=== PATIENT | male | born 1965 | race Caucasian/White ===

== ENCOUNTER 2017-12-20 06:47 | Emergency (ER) | payer MEDICAID, SELFPAY ==
[2017-12-20 06:51] VITALS: BP 126/86; PULSE 118; RESP 23; TEMP 36.7; O2SAT 97; BMI 57.1
[2017-12-20 07:13] LABS: Bacteria 0 SEEN /hpf (None Seen); Mucous, Urine 0 SEEN /hpf (<or=2+); Red Blood Cells-Urine 0 SEEN /hpf (0-5)
[2017-12-20 07:14] LABS: Color, Urine Yellow (Yellow); Glucose, Dipstick 1000 mg/dl (Normal); Ketone-Dipstick Negative (Negative); Leukocyte Esterase-Dipstick 500 /ul (Negative); Nitrite-Dipstick Negative (Negative); Occult Blood-Urine 50 /ul (Negative); Protein-Dipstick 15 mg/dl (Negative); Specific Gravity, Urine 1.015 (1.002-1.030); Urine Bilirubin Dipstick Negative (Negative); Urine Clarity Clear (Clear); Urine Urobilinogen Normal (Normal)
--- NOTE | 2017-12-20 07:18 | ED.VISSUMM ---
- ER Visit Summary Date of Service: 12/20/17 Chief Complaint: Burning with urination and inability to retract foreskin History of Present Illness: The patient is a 52 M for medical problems who presents with urologic symptoms of burning and redness of the foreskin. He states he is unable to retract his foreskin. He states he has had problems for 2 months. He informed his PCP and he claims that she thought this was funny. He denies any fever, chills night sweats. He does not check his blood sugars. He denies history of sexually transmitted disease. He states he has not been sexually active for some time. He denies any GI symptoms. After initial H&P he states he is having trouble breathing and would like an aerosol treatment. Please read written note for complete detail Physical Examination: It is morbidly obese with a BMI of 57. Vital signs are remarkable for a heart rate of 118 the rest rate of 23. Head is atraumatic normocephalic. Pupils are equal round reactive. Extraocular muscles are intact. TMs are pearly white with landmarks noted. Nares patent with no drainage. Posterior pharynx without erythema or exudate. Uvula is midline. There is no dysphonia or dysphasia. Trachea is midline. There is no stridor with auscultation of the neck. Heart is regular without murmur, gallop or rub. Lungs revealed diminished breath sounds which may be secondary to body habitus. There was no wheezing with expiration. Abdomen is soft prominent. exam reveals a phimosis with ulcerative lesions noted and erythema irritation and skin breakdown. Testes are descended bilaterally. There is no testicular out of the penis tenderness. There is no inguinal mass. Unable to retract the foreskin and unable to see the urethra or any part of the glans penis. Lower extremity exam is remarkable for venous stasis dermatitis. Patient is depressed and embarrassed regarding his presentation. Test Results: CBC is normal. BMP is remarkable for glucose of 443 with a normal CO2 and anion gap. UA reveals pyuria without bacteria. There is also evidence of proteinuria and hematuria most likely secondary to his diabetes/renal disease. Emergency Department Course and Treatment: UA was ordered per protocol by nursing staff. Because he does not check his blood sugars a BMP was obtained as well as a CBC. Culture for herpes simplex was obtained and he was treated with acyclovir. Dr. Mario Nolan was notified of patient. He states he would see patient and either do a dilation or slit so that he is able to retract his foreskin. Treatment Plan: Bacitracin ointment to foreskin, acyclovir and cephalexin. Disposition: To be discharged home after blood sugars reassessed. Impression: 1. Hyperglycemia in type II diabetic 2. Phimosis 3. Balanitis 4. Morbid obesity 5. Painful ulcerative lesions for skin question etiology This note was generated with [employer] dictation software. It may contain incorrect words, spelling, and punctuation that were not noted in review of the chart prior to signing ED Disposition - Plan for ED Patient: Disposition: Home or Assisted Living Chief Complaint: Complaint Instructions: ED Phimosis, ED Balanitis, ED Hyperglycemia Diabetic Prescriptions: Acyclovir 800 mg PO 5X/DAY #35 tab Cephalexin [Keflex] 500 mg PO BID #14 cap Referrals: Anthony Marks DO [STAFF PHYSICIAN] - 1-2 Weeks Gerson Heaton MD [STAFF PHYSICIAN] - 1 Week Additional Instructions: Applied bacitracin ointment 3 times a day to your foreskin. Call Dr. Mario Solis's office on Friday to be seen in the week to schedule surgery You were referred to Dr. Anthony Marks to follow-up with for your diabetes and other medical problems Your prescriptions were electronically transmitted to [facility] pharmacy; the pharmacy you designated as your pharmacy of choice
[2017-12-20 07:20] LABS: Squamous Epithelial Cells - UA 0-5 SEEN /hpf (0-5); White Blood Cells 50-100 SEEN /hpf (0-5)
[2017-12-20] MEDS: Ipratropium/Albuterol Sulfate 3 ML AMPUL.NEB INHALATION (07:26)
[2017-12-20] MEDS: Albuterol 2.5 MG/3 ML VIAL.NEB. INHALATION (07:26)
[2017-12-20 07:27] VITALS: PULSE 111; RESP 18
[2017-12-20 07:29] LABS: Absolute Lymphocyte Count 1.37 X10^3/ul (0.83-4.51); Absolute Neutrophil Count 3.1 X10^3/uL (2.0-7.7); Basophil# 0.01 X10^3/uL; Basophil% 0.2 % (0-1); Eosinophil# 0.08 X10^3/uL; Eosinophils% 1.4 % (0-5); Hematocrit 46.7 % (40-54); Hemoglobin 15.6 g/dl (13.0-16.5); Lymphocyte # 1.37 X10^3/ul (4.0); Lymphocyte % 24.8 % (19-41); Mean Corp Hgb Conc 33.4 g/gl (32-36); Mean Corpuscular Hgb 29.9 pg (27.0-32.0); Mean Corpuscular Volume 89.6 fL (80-94); Mean Platelet Vol. 11.2 fl (6.2-12.0); Monocyte# 0.98 X10^3/uL; Monocyte% 17.8 % (0-10); Neutrophil # 3.06 X10^3/uL (2.7-7.7); Neutrophil % 55.4 % (47-70); Platelet Count 174 K/mm3 (150-450); RBC Distribution Width CV 13.7 % (11.6-14.6); RBC Distribution Width SD 45.3 fl (35.1-43.9); Red Blood Count 5.21 M/mm3 (4.6-6.2); White Blood Count 5.5 K/mm3 (4.4-11.0)
[2017-12-20 07:30] LABS: POSITIVE COUNT NO; POSITIVE DIFFERENTIAL NO; POSITIVE MORPHOLOGY NO
[2017-12-20 07:40] LABS: Anion Gap 7 (5-15); BUN 12 mg/dL (7-18); BUN/Creat Ratio 14.7 RATIO (10-20); Calcium,Total 8.6 mg/dL (8.5-10.1); Chloride 99 mmol/L (98-107); Creatinine, Serum 0.82 mg/dL (0.70-1.30); EST Glomerular Filtration Rate 106 mL/min (>60); Est Glom Filt Rate - Afr Amer 128 mL/min (>60); Estimated Creatinine Clearance 111.28 ml/min; Glucose 443 mg/dL (74-106); Potassium 4.4 mmol/L (3.5-5.1); Sodium Level 136 mmol/L (136-145)
--- NOTE | 2017-12-20 07:42 | PCM.CONS.U ---
Problem List (1) Phimosis Status: Acute Reason for Consult Date of Consultation: 12/20/17 Reason for Consultation: phimosis History of Present Illness: The patient is a 52 year old male with phimosis, has sever burning with urination but is able to void. cant retract foreskin for the last 6 months. no fever or chills, he is a diabetic, obese male. Past Medical History Past Medical History (Chronic Problems): Chronic Problems Morbid obesity with BMI of 60.0-69.9, adult (Chronic) Morbid obesity due to excess calories (Chronic) Tobacco use (Chronic) Depression (Chronic) GERD (gastroesophageal reflux disease) (Chronic) HTN (hypertension) (Chronic) Diabetes mellitus, type II (Chronic) Allergies hydrocodone bitartrate [From Antoine] Allergy (Mild, Verified 12/20/17 06:55) Hives acetaminophen [From Antoine] Allergy (Verified 12/20/17 06:55) Hives ibuprofen Allergy (Verified 12/20/17 06:55) Swelling vancomycin Allergy (Verified 12/20/17 06:55) Itching metformin Adverse Reaction (Verified 12/20/17 06:55) Upset Stomach Home Medications: Ambulatory Orders Medication Instructions Recorded Bupropion HCl [Bupropion HCl Sr] 100 mg PO BID 04/14/17 Cholecalciferol (Vitamin D3) 50,000 unit PO FR 04/14/17 [Vitamin D3] Fluticasone/Vilanterol [Breo 1 puff IH DAILY 04/14/17 Ellipta 200-25 Mcg INH] Lisinopril [Zestril] 20 mg PO DAILY 04/14/17 Omeprazole [Prilosec] 20 mg PO DAILY 04/14/17 Fluconazole 150 mg PO DAILY 07/20/17 Liraglutide [Victoza] 0.6 - 1.2 mg IN DAILY 07/20/17 Albuterol Aerosols [Ventolin 2.5 mg INHALATION 4X/DAY #1 07/22/17 Aerosols] Cephalexin [Keflex] 500 mg PO TID #24 capsule 07/22/17 Glimepiride [Amaryl] 8 mg PO DAILY #60 tablet 07/22/17 Oxycodone [Oxyir] 5 mg PO Q4H PRN PRN #20 tablet 07/22/17 Surgical History: noncontributory, - - Foot surgery. Psychiatric History: Depression Smoking Status: Current every day smoker - *Family History Maternal History Items: No pertinent history Paternal History Items: No pertinent history Review of Systems Constitutional: Denies: Chills, Fever HEENT: Denies: Head Aches, Sinus Congestion, Sinus Drainage Cardiovascular: Denies: Chest Pain, Palpitations Respiratory: Denies: Cough, Shortness of breath at rest, Sputum production Gastrointestinal: Denies: Abdominal Pain, Nausea, Vomiting Genitourinary: Reports: Dysuria, Frequency Musculoskeletal: Denies: Joint Pain, Joint Tenderness Skin: Denies: Rash, Wounds Neurological: Denies: Numbness, Tingling, Focal weakness Psychiatric: Denies: Anxiety, Depression, Homicidal Ideations, Suicidal Ideations Hematologic/ Lymphatic: Denies: Easy Bruising, Easy Bleeding Physical Exam - Physical Exam Vital Signs Temp 98.1 F 12/20/17 06:51 Pulse 111 H 12/20/17 07:27 Resp 18 12/20/17 07:27 BP 126/86 H 12/20/17 06:51 Pulse Ox 97 12/20/17 06:51 Intake & Output 12/18/17 12/19/17 12/20/17 23:59 23:59 23:59 Weight: 180.6 kg General: Alert, Oriented x3 Neck: Supple Lungs: Normal air movement Abdomen: Obese Rectal: Exam deferred Testicle: Right Normal, Left Normal Scrotum: No lesions, No warts Penis: Phimosis, Discharge, - - has balanitis inflammation and phimosis of foreskin Neurological: Cranial nerves II-XII grossly intact Psych/Mental Status: Normal Affect Laboratory Tests Past 24 Hrs 12/20/17 12/20/17 12/20/17 07:00 07:17 07:17 WBC 5.5 RBC 5.21 Hgb 15.6 Hct 46.7 MCV 89.6 MCH 29.9 MCHC 33.4 RDW 13.7 RDW Differential 45.3 H Plt Count 174 MPV 11.2 Immature Gran % (Auto) 0.400 Neut % (Auto) 55.4 Lymph % (Auto) 24.8 [place] % (Auto) 17.8 H Eos % (Auto) 1.4 Baso % (Auto) 0.2 Absolute Neuts (auto) 3.1 Absolute Lymphs (auto) 1.37 Total Counted Not Reportable Sodium 136 Potassium 4.4 Chloride 99 Carbon Dioxide 30.0 Anion Gap 7 BUN 12 Creatinine 0.82 Estim Creat Clear Calc 111.28 Est GFR (MDRD) Af Amer 128 Est GFR (MDRD) Non-Af 106 BUN/Creatinine Ratio 14.7 Glucose 443 H Calcium 8.6 Urine Color Yellow Urine Clarity Clear Urine pH 6.0 Ur Specific [place] 1.015 Urine Protein 15 H Urine Glucose (UA) 1000 H Urine Ketones Negative Urine Occult Blood 50 H Urine Nitrite Negative Urine Bilirubin Negative Urine Urobilinogen Normal Ur Leukocyte Esterase 500 H Urine RBC 0 SEEN Urine WBC 50-100 SEEN Ur Squamous Epith Cells 0-5 SEEN Urine Bacteria 0 SEEN Urine Mucus 0 SEEN Assessment/Plan Active and Suspected Problems Phimosis (Acute) 52 yo male with phimosis, obesitiy, diabetic with balanitis possible HSV of foreskin, home with acyclovir, topical bacitracin, OTZ Azo may help. Keflex. Can follow up for a circumcision at a later date.
[2017-12-20] MEDS: Acyclovir 800 MG Tablet PO (07:43)
[2017-12-20] MEDS: Ondansetron 4 MG/2 ML Vial IV (07:43)
[2017-12-20] MEDS: Cephalexin 500 MG Capsule PO (07:52)
--- NOTE | 2017-12-20 09:00 | ED.VISSUMM ---
- ER Visit Summary Date of Service: 12/20/17 Chief Complaint: [] History of Present Illness: The patient is a 52 M [] Physical Examination: [] Test Results: [] Emergency Department Course and Treatment: [] Treatment Plan: [] Disposition: [] Impression: [] This note was generated with [employer] dictation software. It may contain incorrect words, spelling, and punctuation that were not noted in review of the chart prior to signing ED Disposition - Plan for ED Patient: Disposition: Home or Assisted Living Chief Complaint: Complaint Instructions: ED Balanitis, ED Hyperglycemia Diabetic, ED Phimosis Prescriptions: TraMADol [Ultram] 50 mg PO Q4H PRN PRN #10 tablet PRN Reason: Pain Acyclovir 800 mg PO 5X/DAY #35 tab Cephalexin [Keflex] 500 mg PO BID #14 cap Referrals: Gerson Heaton MD [STAFF PHYSICIAN] - 1 Week Anthony Marks DO [STAFF PHYSICIAN] - 1-2 Weeks Additional Instructions: Applied bacitracin ointment 3 times a day to your foreskin. Call Dr. Mario Solis's office on Friday to be seen in the week to schedule surgery You were referred to Dr. Anthony Marks to follow-up with for your diabetes and other medical problems Your prescriptions were electronically transmitted to [facility] pharmacy; the pharmacy you designated as your pharmacy of choice
[2017-12-20 09:01] VITALS: BP 129/87; PULSE 91; RESP 20; O2SAT 98
--- NOTE | 2017-12-20 09:01 | ED.RN ---
THIS NURSE REVIEWED D/C INSTRUCTIONS WITH PT. PT VERBALIZED UNDERSTANDING OF INSTRUCTIONS. IV D/C. IV CATHETER INTACT. PT TOLERATED WELL. PT DENIES FURTHER NEEDS OR QUESTIONS AT THIS TIME. PT SITTING IN ROOM WAITING FOR RIDE
--- NOTE | 2017-12-20 09:05 | ED.DCSUM_ITS ---
- ER Visit Summary Date of Service: 12/20/17 Chief Complaint: [] History of Present Illness: The patient is a 52 M [] Physical Examination: [] Test Results: [] Emergency Department Course and Treatment: [] Treatment Plan: [] Disposition: [] Impression: [] This note was generated with [employer] dictation software. It may contain incorrect words, spelling, and punctuation that were not noted in review of the chart prior to signing ED Disposition - Plan for ED Patient: Disposition: Home or Assisted Living Chief Complaint: Complaint Instructions: ED Balanitis, ED Hyperglycemia Diabetic, ED Phimosis Prescriptions: TraMADol [Ultram] 50 mg PO Q4H PRN PRN #10 tablet PRN Reason: Pain Acyclovir 800 mg PO 5X/DAY #35 tab Cephalexin [Keflex] 500 mg PO BID #14 cap Referrals: Gerson Heaton MD [STAFF PHYSICIAN] - 1 Week Anthony Marks DO [STAFF PHYSICIAN] - 1-2 Weeks Additional Instructions: Applied bacitracin ointment 3 times a day to your foreskin. Call Dr. Mario Solis's office on Friday to be seen in the week to schedule surgery You were referred to Dr. Anthony Marks to follow-up with for your diabetes and other medical problems Your prescriptions were electronically transmitted to [facility] pharmacy; the pharmacy you designated as your pharmacy of choice
== END 2017-12-20 09:08 | disposition home or self-care (01) ==
PROVIDERS: Emergency Provider Emergency Medicine; Family Provider Student in an Organized Health Care Education/Training Program; PCP Student in an Organized Health Care Education/Training Program
DX: N47.1 Phimosis (principal); N48.1 Balanitis; A60.01 Herpesviral infection of penis; L98.491 Non-pressure chronic ulcer of skin of other sites limited to breakdown of skin; E66.01 Morbid (severe) obesity due to excess calories; E11.65 Type 2 diabetes mellitus with hyperglycemia; J44.9 Chronic obstructive pulmonary disease, unspecified; F32.9 Major depressive disorder, single episode, unspecified; K21.9 Gastro-esophageal reflux disease without esophagitis; I10 Essential (primary) hypertension; F17.200 Nicotine dependence, unspecified, uncomplicated; Z68.43 Body mass index [BMI] 50.0-59.9, adult; Z79.51 Long term (current) use of inhaled steroids; Z79.891 Long term (current) use of opiate analgesic; Z79.899 Other long term (current) drug therapy
CPT/HCPCS: 80048; 81001; 85025; 87255; 94640; 96374; 96375; 99284; A4216; J2405

== ENCOUNTER 2018-01-01 18:41 | Emergency (ER) | payer MEDICAID, SELFPAY ==
[2018-01-01 18:41] VITALS: BP 167/76; PULSE 102; RESP 20; TEMP 36.6; O2SAT 94; BMI 56.2
--- NOTE | 2018-01-01 19:35 | ED.DCSUM_ITS ---
- ER Visit Summary Date of Service: 01/01/18 Chief Complaint: Back pain History of Present Illness: The patient is a 52 M who presents with back pain. He has a history of chronic back pain. He states that he does not want to beat around the leggett and he does not want to bullshit us. He states that the only thing that works when his pain is the severe is a shot and he just wants to get a shot go home. It is that his pain is exactly the same in character and location to his prior pain but has been more severe over the past 3 days and particularly today. He states he does not know if his legs are weak or if it is just because of pain. He does complain of pain radiating into the legs and into the testicles which he states he has always had before as well. He complains of lower abdominal pain but states that this was because of the trauma and is also chronic and unchanged. He denies any fevers nausea or vomiting. Denies any chest pain or shortness of breath. Physical Examination: Heart rate 102 pressure 167/76 respiratory rate 20 pulse ox 94% on room air Moist mucous membranes Neck supple Heart regular rhythm tachycardia Lungs are clear Abdomen soft nontender Brisk capillary refill Sensation intact light touch Normal strength of the lower extremities with 5 out of 5 dorsiflexion, plantarflexion, extensor hallucis longus, knee flexion, knee extension Bilateral lumbar paraspinal tenderness Morbidly obese Test Results: Not indicated Emergency Department Course and Treatment: Presents with acute on chronic back pain. He is adamant that this is exactly the same in terms of type of pain and location as well as characteristics. He states that he just wants a shot. Patient given intramuscular morphine. Advised to follow-up with his primary care physician. He was instructed on specific signs and symptoms to monitor for and conditions under which to return to the emergency department. Treatment Plan: [] Disposition: Discharge Impression: Acute on chronic lower back pain This note was generated with [employer] dictation software. It may contain incorrect words, spelling, and punctuation that were not noted in review of the chart prior to signing ED Disposition - Plan for ED Patient: Chief Complaint: Back Referrals: Sukhjinder Reynolds DO [Primary Care Provider] -
--- NOTE | 2018-01-01 19:35 | ED.DEP ---
ED Disposition - Plan for ED Patient: Chief Complaint: Back Instructions: ED Sciatica Referrals: Sukhjinder Reynolds DO [Primary Care Provider] -
[2018-01-01] MEDS: Ondansetron ODT 4 MG Tablet PO (19:44)
[2018-01-01 20:10] VITALS: BP 148/111; PULSE 91; RESP 18; O2SAT 95
== END 2018-01-01 20:13 | disposition home or self-care (01) ==
LOC: ED 19:36
PROVIDERS: Emergency Provider Emergency Medicine; Family Provider Student in an Organized Health Care Education/Training Program; PCP Student in an Organized Health Care Education/Training Program
DX: M54.5 Low back pain (principal); G89.29 Other chronic pain; E66.9 Obesity, unspecified; K21.9 Gastro-esophageal reflux disease without esophagitis; E11.9 Type 2 diabetes mellitus without complications; I10 Essential (primary) hypertension; Z72.0 Tobacco use; Z79.84 Long term (current) use of oral hypoglycemic drugs; Z79.51 Long term (current) use of inhaled steroids; Z79.899 Other long term (current) drug therapy
CPT/HCPCS: 96372; 99283

== ENCOUNTER → 2018-01-21 11:37 | Outpatient (CLI) | payer MEDICAID, SELFPAY ==
--- NOTE | 2018-01-21 11:39 | RAD_ITS ---
STUDY: X-RAY - LUMBAR SPINE REASON FOR EXAM: Male, 52 years old. Chronic back pain TECHNIQUE: 2 view(s) of the lumbar spine were obtained. COMPARISON: None FINDINGS: There is normal alignment and curvature of the lumbosacral spine with narrowing of the L4-5 disc space. There is a spur from the anterior superior corner of L4. No fracture. RAD/Lumbar Spine 2 or 3 Views IMPRESSION: Disc disease at L4-5 The anterior superior corner of L4. No fracture Electronically Signed: Jefe Paz, at 5:28 EDT Tel , Service support ,
== END ==
PROVIDERS: Family Provider Student in an Organized Health Care Education/Training Program; PCP Student in an Organized Health Care Education/Training Program; Visit Provider Anesthesiology Pain Medicine
DX: M54.5 Low back pain (principal)
CPT/HCPCS: 72100

== ENCOUNTER → 2018-03-16 15:41 | Outpatient (CLI) | payer MEDICAID, SELFPAY ==
--- NOTE | 2018-03-16 15:46 | MRI_ITS ---
STUDY: MRI LUMBAR SPINE WITHOUT CONTRAST REASON FOR EXAM: Male, 52 years old. Back pain with bilateral leg pain. TECHNIQUE: Standardized fat and water weighted pulse sequences were obtained in the sagittal and axial planes. COMPARISON: None FINDINGS: T12-L1: Normal endplates. Normal disc height, hydration and morphology. Normal bilateral facet joints. Normal central canal and bilateral lateral recesses. Normal bilateral intervertebral neural foramina. Normal lumbar lordosis. There is no substantial scoliosis. Normal conus medullaris that terminates at the L1-2: Normal endplates. Normal disc height, hydration and morphology. Normal bilateral facet joints. Normal central canal and bilateral lateral recesses. Normal bilateral intervertebral neural foramina. L2-3: Mild disc desiccation with no significant spinal canal narrowing or foraminal narrowing. L3-4: Mild decreased disc space and disc desiccation with minimal circumferential disc bulge with no significant spinal canal narrowing or foraminal narrowing. L4-5: Decreased disc space and broad-based disc protrusion with compounding mild facet arthropathy resulting in moderate to severe lateral recess narrowing and moderate bilateral foraminal narrowing. There is moderate spinal canal narrowing and crowding of the cauda equina at this level. L5-S1: Normal endplates. Normal disc height, hydration and morphology. Normal bilateral facet joints. Normal central canal and bilateral lateral recesses. Normal bilateral intervertebral neural foramina. Normal visualized sacral ala. Normal visualized paraspinous soft tissue structures. MRI/Spine Lumbar (Routine) IMPRESSION: 1. Predominant degenerative disc changes and broad-based disc protrusion at L4/5 resulting in moderate spinal canal narrowing, moderate to severe lateral recess narrowing and a moderate bilateral foraminal narrowing, clinically correlate for exiting L4 and descending L5 nerve root radiculopathy. Electronically Signed: John Paul Wynn DO at 22:15 EDT , Service support ,
== END ==
PROVIDERS: Family Provider Student in an Organized Health Care Education/Training Program; PCP Internal Medicine; Visit Provider Anesthesiology Pain Medicine
DX: M54.9 Dorsalgia, unspecified (principal); M79.606 Pain in leg, unspecified
CPT/HCPCS: 72148

== ENCOUNTER → 2018-05-08 09:58 | Outpatient (CLI) | payer MEDICAID, SELFPAY ==
--- NOTE | 2018-05-08 10:00 | NM_ITS ---
CLINICAL: 52-year-old male with reported history of abdominal pain and bloating. SEMI-SOLID PHASE 99m Tc SULFUR COLLOID GASTRIC EMPTYING STUDY COMPARISON: None available FINDINGS: The patient was administered 1.1 mCi of 99m Tc sulfur colloid mixed with oatmeal and consumed per os. Image acquisitions in the anterior-posterior projections for a total of 60 minutes. There is prompt visualization of the stomach. There is no gastroesophageal reflux identified. First order kinetics are defined throughout the duration of the acquisitions. The T1/2 linear fit was calculated to be 94.62 minutes, (Normal: 12-56 minutes). NM/Gastric Emptying Study IMPRESSION: 1. ABNORMAL 99m Tc sulfur colloid semi-solid phase (oatmeal) gastric emptying imaging examination. A. There is delayed semi-solid phase gastric emptying compared to normal controls. (Palmira et al, J Nucl Med Tech 38: 186, 2010). Electronically Signed: Enrique Jamison DO at 8:03 EDT Tel , Service support ,
== END ==
PROVIDERS: Family Provider Student in an Organized Health Care Education/Training Program; PCP Student in an Organized Health Care Education/Training Program; Visit Provider Internal Medicine
DX: E11.9 Type 2 diabetes mellitus without complications (principal)
CPT/HCPCS: 78264; A9541

== ENCOUNTER → 2018-05-26 12:45 | Outpatient (CLI) | payer MEDICAID, SELFPAY ==
[2018-05-26 13:25] LABS: Absolute Lymphocyte Count 2.72 X10^3/ul (0.83-4.51); Absolute Neutrophil Count 3.5 X10^3/uL (2.0-7.7); Basophil# 0.03 X10^3/uL; Basophil% 0.4 % (0-1); Eosinophil# 0.08 X10^3/uL; Eosinophils% 1.1 % (0-5); Hematocrit 50.2 % (40-54); Hemoglobin 17.2 g/dl (13.0-16.5); Lymphocyte # 2.72 X10^3/ul (4.0); Lymphocyte % 37.5 % (19-41); Mean Corp Hgb Conc 34.3 g/gl (32-36); Mean Corpuscular Hgb 29.9 pg (27.0-32.0); Mean Corpuscular Volume 87.2 fL (80-94); Mean Platelet Vol. 11.8 fl (6.2-12.0); Monocyte# 0.92 X10^3/uL; Monocyte% 12.7 % (0-10); Neutrophil # 3.48 X10^3/uL (2.7-7.7); Neutrophil % 47.9 % (47-70); POSITIVE COUNT NO; POSITIVE DIFFERENTIAL NO; POSITIVE MORPHOLOGY NO; Platelet Count 217 K/mm3 (150-450); RBC Distribution Width CV 13.6 % (11.6-14.6); RBC Distribution Width SD 43.3 fl (35.1-43.9); Red Blood Count 5.76 M/mm3 (4.6-6.2); White Blood Count 7.3 K/mm3 (4.4-11.0)
[2018-05-26 13:47] LABS: Hemoglobin A1c 10.6 % (4.2-6.3)
[2018-05-26 13:48] LABS: Microalbumin,Random Urine 21.4 mg/L (NO RANGE EST.); Microalbumin:Creatinine Ratio 14.5 mg/g CRE (<30 mg/g CRE)
[2018-05-26 14:32] LABS: ALB/GLOB Ratio 0.9 RATIO (0.9-2.4); AST(SGOT) 23 U/L (15-37); Alanine Aminotransfer ALT/SGPT 52 U/L (16-61); Albumin, Serum 3.6 g/dL (3.2-5.0); Alkaline Phosphatase 180 U/L (45-117); Anion Gap 7 (5-15); BUN 13 mg/dL (7-18); BUN/Creat Ratio 16.6 RATIO (10-20); Calcium,Total 8.3 mg/dL (8.5-10.1); Chloride 99 mmol/L (98-107); Cholesterol 173 mg/dL (200); Creatinine, Serum 0.78 mg/dL (0.70-1.30); EST Glomerular Filtration Rate 111 mL/min (>60); Est Glom Filt Rate - Afr Amer 135 mL/min (>60); Glucose 262 mg/dL (74-106); High Density Lipoprotein 38 mg/dL; Potassium 4.1 mmol/L (3.5-5.1); Protein, Total 7.6 g/dL (6.4-8.2); Sodium Level 135 mmol/L (136-145); Triglycerides 139 mg/dL; Very Low Density Lipoprotein 28 mg/dL (5-40)
== END ==
PROVIDERS: Family Provider Internal Medicine; PCP Internal Medicine; Visit Provider Internal Medicine
DX: E11.9 Type 2 diabetes mellitus without complications (principal); I10 Essential (primary) hypertension; J44.9 Chronic obstructive pulmonary disease, unspecified; J45.909 Unspecified asthma, uncomplicated
CPT/HCPCS: 36415; 80053; 80061; 82043; 82570; 83036; 85025

== ENCOUNTER 2018-06-05 13:30 | Outpatient (RCR) | payer MEDICAID, SELFPAY ==
--- NOTE | 2018-02-09 19:14 | HP.PTEVAL ---
Patient's Visit Information PAIGE DHALIWAL is a 52 year old M referred to Physical Therapy by Sarika MENDENHALL with a diagnosis of BACK AND LEG PAIN. Date of Evaluation: 02/09/18 Physical Therapist: Titi Thorpe, PT, - Visit Plan Frequency: 2x /Week Duration: 4 Weeks Plan: Aquatic PT for lumbar ROM ,strengthening,DLS ,postural ex's,flexablity,conditioning - Subjective Subjective: This 52 y/o male presents to physical therapy with back pain and leg pain for many years. Patient had injury 2010 at work steel fell on patient caused multiple medical problems. Patient had prior PT from injury Rehab. Also had prior PT. Symptoms located L-S region. to buttuck -hams bilateral. Symptoms decribed as ache stabbing pain. Symptoms worse lifting ,walking,standing 5min,sitting,ifting,bending. Symptoms better with heat. Bowel/bladder -.Pain affects sleeping. Sneezing/coughing can increase symptoms. Pain affects quality of life ADL'S, and function. VOCATION: disablity. SOCAIL: lives with mother - Pain Bilateral Back Pain Intensity (Out of 10): 4 Pain Intensity Range: 10 Bilateral Lower Extremity Pain Intensity (Out of 10): 4 Pain Intensity Range: 10 Comment: buttucks-hams - Objective POSTURE: mild foward posture,hips /knees flexed. GAIT: mild foward posture slow cadnece antalgic gait. NEURO:denies parathesia/tingling,redflexes L3-4,L5-S1,L4 -L5 1/3. SYMMTRIES: align. PALAPTION: tender throughout paraspinals. MMT: quads/hams/hip flexion 4-/5,ankle 4/5. LUMBAR ROM: flexion mod loss,extension severe loss,side glides mod loss. FLEXABLITY: hams mod tight. TA ACT POOR - Special Tests L/S Slump test left side: Negative L/S Slump test right side: Negative L/S Left Straight Leg Raise: Negative L/S Right Straight Leg Raise: Negative Lumbar Standing: Flexion - Mechanical Response: No effect Lumbar Standing: Flexion - Symptoms During Testing: Increases Lumbar Standing: Flexion - Symptoms After Testing: Worse Lumbar Standing: Extension - Mechanical Response: No effect Lumbar Standing: Extension - Symptoms During Testing: Increases Lumbar Standing: Extension - Symptoms After Testing: Worse Lumbar Standing: Right Side Glides - Mechanical Response: No effect Lumbar Standing: Right Side [place] - Symptoms During Testing: Increases Lumbar Standing: Right Side [place] - Symptoms After Testing: Worse Lumbar Standing: Left Side [place] - Mechanical Response: No effect Lumbar Standing: Left Side [place] - Symptoms During Testing: Increases Lumbar Standing: Left Side [place] - Symptoms After Testing: Worse - Goals Goal 1:: Patient to be Independant with Aquatic PT Goal Time Frame: 4-6 Weeks Goal 2:: Patient to be Independant with managing back pain with improve posture 80 % of the time. Goal Time Frame: 4-6 Weeks Goal 3:: Patient to decrease lumbar and leg pain by 50% or greater to improve function with walking and standing Goal Time Frame: 4-6 Weeks Goal 4:: Patient to improve lumbar ROM for function of recovery Goal Time Frame: 4-6 Weeks Goal 5:: Patient be able to perform ADL'S and housework tasks with min limiations with walking and standing Goal Time Frame: 4-6 Weeks - Rehabilitation Potential Physical Therapy Diagnosis: This patient has multiple comormidities along with lumbar pain with radicular symptoms in legs with poor ROM ,pain ,decrease strength impairs function with ADL'S -standing walking Rehabilitation Potential: Fair - Anticipated Interventions Patient/Client Instruction: Educate patient on: Condition, Plan of Care For the Purpose of:: To decrease pain, To increase ROM, To improve muscle performance and motor function, To increase tolerance to activity/condition/position, To improve ability of physical actions for home/community/work/leisure, To improve health of tissue, To decrease soft tissue restriction, To increase flexibility/ROM, To improve ability to perform tasks related to life management Therapeutic Exercise to Include: Strength training, Postural training, Flexibilty training, In an aquatic setting, Dynamic Lumbar Stabilization For the Purpose of:: To decrease pain, To increase ROM, To improve muscle performance and motor function, To improve ability to perform ADL's, To increase tolerance to activity/condition/position, To improve performance and independence with ADL's, To improve ability of physical actions for home/community/work/leisure, To improve health of tissue, To decrease soft tissue restriction, To increase flexibility/ROM, To reduce risk of recurrence, To improve ability to perform tasks related to life management Thank you for the opportunity to evaluate your patient. For Medicare and Medicare HMO plans, please review the plan of care and approve it. It will need to be FAXED BACK to us at [phone] for Medicare purposes. Please let me know if there are questions or concerns regarding this plan of care. Physician Signature: Date:
--- NOTE | 2018-07-23 12:36 | HP.PTDCNRP_ITS ---
HP - Discharge Summary (1) - Patient Information PAIGE DHALIWAL was seen in my office for initial evaluation on 02/09/18. The following Plan of Care was established for this patient: Initial Frequency: 2x /Week Initial Duration: 4 Weeks - Anticipated Interventions Patient/Client Instruction: Educate patient on: Condition, Plan of Care For the Purpose of:: To decrease pain, To increase ROM, To improve muscle performance and motor function, To increase tolerance to activity/condition/ position, To improve ability of physical actions for home/community/work/leisure , To improve health of tissue, To decrease soft tissue restriction, To increase flexibility/ROM, To improve ability to perform tasks related to life management Therapeutic Exercise to Include: Strength training, Postural training, Flexibilty training, In an aquatic setting, Dynamic Lumbar Stabilization For the Purpose of:: To decrease pain, To increase ROM, To improve muscle performance and motor function, To improve ability to perform ADL's, To increase tolerance to activity/condition/position, To improve performance and independence with ADL's, To improve ability of physical actions for home/ community/work/leisure, To improve health of tissue, To decrease soft tissue restriction, To increase flexibility/ROM, To reduce risk of recurrence, To improve ability to perform tasks related to life management This patient was last seen in our office 06/05/18. Pertinent comments regarding their Physical therapy will appear below: This patient seen for Aquatic PT for back and leg pain focusing on DLS,POSTURE, FLEABLITY,STRENGTHENING. Thus patient is d/c. At this point I will be discontinuing this patient from physical therapy. I would be happy to see this patient again in the future if found appropriate by the physician. Thank you! Titi Thorpe, PT,
== END 2018-06-05 19:00 | disposition home or self-care (01) ==
LOC: PT 13:30
PROVIDERS: Family Provider Student in an Organized Health Care Education/Training Program; PCP Student in an Organized Health Care Education/Training Program; Visit Provider Anesthesiology Pain Medicine
DX: M54.9 Dorsalgia, unspecified (principal); M79.606 Pain in leg, unspecified
CPT/HCPCS: 97110; 97113; 97162; 97530

== ENCOUNTER → 2018-07-22 08:41 | Outpatient (CLI) | payer MEDICAID, SELFPAY ==
[2018-07-22 08:50] VITALS: PULSE 101; PULSE 102; PULSE 106; PULSE 84; PULSE 96; PULSE 98; PULSE 99; O2SAT 93; O2SAT 94; O2SAT 95; O2SAT 96
--- NOTE | 2018-07-22 13:00 | PCM.PSN.6M ---
PSN 6 Minute Walk Test - 6 Minute Walk Test 6 Minute Walk Test: 6 Minute Walk Test PSN:6-Minute Walk Test Start: 07/22/18 10:12 Freq: Status: Active Protocol: [id number] Document 07/22/18 08:50 [facility] (Rec: 07/22/18 10:16 [facility] [id number]) 6 Minute Walk Test Date Performed 07/22/18 Time Performed 08:50 Height 5 ft 10 in Weight: 371 lb Weight in Pounds [address]: Kem Hartman Assistive device used: None Pre-test Oxygen Delivery Method Room Air Pulse Ox (%) 95 Pulse Rate (60-100 beats/min) 102 H Dyspnea Rodriguez Scale (0-10) 0 Exertion Rdoriguez Scale (6-20) 6 1st minute Oxygen Delivery Method Room Air Pulse Ox (%) 93 Pulse Rate (60-100 beats/min) 98 Number of Rests Taken 0 2nd minute Oxygen Delivery Method Room Air Pulse Ox (%) 94 Pulse Rate (60-100 beats/min) 101 H Number of Rests Taken 0 3rd minute Oxygen Delivery Method Room Air Pulse Ox (%) 93 Pulse Rate (60-100 beats/min) 84 Number of Rests Taken 0 4th minute Oxygen Delivery Method Room Air Pulse Ox (%) 95 Pulse Rate (60-100 beats/min) 99 Number of Rests Taken 0 5th minute Oxygen Delivery Method Room Air Pulse Ox (%) 93 Pulse Rate (60-100 beats/min) 96 Number of Rests Taken 0 6th minute Oxygen Delivery Method Room Air Pulse Ox (%) 96 Pulse Rate (60-100 beats/min) 106 H Number of Rests Taken 0 Post-test Oxygen Delivery Method Room Air Pulse Ox (%) 94 Pulse Rate (60-100 beats/min) 99 Dyspnea Rodriguez Scale (0-10) 3 Exertion Rodriguez Scale (6-20) 12 Number of Rests Taken 0 Full Laps Walked 12 Partial Lap, Number of Tiles Walked 18 Total Distance Walked (ft) 726 - Interpretation Interpretation: The patient ambulated 726 feet over the course of 6 minutes beginning on room air without assistive devices or breaks. Pretesting oxygen saturation was noted to be 95% on room air. With ambulation, the ming oxygen saturation was 93%. Although there was evidence of impaired walk distance, there was no significant exertional oxygen desaturation. - Recommendations Recommendations: There is no indication for the use of supplemental oxygen at this time.
== END ==
PROVIDERS: Family Provider Internal Medicine; PCP Internal Medicine; Visit Provider Internal Medicine Critical Care Medicine
DX: J44.9 Chronic obstructive pulmonary disease, unspecified (principal)
CPT/HCPCS: 94618

== ENCOUNTER 2018-07-23 12:52 | Day surgery (SDC) | payer MEDICAID, SELFPAY ==
[2018-07-23 13:21] VITALS: BP 150/80; PULSE 91; RESP 16; TEMP 36.3; O2SAT 94; BMI 53.0
--- NOTE | 2018-07-23 14:00 | RAD_ITS ---
STUDY: X-RAY - LUMBAR SPINE REASON FOR EXAM: Male, 52 years old. L4-L5 epidural block. TECHNIQUE: Single coned-down view(s) of the lumbar spine was obtained. COMPARISON: None FINDINGS: Intraoperative fluoroscopic services provided for epidural block. The image is nondiagnostic. RAD/Spine 1 View Any Level IMPRESSION: Intraoperative fluoroscopic services provided for L4-L5 epidural block. The image is nondiagnostic. Electronically Signed: Cornell Baker MD at 8:29 EDT Tel [phone], Service support ,
[2018-07-23] MEDS: Triamcinolone Acetonide 40 MG/ML Vial (14:24)
[2018-07-23 14:38] VITALS: BP 143/100; BP 150/80; PULSE 97; RESP 16; TEMP 36.8; O2SAT 96
[2018-07-23 14:43] VITALS: BP 150/80; BP 151/96; PULSE 91; RESP 16; O2SAT 96
[2018-07-23 14:48] VITALS: BP 135/84; BP 150/80; PULSE 100; RESP 16; O2SAT 97
[2018-07-23 14:53] VITALS: BP 150/80; BP 152/87; PULSE 89; RESP 16; TEMP 36.4; O2SAT 95
[2018-07-23 15:04] VITALS: BP 150/80
[2018-07-24 07:45] LABS: Bedside Glucose 268 mg/dL (70-110)
== END 2018-07-23 15:12 | disposition home or self-care (01) ==
LOC: SDC 12:53 → AC 12:54
PROVIDERS: Family Provider Internal Medicine; PCP Internal Medicine; Visit Provider Anesthesiology Pain Medicine
PROC: 3E0S3BZ Introduction of Anesthetic Agent into Epidural Space, Percutaneous Approach (ICD-10-PCS; CPT 62322; principal; 2018-07-23 13:55)
DX: M51.17 Intervertebral disc disorders with radiculopathy, lumbosacral region (principal); E11.9 Type 2 diabetes mellitus without complications; I10 Essential (primary) hypertension; E66.01 Morbid (severe) obesity due to excess calories; K21.9 Gastro-esophageal reflux disease without esophagitis; E78.00 Pure hypercholesterolemia, unspecified; F32.9 Major depressive disorder, single episode, unspecified; F17.200 Nicotine dependence, unspecified, uncomplicated; G47.30 Sleep apnea, unspecified; J45.909 Unspecified asthma, uncomplicated; J44.9 Chronic obstructive pulmonary disease, unspecified; Z99.81 Dependence on supplemental oxygen; Z68.43 Body mass index [BMI] 50.0-59.9, adult; Z79.84 Long term (current) use of oral hypoglycemic drugs; Z79.51 Long term (current) use of inhaled steroids; Z79.899 Other long term (current) drug therapy
CPT/HCPCS: 01992; 62323; 64520; 64483; 72020; 82962; J7120

== ENCOUNTER → 2018-08-04 13:14 | Outpatient (CLI) | payer MEDICAID, SELFPAY ==
[2018-08-04 13:54] LABS: Hemoglobin A1c 10.9 % (4.2-6.3)
[2018-08-04 13:58] LABS: Microalbumin:Creatinine Ratio 13.7 mg/g CRE (<30 mg/g CRE)
[2018-08-04 14:07] LABS: Anion Gap 5 (5-15); BUN 17 mg/dL (7-18); BUN/Creat Ratio 22.1 RATIO (10-20); Calcium,Total 8.7 mg/dL (8.5-10.1); Chloride 100 mmol/L (98-107); Creatinine, Serum 0.77 mg/dL (0.70-1.30); EST Glomerular Filtration Rate 114 mL/min (>60); Est Glom Filt Rate - Afr Amer 137 mL/min (>60); Glucose 263 mg/dL (74-106); Potassium 4.4 mmol/L (3.5-5.1); Sodium Level 136 mmol/L (136-145)
== END ==
PROVIDERS: Family Provider Internal Medicine; PCP Internal Medicine; Referring Provider Internal Medicine; Visit Provider Internal Medicine
DX: E11.9 Type 2 diabetes mellitus without complications (principal); E55.9 Vitamin D deficiency, unspecified
CPT/HCPCS: 36415; 80048; 82043; 82306; 82570; 83036

== ENCOUNTER → 2018-08-17 06:43 | Outpatient (CLI) | payer MEDICAID, SELFPAY ==
--- NOTE | 2018-08-17 13:32 | PFT ---
INTRODUCTION: The patient is a 52-year-old male that presents for pulmonary function testing secondary to a diagnosis of COPD. Respiratory therapy reports good patient effort. Bronchodilators were used during testing. INTERPRETATION: Forced expiration spirometry demonstrates the presence of a very severe large airways obstructive ventilatory defect. There was a significant response to aerosolized bronchodilators. Spirograms are of good quality and do not plateau indicating slow emptying of the lungs. Body plethysmography was performed and reveals a decreased TLC to 5.2 L, 76% of predicted, indicative of a mild restrictive ventilatory impairment. RV is increased to 130% of predicted, indicative of underlying air trapping. Diffusing capacity by single breath CO is mildly reduced at 69% of predicted. IMPRESSION: These pulmonary function studies demonstrate the presence of a partially reversible very severe mixed ventilatory defect with associated air trapping and mild reduction in diffusing capacity.
== END ==
PROVIDERS: Family Provider Internal Medicine; PCP Internal Medicine; Visit Provider Internal Medicine Critical Care Medicine
DX: J44.9 Chronic obstructive pulmonary disease, unspecified (principal)
CPT/HCPCS: 94060; 94726; 94729

== ENCOUNTER 2018-09-25 01:32 | Emergency (ER) | payer MEDICAID, SELFPAY ==
[2018-09-25 01:33] VITALS: PULSE 113; RESP 20; TEMP 37.2; O2SAT 98; BMI 52.8
--- NOTE | 2018-09-25 01:47 | ED.DCSUM_ITS ---
- ER Visit Summary Date of Service: 09/25/18 Chief Complaint: Bleeding from umbilicus History of Present Illness: The patient is a 52 M who noticed bleeding from his umbilicus yesterday morning. The bleeding subsided he wants to make sure everything is okay. He has no abdominal pain nausea vomiting or diarrhea. Physical Examination: Otherwise unremarkable exam, morbidly obese male with a BMI of 52, there is a small umbilical hernia there is desquamation of the skin which is already starting to granulate with pink granulation tissue. No signs of infection. Abdomen is soft and nontender other than the area around his umbilical hernia. Emergency Department Course and Treatment: Patient appears well, there is no signs and infection, he is also on Bactrim for an ear infection from his ear nose and throat doctor, the bleeding has subsided, I do not see any signs of active bleeding. He was reassured. He will be discharged in stable condition Discharge stable condition Impression: Umbilical bleeding This note was generated with medidametric[employer] dictation software. It may contain incorrect words, spelling, and punctuation that were not noted in review of the chart prior to signing ED Disposition - Plan for ED Patient: Disposition: Home or Assisted Living Chief Complaint: Wound Instructions: Wound Care Referrals: Arlene Salas MD [Primary Care Provider] - 3-5 Days
[2018-09-25 01:57] VITALS: RESP 18
== END 2018-09-25 01:59 | disposition home or self-care (01) ==
LOC: ED 01:54
PROVIDERS: Emergency Provider Emergency Medicine; Family Provider Internal Medicine; PCP Internal Medicine
DX: R58 Hemorrhage, not elsewhere classified (principal); E66.01 Morbid (severe) obesity due to excess calories; Z68.43 Body mass index [BMI] 50.0-59.9, adult; Z72.0 Tobacco use
CPT/HCPCS: 99282

== ENCOUNTER 2018-10-09 00:31 | Emergency (ER) | payer MEDICAID, SELFPAY ==
[2018-10-09 00:32] VITALS: BP 177/108; PULSE 101; RESP 18; TEMP 36.5; O2SAT 97; BMI 52.0
--- NOTE | 2018-10-09 00:48 | RAD_ITS ---
HISTORY: HEARD A POP IN RT SHOULDER. C/O RT SHOULDER PAIN WITH LIMITED ROM COMPARISON: None FINDINGS: XR Shoulder 4 views No fracture, dislocation, or bony abnormality. The glenohumeral relationship appears normal. The right AC joint is preserved. No soft tissue calcifications. RAD/Shoulder min 2 Views IMPRESSION: Negative for fracture or acute osseous abnormality. at 0120 Reported and signed by: Bernardo Neves MD Electronically Signed: Bernardo Neves, at 1:18 EST Tel , Service support ,
--- NOTE | 2018-10-09 01:35 | ED.DCSUM_ITS ---
- ER Visit Summary Date of Service: 10/09/18 Chief Complaint: Right shoulder pain History of Present Illness: The patient is a 52 M who presents with right shoulder pain. It began about 2 days ago. He has been doing some remodeling. He states that a mattress was pushed against his shoulder he began to have some pain. Last night he was moving a piece of plywood board and felt a pop and has had increased pain since that time. No paresthesias weakness loss of function. No other injuries. He states that he always has chest pain or shortness of breath but that this is not new or different than normal. Physical Examination: Afebrile blood pressure 177/108 heart rate 101 No distress Heart regular rate and rhythm Lungs clear Patient has painful passive range of motion of the right shoulder no deformity normal sensation to light touch brisk capillary refill active full range of motion of the elbow and wrist without pain Test Results: Right shoulder x-ray is negative no fracture Emergency Department Course and Treatment: Patient advised on supportive care. He states that he cannot tolerate anti-inflammatories due to an adverse effect of scrotal edema. He was given tramadol. He was given a prescription for short course of the same. He was advised to follow-up with his primary care physician. He was advised of possible need for further outpatient workup should symptoms continue. Treatment Plan: [] Disposition: Discharge Impression: Acute right shoulder sprain This note was generated with [employer] dictation software. It may contain incorrect words, spelling, and punctuation that were not noted in review of the chart prior to signing ED Disposition - Plan for ED Patient: Chief Complaint: Upper Extremity Injury Referrals: Arlene Salas MD [Primary Care Provider] -
--- NOTE | 2018-10-09 01:35 | ED.DEP ---
ED Disposition - Plan for ED Patient: Chief Complaint: Upper Extremity Injury Instructions: ED Sprain Shoulder Prescriptions: traMADol [Ultram] 50 mg PO Q6H PRN 3 Days #12 tab PRN Reason: Pain Referrals: Arlene Salas MD [Primary Care Provider] -
[2018-10-09] MEDS: traMADol 50 MG Tablet PO (01:46)
[2018-10-09 01:47] VITALS: RESP 18
--- OUTSIDE RECORDS SUMMARY | 2018-12-04 00:25 | XMS RPT_ITS ---
:1965 Author Organization OHIP Support Name Relationship Address Phone D Unavailable Unavailable Unavailable SINNETT, MICHAEL Unavailable [id number] [place] [address] D Unavailable Unavailable Unavailable SINNETT, MICHAEL Unavailable [address] [place] [address] D Unavailable Unavailable Unavailable SINNETT, MICHAEL Unavailable [address] [place] [address] D Unavailable Unavailable Unavailable SINNETT, MICHAEL Unavailable [address] [place] [address] D Unavailable Unavailable Unavailable SINNETT, MICHAEL Unavailable [address] [place] [address] D Unavailable Unavailable Unavailable SINNETT, MICHAEL Unavailable [address] [place] [address] D Unavailable Unavailable Unavailable SINNETT, MICHAEL Unavailable [address] [place] [address] D Unavailable Unavailable Unavailable SINNETT, MICHAEL Unavailable [address] [place] [address] D Unavailable Unavailable Unavailable SINNETT, MICHAEL Unavailable [address] [place] [address] D Unavailable Unavailable Unavailable SINNETT, MICHAEL Unavailable [address] [place] [address] D Unavailable Unavailable Unavailable SINNETT, MICHAEL Unavailable [address] [place] [address] D Unavailable Unavailable Unavailable SINNETT, MICHAEL Unavailable [address] [place] [address] D Unavailable Unavailable Unavailable SINNETT, MICHAEL Unavailable [address] [place] [address] D Unavailable Unavailable Unavailable SINNETT, MICHAEL Unavailable [address] [place] [address] D Unavailable Unavailable Unavailable SINNETT, MICHAEL Unavailable [address] [place] [address] D Unavailable Unavailable Unavailable SINNETT, MICHAEL Unavailable [address] [place] [address] D Unavailable Unavailable Unavailable SINNETT, MICHAEL Unavailable [address] [place] [address] D Unavailable Unavailable Unavailable SINNETT, MICHAEL Unavailable [address] [place] [address] D Unavailable Unavailable Unavailable SINNETT, MICHAEL Unavailable [address] [place] [address] D Unavailable Unavailable Unavailable SINNETT, MICHAEL Unavailable [address] [place] [address] D Unavailable Unavailable Unavailable SINNETT, MICHAEL Unavailable [address] [place] [address] D Unavailable Unavailable Unavailable SINNETT, MICHAEL Unavailable [address] [place] [address] D Unavailable Unavailable Unavailable SINNETT, MICHAEL Unavailable [address] [place] [address] D Unavailable Unavailable Unavailable SINNETT, MICHAEL Unavailable [address] [place] [address] D Unavailable Unavailable Unavailable SINNETT, MICHAEL Unavailable [address] [place] [address] D Unavailable Unavailable Unavailable SINNETT, MICHAEL Unavailable [address] [place] [address] D Unavailable Unavailable Unavailable SINNETT, MICHAEL Unavailable [address] [place] [address] D Unavailable Unavailable Unavailable SINNETT, MICHAEL Unavailable [address] [place] [address] D Unavailable Unavailable Unavailable MICHAEL GOOD Unavailable [address] [place] [address] Care Team Providers Name Role Phone DENISE VOGT Tobi (STACK YIELD ENGINEER) Attending Unavailable LOVE, SUKHJINDER L Referring Unavailable PODLOGARDAXA ([facility]) Attending Unavailable LOVE, SUKHJINDER L Attending Unavailable PODLOGAR, DAXA ([facility]) Referring Unavailable LOVE, SUKHJINDER L Attending Unavailable LOVE, SUKHJINDER L Referring Unavailable Love, Sukhjinder Primary Care Unavailable Davis, Marcos Attending Unavailable Davis, Marcos Referring Unavailable Gerson Heaton Unavailable Olve, Sukhjinder Primary Care Unavailable Tomas Fernández Attending Unavailable Basali, Ayman Attending Unavailable Love, Sukhjinder Primary Care Unavailable Basali Ayman Attending Unavailable Basali, Ayman Referring Unavailable Love, Sukhjinder Primary Care Unavailable Basali Ayman Attending Unavailable Basali, Ayman Referring Unavailable Love, Sukhjinder Primary Care Unavailable Anthony Davis ELECTRONIC FIELD SERVICE ENGINEER-C Attending Unavailable Oleghe, Efewongbe Referring Unavailable Love, Sukhjinder Primary Care Unavailable Oleghe, Efewongbe Attending Unavailable Oleghe, Efewongbe Referring Unavailable Love, Sukhjinder Primary Care Unavailable Oleghe, Efewongbe Attending Unavailable Oleghe, Efewongbe Referring Unavailable Love, Sukhjinder Primary Care Unavailable Oleghe, Efewongbe Attending Unavailable Oleghe, Efewongbe Referring Unavailable Oleghe, Efewongbe Primary Care Unavailable Oleghe, Efewongbe Attending Unavailable Love, Sukhjinder Referring Unavailable Oleghe, Efewongbe Primary Care Unavailable Zay Damian Attending Unavailable Oleghe, Efewongbe Referring Unavailable Pat Bain Attending Unavailable Kem Hartman Attending Unavailable Oleghe, Efewongbe Referring Unavailable Love, Sukhjinder Primary Care Unavailable Oleghe, Efewongbe Attending Unavailable Oleghe, Efewongbe Referring Unavailable Love, Sukhjinder Primary Care Unavailable Basali, Ayman Attending Unavailable Basali, Ayman Referring Unavailable Oleghe, Efewongbe Primary Care Unavailable Kem Hartman Attending Unavailable Kem Hartman Referring Unavailable Oleghe, Efewongbe Primary Care Unavailable Kem Hartman Attending Unavailable Kem Hartman Referring Unavailable Oleghe, Efewongbe Primary Care Unavailable Oleghe, Efewongbe Attending Unavailable Oleghe, Efewongbe Referring Unavailable Oleghe, Efewongbe Primary Care Unavailable Anthony Davis ELECTRONIC FIELD SERVICE ENGINEER-C Attending Unavailable Oleghe, Efewongbe Referring Unavailable Polo Mitchell D.O. Attending Unavailable Kem Hartman Referring Unavailable Polo Mitchell D.O. Attending Unavailable Kem Hartman Referring Unavailable Oleghe, Efewongbe Attending Unavailable Oleghe, Efewongbe Referring Unavailable Polo Mitchell D.O. Attending Unavailable Kem Hartman Referring Unavailable Pat Bain Attending Unavailable Pat Bain Attending Unavailable Oleghe, Efewongbe Attending Unavailable Oleghe, Efewongbe Referring Unavailable Oleghe, Efewongbe Primary Care Unavailable Roc Carlos Attending Unavailable Oleghe, Efewongbe Primary Care Unavailable Tomas Fernández Attending Unavailable Pat Bain Attending Unavailable PROBLEMS PROBLEMS DATE TYPE CONDITION / CODE ATTENDING STATUS SOURCE 09/01/2018 Unknown J44.9 - Chronic Polo Mitchell, Active [place] obstructive pulmonary D.O. Community disease, unspecified Hospital / J44.9(ICD-10) Repository 08/04/2018 Unknown E11.9 - Type 2 Oleghe, Active [place] diabetes mellitus [facility] without complications Hospital / E11.9(ICD-10) Repository 07/23/2018 Unknown M54.9 - Dorsalgia, Basali, Ayman Active [place] unspecified / Community M54.9(ICD-10) Hospital Repository 05/28/2018 Unknown E66.2 - Morbid Oleghe, Active [place] (severe) obesity with [facility] hypoventilation / Repository E66.2(ICD-10) 05/28/2018 Unknown G47.30 - Sleep apnea, Oleghe, Active [place] unspecified / [facility] G47.30(ICD-10) Hospital Repository 05/28/2018 Unknown R10.9 - Unspecified Oleghe, Active [place] abdominal pain / [facility] R10.9(ICD-10) Hospital Repository 05/28/2018 Unknown F32.9 - Major Oleghe, Active [place] depressive disorder, [facility] single episode, Hospital unspecified / Repository F32.9(ICD-10) 04/28/2018 Unknown I10 - Essential Oleghe, Active [place] (primary) [facility] hypertension / Hospital I10(ICD-10) Repository 04/28/2018 Unknown J45.909 - Unspecified Oleghe, Active [place] asthma, uncomplicated [facility] / J45.909(ICD-10) Hospital Repository 11/13/2017 Active Unknown / CORNIELLO, Active Her UNK(Unknown) DENISE Tobi ([facility]) [facility] [place] Repository PROCEDURES PROCEDURES No Procedure Records FoundRESULTS RESULTS DISCHARGE INSTRUCTION Observed: 10/09/2018 Status: F Source: [place] 1:36 [facility] REPOSITORY [facility] Medical Records Department [address] [place] [address] Discharge Instruction 10/09/185 MR#: [id number] Acct: [id number] Name: DWIGHT DUNLAP Rep #: [id number] : 1965 52 From: Tomas Fernández MD PCP: Arlene Salas MD Status: REG ER ED Disposition - Plan for ED Patient: Chief Complaint: Upper Extremity Injury Instructions: ED Sprain Shoulder Prescriptions: traMADol [Ultram] 50 mg PO Q6H PRN 3 Days #12 tab PRN Reason: Pain Referrals: Arlene Salas MD [Primary Care Provider] - What to do if you have Problems For any increased pain, shortness of breath, bleeding, nausea or vomiting, chest pain, or any unexpected problems, contact your Primary Care Provider. Call [facility] ([phone]) or report to the closest Emergency Room. Call 911 if necessary. 10/09/18 0136 <Electronically signed by Tomas Fernández MD> Date Tomas Fernández MD Cosigner Signature (If Indicated): Date CC: Arlene Salas MD EMERGENCY DEPARTMENT Observed: 10/09/2018 Status: F Source: [place] SUMMARY 1:35 AM [facility] REPOSITORY [facility] Medical Records Department [address] [place] [address] Emergency Department Summary 10/09/18 0133 MR#: [id number] Acct: [id number] Name: DWIGHT DUNLAP Rep #: [id number] : 1965 52 From: Tomas Fernández MD PCP: Arlene Salas MD Status: REG ER - ER Visit Summary Date of Service: 10/09/18 Chief Complaint: Right shoulder pain History of Present Illness: The patient is a 52 M who presents with right shoulder pain. It began about 2 days ago. He has been doing some remodeling. He states that a mattress was pushed against his shoulder he began to have some pain. Last night he was moving a piece of plywood board and felt a pop and has had increased pain since that time. No paresthesias weakness loss of function. No other injuries. He states that he always has chest pain or shortness of breath but that this is not new or different than normal. Physical Examination: Afebrile blood pressure 177/108 heart rate 101 No distress Heart regular rate and rhythm Lungs clear Patient has painful passive range of motion of the right shoulder no deformity normal sensation to light touch brisk capillary refill active full range of motion of the elbow and wrist without pain Test Results: Right shoulder x-ray is negative no fracture Emergency Department Course and Treatment: Patient advised on supportive care. He states that he cannot tolerate anti-inflammatories due to an adverse effect of scrotal edema. He was given tramadol. He was given a prescription for short course of the same. He was advised to follow-up with his primary care physician. He was advised of possible need for further outpatient workup should symptoms continue. Treatment Plan: [] Disposition: Discharge Impression: Acute right shoulder sprain This note was generated with SelStor dictation software. It may contain incorrect words, spelling, and punctuation that were not noted in review of the chart prior to signing ED Disposition - Plan for ED Patient: Chief Complaint: Upper Extremity Injury Referrals: Arlene Salas MD [Primary Care Provider] - What to do if you have Problems For any increased pain, shortness of breath, bleeding, nausea or vomiting, chest pain, or any unexpected problems, contact your Primary Care Provider. Call [facility] ([phone]) or report to the closest Emergency Room. Call 911 if necessary. 10/09/18 0135 <Electronically signed by Tomas Fernández MD> Date Tomas Fernández MD Cosigner Signature (If Indicated): Date CC: Arlene Salas MD SHOULDER MIN 2 VIEWS Observed: 10/09/2018 Status: F Source: [place] 12:49 AM [facility] REPOSITORY [facility] Imaging Services [address] [place] [id number] Shoulder min 2 Views MR#: [id number] Acct: [id number] Name: DWIGHT DUNLAP Rep #: [id number] : 1965 M 52 From: Bernardo Neves MD PCP: Arlene Salas MD Status: REG ER Study: Shoulder min 2 Views Date of Exam: 10/09/18 Exam# [id number] Ordering Dr: Tomas Fernández MD HISTORY: HEARD A POP IN RT SHOULDER. C/O RT SHOULDER PAIN WITH LIMITED ROM COMPARISON: None FINDINGS: XR Shoulder 4 views No fracture, dislocation, or bony abnormality. The glenohumeral relationship appears normal. The right AC joint is preserved. No soft tissue calcifications. RAD/Shoulder min 2 Views IMPRESSION: Negative for fracture or acute osseous abnormality. at 0120 Reported and signed by: Bernardo Neves MD Electronically Signed: Bernardo Neves, at 1:18 EST Tel , Service support , CC: Arlene Salas MD; Tomas Fernández MD Product Demonstrator: Signed EMERGENCY DEPARTMENT Observed: 09/25/2018 Status: F Source: [place] SUMMARY 1:47 AM [facility] REPOSITORY [facility] Medical Records Department [address] [place] [address] Emergency Department Summary 09/25/18 0144 MR#: [id number] Acct: [id number] Name: DWIGHT DUNLAP Rep #: [id number] : 1965 52 From: Roc Carlos MD PCP: Arlene Salas MD Status: PRE ER - ER Visit Summary Date of Service: 09/25/18 Chief Complaint: Bleeding from umbilicus History of Present Illness: The patient is a 52 M who noticed bleeding from his umbilicus yesterday morning. The bleeding subsided he wants to make sure everything is okay. He has no abdominal pain nausea vomiting or diarrhea. Physical Examination: Otherwise unremarkable exam, morbidly obese male with a BMI of 52, there is a small umbilical hernia there is desquamation of the skin which is already starting to granulate with pink granulation tissue. No signs of infection. Abdomen is soft and nontender other than the area around his umbilical hernia. Emergency Department Course and Treatment: Patient appears well, there is no signs and infection, he is also on Bactrim for an ear infection from his ear nose and throat doctor, the bleeding has subsided, I do not see any signs of active bleeding. He was reassured. He will be discharged in stable condition Discharge stable condition Impression: Umbilical bleeding This note was generated with SelStor dictation software. It may contain incorrect words, spelling, and punctuation that were not noted in review of the chart prior to signing ED Disposition - Plan for ED Patient: Disposition: Home or Assisted Living Chief Complaint: Wound Instructions: Wound Care Referrals: Arlene Salas MD [Primary Care Provider] - 3-5 Days What to do if you have Problems For any increased pain, shortness of breath, bleeding, nausea or vomiting, chest pain, or any unexpected problems, contact your Primary Care Provider. Call [facility] ([phone]) or report to the closest Emergency Room. Call 911 if necessary. 09/25/18 0147 <Electronically signed by Roc Carlos MD> Date Roc Carlos MD Cosigner Signature (If Indicated): Date CC: Arlene Salas MD PROGRESS Observed: 08/24/2018 Status: COMPLETED Source: [place] 3:12 PM [facility] REPOSITORY HNO ID: [id number] Author: Flavia Padgett Cma Service: (none) Author Type: (none) Type: Progress Notes Filed: 08/24/2018 3:12 PM Note Text: Done. PROGRESS Observed: 08/24/2018 Status: COMPLETED Source: [place] 2:02 PM [facility] REPOSITORY HNO ID: [id number] Author: Sukhjinder Love Service: (none) Author Type: Physician Type: Progress Notes Filed: 08/24/2018 3:12 PM Note Text: Okay to remove me as PCP Sukhjinder Love, PROGRESS Observed: 08/24/2018 Status: COMPLETED Source: [place] 10:26 AM [facility] REPOSITORY HNO ID: [id number] Author: Flavia Padgett Cma Service: (none) Author Type: (none) Type: Progress Notes Filed: 08/24/2018 3:12 PM Note Text: I called Manoj and asked if he was willing to schedule a follow up appointment with PCP w/labs prior. He declined an appointment. I asked if he was still seeing Dr. Love and he states i'm seeing someone else right now for a couple of things, just for a second opinion. Unsure if he's going to keep Dr. Love as PCP or see whomever he's going to for the time being. Please advise if you want me to remove PCP for now. Thanks! PROGRESS Observed: 08/19/2018 Status: COMPLETED Source: [place] 11:56 AM [facility] REPOSITORY HNO ID: [id number] Author: Flavia Padgett Cma Service: (none) Author Type: (none) Type: Progress Notes Filed: 08/24/2018 3:12 PM Note Text: Left detailed message for patient to return call #[phone] INTERNAL MEDICINE Observed: 08/18/2018 Status: F Source: [place] OFFICE VISIT 2:30 PM [facility] REPOSITORY [facility] [address] [place] [address] OFFICE VISIT Date of Service: 08/17/18 MR#: [id number] Acct: [id number] Name: DWIGHT DUNLAP Rep #: [id number] : 1965 Provider: Arlene Salas MD Age/Sex: 52/M Location: [facility] Status: Signed Intake Vital Signs08/17/18 Height 5 ft 9 in Intake Visit Reasons: PT R/S FROM 08/11/18 Chief Complaint: 1 month follow-up Allergies hydrocodone bitartrate [From [facility]] Allergy (Mild, Verified 07/21/18 10:12) Hives ibuprofen Allergy (Verified 07/21/18 10:12) Swelling vancomycin Allergy (Verified 07/21/18 10:12) Itching metformin Adverse Reaction (Verified 07/21/18 10:12) Upset Stomach Medications Liraglutide [Victoza] 1.2 mg SQ DAILY 07/20/17 [History Confirmed 07/21/18] Albuterol Aerosols [Ventolin Aerosols] 2.5 mg INHALATION 4X/DAY #1 07/22/17 [Rx Confirmed 07/21/18] albuterol sulfate HFA 90 mcg/actuation aerosol inhaler 2 puff INHALATION Q4H PRN 03/17/18 [History Confirmed 07/21/18] atorvastatin 20 mg tablet 20 mg PO QDAY #90 tab 05/28/18 [Rx Confirmed 07/21/18] duloxetine 30 mg capsule,delayed release 30 mg PO BID #180 cap 07/03/18 [Rx Confirmed 07/21/18] Albuterol Inhaler [Ventolin Hfa (SP)] 1 - 2 puff INHALATION Q4H PRN PRN 07/21/18 [History Confirmed 07/21/18] Bupropion HCl [Wellbutrin Xl] 150 mg PO BID 07/21/18 [History Confirmed 07/21/18] Glimepiride [Amaryl] 4 mg PO DAILY 07/21/18 [History Confirmed 07/21/18] Lisinopril [Prinivil] 10 mg PO BID 07/21/18 [History Confirmed 07/21/18] Mometasone/Formoterol [Dulera 100 Mcg/5 Mcg Inhaler] 2 puff INHALATION BID PRN 07/21/18 [History Confirmed 07/21/18] Omeprazole [Prilosec] 20 mg PO DAILY 07/21/18 [History Confirmed 07/21/18] nebulizer accessories kit See Dose Instructions .ROUTE .MEDSUPPLY #1 ea 07/22/18 [Rx] canagliflozin 100 mg tablet 100 mg PO QAM #30 tab 07/24/18 [Rx] disability placard #1 [id number] 08/14/18 [Rx] amlodipine 5 mg tablet 5 mg PO DAILY #30 tab 08/17/18 [Rx Confirmed 08/17/18] cholecalciferol (vitamin D3) 50,000 unit capsule 50,000 unit PO QWEEK #20 cap 08/17/18 [Rx Confirmed 08/17/18] [facility] Medical History Abdominal pain (Chronic) Asthma (Chronic) COPD (chronic obstructive pulmonary disease) (Chronic) Arthritis (Chronic) Chronic back pain (Chronic) Phimosis (Acute) Peritonsillar abscess (Acute) Morbid obesity with BMI of 60.0-69.9, adult (Chronic) Morbid obesity due to excess calories (Chronic) Tobacco use (Chronic) Depression (Chronic) GERD (gastroesophageal reflux disease) (Chronic) HTN (hypertension) (Chronic) Obesity hypoventilation syndrome (Chronic) Cellulitis (Acute) Diabetes mellitus, type II (Chronic) Hypertension (Chronic) Surgical History Status post right foot surgery (Resolved) Family History Grandmother Diabetes Hypertension Aunt Diabetes Uncle Diabetes Cancer lung Grandfather Myocardial infarction Hypertension Social History Smoking Status: Current every day smoker second hand exposure: Yes alcohol intake: never substance use type: marijuana caffeine: No what type of physical activity do you participate in: other details: PT frequency: 1-2 times per week HPI HPI Chief Complaint: 1 month follow-up Details: DWIGHT DUNLAP, is a 52yo M who presents to the office today for follow-up of his chronic medical conditions. He was started on Cymbalta about a month ago due to severe depression. He has done well on Cymbalta. He was also referred to therapy however he is yet to start this. He denies any concerns at this time. He is making plans to move out of his current living situation. Blood pressure and sugars still not well controlled. A1c has remained around 10 blood pressure during this visit is 149/89 mmHg. He reports compliance with his medications. ROS Const Constitutional: No weight change, body ache, chills, fatigue, sleep problems, fever(s), change in appetite, snoring, weakness, frequent falls, headache(s) or excessive sweating Eyes Eyes: No change in vision, eye pain, light sensitivity or blurry vision ENT ENT: No headache(s), abnormal hearing, ear pain, tinnitus, nasal congestion, sore throat or neck pain Resp Respiratory: No snoring, cough, shortness of breath or wheezing Cardio Cardiology: No excessive sweating, chest pain at rest, chest pain with exertion, shortness of breath, dyspnea on exertion, palpitations, orthopnea or lightheadedness Gastro GI: No abdominal pain, change in bowel habits, constipation, diarrhea, vomiting, nausea/dyspepsia or cramping Genitourinary Male: No painful urination, urinary incontinence, urinary frequency, urinary urgency, blood in urine, testicle pain or other Musc Musculoskeletal: No neck pain, abnormal walking, joint pain, back pain, limited range of motion, numbness, tingling or muscle weakness Skin Skin: No redness, dry skin, itching, lesions, wounds or rash Neuro Neurology: No weakness, frequent falls, headache(s), abnormal hearing, abnormal walking, numbness, tingling, abnormal speech, dizziness or memory loss Psych Psychiatric: No change in appetite, No memory loss, No anxiety, No depression, No Thoughts of harming yourself/Others Endo Endocrine: No fatigue, excessive sweating, cold intolerance, increased thirst/drinking, heat intolerance, flushing or increased hunger Aller/Imm Allergy/Immunologic: No wheezing, itchy eyes, hives or seasonal allergy symptoms Hay/Lymp Hematologic/Lymphatic: No easy bleeding, easy bruising or enlarged lymph nodes Exam Const General: cooperative Nutritional Appearance: obese Orientation: alert, awake, oriented x3 HENMT Head: atraumatic, normocephalic Ears: hearing grossly normal bilaterally Resp Auscultation: Bilateral: Diminished Lung Sounds, Expiratory Wheezes Cardio Rate: regular rate Rhythm: regular rhythm Heart Sounds: S1 normal, S2 normal GI Inspection: obesity Palpation: no hepatosplenomegaly Musc Musculoskeletal: No muscle weakness Neuro General: alert, awake, oriented x3, moves all extremities, CN's II-XI intact bilaterally Extrem General: pedal edema Psych Appearance: grossly normal Mood: congruent mood Affect: normal affect Assessment AND Plan 1. Depression, unspecified depression type F32.9 Plan Severe depression. Currently on Cymbalta. He is yet to follow-up with the counseling center. He was encouraged to. Continue current medication. 2. Diabetes mellitus, type II E11.9 Plan Currently not using his insulin. Recently started on canagliflozin due to still poorly controlled blood sugars. Advised to come in with his blood sugar log at his next visit. Continue current medications. Advised to follow-up with podiatry. Scheduled to follow-up with ophthalmology in March. 3. Essential hypertension I10 Plan Still not optimally controlled. We will add amlodipine 5 mg daily. Continue lisinopril. Lifestyle/dietary modifications also recommended. 4. Vitamin D deficiency E55.9 Plan Persisting. Cholecalciferol 50,000 units weekly. Continue other dietary modifications. This note was generated with SelStor dictation software. It may contain incorrect words, spelling, and punctuation that were not noted in checking the note before signing. Plan Detail Other Medications New: Coding Level of Care Code Off vis,est,level 3 Diagnoses Depression, unspecified depression type F32.9 Depression Type: unspecified Diabetes mellitus, type II E11.9 Diabetes mellitus complication status: with unspecified complications Essential hypertension I10 Hypertension type: essential hypertension Vitamin D deficiency E55.9 08/18/18 1430 <Electronically signed by Arlene Salas MD> Date Arlene Villatoroigncatracho Signature: Date (if applicable) CC: PULMONARY FUNCTION Observed: 08/17/2018 Status: F Source: GUS TEST 1:36 PM [facility] REPOSITORY [facility] Pulmonary Services/Neurology [address] [place] [address] MR#: [id number] Acct: [id number] Name: DWIGHT DUNLAP Rep #: [id number] : 1965 52 From: Polo Mitchell DO Referring Dr: Kem Hartman MD Status: REG CLI Ordering Dr: Date: Location: [facility] Sex: M C INTRODUCTION: The patient is a 52-year-old male that presents for pulmonary function testing secondary to a diagnosis of COPD. Respiratory therapy reports good patient effort. Bronchodilators were used during testing. INTERPRETATION: Forced expiration spirometry demonstrates the presence of a very severe large airways obstructive ventilatory defect. There was a significant response to aerosolized bronchodilators. Spirograms are of good quality and do not plateau indicating slow emptying of the lungs. Body plethysmography was performed and reveals a decreased TLC to 5.2 L, 76% of predicted, indicative of a mild restrictive ventilatory impairment. RV is increased to 130% of predicted, indicative of underlying air trapping. Diffusing capacity by single breath CO is mildly reduced at 69% of predicted. IMPRESSION: These pulmonary function studies demonstrate the presence of a partially reversible very severe mixed ventilatory defect with associated air trapping and mild reduction in diffusing capacity. 08/17/186 <Electronically signed by Polo Mitchell DO> Date Polo Mitchell DO CC: Kem Hartman MD; Arlene Salas MD Date Dictated: 08/17/181331 Date Transcribed: 08/17/181331 Product Demonstrator: ARCENIO Signed PROGRESS Observed: 08/14/2018 Status: COMPLETED Source: BEL[place] 2:42 PM [facility] REPOSIT[facility] HNO ID: [id number] Author: Flavia Padgett [employer] Sales Consultant Service: (none) Author Type: (none) Type: Progress Notes Filed: 08/24/2018 3:12 PM Note Text: Left detailed message for patient to return call #[phone] PROGRESS Observed: 08/14/2018 Status: COMPLETED Source: [place] 2:37 PM [facility] [place] REPOSITORY HNO ID: [id number] Author: Flavia Padgett [employer] Sales Consultant Service: (none) Author Type: (none) Type: Progress Notes Filed: 08/24/2018 3:12 PM Note Text: PHMA TEAMLET DOCUMENTATION Provider Action/FYI: PSR Action/FYI: R/s appointment with labs prior Discuss HM Teamlet has identified patient by name and date of . Team: Dr. Rodolfo Alejandro ? Last Office Visit:Visit date not found ? Next Office Visit: Visit date not found ? Last BP/Labs: Blood Pressure: Last 3 Encounter BP Readings: Date: BP: 04/15/2018 124/80 01/07/2018 156/94 12/24/2017 130/80 Lipids: Cholesterol, Total (mg/dL) Date Value 01/16/2017 198 03/21/2016 178 HDL Cholesterol (mg/dL) Date Value 01/16/2017 46 03/21/2016 53 LDL Cholesterol (mg/dL) Date Value 01/16/2017 133 03/21/2016 108 Triglyceride (mg/dL) Date Value 01/16/2017 97 03/21/2016 84 HGB A1C: Lab Results Component Value Date HBA1C 12.5 12/24/2017 HBA1C 10.4 01/16/2017 HBA1C 7.0 03/21/2016 HBA1C 8.3 09/29/2015 TSH: TSH (uU/mL) Date Value 01/16/2017 2.160 04/05/2015 1.010 ) Care Gap: DM COPD Plan: ? Confirm PCP / Status - active ? Type of appointment needed: Follow-up Dm with labs prior next available with Provider pcp or ELECTRONIC FIELD SERVICE ENGINEER ? Consultation Appointments: n/a Labs, HM and Immunization: Health Maintenance Due: ONE PNEUMOVAX PRIOR TO AGE 65 due on 1983 BP CONTROLLED (<130/80) due on 1985 URINE ALBUMIN:CREATININE RATIO due on 03/21/2017 - ordered COLORECTAL CANCER SCREENING,SEE MODIFIER due on 2017 LDL CHOLESTEROL due on 01/16/2018 - ordered HBA1C due on 03/23/2018 - ordered INFLUENZA(1) due on 07/11/2018 Flavia Padgett [facility] CNPTOUTREACH Observed: 08/14/2018 Status: COMPLETED Source: [place] 12:00 AM [facility] REPOSITORY Patient Outreach (INTMWS) MANOJ DUNLAP ([id number]) 1965 M Date Time Provider Department 08/14/18 FLAVIA PADGETT ([facility]) INTMWS During your visit today, we recorded the following information about you: Flavia Padgett Cma 08/24/2018 3:12 PM Signed PHMA TEAMLET DOCUMENTATION Provider Action/FYI: PSR Action/FYI: R/s appointment with labs prior Discuss HM Teamlet has identified patient by name and date of . Team: Dr. Rodolfo Alejandro ? Last Office Visit:Visit date not found ? Next Office Visit: Visit date not found ? Last BP/Labs: Blood Pressure: Last 3 Encounter BP Readings: Date: BP: 04/15/2018 124/80 01/07/2018 156/94 12/24/2017 130/80 Lipids: Cholesterol, Total (mg/dL) Date Value 01/16/2017 198 03/21/2016 178 HDL Cholesterol (mg/dL) Date Value 01/16/2017 46 03/21/2016 53 LDL Cholesterol (mg/dL) Date Value 01/16/2017 133 03/21/2016 108 Triglyceride (mg/dL) Date Value 01/16/2017 97 03/21/2016 84 HGB A1C: Lab Results Component Value Date HBA1C 12.5 12/24/2017 HBA1C 10.4 01/16/2017 HBA1C 7.0 03/21/2016 HBA1C 8.3 09/29/2015 TSH: TSH (uU/mL) Date Value 01/16/2017 2.160 04/05/2015 1.010 ) Care Gap: DM COPD Plan: ? Confirm PCP / Status - active ? Type of appointment needed: Follow-up Dm with labs prior next available with Provider pcp or ELECTRONIC FIELD SERVICE ENGINEER ? Consultation Appointments: n/a Labs, HM and Immunization: Health Maintenance Due: ONE PNEUMOVAX PRIOR TO AGE 67 due on 1983 BP CONTROLLED (<130/80) due on 1985 URINE ALBUMIN:CREATININE RATIO due on 03/21/2017 - ordered COLORECTAL CANCER SCREENING,SEE MODIFIER due on 2017 LDL CHOLESTEROL due on 01/16/2018 - ordered HBA1C due on 03/23/2018 - ordered INFLUENZA(1) due on 07/11/2018 Flavia Padgett [facility] Flavia [facility] 08/24/2018 3:12 PM Signed Left detailed message for patient to return call #[phone] Flavia Padgett [facility] 08/24/2018 3:12 PM Signed Left detailed message for patient to return call #[phone] Flavia Padgett [facility] 08/24/2018 3:12 PM Signed I called Manoj and asked if he was willing to schedule a follow up appointment with PCP w/labs prior. He declined an appointment. I asked if he was still seeing Dr. Love and he states i'm seeing someone else right now for a couple of things, just for a second opinion. Unsure if he's going to keep Dr. Love as PCP or see whomever he's going to for the time being. Please advise if you want me to remove PCP for now. Thanks! Sukhjinder Love DO 08/24/2018 3:12 PM Signed Okay to remove me as PCP Sukhjinder Love DO Flavia Padgett [facility] 08/24/2018 3:12 PM Signed Done. Allergies As of Date: 08/14/2018 Noted Allergy Reaction GABAPENTIN 09/22/2015 14 - Other: See Comments Comments: Not effective for neuropathy symptoms IBUPROFEN 04/27/2015 7 - Swelling METFORMIN 09/04/2015 8 - GI Upset Comments: GI upset from Metformin ER Date Reviewed: 04/15/2018 Reviewed by: Deya Gonzáles LPN - Fully Assessed Reason for Visit: PHMA/Care Gap Outreach [[id number]] Prescriptions as of 08/14/2018 Sig: UNIFINE PENTIPS 31 GAUGE X 1/* One needle per dose; one per * BUPROPION HCL SR 150 MG TABLE* Take 1 tablet by mouth twice * NICOTINE (POLACRILEX) 4 MG GUM Take 1 Each by mouth every 2 * ALBUTEROL SULFATE 2.5 MG/3 ML* use 1 ampule via nebulizer ev* VENTOLIN HFA 90 MCG/ACTUATION* Inhale 2 Puffs as instructed * FREESTYLE LITE STRIPS Test once a day as directed CHOLECALCIFEROL (VITAMIN D3) * take 1 capsule every week COMPOUNDED PRESCRIPTION Nebulizer tubing and supplies* LIRAGLUTIDE 0.6 MG/0.1 ML (18* Inject 1.8 mg subcutaneously * LISINOPRIL 40 MG TABLET Take 1 tablet by mouth once d* OMEPRAZOLE 20 MG CAPSULE,ANTONIO* Take 1 capsule by mouth daily* BREO ELLIPTA 200 MCG-25 MCG/D* inhale 1 puff as directed alis* ACLIDINIUM BROMIDE 400 MCG/AC* Inhale 1 Inhalation as instru* LANCETS 28 GAUGE Test blood sugar(s) 2x times * COMPOUNDED PRESCRIPTION Vehicle Nebulizer with suppli* Problem List As Of Date 08/14/2018 Noted Resolved Bilateral leg edema [R60.0] INVALID FOR* Diabetes mellitus type 2, uncontrolled, without*INVALID FOR* Fatigue [R53.83] INVALID FOR* Dyspnea [R06.00] INVALID FOR* Chronic low back pain [M54.5, G89.29] INVALID FOR* DDD (degenerative disc disease), lumbar [M51.36]INVALID FOR* Morbid obesity (HCC) [E66.01] INVALID FOR* BMI 60.0-69.9, adult (HCC) [Z68.44] INVALID FOR* COPD with chronic bronchitis (HCC) [J44.9] INVALID FOR* Essential hypertension with goal blood pressure*INVALID FOR* ILYA on CPAP [G47.33, Z99.89] INVALID FOR* Malaise and fatigue [R53.81, R53.83] INVALID FOR* Vitamin D deficiency [E55.9] INVALID FOR* Dyslipidemia [E78.5] INVALID FOR* Abdominal pain [R10.9] INVALID FOR* More... Blood in stool [K92.1] INVALID FOR* More... GERD (gastroesophageal reflux disease) [K21.9] INVALID FOR* More... Smoker [F17.200] INVALID FOR* More... Encounter Status:Closed by FLAVIA PADGETT CMA on 08/24/18 INTERNAL MEDICINE Observed: 08/04/2018 Status: F Source: GUS OFFICE VISIT 5:27 PM [facility] REPOSITORY [facility] [address] [place] [address] [place] [address] OFFICE VISIT Date of Service: 08/04/18 MR#: [id number] Acct: [id number] Name: DWIGHT DUNLAP Rep #: [id number] : 1965 Provider: Anthony Davis NP Age/Sex: 52/M Location: [facility] Status: Signed Intake Vital Signs08/04/18 Height 5 ft 9 in Intake Visit Reasons: 4 wk f/u Chief Complaint: 1 month follow-up Is patient in pain?: Yes (shoulders to tip of fingers) Pain scale (1-10): 7 Allergies hydrocodone bitartrate [From Shafer] Allergy (Mild, Verified 07/21/18 10:12) Hives ibuprofen Allergy (Verified 07/21/18 10:12) Swelling vancomycin Allergy (Verified 07/21/18 10:12) Itching metformin Adverse Reaction (Verified 07/21/18 10:12) Upset Stomach Medications Liraglutide [Victoza] 1.2 mg SQ DAILY 07/20/17 [History Confirmed 07/21/18] Albuterol Aerosols [Ventolin Aerosols] 2.5 mg INHALATION 4X/DAY #1 07/22/17 [Rx Confirmed 07/21/18] albuterol sulfate HFA 90 mcg/actuation aerosol inhaler 2 puff INHALATION Q4H PRN 03/17/18 [History Confirmed 07/21/18] atorvastatin 20 mg tablet 20 mg PO QDAY #90 tab 05/28/18 [Rx Confirmed 07/21/18] duloxetine 30 mg capsule,delayed release 30 mg PO BID #180 cap 07/03/18 [Rx Confirmed 07/21/18] Albuterol Inhaler [Ventolin Hfa (SP)] 1 - 2 puff INHALATION Q4H PRN PRN 07/21/18 [History Confirmed 07/21/18] Bupropion HCl [Wellbutrin Xl] 150 mg PO BID 07/21/18 [History Confirmed 07/21/18] Glimepiride [Amaryl] 4 mg PO DAILY 07/21/18 [History Confirmed 07/21/18] Lisinopril [Prinivil] 10 mg PO BID 07/21/18 [History Confirmed 07/21/18] Mometasone/Formoterol [Dulera 100 Mcg/5 Mcg Inhaler] 2 puff INHALATION BID PRN 07/21/18 [History Confirmed 07/21/18] Omeprazole [Prilosec] 20 mg PO DAILY 07/21/18 [History Confirmed 07/21/18] nebulizer accessories kit See Dose Instructions .ROUTE .MEDSUPPLY #1 ea 07/22/18 [Rx] canagliflozin 100 mg tablet 100 mg PO QAM #30 tab 07/24/18 [Rx] PFSH Medical History Abdominal pain (Chronic) Asthma (Chronic) COPD (chronic obstructive pulmonary disease) (Chronic) Arthritis (Chronic) Chronic back pain (Chronic) Phimosis (Acute) Peritonsillar abscess (Acute) Morbid obesity with BMI of 60.0-69.9, adult (Chronic) Morbid obesity due to excess calories (Chronic) Tobacco use (Chronic) Depression (Chronic) GERD (gastroesophageal reflux disease) (Chronic) HTN (hypertension) (Chronic) Obesity hypoventilation syndrome (Chronic) Cellulitis (Acute) Diabetes mellitus, type II (Chronic) Hypertension (Chronic) Surgical History Status post right foot surgery (Resolved) Family History Grandmother Diabetes Hypertension Aunt Diabetes Uncle Diabetes Cancer lung Grandfather Myocardial infarction Hypertension Social History Smoking Status: Current every day smoker second hand exposure: Yes alcohol intake: never substance use type: marijuana caffeine: No what type of physical activity do you participate in: other details: PT frequency: 1-2 times per week HPI HPI Chief Complaint: 1 month follow-up Details: Patient left before seeing provider due to a emergency ROS Const Constitutional: No weight change, body ache, chills, fatigue, sleep problems, fever(s), change in appetite, snoring, weakness, frequent falls, headache(s) or excessive sweating Eyes Eyes: No change in vision, eye pain, light sensitivity or blurry vision ENT ENT: Positive for neck pain; no headache(s), abnormal hearing, ear pain, tinnitus, nasal congestion or sore throat Resp Respiratory: Positive for shortness of breath; no snoring, cough or wheezing Cardio Cardiology: Positive for chest pain at rest; no excessive sweating, chest pain with exertion, shortness of breath, dyspnea on exertion, palpitations, orthopnea or lightheadedness Gastro GI: No abdominal pain, change in bowel habits, constipation, diarrhea, vomiting, nausea/dyspepsia or cramping Genitourinary Male: No painful urination, urinary incontinence, urinary frequency, urinary urgency, blood in urine, testicle pain or other Musc Musculoskeletal: Positive for neck pain, back pain, numbness (fingers, with pain) and other (bilateral shoulder pain); no abnormal walking, joint pain, limited range of motion or tingling Skin Skin: No redness, dry skin, itching, lesions, wounds or rash Neuro Neurology: Positive for numbness (fingers, with pain); no weakness, frequent falls, headache(s), abnormal hearing, abnormal walking, tingling, abnormal speech, dizziness or memory loss Psych Psychiatric: No change in appetite, No memory loss, No anxiety, No depression, No Thoughts of harming yourself/Others Endo Endocrine: No fatigue, excessive sweating, cold intolerance, increased thirst/drinking, heat intolerance, flushing or increased hunger Aller/Imm Allergy/Immunologic: No wheezing, itchy eyes, hives or seasonal allergy symptoms Hay/Lymp Hematologic/Lymphatic: No easy bleeding, easy bruising or enlarged lymph nodes Coding Level of Care Code No Charge 08/04/18 0142 <Electronically signed by Anthony WILSON> Date Anthony WILSON Cosigner Signature: Date (if applicable) CC: HEMOGLOBIN A1C Collected: 08/04/2018 Status: F Source: GUS 1:21 PM [facility] REPOSITORY TYPE CODE TESTS RESULT OUT OF RANGE REFERENCE UNITS LAB L501.9985 4.2-6.3 % High HGB A1C 10.9 Performed By: #### L501.9985, L502.0250 #### [facility] [address] [place], [place], [address] MICROALB:CREAT Collected: 08/04/2018 Status: F Source: GUS RATIO,RANDOM UR 1:21 PM [facility] REPOSITORY TYPE CODE TESTS RESULT OUT OF RANGE REFERENCE UNITS LAB L501.1200 NO RANGE EST. mg/dL Normal UR CREAT 66.00 LAB L502.0500 NO RANGE EST. mg/L Normal 9.0 MICROALBUMIN ,UR LAB L502.0600 <30 mg/g CRE mg/g CRE Normal 13.7 MALB:CREAT Performed By: #### L501.9985, L502.0250 #### [facility] [address] [place], [place], [address] BASIC METABOLIC Collected: 08/04/2018 Status: F Source: GUS PROFILE (BMP) 1:21 PM [facility] REPOSITORY TYPE CODE TESTS RESULT OUT OF RANGE REFERENCE UNITS LAB L501.0100 74-106 mg/dL High GLU 263 Result Comment: Glucose result greater than or equal to 200 mg/dL suggests DIABETES MELLITUS per A.D.A. criteria. Please note revised GLUCOSE reference range effective 2017. LAB L501.1000 7-18 mg/dL Normal BUN 17 LAB L501.1100 0.70-1.30 mg/dL Normal CREAT,SERUM 0.77 Result Comment: The validity of the calculated GFR AND GFRAA in patients over 70 years has not been determined. Clinical correlation is essential. LAB L501.1110 >60 mL/min Normal EST GFR 114 Result Comment: Non- GFR Calc LAB L501.1115 >60 mL/min Normal EST GFR - AA 137 Result Comment: GFR Calc LAB L501.1300 10-20 RATIO High BUN/CRE 22.1 LAB L501.2200 8.5-10.1 mg/dL CA Normal 8.7 LAB L501.5300 136-145 mmol/L NA Normal 136 LAB L501.5600 3.5-5.1 mmol/L K Normal 4.4 LAB L501.5900 98-107 mmol/L CL Normal 100 LAB L501.6100 21.0-32.0 mmol/L Normal CO2 31.0 LAB L501.6200 5-15 Normal GAP 5 Performed By: #### L500.2500, L506.1000 #### [facility] [address] [place], [address] VITAMIN D,25 HYDROXY Collected: 08/04/2018 Status: F Source: GUS 1:21 PM [facility] REPOSITORY TYPE CODE TESTS RESULT OUT OF REFERENCE UNITS RANGE LAB L506.1000 29.95-100.01 ng/mL Low Vitamin D 18.0 25-OH Result Comment: Vitamin D 25(OH) Status Range Deficiency <20 ng/mL (50nmol/L) Insuffciency 20 - 30 ng/mL (50 - 75 nmol/L) Sufficiency 30 - 100 ng/mL (75 - 250 nmol/L) Toxicity >100 ng/mL (>250 nmol/L) Performed By: #### L500.2500, L506.1000 #### [facility] [address] [facility] [place], [address] BEDSIDE GLUCOSE Collected: 07/23/2018 Status: F Source: GUS 1:19 PM [facility] REPOSITORY TYPE CODE TESTS RESULT OUT OF REFERENCE UNITS RANGE LAB L501.080 70-110 mg/dL High BEDSIDE GLU 268 Result Comment: MANAGEMENT OF PATIENT CARE PER NURSING PROTOCOL Performed By: #### L501.080 #### [facility] Point of Care [address] [place] [address] SPINE 1 VIEW ANY Observed: 07/23/2018 Status: F Source: GUS LEVEL 4:11 AM [facility] REPOSITORY [facility] Imaging Services [address] [place] [address] Spine 1 View Any Level MR#: [id number] Acct: [id number] Name: DWIGHT DUNLAP Rep #: [id number] : 1965 M 52 From: Cornell Baker MD PCP: Arlene Salas MD Status: [facility] Study: Spine 1 View Any Level Date of Exam: 07/23/18 Exam# [id number] Ordering Dr: Sarika Forte MD STUDY: X-RAY - LUMBAR SPINE REASON FOR EXAM: Male, 52 years old. L4-L5 epidural block. TECHNIQUE: Single coned-down view(s) of the lumbar spine was obtained. COMPARISON: None FINDINGS: Intraoperative fluoroscopic services provided for epidural block. The image is nondiagnostic. RAD/Spine 1 View Any Level IMPRESSION: Intraoperative fluoroscopic services provided for L4-L5 epidural block. The image is nondiagnostic. Electronically Signed: Cornell Baker MD at 8:29 EDT Tel [phone], Service support , CC: Sarika Forte MD; Arlene Salas MD Product Demonstrator: Signed 6 MINUTE WALK TEST Observed: 07/22/2018 Status: F Source: [place] 1:01 PM [facility] REPOSITORY [facility] Pulmonary Services/Neurology [address] [place] [address] MR#: [id number] Acct: [id number] Name: DWIGHT DUNLAP Rep #: [id number] : 1965 52 From: Polo Mitchell DO Referring Dr: Kem Hartman MD Date: Ordering Dr: Sex: M C Location: PSN PSN 6 Minute Walk Test - 6 Minute Walk Test 6 Minute Walk Test: 6 Minute Walk Test PSN:6-Minute Walk Test Start: 07/22/18 10:12 Freq: Status: Active Protocol: RESP.6MINW Document 07/22/18 08:50 [facility] (Rec: 07/22/18 10:16 [facility] [id number]) 6 Minute Walk Test Date Performed 07/22/18 Time Performed 08:50 Height 5 ft 10 in Weight: 371 lb Weight in Pounds [address]: Kme Hartman Assistive device used: None Pre-test Oxygen Delivery Method Room Air Pulse Ox (%) 95 Pulse Rate (60-100 beats/min) 102 H Dyspnea Rodriguez Scale (0-10) 0 Exertion Rodriguez Scale (6-20) 6 1st minute Oxygen Delivery Method Room Air Pulse Ox (%) 93 Pulse Rate (60-100 beats/min) 98 Number of Rests Taken 0 2nd minute Oxygen Delivery Method Room Air Pulse Ox (%) 94 Pulse Rate (60-100 beats/min) 101 H Number of Rests Taken 0 3rd minute Oxygen Delivery Method Room Air Pulse Ox (%) 93 Pulse Rate (60-100 beats/min) 84 Number of Rests Taken 0 4th minute Oxygen Delivery Method Room Air Pulse Ox (%) 95 Pulse Rate (60-100 beats/min) 99 Number of Rests Taken 0 5th minute Oxygen Delivery Method Room Air Pulse Ox (%) 93 Pulse Rate (60-100 beats/min) 96 Number of Rests Taken 0 6th minute Oxygen Delivery Method Room Air Pulse Ox (%) 96 Pulse Rate (60-100 beats/min) 106 H Number of Rests Taken 0 Post-test Oxygen Delivery Method Room Air Pulse Ox (%) 94 Pulse Rate (60-100 beats/min) 99 Dyspnea Rodriguez Scale (0-10) 3 Exertion Rodriguez Scale (6-20) 12 Number of Rests Taken 0 Full Laps Walked 12 Partial Lap, Number of Tiles Walked 18 Total Distance Walked (ft) 726 - Interpretation Interpretation: The patient ambulated 726 feet over the course of 6 minutes beginning on room air without assistive devices or breaks. Pretesting oxygen saturation was noted to be 95% on room air. With ambulation, the ming oxygen saturation was 93%. Although there was evidence of impaired walk distance, there was no significant exertional oxygen desaturation. - Recommendations Recommendations: There is no indication for the use of supplemental oxygen at this time. 07/22/18 1301 <Electronically signed by Polo Brown DO> Date Polo Mitchell DO CC: Date Dictated: 07/22/18 1300 Date Transcribed: 07/22/18 1300 Product Demonstrator: Polo Mitchell DO Signed INTERNAL MEDICINE Observed: 07/06/2018 Status: F Source: GUS OFFICE VISIT 3:29 PM [facility] [address] [place] [address] [place] [address] OFFICE VISIT Date of Service: 07/03/18 MR#: [id number] Acct: [id number] Name: DWIGHT DUNLAP Rep #: [id number] : 1965 Provider: Arlene Salas MD Age/Sex: 52/M Location: [facility] Status: Signed Intake Vital Signs07/03/18 Height 5 ft 9 in Intake Visit Reasons: 1 MO FU Chief Complaint: 1 month follow-up Is patient in pain?: Yes (back, shoulders, both arms) Pain scale (1-10): 7 Allergies hydrocodone bitartrate [From Shafer] Allergy (Mild, Verified 01/01/18 18:43) Hives acetaminophen [From Shafer] Allergy (Verified 01/01/18 18:43) Hives ibuprofen Allergy (Verified 01/01/18 18:43) Swelling vancomycin Allergy (Verified 01/01/18 18:43) Itching metformin Adverse Reaction (Verified 01/01/18 18:43) Upset Stomach Medications Liraglutide [Victoza] 0.6 - 1.2 mg IN DAILY 07/20/17 [History Confirmed 04/28/18] Albuterol Aerosols [Ventolin Aerosols] 2.5 mg INHALATION 4X/DAY #1 07/22/17 [Rx Confirmed 04/28/18] albuterol sulfate HFA 90 mcg/actuation aerosol inhaler 2 puff INHALATION Q4H PRN 03/17/18 [History Confirmed 04/28/18] atorvastatin 20 mg tablet 20 mg PO QDAY #90 tab 05/28/18 [Rx Confirmed 05/28/18] canagliflozin 100 mg tablet 100 mg PO QAM #30 tab 05/28/18 [Rx Confirmed 05/28/18] esomeprazole magnesium 20 mg capsule,delayed release 20 mg PO QDAY 05/28/18 [History Confirmed 05/28/18] cholecalciferol (vitamin D3) 50,000 unit capsule 50,000 unit PO QWEEK 06/11/18 [History Confirmed 06/11/18] mometasone-formoterol HFA 100 mcg-5 mcg/actuation aerosol inhaler 2 puff INHALATION BID #13 g 06/24/18 [Rx] duloxetine 30 mg capsule,delayed release 30 mg PO BID #180 cap 07/03/18 [Rx Confirmed 07/03/18] lisinopril 10 mg tablet 20 mg PO QDAY #90 tab 07/03/18 [Rx Confirmed 07/03/18] PFSH Medical History Abdominal pain (Chronic) Asthma (Chronic) COPD (chronic obstructive pulmonary disease) (Chronic) Arthritis (Chronic) Chronic back pain (Chronic) Phimosis (Acute) Peritonsillar abscess (Acute) Morbid obesity with BMI of 60.0-69.9, adult (Chronic) Morbid obesity due to excess calories (Chronic) Tobacco use (Chronic) Depression (Chronic) GERD (gastroesophageal reflux disease) (Chronic) HTN (hypertension) (Chronic) Obesity hypoventilation syndrome (Chronic) Cellulitis (Acute) Diabetes mellitus, type II (Chronic) Hypertension (Chronic) Surgical History Status post right foot surgery (Resolved) Family History Grandmother Diabetes Hypertension Aunt Diabetes Uncle Diabetes Cancer lung Grandfather Myocardial infarction Hypertension Social History Smoking Status: Current every day smoker second hand exposure: Yes alcohol intake: never substance use type: marijuana caffeine: No what type of physical activity do you participate in: other details: PT frequency: 1-2 times per week HPI HPI Chief Complaint: 1 month follow-up Details: DWIGHT DUNLAP, is a 52 M who presents to the office today for follow-up of his chronic medical conditions. He was started on Cymbalta for severe depression. Symptoms at this point he said to be stable. He is scheduled to follow-up with behavioral health. He did also follow up with Dr. Hartman plan is for a walk test. He was also advised on compliance with oxygen. He did not check his blood sugars at home as recommended. He now reports bilateral numbness and tingling in his hands. Last A1c was 10 ROS Const Constitutional: No weight change, body ache, chills, fatigue, sleep problems, fever(s), change in appetite, snoring, weakness, frequent falls, headache(s) or excessive sweating Eyes Eyes: No change in vision, eye pain, light sensitivity or blurry vision ENT ENT: No headache(s), abnormal hearing, ear pain, tinnitus, nasal congestion, sore throat or neck pain Resp Respiratory: Positive for shortness of breath; no snoring, cough or wheezing Cardio Cardiology: No excessive sweating, chest pain with exertion, shortness of breath, dyspnea on exertion, palpitations, orthopnea or lightheadedness Gastro GI: Positive for abdominal pain; no change in bowel habits, constipation, diarrhea, vomiting, nausea/dyspepsia or cramping Genitourinary Male: No painful urination, urinary incontinence, urinary frequency, urinary urgency, blood in urine, testicle pain or other Musc Musculoskeletal: No neck pain, abnormal walking, joint pain, limited range of motion, numbness, tingling or muscle weakness Skin Skin: No redness, dry skin, itching, lesions, wounds or rash Neuro Neurology: No weakness, frequent falls, headache(s), abnormal hearing, abnormal walking, numbness, tingling, abnormal speech, dizziness or memory loss Psych Psychiatric: No change in appetite, No memory loss, No anxiety, No depression, No Thoughts of harming yourself/Others Endo Endocrine: No fatigue, excessive sweating, cold intolerance, increased thirst/drinking, heat intolerance, flushing or increased hunger Aller/Imm Allergy/Immunologic: No wheezing, itchy eyes, hives or seasonal allergy symptoms Hay/Lymp Hematologic/Lymphatic: No easy bleeding, easy bruising or enlarged lymph nodes Exam Const General: cooperative Nutritional Appearance: obese Orientation: alert, awake, oriented x3 HENMT Head: atraumatic, normocephalic Ears: hearing grossly normal bilaterally Resp Auscultation: Bilateral: Diminished Lung Sounds, Expiratory Wheezes Cardio Rate: regular rate Rhythm: regular rhythm Heart Sounds: S1 normal, S2 normal GI Inspection: obesity Palpation: no hepatosplenomegaly Musc Musculoskeletal: No muscle weakness Neuro General: alert, awake, oriented x3, moves all extremities, CN's II-XI intact bilaterally Extrem General: pedal edema bilaterally Location: of the leg Psych Appearance: grossly normal Mood: congruent mood Affect: normal affect Assessment AND Plan 1. Depression, unspecified depression type F32.9 Plan Stable. Currently on Cymbalta. Continue current management. Scheduled to follow-up with behavioral health. Follow-up in 1 month. 2. Type 2 diabetes mellitus with complication, without long- term current use of insulin E11.8 Plan Now presents with neuropathy. A1c of 10 at last check. Patient does not routinely check his blood sugars at home. No medication adjustments at this time due to absence of log. Patient advised to keep a blood sugar log and follow-up in a month. Continue current management. 3. Essential hypertension I10 Plan Not optimally controlled. Increase lisinopril to 20 mg daily. Follow-up at next visit 4. Abdominal pain R10.9 Plan Currently following up with general surgery at [place]. Plan is for ? Endoscopy. Will follow. Plan Detail Other Orders Orders: Other Medications Changed: Follow Up 1 Month Coding Level of Care Code Off vis,est,level 3 Diagnoses Depression, unspecified depression type F32.9 Depression Type: unspecified Type 2 diabetes mellitus with complication, without long-term current use of insulin E11.8 Diabetes mellitus complication status: with unspecified complications Diabetes mellitus senior care insulin use: without roasterman use Essential hypertension I10 Hypertension type: essential hypertension Abdominal pain R10.9 07/06/18 1529 <Electronically signed by Arlene Salas MD> Date Arlene Salas MD Cosigner Signature: Date (if applicable) CC: PULMONARY VISIT REPORT Observed: 06/25/2018 Status: F Source: GUS 4:01 PM [facility] REPOSITORY [facility] [address] [place] [address] OFFICE VISIT Date of Service: 06/25/18 MR#: [id number] Acct: [id number] Name: DWIGHT DUNLAP Rep #: [id number] : 1965 Provider: Kem Hartman MD Age/Sex: 52/M Location: [facility] Status: Signed Assessment AND Plan 1. COPD (chronic obstructive pulmonary disease) J44.9 Plan High clinical suspicion for COPD given extensive tobacco exposure. Patient was advised about the risks of continued tobacco abuse and lack of compliance with supplemental oxygen as both of these have been shown to extend life when addressed properly. Clinical suspicion that inhalers are being overused secondary to dyspnea associated with hypoxemia. Patient was advised that Dulera should be used no more than 2 puffs twice daily. Will obtain a complete pulmonary function test and walking oximetry for quantification and clarification of lung function. Patient was advised to obtain a pulse oximeter for monitoring of oxygen saturations. Use inhalers as instructed. Encourage compliance with supplemental oxygen and smoking cessation. Obtain complete PFT and walking oximetry. Orders Orders: 2. Tobacco use Z72.0 Plan Tay discussion with patient for 12 minutes on the importance of complete smoking cessation. Patient is pre-contemplative at this time and almost became aggressive with his frustration about people telling him not to smoke. Patient states that previous nicotine patches have led to abdominal discomfort. Encourage smoking cessation. 3. Morbid obesity with BMI of 60.0-69.9, adult E66.01; Z68.44 Plan Tay discussion with patient about the role of obesity and the overall disease plan of care. Patient has had some improvement in weight, but was over 400 pounds in the past. Stressed to the patient that if he is not to be compliant with ILYA therapy, weight loss could improve his obstructive events. Patient voiced understanding. Encourage weight loss 4. Hypersomnia G47.10 Plan Patient does have stigmata on physical exam consistent with right heart failure, likely secondary to noncompliance with ILYA therapy. Patient did not appear to be open to addressing hypersomnia at this time. Will concentrate on improving compliance with supplemental oxygen and inhaler use. Possible repeat polysomnogram in the future. Address on future visits. Plan Detail Follow Up 3 Months (CSM) HPI Chronic obstructive pulmonary disease: Chief Complaint: Shortness of breath on exertion Details: Patient is a 52-year-old male, currently under the care of Dr. Salas, who presents as a new consultation secondary to concern for ILYA and COPD. Patient reports an extensive smoking and addiction history. Patient has had pulmonary function tests in the past at the [facility], but is unaware of the results. Patient reportedly has been placed on supplemental oxygen in the past, but states that he does not wear this outside of the home so I do not get addicted. Patient places exercise tolerance at approximately 50 feet. Patient does report that he snores at night. Patient does feel fatigue and takes naps often. Patient has been given a Pap machine in the past, but refuses to use it. Patient reportedly is supposed to be on supplemental oxygen with exertion, but does not use this at home with sleep either. Patient does report a history of incarceration in the past. Patient denies any tuberculosis. Patient does have Dulera, albuterol aerosols and Ventolin at home. Patient estimates that he uses Dulera 4-5 times per day, Ventolin 5 times per day and albuterol nebulizers 5-8 times per day. Patient does report some tremor with the use of the medications and does not feel they work that we well. Patient does have a cough productive of cloudy white sputum on a daily basis. Patient does report marijuana use. Patient has had issues with alcohol in the past. Patient is currently on probation and living with his mother. Documentation reviewed 6 pages of documentation from patient's primary care physician was reviewed. Patient is a current smoker and carries a diagnosis of both asthma and COPD. Patient is diabetic with gastroparesis. Patient reportedly is supposed to be on supplemental oxygen, but is not compliant. Intake Vital Signs06/25/18 Height 5 ft 9 in 06/25/18 Weight: 170.551 kg Intake Visit Reasons: COPD DME Vendor: [employer] Accompanied by: Self Allergies hydrocodone bitartrate [From Shafer] Allergy (Mild, Verified 01/01/18 18:43) Hives acetaminophen [From Shafer] Allergy (Verified 01/01/18 18:43) Hives ibuprofen Allergy (Verified 01/01/18 18:43) Swelling vancomycin Allergy (Verified 01/01/18 18:43) Itching metformin Adverse Reaction (Verified 01/01/18 18:43) Upset Stomach Medications Liraglutide [Victoza] 0.6 - 1.2 mg IN DAILY 07/20/17 [History Confirmed 04/28/18] Albuterol Aerosols [Ventolin Aerosols] 2.5 mg INHALATION 4X/DAY #1 07/22/17 [Rx Confirmed 04/28/18] albuterol sulfate HFA 90 mcg/actuation aerosol inhaler 2 puff INHALATION Q4H PRN 03/17/18 [History Confirmed 04/28/18] lisinopril 10 mg tablet 10 mg PO QDAY #90 tab 03/17/18 [Rx Confirmed 04/28/18] atorvastatin 20 mg tablet 20 mg PO QDAY #90 tab 05/28/18 [Rx Confirmed 05/28/18] canagliflozin 100 mg tablet 100 mg PO QAM #30 tab 05/28/18 [Rx Confirmed 05/28/18] duloxetine 30 mg capsule,delayed release 30 mg PO BID #60 cap 05/28/18 [Rx Confirmed 05/28/18] esomeprazole magnesium 20 mg capsule,delayed release 20 mg PO QDAY 05/28/18 [History Confirmed 05/28/18] cholecalciferol (vitamin D3) 50,000 unit capsule 50,000 unit PO QWEEK 06/11/18 [History Confirmed 06/11/18] mometasone-formoterol HFA 100 mcg-5 mcg/actuation aerosol inhaler 2 puff INHALATION BID #13 g 06/24/18 [Rx] PFS Medical History Abdominal pain (Chronic) Asthma (Chronic) COPD (chronic obstructive pulmonary disease) (Chronic) Arthritis (Chronic) Chronic back pain (Chronic) Phimosis (Acute) Peritonsillar abscess (Acute) Morbid obesity with BMI of 60.0-69.9, adult (Chronic) Morbid obesity due to excess calories (Chronic) Tobacco use (Chronic) Depression (Chronic) GERD (gastroesophageal reflux disease) (Chronic) HTN (hypertension) (Chronic) Obesity hypoventilation syndrome (Chronic) Cellulitis (Acute) Diabetes mellitus, type II (Chronic) Hypertension (Chronic) Surgical History Status post right foot surgery (Resolved) Family History Grandmother Diabetes Hypertension Aunt Diabetes Uncle Diabetes Cancer lung Grandfather Myocardial infarction Hypertension Social History Smoking Status: Current every day smoker second hand exposure: Yes alcohol intake: never substance use type: marijuana caffeine: No what type of physical activity do you participate in: other details: PT frequency: 1-2 times per week Review of Systems Const CONSTITUTIONAL: Positive chills, night sweats and fatigue; negative anorexia, body ache, daytime sleepiness, fever(s), oral thrush, stops breathing during sleep, weight loss, sleeping in chair, weight loss, weight gain, frequent colds, seasonal allergies, other, headache(s) or orthopnea EETM Ear Nose Throat Mouth: Positive hearing normal; negative hard of hearing, hoarseness, dry mouth in morning, change in vision, itchy eyes, eye pain, swallowing Difficulty, ear pain, nose bleed, headache(s), mouth pain, nasal congestion, nasal discharge, post nasal drip, sinus pain, sinus pressure, sore throat or other Cardio Cardiovascular: Positive chest pain; negative chest pain at rest, chest pain with activity, irregular heart rhythm, edema, shortness of breath when lying down, palpitations, murmur or other Resp Respiratory: Positive as per HPI, shortness of breath shortness of breath: Positive with activity, wheezing, cough cough: Positive productive color: Positive clear and white and chest tightness; negative pain with cough, chest congestion, pain on inspiration, inhalers, increase use of rescue inhalers, snoring, apnea or other Gastro Gastrointestional: Negative bloody stools, change in appetite, difficulty swallowing, reflux, hematemesis, melena stool, loose stool, constipation or other Genitourinary: Negative blood in urine, nocturia, pain with urination or other Musc Musculoskeletal: Negative body pain, back pain, neck pain or other Skin/Breast Skin/Breast: Negative dry skin, itching, rash, unusual bruising, breast lump or other Neuro Neurological: Negative restless legs, confusion, weakness or other Psych Psychocological: Negative abnormal sleep pattern, anxiety, thoughts of hurting self/others, hopelessness or other Lymph Lymphatic: Negative easy bleeding, easy bruising, swollen lymph nodes or other Exam Const Constitutional: Positive conversant, cooperative (Transiently), in no acute respiratory distress, well developed, well nourished, appears older than stated age, dyspenic, poor hygiene and obese; negative wearing supplemental oxygen Head Head: Positive normocephalic and atraumatic; negative cyanosis of lips/distal nose, frontal sinus tenderness or maxillary sinus tenderness Eyes Eye: Positive clear conjunctiva; negative nystagmus, scleral abnormality or cataract present Ears Ear: Positive hearing normal and external ears normal; negative hard of hearing Nose Nose: Positive external nose normal, septum normal and no nasal discharge; negative epistaxis or nasal polyp Mouth Mouth: Positive oral mucosae normal, no lesions, poor dentition and crowded posterior oropharynx; negative post nasal drip, malodorous breath or oral thrush present Mallampati Score: IV: Mallampati Score Neck Neck: Positive normal visual inspection, full ROM, trachea midline and male neck greater than 43 cm (17 in); negative lymphadenopathy or JVD Chest Wall Chest: Positive normal inspection of the chest and symmetric chest movement; negative crepitus or tenderness Resp lung sounds: Positive diminished, wheeze present on forced exhalation, prolonged expiratory time and normal chronic state of increased work of breathing; negative wheezes, rhonchi, rales, use of accessory muscles or dullness to percussion Cardio Cardiac: Positive regular rate, regular rhythm, S1 normal and S2 normal; negative murmur, rub or gallop GI GI: Positive normal to inspection, normal bowel sounds and obese; negative distended, ascites or epigastric tenderness Genitourinary: Positive deferred Musc Musculoskeletal: Negative using an assistive device for ambulation, kyphosis or scoliosis Skin Pulmonary Skin Exam: Positive intact, erythema (Lower extremities) and scaly (Lower extremities); negative rash, lesion or ulcers Pulses Pulse: Yes radial pulses present Extremities Extremities: Yes capillary refill normal, Yes clubbing, Yes cyanosis (Bilateral lower extremities), Yes edema (3+) Neuro Neurologic: Yes conversant, Yes understands questions, Yes normal concentration, Yes normal coordination, Yes normal cognition Lymph Lymphatic: No lymphadenopathy Psych Appearance: Positive grossly normal Mental Status: Positive mental status grossly normal Mood: Positive congruent mood Affect: Positive normal affect Pulmonary Procedure Smoking Cessation Education: Yes education provided, greater than 10 minutes, expresses understanding, continue to encourage smoking cessation and needs reinforcement Coding Level of Care Code Off vis,new,level 5 Diagnoses COPD (chronic obstructive pulmonary disease) J44.9 Tobacco use Z72.0 Morbid obesity with BMI of 60.0-69.9, adult E66.01; Z68.44 Hypersomnia G47.10 06/25/18 1601 <Electronically signed by Kem Hartman MD> Date Kem Marcus Signature: Date (if applicable) CC: Arlene Salas MD INTERNAL MEDICINE Observed: 05/29/2018 Status: F Source: GUS OFFICE VISIT 2:56 PM [facility] [address] [place] [address] OFFICE VISIT Date of Service: 05/28/18 MR#: [id number] Acct: [id number] Name: DWIGHT DUNLAP Rep #: [id number] : 1965 Provider: Arlene Salas MD Age/Sex: 52/M Location: [facility] Status: Signed Intake Vital Signs05/28/18 Height 5 ft 9 in 05/28/18 Weight: 370 lb 05/28/18 Body Mass Index (BMI) 54.6 05/28/18 Blood Pressure 131/86 05/28/18 Blood Pressure Location Lt brachial Intake Visit Reasons: 1 mo fu Chief Complaint: 1 month follow-up Allergies hydrocodone bitartrate [From Shafer] Allergy (Mild, Verified 01/01/18 18:43) Hives acetaminophen [From Shafer] Allergy (Verified 01/01/18 18:43) Hives ibuprofen Allergy (Verified 01/01/18 18:43) Swelling vancomycin Allergy (Verified 01/01/18 18:43) Itching metformin Adverse Reaction (Verified 01/01/18 18:43) Upset Stomach Medications Liraglutide [Victoza] 0.6 - 1.2 mg IN DAILY 07/20/17 [History Confirmed 04/28/18] Albuterol Aerosols [Ventolin Aerosols] 2.5 mg INHALATION 4X/DAY #1 07/22/17 [Rx Confirmed 04/28/18] albuterol sulfate HFA 90 mcg/actuation aerosol inhaler 2 puff INHALATION Q4H PRN 03/17/18 [History Confirmed 04/28/18] lisinopril 10 mg tablet 10 mg PO QDAY #90 tab 03/17/18 [Rx Confirmed 04/28/18] mometasone-formoterol HFA 100 mcg-5 mcg/actuation aerosol inhaler 2 puff INHALATION BID #13 g 04/22/18 [Rx Confirmed 04/28/18] atorvastatin 20 mg tablet 20 mg PO QDAY #90 tab 05/28/18 [Rx Confirmed 05/28/18] canagliflozin 100 mg tablet 100 mg PO QAM #30 tab 05/28/18 [Rx Confirmed 05/28/18] duloxetine 30 mg capsule,delayed release 30 mg PO BID #60 cap 05/28/18 [Rx Confirmed 05/28/18] esomeprazole magnesium 20 mg capsule,delayed release 20 mg PO QDAY 05/28/18 [History Confirmed 05/28/18] PFS Medical History Asthma (Chronic) COPD (chronic obstructive pulmonary disease) (Chronic) Arthritis (Chronic) Chronic back pain (Chronic) Hypertension (Chronic) Surgical History Status post right foot surgery (Acute) Family History Grandmother Diabetes Hypertension Aunt Diabetes Uncle Diabetes Cancer lung Grandfather Myocardial infarction Hypertension Social History Smoking Status: Current every day smoker alcohol intake: never substance use type: does not use what type of physical activity do you participate in: other details: PT frequency: 1-2 times per week Questionnaire PHQ-2/PHQ-9 PHQ-2 Over the last 2 weeks, how often have you been bothered by any of the following problems? 1. Little interest or pleasure in doing things: nearly every day 2. Feeling down, depressed, or hopeless: more than half the days Total score: 5 If score is 2 or greater, continue 3. Trouble falling or staying asleep, or sleeping too much: nearly every day 4. Feeling tired or having little energy: more than half the days 5. Poor appetite or overeating: more than half the days 6. Feeling bad about yourself - or that you are a failure or have let yourself and your family down: several days 7. Trouble concentrating on things, such as reading the newspaper or watching television: more than half the days 8. Moving or speaking so slowly that other people could have noticed? - Or the opposite - being so fidgety or restless that you have been moving around a lot more than usual: more than half the days 9. Thoughts that you would be better off or of hurting yourself in some way: several days Total score: 18 If you checked off any problems, how difficult have these problems made it for you to do your work, take care of things at home, or get along with other people?: very difficult Source: Developed by Drs. Wilner Schneider, Cris Walls, Antonio De Santiago and colleagues, with an educational kobe from [employer]. HPI HPI Chief Complaint: 1 month follow-up Details: DWIGHT DUNLAP, is a 52yo M who presents to the office today for follow. He reports persisting abdominal pain. Gastric emptying study was suggestive of delayed gastric emptying. A1C suggestive of poor control at 10.4. He however is most concerned his mood and did score 18 on the PHQ- 9 suggestive of severe depression. He is currently not on any medication. ROS Const Constitutional: Positive for fatigue and weakness; no weight change, body ache, chills, sleep problems, fever(s), change in appetite, snoring, frequent falls, headache(s) or excessive sweating Eyes Eyes: No change in vision, eye pain, light sensitivity or blurry vision ENT ENT: No headache(s), abnormal hearing, ear pain, tinnitus, nasal congestion, sore throat or neck pain Resp Respiratory: Positive for shortness of breath; no snoring, cough or wheezing Cardio Cardiology: No excessive sweating, chest pain with exertion, shortness of breath, dyspnea on exertion, palpitations, orthopnea or lightheadedness Gastro GI: No abdominal pain, change in bowel habits, constipation, diarrhea, vomiting, nausea/dyspepsia or cramping Genitourinary Male: No painful urination, urinary incontinence, urinary frequency, urinary urgency, blood in urine, testicle pain or other Musc Musculoskeletal: No neck pain, abnormal walking, joint pain, back pain, limited range of motion, numbness, tingling or muscle weakness Skin Skin: No redness, dry skin, itching, lesions, wounds or rash Neuro Neurology: Positive for weakness; no frequent falls, headache(s), abnormal hearing, abnormal walking, numbness, tingling, abnormal speech, dizziness or memory loss Psych Psychiatric: No change in appetite, No memory loss, No anxiety, No depression, No Thoughts of harming yourself/Others Endo Endocrine: Positive for fatigue; no excessive sweating, cold intolerance, increased thirst/drinking, heat intolerance, flushing or increased hunger Aller/Imm Allergy/Immunologic: No wheezing, itchy eyes, hives or seasonal allergy symptoms Hay/Lymp Hematologic/Lymphatic: No easy bleeding, easy bruising or enlarged lymph nodes Exam Const General: cooperative Nutritional Appearance: obese Orientation: alert, awake, oriented x3 HENMT Head: atraumatic, normocephalic Ears: hearing grossly normal bilaterally Resp Auscultation: Bilateral: Diminished Lung Sounds, Expiratory Wheezes Cardio Rate: regular rate Rhythm: regular rhythm Heart Sounds: S1 normal, S2 normal GI Inspection: obesity Palpation: no hepatosplenomegaly Musc Musculoskeletal: No muscle weakness Neuro General: alert, awake, oriented x3, moves all extremities, CN's II-XI intact bilaterally Extrem General: pedal edema bilaterally Location: of the leg Psych Appearance: grossly normal Mood: congruent mood Affect: normal affect Assessment AND Plan 1. Depression, unspecified depression type F32.9 Plan Severe. Scored 18 on the PHQ- 9 Referred to Behavioral health. Prescription for Cymbalta sent. Follow up in 1 month. Orders Referrals: 2. Type 2 diabetes mellitus with complication, without long- term current use of insulin E11.8 Plan Poorly controlled. Currently only on Victoza. Will add Invokana. Advised to check his blood sugar BID. Continue dietary and life style modifications. 3. Abdominal pain R10.9 Plan Persisting. Appears to have Diastasis Recti. Also an element of Gastroparesis. Optimal DM control recommended. Small frequent meals also recommended. Refer to General surgery. Orders Referrals: 4. Obesity hypoventilation syndrome E66.2 Plan Also reports severe Sleep apnea and COPD. On O2 however does not use it as recommended. Referred to Pulmo. Orders Referrals: Plan Detail Other Orders Referrals: Other Medications New: Follow Up 1 Month Coding Level of Care Code Off vis,est,level 4 Diagnoses Depression, unspecified depression type F32.9 Depression Type: unspecified Type 2 diabetes mellitus with complication, without long-term current use of insulin E11.8 Diabetes mellitus complication status: with unspecified complications Diabetes mellitus senior care insulin use: without senior care use Abdominal pain R10.9 Obesity hypoventilation syndrome E66.2 05/29/18 1456 <Electronically signed by Arlene Salas MD> Date Arlene Salas MD Cosigner Signature: Date (if applicable) CC: CBC W/DIFF, AUTOMATED Collected: 05/26/2018 Status: F Source: GUS 12:48 PM [facility] REPOSITORY TYPE CODE TESTS RESULT OUT OF RANGE REFERENCE UNITS LAB L100.1000 4.4-11.0 K/mm3 Normal WBC 7.3 LAB L100.1200 4.6-6.2 M/mm3 Normal RBC 5.76 LAB L100.1300 13.0-16.5 g/dl High HGB 17.2 LAB L100.1400 40-54 % Normal HCT 50.2 LAB L100.1500 80-94 fL Normal MCV 87.2 LAB L100.1600 27.0-32.0 pg Normal MCH 29.9 LAB L100.1700 32-36 g/gl Normal MCHC 34.3 LAB L100.1810 11.6-14.6 % Normal RDW CV 13.6 LAB L100.1820 35.1-43.9 fl Normal RDW SD 43.3 LAB L100.1900 150-450 K/mm3 Normal PLT 217 LAB L100.2000 6.2-12.0 fl Normal MPV 11.8 LAB L100.2100 47-70 % Normal NEUT% 47.9 LAB L100.2200 19-41 % Normal LY% 37.5 LAB L100.2300 0-10 % High MONO% 12.7 LAB L100.2400 0-5 % Normal EO% 1.1 LAB L100.2500 0-1 % Normal BASO% 0.4 LAB L100.2550 0.0-0.9 % Normal IM GRAN % 0.400 Result Comment: IG% - Immature Granulocytes (promyelocytes, myelocytes and metamyelocytes) > 1% indicates that a LEFT SHIFT is Present. LAB L100.2620 2.0-7.7 X10 3/uL Normal Absolute Neut 3.5 LAB L100.2720 0.83-4.51 X10 3/ul Normal Absolute Lymph 2.72 Performed By: #### L100.0100, L500.4050, L500.4100 #### [facility] [address] [place], [address] COMPREHENSIVE METABOLIC Collected: 05/26/2018 Status: F Source: [facility] 12:48 PM [facility] REPOSITORY Order Comment: Comments: Fasting Comments: Fasting TYPE CODE TESTS RESULT OUT OF RANGE REFERENCE UNITS LAB L501.0100 74-106 mg/dL High GLU 262 Result Comment: Glucose result greater than or equal to 200 mg/dL suggests DIABETES MELLITUS per A.D.A. criteria. Please note revised GLUCOSE reference range effective 2017. LAB L501.1000 7-18 mg/dL Normal BUN 13 LAB L501.1100 0.70-1.30 mg/dL Normal CREAT,SERUM 0.78 Result Comment: The validity of the calculated GFR AND GFRAA in patients over 70 years has not been determined. Clinical correlation is essential. LAB L501.1110 >60 mL/min Normal EST GFR 111 Result Comment: Non- GFR Calc LAB L501.1115 >60 mL/min Normal EST GFR - AA 135 Result Comment: GFR Calc LAB L501.1300 10-20 RATIO Normal BUN/CRE 16.6 LAB L501.1500 6.4-8.2 g/dL T Normal PROT 7.6 LAB L501.1800 3.2-5.0 g/dL Normal ALB 3.6 LAB L501.1950 2.2-4.2 g/dL Normal GLOB 4.0 LAB L501.2000 0.9-2.4 RATIO Normal A/G 0.9 LAB L501.2200 8.5-10.1 mg/dL Low CA 8.3 LAB L501.4100 15-37 U/L Normal AST 23 LAB L501.4305 45-117 U/L High ALK P 180 LAB L501.4405 16-61 U/L Normal ALT 52 LAB L501.4600 0.20-1.00 mg/dL T Normal BILI 0.60 LAB L501.5300 136-145 mmol/L Low NA 135 LAB L501.5600 3.5-5.1 mmol/L K Normal 4.1 LAB L501.5900 98-107 mmol/L CL Normal 99 LAB L501.6100 21.0-32.0 mmol/L Normal CO2 29.0 LAB L501.6200 5-15 Normal GAP 7 Performed By: #### L100.0100, L500.4050, L500.4100 #### [facility] [address] [facility] [address] [place], [place], [id number] LIPID PROFILE Collected: 05/26/2018 Status: F Source: [facility] 12:48 PM [facility] REPOSITORY Order Comment: Comments: Fasting Comments: Fasting TYPE CODE TESTS RESULT OUT OF RANGE REFERENCE UNITS LAB L501.4900 200 mg/dL Normal CHOL 173 Result Comment: <200 mg/dL Desirable 200-240 mg/dL Borderline >240 mg/dL High Risk LAB L501.5000 mg/dL Normal TRIG 139 Result Comment: The drugs N-Acetylcysteine and Metamizole may falsely depress this assay. Serum Triglycerides Reference Interval Normal <150 mg/dL Borderline high 150 - 199 mg/dL High 200 - 499 mg/dL Very High > or = 500 mg/dL LAB L501.6400 mg/dL Low HDL 38 Result Comment: The drugs N-Acetylcysteine and Metamizole may falsely depress this assay. Reference Range HDL <40 mg/dL Low HDL Cholesterol HDL >or= 60 mg/dL High HDL Cholesterol LAB L501.6500 0-130 mg/dL Normal LDL 107 LAB L501.6600 5-40 mg/dL Normal VLDL 28 Performed By: #### L100.0100, L500.4050, L500.4100 #### [facility] [address] [place], [place], [id number] HEMOGLOBIN A1C Collected: 05/26/2018 Status: F Source: [facility] 12:48 PM [facility] REPOSITORY TYPE CODE TESTS RESULT OUT OF RANGE REFERENCE UNITS LAB L501.9985 4.2-6.3 % High HGB A1C 10.6 Performed By: #### L501.9985 #### [facility] [address] [place], [address] MICROALB:CREAT Collected: 05/26/2018 Status: F Source: [facility] 12:48 PM [facility] REPOSITORY TYPE CODE TESTS RESULT OUT OF RANGE REFERENCE UNITS LAB L501.1200 NO RANGE EST. mg/dL Normal UR CREAT 148.00 LAB L502.0500 NO RANGE EST. mg/L Normal 21.4 MICROALBUMIN ,UR LAB L502.0600 <30 mg/g CRE mg/g CRE Normal 14.5 MALB:CREAT Performed By: #### L502.0250 #### [facility] [address] [place], [address] GASTRIC EMPTYING Observed: 05/08/2018 Status: F Source: [facility] 10:00 AM [facility] REPOSITORY [facility] [address] [place] [address] Gastric Emptying Study MR#: [id number] Acct: [id number] Name: DWIGHT DUNLAP Rep #: [id number] : 1965 M 52 From: Enrique Jamison DO PCP: Sukhjinder Mace DO Status: REG CLI Study: Gastric Emptying Study Date of Exam: 05/08/18 Exam# [id number] Ordering Dr: Arlene Salas MD CLINICAL: 52-year-old male with reported history of abdominal pain and bloating. SEMI-SOLID PHASE 99m Tc SULFUR COLLOID GASTRIC EMPTYING STUDY COMPARISON: None available FINDINGS: The patient was administered 1.1 mCi of 99m Tc sulfur colloid mixed with oatmeal and consumed per os. Image acquisitions in the anterior-posterior projections for a total of 60 minutes. There is prompt visualization of the stomach. There is no gastroesophageal reflux identified. First order kinetics are defined throughout the duration of the acquisitions. The T1/2 linear fit was calculated to be 94.62 minutes, (Normal: 12- 56 minutes). NM/Gastric Emptying Study IMPRESSION: 1. ABNORMAL 99m Tc sulfur colloid semi-solid phase (oatmeal) gastric emptying imaging examination. A. There is delayed semi-solid phase gastric emptying compared to normal controls. (Palmira et al, J Nucl Med Tech 38: 186, 2010). Electronically Signed: Enrique Jamison DO at 8:03 EDT Tel , Service support , CC: Arlene Salas MD; Sukhjinder Mace DO Product Demonstrator: Signed INTERNAL MEDICINE Observed: 04/28/2018 Status: F Source: [facility] OFFICE VISIT 4:20 PM [facility] [address] [place] [address] OFFICE VISIT Date of Service: 04/28/18 MR#: [id number] Acct: [id number] Name: DWIGHT DUNLAP Rep #: [id number] : 1965 Provider: Arlene Salas MD Age/Sex: 52/M Location: [facility] Status: Signed Intake Vital Signs04/28/18 Height 5 ft 9 in 04/28/18 Weight: 385 lb 04/28/18 Body Mass Index (BMI) 56.8 04/28/18 Blood Pressure 130/88 Intake Visit Reasons: 6 WK FU Chief Complaint: establish care Is patient in pain?: Yes (Stomach) Pain scale (1-10): 5 Allergies hydrocodone bitartrate [From [facility]] Allergy (Mild, Verified 01/01/18 18:43) Hives acetaminophen [From [facility]] Allergy (Verified 01/01/18 18:43) Hives ibuprofen Allergy (Verified 01/01/18 18:43) Swelling vancomycin Allergy (Verified 01/01/18 18:43) Itching metformin Adverse Reaction (Verified 01/01/18 18:43) Upset Stomach Medications Liraglutide [Victoza] 0.6 - 1.2 mg IN DAILY 07/20/17 [History Confirmed 04/28/18] Albuterol Aerosols [Ventolin Aerosols] 2.5 mg INHALATION 4X/DAY #1 07/22/17 [Rx Confirmed 04/28/18] albuterol sulfate HFA 90 mcg/actuation aerosol inhaler 2 puff INHALATION Q4H PRN 03/17/18 [History Confirmed 04/28/18] lisinopril 10 mg tablet 10 mg PO QDAY #90 tab 03/17/18 [Rx Confirmed 04/28/18] mometasone-formoterol HFA 100 mcg-5 mcg/actuation aerosol inhaler 2 puff INHALATION BID #13 g 04/22/18 [Rx Confirmed 04/28/18] PFSH Medical History Asthma (Chronic) COPD (chronic obstructive pulmonary disease) (Chronic) Arthritis (Chronic) Chronic back pain (Chronic) Hypertension (Chronic) Surgical History Status post right foot surgery (Acute) Family History Grandmother Diabetes Hypertension Aunt Diabetes Uncle Diabetes Cancer lung Grandfather Myocardial infarction Hypertension Social History Smoking Status: Current every day smoker alcohol intake: never substance use type: does not use what type of physical activity do you participate in: other details: PT frequency: 1-2 times per week HPI HPI Chief Complaint: establish care Details: DWIGHT DUNLAP, is a 52yo M who presents to the office today to establish/follow up on management of his chronic medical conditions. He had previously followed up at the [facility]. He was recently seen by Anthony Davis NP and restarted on some of his medications. He has a long-term history of diabetes mellitus type 2 and has been placed on other medications in the past but is currently only on Victoza. Last A1c per records from the [facility] was 12.5. He now reports satiety and abdominal pain but denies nausea or vomiting. He also reports blurring of vision and tingling sensation in his lower extremities. ROS Const Constitutional: No chills, fatigue, fever(s), frequent falls, malaise, weakness or sleep problems Eyes Eyes: No blurry vision, change in vision, double vision, discharge or visual disturbances ENT ENT: No abnormal hearing, ear pain, ear pressure, tinnitus or dizziness/vertigo Resp Respiratory: Positive for shortness of breath; no cough or wheezing Cardio Cardiology: No chest pain at rest, chest pain with exertion, dyspnea on exertion, generalized swelling, irregular heart rhythm, lightheadedness, orthopnea, fast heart rate or palpitations Gastro GI: Positive for abdominal pain and bloating; no change in bowel habits, constipation, diarrhea, nausea/dyspepsia or vomiting Genitourinary Male: No difficulty urinating, burning urination, painful urination, urinary incontinence, urinary frequency, urinary urgency, urinary hesitancy, urinary retention, blood in urine, Frequent nighttime urination/ nocturia, sexual problems, testicle lump or testicle pain Musc Musculoskeletal: No joint pain, back pain, joint swelling, limited range of motion, muscle weakness, numbness or tingling Skin Skin: No change in skin color, itching, rash or wounds Breast Breast: No breast lump or breast pain Neuro Neurology: No frequent falls, weakness, abnormal hearing, numbness, tingling, unsteady gait/balance, dizziness, loss of vision, memory loss or visual disturbances Psych Psychiatric: No memory loss, No anxiety, No depression, No Thoughts of harming yourself/Others Endo Endocrine: Positive for increased thirst/drinking (Mouth always dry); no fatigue, heat intolerance, increased hunger or increased urination Aller/Imm Allergy/Immunologic: No wheezing, itchy eyes or seasonal allergy symptoms Hay/Lymp Hematologic/Lymphatic: No easy bleeding, easy bruising or enlarged lymph nodes Exam Const General: cooperative Nutritional Appearance: obese Orientation: alert, awake, oriented x3 HENTN Head: atraumatic, normocephalic Ears: hearing grossly normal bilaterally Resp Auscultation: Bilateral: Diminished Lung Sounds, Expiratory Wheezes Cardio Rate: regular rate Rhythm: regular rhythm Heart Sounds: S1 normal, S2 normal GI Inspection: obesity Palpation: no hepatosplenomegaly Musc Musculoskeletal: No muscle weakness Neuro General: alert, awake, oriented x3, moves all extremities, CN's II-XI intact bilaterally Extrem General: pedal edema bilaterally Location: of the leg Psych Appearance: grossly normal Mood: congruent mood Affect: normal affect Assessment AND Plan 1. Abdominal pain R10.9 Plan Per patient he has been worked up at the [facility] without any abnormality detected. Pain possibly due to gastroparesis from poorly controlled diabetes. Gastric study ordered. Patient counseled on optimal control of his blood sugars. Continue small frequent meals Follow-up with results. 2. Type 2 diabetes mellitus with complication, without long- term current use of insulin E11.8 Plan Poorly controlled. Last A1c was 12.5. Patient has been prescribed different medications in the past however he is currently only taking Victoza. A1c ordered. I did advise patient that I will most likely be having some other medications to his regimen. He is open to this. Follow-up with results. 3. Morbid obesity with BMI of 60.0-69.9, adult E66.01; Z68.44 Plan I believe patient will benefit from weight loss surgery considering his comorbidities. Readdress at next visit. 4. Tobacco use Z72.0 Plan An every day smoker. Has tried the patches in the past unsuccessfully. I do not believe he is a good candidate for Chantix. Patient was encouraged in smoking cessation. 5. Essential hypertension I10 Plan Stable. Continue current medication. Possibly adjust lisinopril after urine microalbumin review. This note was generated with [employer] dictation software. It may contain incorrect words, spelling, and punctuation that were not noted in checking the note before signing. Orders Orders: Plan Detail Other Orders Orders: Referrals: Follow Up 1 Month Coding Level of Care Code Off vis,est,level 4 Diagnoses Abdominal pain R10.9 Type 2 diabetes mellitus with complication, without long-term current use of insulin E11.8 Diabetes mellitus complication status: with unspecified complications Diabetes mellitus senior care insulin use: without senior care use Morbid obesity with BMI of 60.0-69.9, adult E66.01; Z68.44 Tobacco use Z72.0 Essential hypertension I10 Hypertension type: essential hypertension 04/28/18 1620 <Electronically signed by Arlene Salas MD> Date Arlene Salas MD Cosigner Signature: Date (if applicable) CC: PROGRESS Observed: 04/17/2018 Status: COMPLETED Source: [facility] 7:32 AM [facility] HNO ID: [id number] Author: Sukhjinder Love Service: (none) Author Type: Physician Type: Progress Notes Filed: 04/17/2018 7:37 AM Note Text: Patient presents with: Follow Up: 3 months HPI: Manoj Dunlap is a 52 year old male who presents to the office today for review of health conditions. Concerns today: ILYA, not wearing his CPAP stating I have no way to clean it right. Hasn't had his a1c recently rechecked, states that he will come into labs this next week to have done. Mr. Dunlap has past history of diabetes. Since our last visit he denies excessive thirst or increased frequency of urination, chest pain or dyspnea , new or unusual visual symptoms and low sugar/hypoglycemic reactions. Follows a diabetic diet generally not very much. He is compliant with medication Victoza, not with others, and is tolerating med(s) without any side effects. He reports checking his glucose on a infrequent to not at all basis schedule. Patient's last HgA1C was Hemoglobin A1C (%) Date Value 01/16/2017 10.4 03/21/2016 7.0 Hemoglobin A1C (POCT) (%) Date Value 12/24/2017 12.5 ) Last Ophthalmology exam was >12 months ago Mr. Dunlap reports history of hyperlipidemia. His most recent lipid panels are reviewed. Cholesterol, Total (mg/dL) Date Value 01/16/2017 198 HDL Cholesterol (mg/dL) Date Value 01/16/2017 46 LDL Cholesterol (mg/dL) Date Value 01/16/2017 133 Triglyceride (mg/dL) Date Value 01/16/2017 97 Mr. Dunlap indicates a history of hypertension and states that he is feeling well and denies any symptoms referable to elevated blood pressure. Specifically denies headache, chest pain, palpitations, dyspnea and peripheral edema. Patient denies any side effects of his medication(s) and is compliant with their regimen. Last 3 Encounter BP Readings: Date: BP: 04/15/2018 124/80 01/07/2018 156/94 12/24/2017 130/80 He watches his diet for sodium, low fat and low cholesterol generally not very much. He does not check BP's generally. Manoj gets minimal exercise. PAST MEDICAL HISTORY Diagnosis Date - Abscess around left side Carotid - Chronic low back pain 2011 Workman's comp claim - COPD, severe (HCC) - Diabetes (HCC) 03/2015 - Obesity - ILYA (obstructive sleep apnea) PAST SURGICAL HISTORY Procedure Laterality Date - PAST SURGICAL HISTORY OF 1988 Right foot - PAST SURGICAL HISTORY OF throat surgery at [facility] Social History Marital status: Single Spouse name: Years of education: Number of children: 1 Social History Main Topics Smoking status: Current Every Day Smoker Packs/day: 1.00 Years: 35.00 Types: Cigarettes Smokeless tobacco: Never Used Alcohol use: No Drug use: No Comment: WEED/ not for 4 years Sexual activity: No FAMILY HISTORY Problem Relation Age of Onset - carpal tunnel [OTHER] Mother - eye problem [OTHER] Mother - Heart Father - Diabetes Maternal Grandmother - Heart Maternal Grandmother - Heart Maternal Grandfather - Hypertension Maternal Grandfather Allergies: ALLERGIES Allergen Reactions - Gabapentin Other: See Comments Not effective for neuropathy symptoms - Ibuprofen Swelling - Metformin GI Upset GI upset from Metformin ER Current Meds: nicotine polacrilex (NICORETTE) 4 mg gum Take 1 Each by mouth every 2 hours as needed (cigarette craving). albuterol (PROVENTIL) 2.5 mg /3 mL (0.083 %) nebulizer solution use 1 ampule via nebulizer every 4 hours as needed for wheezing and shortness of breath over 5 to 15 minutes VENTOLIN HFA 90 mcg/actuation inhaler Inhale 2 Puffs as instructed every 4 hours as needed for Wheezing/Shortness of Breath. FREESTYLE LITE STRIPS test strip Test once a day as directed COMPOUNDED PRESCRIPTION Nebulizer tubing and supplies. Dx: COPD and Asthma liraglutide (VICTOZA 2-AMAYA) 0.6 mg/0.1 mL (18 mg/3 mL) pnij Inject 1.8 mg subcutaneously once daily. lisinopril (ZESTRIL) 40 mg tablet Take 1 tablet by mouth once daily. nicotine (NICODERM) 21 mg/24 hr Apply 1 Patch as directed every 24 hours. Remove at bedtime buPROPion SR (WELLBUTRIN SR) 150 mg 12 hr tablet Take 1 tablet by mouth twice daily. CHANTIX CONTINUING MONTH BOX 1 mg tablet Take 1 tablet by mouth twice daily. omeprazole (PRILOSEC) 20 mg capsule Take 1 capsule by mouth daily before breakfast. 1/2 hr before meal. For stomach UNIFINE PENTIPS 31 gauge x 1/4 ndle One needle per dose; one per day lancets (FREESTYLE LANCETS) 28 gauge misc Test blood sugar(s) 2x times daily. Dx: 250.02. Insulin: No COMPOUNDED PRESCRIPTION Vehicle Nebulizer with supplies. Home nebulizer tubing and supplies. Diagnosis: COPD, and Asthma. glimepiride (AMARYL) 2 mg tablet TAKE 2 TABLETS EVERY DAY WITH BREAKFAST cholecalciferol, Vitamin D3, (VITAMIN D3) 50,000 unit cap capsule take 1 capsule every week BREO ELLIPTA 200-25 mcg/dose inhaler inhale 1 puff as directed daily.Do not click open until ready to dose aclidinium bromide (TUDORZA PRESSAIR) 400 mcg/actuation aepb Inhale 1 Inhalation as instructed twice daily. Indications: CHRONIC OBSTRUCTIVE PULMONARY DISEASE WITH BRONCHOSPASMS Review of Systems: The remainder of the review of systems is negative. PE: 04/15/18 1742 BP: 124/80 Pulse: 80 Resp: 20 Temp: 36.9 ?C (98.5 ?F) TempSrc: Right Tympanic Weight: (!) 171.9 kg (379 lb) Gen: AANDO, NAD, non-toxic appearing, morbidly obese, foul language with communication, HEENT: NT/AC, PERRLA, EOMs intact b/l, nares clear and patent b/l, pharynx without erythema, exudate or lesions. Uvula midline. EACs without erythema or debris. TMs pearly hopkins with intact landmarks b/l. Neck: supple, No cervical LAD, no thyromegaly, no carotid bruits CV: RRR, normal S1 and S2, no murmurs, no gallops, no rubs, Pulses 2+ and symmetric in UE and LE b/l Lungs: normal respiratory effort, diffuse intermittent expiratory wheezing Abd: soft, morbidly obese, unable to determine if any hepatosplenomegaly, NT, ND, +BS MS: FROM all 4 extremities Neuro: CN II-XII intact b/l, strength 5/5 b/l UE and LE, DTRs 2/4 UE and LE, sensation intact. Skin: warm, dry, intact, No rashes or lesions on exposed skin. ASSESSMENT/PLAN: 1. Uncontrolled diabetes mellitus type 2 without complications, unspecified whether roasterman insulin use (HCC) - ICD9: 250.02, ICD10: E11.65 (primary diagnosis) uncontrolled Poor adherence to plan of care. - Continue current medications - Check HgA1C, fasting glucose, fasting lipid panel, CMP and CBC - Blood glucose monitoring on a twice a day schedule - HGB A1C - COMP METABOLIC PANEL 2. Essential hypertension with goal blood pressure less than 140/90 - ICD9: 401.9, ICD10: I10 - good control - Continue current medication(s) - Encouraged dietary sodium restriction/DASH diet - Recommended regular aerobic exercise. - Recommend home blood pressure monitoring, to bring results in on next visit - Discussed need and benefit for weight loss. - Goal of BP <130/80 3. COPD with chronic bronchitis (HCC) - ICD9: 491.20, ICD10: J44.9 - continue inhalers, needs to quit smoking as d/w him today in office 4. BMI 60.0-69.9, adult (HCC) - ICD9: V85.44, ICD10: Z68.44 - Lengthy discussion in office today regarding diet and exercise. Discussed use of small plate to eat meals from, drink 1 glass of water 10-15 minutes prior to eating meal, drink 8 glasses of water daily, eat fresh fruit and vegetable during meal first then lean protein such as grilled/baked chicken breast or fish, limit carbohydrate intake (less pasta, breads, rice and snack foods) as well as limiting sugars (desserts etc). Important to count / track your calories and exercise as well. 5. Dyslipidemia - ICD9: 272.4, ICD10: E78.5 - to be determined upon return of lab results - Encouraged following a low fat, low cholesterol diet. - Discussed the benefits of regular aerobic exercise and weight loss. - LIPID PANEL BASIC 6. ILYA on CPAP - ICD9: 327.23, V46.8, ICD10: G47.33, Z99.89 - needs to wear his CPAP as d/w him today, he is aware that ILYA can cause sudden 7. Tobacco use - ICD9: 305.1, ICD10: Z72.0 - Cessation encouraged. - Physiologic and physical aspects of tobacco addiction as well as strategies for quitting were discussed. - Counseling was given focusing on the harmful effects of this addiction especially given the patient's medical condition(s) which will be worsened because of the chemicals in tobacco. Sukhjinder Love DO To ER if develops chest pain, shortness of breath, or severe worsening of symptoms. Discussed risks, benefits, alternatives, and potential side effects of medications. Patient expressed understanding and agreed with the plan. Sukhjinder Love DO [address] [place] [address] CNOV Observed: 04/15/2018 Status: COMPLETED Source: [facility] 5:40 PM [facility] REPOSITORY Office Visit (FAMPWS) MANOJ DUNLAP ([id number]) 1965 M Date Time Provider Department 04/15/18 5:40 PM SUKHJINDER LOVE During your visit today, we recorded the following information about you: Temperature Pulse Respiration Blood pressure 98.5 degrees 80/minute 20/minute 124/80 Weight 171.9 kg Sukhjinder Love DO 04/17/2018 7:37 AM Signed Patient presents with: Follow Up: 3 months HPI: Manoj Dunlap is a 52 year old male who presents to the office today for review of health conditions. Concerns today: ILYA, not wearing his CPAP stating I have no way to clean it right. Hasn't had his a1c recently rechecked, states that he will come into labs this next week to have done. Mr. Dunlap has past history of diabetes. Since our last visit he denies excessive thirst or increased frequency of urination, chest pain or dyspnea , new or unusual visual symptoms and low sugar/hypoglycemic reactions. Follows a diabetic diet generally not very much. He is compliant with medication Victoza, not with others, and is tolerating med(s) without any side effects. He reports checking his glucose on a infrequent to not at all basis schedule. Patient's last HgA1C was Hemoglobin A1C (%) Date Value 01/16/2017 10.4 03/21/2016 7.0 Hemoglobin A1C (POCT) (%) Date Value 12/24/2017 12.5 ) Last Ophthalmology exam was >12 months ago Mr. Dunlap reports history of hyperlipidemia. His most recent lipid panels are reviewed. Cholesterol, Total (mg/dL) Date Value 01/16/2017 198 HDL Cholesterol (mg/dL) Date Value 01/16/2017 46 LDL Cholesterol (mg/dL) Date Value 01/16/2017 133 Triglyceride (mg/dL) Date Value 01/16/2017 97 Mr. Dunlap indicates a history of hypertension and states that he is feeling well and denies any symptoms referable to elevated blood pressure. Specifically denies headache, chest pain, palpitations, dyspnea and peripheral edema. Patient denies any side effects of his medication(s) and is compliant with their regimen. Last 3 Encounter BP Readings: Date: BP: 04/15/2018 124/80 01/07/2018 156/94 12/24/2017 130/80 He watches his diet for sodium, low fat and low cholesterol generally not very much. He does not check BP's generally. Manoj gets minimal exercise. PAST MEDICAL HISTORY Diagnosis Date - Abscess around left side Carotid - Chronic low back pain 2011 Workman's comp claim - COPD, severe (HCC) - Diabetes (HCC) 03/2015 - Obesity - ILYA (obstructive sleep apnea) PAST SURGICAL HISTORY Procedure Laterality Date - PAST SURGICAL HISTORY OF 1989 Right foot - PAST SURGICAL HISTORY OF throat surgery at [facility] Social History Marital status: Single Spouse name: Years of education: Number of children: 1 Social History Main Topics Smoking status: Current Every Day Smoker Packs/day: 1.00 Years: 35.00 Types: Cigarettes Smokeless tobacco: Never Used Alcohol use: No Drug use: No Comment: WEED/ not for 4 years Sexual activity: No FAMILY HISTORY Problem Relation Age of Onset - carpal tunnel [OTHER] Mother - eye problem [OTHER] Mother - Heart Father - Diabetes Maternal Grandmother - Heart Maternal Grandmother - Heart Maternal Grandfather - Hypertension Maternal Grandfather Allergies: ALLERGIES Allergen Reactions - Gabapentin Other: See Comments Not effective for neuropathy symptoms - Ibuprofen Swelling - Metformin GI Upset GI upset from Metformin ER Current Meds: nicotine polacrilex (NICORETTE) 4 mg gum Take 1 Each by mouth every 2 hours as needed (cigarette craving). albuterol (PROVENTIL) 2.5 mg /3 mL (0.083 %) nebulizer solution use 1 ampule via nebulizer every 4 hours as needed for wheezing and shortness of breath over 5 to 15 minutes VENTOLIN HFA 90 mcg/actuation inhaler Inhale 2 Puffs as instructed every 4 hours as needed for Wheezing/Shortness of Breath. FREESTYLE LITE STRIPS test strip Test once a day as directed COMPOUNDED PRESCRIPTION Nebulizer tubing and supplies. Dx: COPD and Asthma liraglutide (VICTOZA 2-AMAYA) 0.6 mg/0.1 mL (18 mg/3 mL) pnij Inject 1.8 mg subcutaneously once daily. lisinopril (ZESTRIL) 40 mg tablet Take 1 tablet by mouth once daily. nicotine (NICODERM) 21 mg/24 hr Apply 1 Patch as directed every 24 hours. Remove at bedtime buPROPion SR (WELLBUTRIN SR) 150 mg 12 hr tablet Take 1 tablet by mouth twice daily. CHANTIX CONTINUING MONTH BOX 1 mg tablet Take 1 tablet by mouth twice daily. omeprazole (PRILOSEC) 20 mg capsule Take 1 capsule by mouth daily before breakfast. 1/2 hr before meal. For stomach UNIFINE PENTIPS 31 gauge x 1/4 ndle One needle per dose; one per day lancets (FREESTYLE LANCETS) 28 gauge misc Test blood sugar(s) 2x times daily. Dx: 250.02. Insulin: No COMPOUNDED PRESCRIPTION Vehicle Nebulizer with supplies. Home nebulizer tubing and supplies. Diagnosis: COPD, and Asthma. glimepiride (AMARYL) 2 mg tablet TAKE 2 TABLETS EVERY DAY WITH BREAKFAST cholecalciferol, Vitamin D3, (VITAMIN D3) 50,000 unit cap capsule take 1 capsule every week BREO ELLIPTA 200-25 mcg/dose inhaler inhale 1 puff as directed daily.Do not click open until ready to dose aclidinium bromide (TUDORZA PRESSAIR) 400 mcg/actuation aepb Inhale 1 Inhalation as instructed twice daily. Indications: CHRONIC OBSTRUCTIVE PULMONARY DISEASE WITH BRONCHOSPASMS Review of Systems: The remainder of the review of systems is negative. PE: 04/15/18 1742 BP: 124/80 Pulse: 80 Resp: 20 Temp: 36.9 ?C (98.5 ?F) TempSrc: Right Tympanic Weight: (!) 171.9 kg (379 lb) Gen: AANDO, NAD, non-toxic appearing, morbidly obese, foul language with communication, HEENT: NT/AC, PERRLA, EOMs intact b/l, nares clear and patent b/l, pharynx without erythema, exudate or lesions. Uvula midline. EACs without erythema or debris. TMs pearly hopkins with intact landmarks b/l. Neck: supple, No cervical LAD, no thyromegaly, no carotid bruits CV: RRR, normal S1 and S2, no murmurs, no gallops, no rubs, Pulses 2+ and symmetric in UE and LE b/l Lungs: normal respiratory effort, diffuse intermittent expiratory wheezing Abd: soft, morbidly obese, unable to determine if any hepatosplenomegaly, NT, ND, +BS MS: FROM all 4 extremities Neuro: CN II-XII intact b/l, strength 5/5 b/l UE and LE, DTRs 2/4 UE and LE, sensation intact. Skin: warm, dry, intact, No rashes or lesions on exposed skin. ASSESSMENT/PLAN: 1. Uncontrolled diabetes mellitus type 2 without complications, unspecified whether senior care insulin use (HCC) - ICD9: 250.02, ICD10: E11.65 (primary diagnosis) uncontrolled Poor adherence to plan of care. - Continue current medications - Check HgA1C, fasting glucose, fasting lipid panel, CMP and CBC - Blood glucose monitoring on a twice a day schedule - HGB A1C - COMP METABOLIC PANEL 2. Essential hypertension with goal blood pressure less than 140/90 - ICD9: 401.9, ICD10: I10 - good control - Continue current medication(s) - Encouraged dietary sodium restriction/DASH diet - Recommended regular aerobic exercise. - Recommend home blood pressure monitoring, to bring results in on next visit - Discussed need and benefit for weight loss. - Goal of BP <130/80 3. COPD with chronic bronchitis (HCC) - ICD9: 491.20, ICD10: J44.9 - continue inhalers, needs to quit smoking as d/w him today in office 4. BMI 60.0-69.9, adult (HCC) - ICD9: V85.44, ICD10: Z68.44 - Lengthy discussion in office today regarding diet and exercise. Discussed use of small plate to eat meals from, drink 1 glass of water 10- 15 minutes prior to eating meal, drink 8 glasses of water daily, eat fresh fruit and vegetable during meal first then lean protein such as grilled/baked chicken breast or fish, limit carbohydrate intake (less pasta, breads, rice and snack foods) as well as limiting sugars (desserts etc). Important to count / track your calories and exercise as well. 5. Dyslipidemia - ICD9: 272.4, ICD10: E78.5 - to be determined upon return of lab results - Encouraged following a low fat, low cholesterol diet. - Discussed the benefits of regular aerobic exercise and weight loss. - LIPID PANEL BASIC 6. ILYA on CPAP - ICD9: 327.23, V46.8, ICD10: G47.33, Z99.89 - needs to wear his CPAP as d/w him today, he is aware that ILYA can cause sudden 7. Tobacco use - ICD9: 305.1, ICD10: Z72.0 - Cessation encouraged. - Physiologic and physical aspects of tobacco addiction as well as strategies for quitting were discussed. - Counseling was given focusing on the harmful effects of this addiction especially given the patient's medical condition(s) which will be worsened because of the chemicals in tobacco. Sukhjinder Love DO To ER if develops chest pain, shortness of breath, or severe worsening of symptoms. Discussed risks, benefits, alternatives, and potential side effects of medications. Patient expressed understanding and agreed with the plan. Sukhjinder Love DO [address] [place] [address] Referring Provider: SUKHJINDER LOVE [[id number]] Allergies As of Date: 04/15/2018 Noted Allergy Reaction GABAPENTIN 09/22/2015 14 - Other: See Comments Comments: Not effective for neuropathy symptoms IBUPROFEN 04/27/2015 7 - Swelling METFORMIN 09/04/2015 8 - GI Upset Comments: GI upset from Metformin ER Date Reviewed: 04/15/2018 Reviewed by: Deya Gonzáles LPN - Fully Assessed Reason for Visit: Follow Up [171] Cmt: 3 months Primary Visit Diagnosis:Uncontrolled diabetes mellitus type 2 without complications, unspecified whether roasterman insulin use ([facility]) [E11.65] Other Visit Diagnoses:Essential hypertension with goal blood pressure less than 140/90 [I10] COPD with chronic bronchitis ([facility]) [J44.9] BMI 60.0-69.9, adult ([facility]) [Z68.44] Dyslipidemia [E78.5] ILYA on CPAP [G47.33, Z99.89] Tobacco use [Z72.0] Order(s):HGB A1C [YWDDW5G] Order #: [id number] FUTURE COMP METABOLIC PANEL [SQCMP] Order #: [id number] FUTURE LIPID PANEL BASIC [SQLIPB] Order #: [id number] FUTURE Prescriptions as of 04/15/2018 Sig: NICOTINE (POLACRILEX) 4 MG GUM Take 1 Each by mouth every 2 * ALBUTEROL SULFATE 2.5 MG/3 ML* use 1 ampule via nebulizer ev* VENTOLIN HFA 90 MCG/ACTUATION* Inhale 2 Puffs as instructed * FREESTYLE LITE STRIPS Test once a day as directed COMPOUNDED PRESCRIPTION Nebulizer tubing and supplies* LIRAGLUTIDE 0.6 MG/0.1 ML (18* Inject 1.8 mg subcutaneously * LISINOPRIL 40 MG TABLET Take 1 tablet by mouth once d* NICOTINE 21 MG/24 HR DAILY TR* Apply 1 Patch as directed taryn* BUPROPION HCL SR 150 MG TABLE* Take 1 tablet by mouth twice * CHANTIX CONTINUING MONTH BOX * Take 1 tablet by mouth twice * OMEPRAZOLE 20 MG CAPSULE,ANTONIO* Take 1 capsule by mouth daily* UNIFINE PENTIPS 31 GAUGE X 1/* One needle per dose; one per * LANCETS 28 GAUGE Test blood sugar(s) 2x times * COMPOUNDED PRESCRIPTION Vehicle Nebulizer with suppli* CHOLECALCIFEROL (VITAMIN D3) * take 1 capsule every week BREO ELLIPTA 200 MCG-25 MCG/D* inhale 1 puff as directed alis* ACLIDINIUM BROMIDE 400 MCG/AC* Inhale 1 Inhalation as instru* Problem List As Of Date 04/15/2018 Noted Resolved Bilateral leg edema [R60.0] INVALID FOR* Diabetes mellitus type 2, uncontrolled, without*INVALID FOR* Fatigue [R53.83] INVALID FOR* Dyspnea [R06.00] INVALID FOR* Chronic low back pain [M54.5, G89.29] INVALID FOR* DDD (degenerative disc disease), lumbar [M51.36]INVALID FOR* Morbid obesity (HCC) [E66.01] INVALID FOR* BMI 60.0-69.9, adult (HCC) [Z68.44] INVALID FOR* COPD with chronic bronchitis (HCC) [J44.9] INVALID FOR* Essential hypertension with goal blood pressure*INVALID FOR* ILYA on CPAP [G47.33, Z99.89] INVALID FOR* Malaise and fatigue [R53.81, R53.83] INVALID FOR* Vitamin D deficiency [E55.9] INVALID FOR* Dyslipidemia [E78.5] INVALID FOR* Abdominal pain [R10.9] INVALID FOR* More... Blood in stool [K92.1] INVALID FOR* More... GERD (gastroesophageal reflux disease) [K21.9] INVALID FOR* More... Smoker [F17.200] INVALID FOR* More... Medications Discontinued During This Encounter oxyCODONE-acetaminophen (PERCOCET) 5* 15 t* 0 05/15/2016 04/15/2018 Class: Print RX Route: ORAL Sig: Take 1 tablet by mouth every 8 hours as needed for Pain. Disc: Reason for discontinue is not on file. cephALEXin (KEFLEX) 500 mg capsule 12/24/2017 04/15/2018 Class: Med Update Route: ORAL Sig: Take 1 capsule by mouth twice daily. Disc: Reason for discontinue is not on file. acyclovir (ZOVIRAX) 800 mg tablet 12/24/2017 04/15/2018 Class: Med Update Route: ORAL Sig: Take 1 tablet by mouth five times daily. Take at first signs of outbreak. Disc: Reason for discontinue is not on file. glimepiride (AMARYL) 2 mg tablet 180 * 1 03/25/2018 04/17/2018 Cmt: Med-sync patient. If too soon, we will put new RX on hold for next cycle. Sig: TAKE 2 TABLETS EVERY DAY WITH BREAKFAST Disc: Reason for discontinue is not on file. Letter Text [facility] [address], [place] [address] Manoj Dunlap [address] [facility] [address] Clinic #: [id number] 04/15/2018 To whom it may concern, Manoj Dunlap is a patient of mine in the Family Medicine center. He has chronic abdominal pain, aggravated by use of seatbelt in his vehicle. Okay to allow him to avoid use of seatbelt in his vehicle while driving. He is aware that he this may lead to a life threatening situation if he is in a motor vehicle accident in the future. He will assume that personal responsibility. Sukhjinder Love DO Encounter Status:Closed by SUKHJINDER LOVE DO on 04/17/18 INTERNAL MEDICINE Observed: 03/17/2018 Status: F Source: [facility] OFFICE VISIT 4:34 PM [facility] [address] [place] [address] [address] [place] [address] OFFICE VISIT Date of Service: 03/17/18 MR#: [id number] Acct: [id number] Name: DWIGHT DUNLAP Rep #: [id number] : 1965 Provider: Anthony Davis NP Age/Sex: 52/M Location: [facility] Status: Signed Intake Vital Signs03/17/18 Height 5 ft 9 in Intake Visit Reasons: RESCHEDULED FROM 03/12/18 Chief Complaint: establish care Is patient in pain?: Yes (back) Pain scale (1-10): 6 Allergies hydrocodone bitartrate [From [facility]fer] Allergy (Mild, Verified 01/01/18 18:43) Hives acetaminophen [From Shafer] Allergy (Verified 01/01/18 18:43) Hives ibuprofen Allergy (Verified 01/01/18 18:43) Swelling vancomycin Allergy (Verified 01/01/18 18:43) Itching metformin Adverse Reaction (Verified 01/01/18 18:43) Upset Stomach Medications Liraglutide [Victoza] 0.6 - 1.2 mg IN DAILY 07/20/17 [History Confirmed 03/17/18] Albuterol Aerosols [Ventolin Aerosols] 2.5 mg INHALATION 4X/DAY #1 07/22/17 [Rx Confirmed 03/17/18] albuterol sulfate HFA 90 mcg/actuation aerosol inhaler 2 puff INHALATION Q4H PRN 03/17/18 [History Confirmed 03/17/18] lisinopril 10 mg tablet 10 mg PO QDAY #90 tab 03/17/18 [Rx Confirmed 03/17/18] mometasone-formoterol HFA 100 mcg-5 mcg/actuation aerosol inhaler 2 puff INHALATION BID #13 g 03/17/18 [Rx Confirmed 03/17/18] PFSH Medical History Asthma (Chronic) COPD (chronic obstructive pulmonary disease) (Chronic) Arthritis (Chronic) Chronic back pain (Chronic) Hypertension (Chronic) Surgical History Status post right foot surgery (Acute) Family History Grandmother Diabetes Hypertension Aunt Diabetes Uncle Diabetes Cancer lung Grandfather Myocardial infarction Hypertension Social History Smoking Status: Current every day smoker HPI HPI Chief Complaint: establish care Details: DWIGHT DUNLAP, is a 52 M who presents to the office today for an establishment visit. He has an extensive past medical history which includes asthma, COPD, chronic pain, morbid obesity, depression, tobacco abuse 2-3 packs per day 35 years, GERD, hypertension, and type 2 diabetes mellitus. The patient was previously a patient of the [facility] and saw Dr. Love. However there are no records available for review at this time. He does continue the follow-up with pain management at Dr. Forte's office for his chronic back pain. He denies any acute complaints at this time, however wants to establish here and start fresh with his medications. Per the patient he discontinued all of his medications with the exception of his Ventolin inhaler that he uses 2-3 times a day and his Victoza for his diabetes. His blood pressure is somewhat controlled today at 130/78. He states he has been off all of his other medications for the past 2 months. He states he no longer takes the Brio due to him not liking the powdery taste in his mouth after utilizing it and would like this medication switch as well. The patient otherwise denies any fever, chills, nausea, vomiting, increase in shortness of breath, chest pain or pressure, palpitations, orthopnea, lower extremity edema, syncope or presyncopal episodes. ROS Const Constitutional: Positive for sleep problems (trouble falling asleep); no weight change, body ache, chills, fatigue, fever(s), change in appetite, snoring, weakness, frequent falls, headache(s) or excessive sweating Eyes Eyes: No change in vision, eye pain, light sensitivity or blurry vision ENT ENT: No headache(s), abnormal hearing, ear pain, tinnitus, nasal congestion, sore throat or neck pain Resp Respiratory: Positive for cough Cough: Yes productive (black color flem) and shortness of breath; no snoring or wheezing Cardio Cardiology: Positive for chest pain at rest (chronic) and generalized swelling (in the feet); no excessive sweating, chest pain with exertion, shortness of breath, dyspnea on exertion, palpitations, orthopnea or lightheadedness Gastro GI: Positive for abdominal pain (feels like he has a know in his abdomen ); no change in bowel habits, constipation, diarrhea, vomiting, nausea/dyspepsia or cramping Genitourinary Male: No painful urination, urinary incontinence, urinary frequency, urinary urgency, blood in urine, testicle pain or other Musc Musculoskeletal: Positive for joint pain, back pain, numbness and tingling (hands, feet); no neck pain, abnormal walking or limited range of motion Skin Skin: No redness, dry skin, itching, lesions, wounds or rash Neuro Neurology: Positive for numbness and tingling (hands, feet); no weakness, frequent falls, headache(s), abnormal hearing, abnormal walking, abnormal speech, dizziness or memory loss Psych Psychiatric: No change in appetite, No memory loss, No anxiety, Positive for depression (treated in the past, couldn't tell a difference), No Thoughts of harming yourself/Others Endo Endocrine: No fatigue, excessive sweating, cold intolerance, increased thirst/drinking, heat intolerance, flushing or increased hunger Aller/Imm Allergy/Immunologic: No wheezing, itchy eyes, hives or seasonal allergy symptoms Ahy/Lymp Hematologic/Lymphatic: No easy bleeding, easy bruising or enlarged lymph nodes Exam Const General: cooperative, comfortable, no acute distress Nutritional Appearance: average body habitus, well nourished, obese morbidly obese Orientation: alert, oriented x3 Limitations: mental status not altered Resp Effort AND Inspection: able to speak in complete sentences, normal respiratory effort, no use of accessory muscles, no audible wheezes, prolonged expiratory phase Auscultation: Bilateral: Diminished Lung Sounds, Inspiratory Wheezes, Expiratory Wheezes Cardio Palpation: normal PMI Rate: regular rate Heart Sounds: S1 normal, S2 normal, normal S1 and S2, no click, no gallops, no murmurs, no rubs Neuro General: alert, awake, oriented x3, CN's II-XI intact bilaterally Speech: speech normal Gait: normal gait Motor: muscle tone normal throughout Psych Appearance: grossly normal Mental Status: mental status grossly normal Affect: normal affect Attitude: cooperative Thought Process: normal Assessment AND Plan 1. COPD (chronic obstructive pulmonary disease) J44.9 Plan Patient not an acute exacerbation of his COPD at this time. Currently he is only using his rescue inhaler and off of his maintenance medication that Brio elliptical due to not liking the powdery taste that leaves in his mouth. Will change him to Dulera instead. Educated patient on how to take this medication and that it should be taken routinely. Discussed red flag symptoms that require urgent medical attention. Requested previous documentation for continuity of care. Medications New: 2. Chronic back pain M54.9; G89.29 Plan Deferred to pain management who patient will continue seen. 3. Type 2 diabetes mellitus with complication, without long- term current use of insulin E11.8 Plan Per patient he does not check his blood sugars and has no interest in routinely checking his blood sugars. States he is only currently taking the Victoza due to not liking any of the other medications and how they made him feel. Will request previous records for continuity of care. And make medication adjustments based on his most recent blood work and his medication and tolerability is. Patient will follow-up in 6 weeks or sooner if needed. Hopefully at that time of records will be available for review. Plan Detail Other Medications New: Discontinued: fluticasone-vilanterol 200-25 mcg/dose (Breo Ellipt1 inh Inhalation QDAY Anthony Davis, ELECT[employer] FIELD SERVICE ENGINEER-C a) Discontinued Reason: Order Changed Follow Up Weeks or sooner if needed Coding Level of Care Code Off vis,new,level 3 Diagnoses COPD (chronic obstructive pulmonary disease) J44.9 Chronic back pain M54.9; G89.29 Type 2 diabetes mellitus with complication, without long-term current use of insulin E11.8 Diabetes mellitus complication status: with unspecified complications Diabetes mellitus senior care insulin use: without roasterman use 03/17/18 1634 <Electronically signed by Anthony WILSON> Date Anthony WILSON Cosigner Signature: Date (if applicable) CC: SPINE LUMBAR Observed: 03/16/2018 Status: F Source: [place] (ROUTINE) 3:46 PM [facility] REPOSITORY [facility] Imaging Services [address] [address] Spine Lumbar (Routine) MR#: [id number] Acct: [id number] Name: DWIGHT DUNLAP Rep #: [id number] : 1965 M 52 From: John Paul Wynn PCP: Arlene Salas MD Status: REG CLI Study: Spine Lumbar (Routine) Date of Exam: 03/16/18 Exam# [id number] Ordering Dr: Sarika Forte MD STUDY: MRI LUMBAR SPINE WITHOUT CONTRAST REASON FOR EXAM: Male, 52 years old. Back pain with bilateral leg pain. TECHNIQUE: Standardized fat and water weighted pulse sequences were obtained in the sagittal and axial planes. COMPARISON: None FINDINGS: T12-L1: Normal endplates. Normal disc height, hydration and morphology. Normal bilateral facet joints. Normal central canal and bilateral lateral recesses. Normal bilateral intervertebral neural foramina. Normal lumbar lordosis. There is no substantial scoliosis. Normal conus medullaris that terminates at the L1-2: Normal endplates. Normal disc height, hydration and morphology. Normal bilateral facet joints. Normal central canal and bilateral lateral recesses. Normal bilateral intervertebral neural foramina. L2-3: Mild disc desiccation with no significant spinal canal narrowing or foraminal narrowing. L3-4: Mild decreased disc space and disc desiccation with minimal circumferential disc bulge with no significant spinal canal narrowing or foraminal narrowing. L4-5: Decreased disc space and broad-based disc protrusion with compounding mild facet arthropathy resulting in moderate to severe lateral recess narrowing and moderate bilateral foraminal narrowing. There is moderate spinal canal narrowing and crowding of the cauda equina at this level. L5-S1: Normal endplates. Normal disc height, hydration and morphology. Normal bilateral facet joints. Normal central canal and bilateral lateral recesses. Normal bilateral intervertebral neural foramina. Normal visualized sacral ala. Normal visualized paraspinous soft tissue structures. MRI/Spine Lumbar (Routine) IMPRESSION: 1. Predominant degenerative disc changes and broad-based disc protrusion at L4/5 resulting in moderate spinal canal narrowing, moderate to severe lateral recess narrowing and a moderate bilateral foraminal narrowing, clinically correlate for exiting L4 and descending L5 nerve root radiculopathy. Electronically Signed: John Paul Wynn DO at 22:15 EDT , Service support , CC: Sarika Forte MD; Arlene Salas MD Product Demonstrator: Signed CNCO Observed: 02/24/2018 Status: COMPLETED Source: [place] 12:00 AM [facility] REPOSITORY Letter Text [address] [place] [address] [phone] 02/24/2018 Manoj Lilly [place] [address] [facility] [address] Dear Mr. Dunlap: Due to a change in the provider's schedule, it has been necessary to reschedule your appointment. Enclosed please find a new appointment reminder that will replace the one previously sent to you. If this appointment is not convenient for you, please contact our office at [phone]. Thank you for choosing the [facility] as your Healthcare Provider. Sincerely, Appointment Office INITAL EVALUATION (1) Observed: 02/17/2018 Status: F Source: [facility] - PT 11:03 AM [facility] REPOSITORY [facility] Physical [facility] [address] [place], [place] [address] Fax REHABILITATION SERVICES INITIAL EVALUATION MR#: [id number] Acct: [id number] Name: DWIGHT DUNLAP Rep #: [id number] : 1965 52 From: Titi Thorpe PT, Cert. MDT, OCS Referring Dr.: Sarika Forte MD Status: REG RCR [facility] [place] [facility]UR[facility] Patient's Visit Information DWIGHT DUNLAP is a 52 year old M referred to Physical Therapy by Sarika MENDENHALL with a diagnosis of BACK AND LEG PAIN. Date of Evaluation: 02/09/18 Physical Therapist: Titi Thorpe PT, - Visit Plan Frequency: 2x /Week Duration: 4 Weeks Plan: Aquatic PT for lumbar ROM ,strengthening,DLS ,postural ex's,flexablity,conditioning - Subjective Subjective: This 52 y/o male presents to physical therapy with back pain and leg pain for many years. Patient had injury 2011 at work steel fell on patient caused multiple medical problems. Patient had prior PT from injury Rehab. Also had prior PT. Symptoms located L-S region. to buttuck -hams bilateral. Symptoms decribed as ache stabbing pain. Symptoms worse lifting ,walking,standing 5min,sitting,ifting,bending. Symptoms better with heat. Bowel/bladder -.Pain affects sleeping. Sneezing/coughing can increase symptoms. Pain affects quality of life ADL'S, and function. VOCATION: disablity. SOCAIL: lives with mother - Pain Bilateral Back Pain Intensity (Out of 10): 4 Pain Intensity Range: 10 Bilateral Lower Extremity Pain Intensity (Out of 10): 4 Pain Intensity Range: 10 Comment: buttucks-hams - Objective POSTURE: mild foward posture,hips /knees flexed. GAIT: mild foward posture slow cadnece antalgic gait. NEURO:denies parathesia/tingling,redflexes L3-4,L5-S1,L4 -L5 1/3. SYMMTRIES: align. PALAPTION: tender throughout paraspinals. MMT: quads/hams/hip flexion 4-/5,ankle 4/5. LUMBAR ROM: flexion mod loss,extension severe loss,side glides mod loss. FLEXABLITY: hams mod tight. TA ACT POOR - Special Tests L/S Slump test left side: Negative L/S Slump test right side: Negative L/S Left Straight Leg Raise: Negative L/S Right Straight Leg Raise: Negative Lumbar Standing: Flexion - Mechanical Response: No effect Lumbar Standing: Flexion - Symptoms During Testing: Increases Lumbar Standing: Flexion - Symptoms After Testing: Worse Lumbar Standing: Extension - Mechanical Response: No effect Lumbar Standing: Extension - Symptoms During Testing: Increases Lumbar Standing: Extension - Symptoms After Testing: Worse Lumbar Standing: Right Side Glides - Mechanical Response: No effect Lumbar Standing: Right Side [place] - Symptoms During Testing: Increases Lumbar Standing: Right Side [place] - Symptoms After Testing: Worse Lumbar Standing: Left Side [place] - Mechanical Response: No effect Lumbar Standing: Left Side [place] - Symptoms During Testing: Increases Lumbar Standing: Left Side [place] - Symptoms After Testing: Worse - Goals Goal 1:: Patient to be Independant with Aquatic PT Goal Time Frame: 4-6 Weeks Goal 2:: Patient to be Independant with managing back pain with improve posture 80 % of the time. Goal Time Frame: 4-6 Weeks Goal 3:: Patient to decrease lumbar and leg pain by 50% or greater to improve function with walking and standing Goal Time Frame: 4-6 Weeks Goal 4:: Patient to improve lumbar ROM for function of recovery Goal Time Frame: 4-6 Weeks Goal 5:: Patient be able to perform ADL'S and housework tasks with min limiations with walking and standing Goal Time Frame: 4-6 Weeks - Rehabilitation Potential Physical Therapy Diagnosis: This patient has multiple comormidities along with lumbar pain with radicular symptoms in legs with poor ROM ,pain ,decrease strength impairs function with ADL'S -standing walking Rehabilitation Potential: Fair - Anticipated Interventions Patient/Client Instruction: Educate patient on: Condition, Plan of Care For the Purpose of:: To decrease pain, To increase ROM, To improve muscle performance and motor function, To increase tolerance to activity/condition/position, To improve ability of physical actions for home/community/work/leisure, To improve health of tissue, To decrease soft tissue restriction, To increase flexibility/ROM, To improve ability to perform tasks related to life management Therapeutic Exercise to Include: Strength training, Postural training, Flexibilty training, In an aquatic setting, Dynamic Lumbar Stabilization For the Purpose of:: To decrease pain, To increase ROM, To improve muscle performance and motor function, To improve ability to perform ADL's, To increase tolerance to activity/condition/position, To improve performance and independence with ADL's, To improve ability of physical actions for home/community/work/leisure, To improve health of tissue, To decrease soft tissue restriction, To increase flexibility/ROM, To reduce risk of recurrence, To improve ability to perform tasks related to life management Thank you for the opportunity to evaluate your patient. For Medicare and Medicare HMO plans, please review the plan of care and approve it. It will need to be FAXED BACK to us at [phone] for Medicare purposes. Please let me know if there are questions or concerns regarding this plan of care. Physician Signature: Date: <Electronically signed by Titi Thorpe PT, Cert. CARLENE, OCS> 02/17/18 1103 CC: Sarika Forte MD; Sukhjinder Mace DO [place] Signed For Medicare only, by signing this I certify the plan of care. Physicians Signature Date LUMBAR SPINE 2 OR 3 Observed: 01/21/2018 Status: F Source: GUS VIEWS 11:39 AM [facility] REPOSITORY [facility] [address] [address] Lumbar Spine 2 or 3 Views MR#: [id number] Acct: [id number] Name: DWIGHT DUNLAP Rep #: [id number] : 1965 M 52 From: Jefe Paz MD PCP: Sukhjinder Mace DO Status: REG CLI Study: Lumbar Spine 2 or 3 Views Date of Exam: 01/21/18 Exam# [id number] Ordering Dr: Sarika Forte MD STUDY: X-RAY - LUMBAR SPINE REASON FOR EXAM: Male, 52 years old. Chronic back pain TECHNIQUE: 2 view(s) of the lumbar spine were obtained. COMPARISON: None FINDINGS: There is normal alignment and curvature of the lumbosacral spine with narrowing of the L4-5 disc space. There is a spur from the anterior superior corner of L4. No fracture. RAD/Lumbar Spine 2 or 3 Views IMPRESSION: Disc disease at L4-5 The anterior superior corner of L4. No fracture Electronically Signed: Jefe Paz, at 5:28 EDT Tel , Service support , CC: Sarika Forte MD; Sukhjinder Mace DO Product Demonstrator: Signed PROGRESS Observed: 01/09/2018 Status: COMPLETED Source: [place] 7:28 AM [facility] REPOSITORY O ID: [id number] Author: Sukhjinder Love Service: (none) Author Type: Physician Type: Progress Notes Filed: 01/09/2018 7:34 AM Note Text: Patient presents with: Follow Up: diabetes HPI: Manoj Dunlap is a 52 year old male who presents to the office today for review of health conditions. Concerns today: Admits to trying to lose weight with making diet changes. He is limited since he is back on parole for fighting with a neighbor, still wanting to move back to [place]. Needing new mask/supplies for his nebulizer machine. Tobacco use disorder, SE with Chantix, is taking Wellbutrin 100 mg bid now but still struggling to quit, lives with mother who also chain smokes. Has had increased low back pain radiating into b/l buttocks, comes and goes, hx of DDD/DJD lumbar spine, interested in seeing Dr. Forte again for care Mr. Dunlap has past history of diabetes. Since our last visit he denies excessive thirst or increased frequency of urination, new or unusual visual symptoms and low sugar/hypoglycemic reactions. Follows a diabetic diet generally not very much. He is compliant with medication(s) and is tolerating med(s) without any side effects. He reports checking his glucose on a infrequent schedule. Patient's last HgA1C was POC a1c 12.2 recently Hemoglobin A1C (%) Date Value 01/16/2017 10.4 03/21/2016 7.0 Hemoglobin A1C (POCT) (%) Date Value 12/24/2017 12.5 ) Last Ophthalmology exam was within the past 12 months Mr. Dunlap reports history of hyperlipidemia. Current therapy includes no current treatment.His most recent lipid panels are reviewed. Cholesterol, Total (mg/dL) Date Value 01/16/2017 198 HDL Cholesterol (mg/dL) Date Value 01/16/2017 46 LDL Cholesterol (mg/dL) Date Value 01/16/2017 133 Triglyceride (mg/dL) Date Value 01/16/2017 97 Mr. Dunlap indicates a history of hypertension and states that he is feeling well and denies any symptoms referable to elevated blood pressure. Specifically denies headache, chest pain, palpitations, dyspnea and peripheral edema. Patient denies any side effects of his medication(s) and is compliant with their regimen. Last 3 Encounter BP Readings: Date: BP: 01/07/2018 156/94 12/24/2017 130/80 11/13/2017 124/90 He watches his diet for sodium, low fat and low cholesterol some of the time. He does not check BP's generally. Manoj gets minimal exercise. PAST MEDICAL HISTORY Diagnosis Date - Abscess around left side Carotid - Chronic low back pain 2011 Workman's comp claim - COPD, severe (HCC) - Diabetes (HCC) 03/2015 - Obesity - ILYA (obstructive sleep apnea) PAST SURGICAL HISTORY Procedure Laterality Date - PAST SURGICAL HISTORY OF 1988 Right foot - PAST SURGICAL HISTORY OF throat surgery at [facility] Social History Marital status: Single Spouse name: Years of education: Number of children: 1 Social History Main Topics Smoking status: Current Every Day Smoker Packs/day: 1.00 Years: 35.00 Types: Cigarettes Smokeless status: Never Used Alcohol use: No Drug use: No Comment: WEED/ not for 4 years Sexual activity: No FAMILY HISTORY Problem Relation Age of Onset - carpal tunnel [OTHER] Mother - eye problem [OTHER] Mother - Heart Father - Diabetes Maternal Grandmother - Heart Maternal Grandmother - Heart Maternal Grandfather - Hypertension Maternal Grandfather Allergies: ALLERGIES Allergen Reactions - Gabapentin Other: See Comments Not effective for neuropathy symptoms - Ibuprofen Swelling - Metformin GI Upset GI upset from Metformin ER Current Meds: CHANTIX CONTINUING MONTH BOX 1 mg tablet Take 1 tablet by mouth twice daily. FREESTYLE LITE STRIPS test strip Test once a day as directed cholecalciferol, Vitamin D3, (VITAMIN D3) 50,000 unit cap capsule take 1 capsule every week VENTOLIN HFA 90 mcg/actuation inhaler Inhale 2 Puffs as instructed every 4 hours as needed for Wheezing/Shortness of Breath. omeprazole (PRILOSEC) 20 mg capsule Take 1 capsule by mouth daily before breakfast. 1/2 hr before meal. For stomach UNIFINE PENTIPS 31 gauge x 1/4 ndle One needle per dose; one per day BREO ELLIPTA 200-25 mcg/dose inhaler inhale 1 puff as directed daily.Do not click open until ready to dose albuterol (PROVENTIL) 2.5 mg /3 mL (0.083 %) nebulizer solution use 1 ampule via nebulizer every 4 hours as needed for wheezing and shortness of breath over 5 to 15 minutes liraglutide (VICTOZA 2-AMAYA) 0.6 mg/0.1 mL (18 mg/3 mL) pnij Inject 1.8 mg subcutaneously once daily. lisinopril (ZESTRIL) 40 mg tablet Take 1 tablet by mouth once daily. nicotine (NICODERM) 21 mg/24 hr Apply 1 Patch as directed every 24 hours. Remove at bedtime buPROPion SR (WELLBUTRIN SR) 150 mg 12 hr tablet Take 1 tablet by mouth twice daily. cephALEXin (KEFLEX) 500 mg capsule Take 1 capsule by mouth twice daily. acyclovir (ZOVIRAX) 800 mg tablet Take 1 tablet by mouth five times daily. Take at first signs of outbreak. glimepiride (AMARYL) 2 mg tablet TAKE 2 TABLETS EVERY DAY WITH BREAKFAST aclidinium bromide (TUDORZA PRESSAIR) 400 mcg/actuation aepb Inhale 1 Inhalation as instructed twice daily. Indications: CHRONIC OBSTRUCTIVE PULMONARY DISEASE WITH BRONCHOSPASMS oxyCODONE-acetaminophen (PERCOCET) 5-325 mg tablet Take 1 tablet by mouth every 8 hours as needed for Pain. lancets (FREESTYLE LANCETS) 28 gauge misc Test blood sugar(s) 2x times daily. Dx: 250.02. Insulin: No COMPOUNDED PRESCRIPTION Vehicle Nebulizer with supplies. Home nebulizer tubing and supplies. Diagnosis: COPD, and Asthma. Review of Systems: The remainder of the review of systems is negative. PE: 01/07/18 1830 BP: 156/94 Pulse: 68 Resp: 24 Temp: 36.7 ?C (98 ?F) TempSrc: Left Tympanic Weight: (!) 171 kg (377 lb) Gen: AANDO, NAD, non-toxic appearing, obese, disheveled appearing, cooperative HEENT: NT/AC, PERRLA, EOMs intact b/l, nares clear and patent b/l, pharynx without erythema, exudate or lesions. MMM, Uvula midline. EACs without erythema or debris. TMs pearly hopkins with intact landmarks b/l. Neck: supple, No cervical LAD, no thyromegaly, no carotid bruits CV: RRR, normal S1S2, no murmurs, no gallops, no rubs, Pulses 2+ and symmetric in UE and LE b/l Lungs: normal effort, scattered wheeze, prolonged expiratory phase, Abd: soft, morbidly obese, NT, ND, +BS, no hepatosplenomegaly MS: FROM all 4 extremities, widened gait base due to obese Neuro: CN II-XII intact b/l grossly Skin: warm, dry, intact, multiple tattoos ASSESSMENT/PLAN: 1. Uncontrolled type 2 diabetes mellitus without complication, without long-term current use of insulin (HCC) - ICD9: 250.02, ICD10: E11.65 (primary diagnosis) uncontrolled Poor adherence to plan of care. - Continue current medications - Blood glucose monitoring on a twice a day schedule - Encouraged regular aerobic exercise and weight loss - Follow up in 3 month, sooner should any other issues arise. - Discussed diabetic education issues of roasterman diabetic complications, diet, medications- side effects and need for compliance and importance of exercise with patient. - BP goal of <130/80 - LDL goal of <100 2. DDD (degenerative disc disease), lumbar - ICD9: 722.52, ICD10: M51.36 Chronic low back pain - Warm moist heat for 20 min three times a day - NSAIDS- see orders - CONSULT TO PAIN MGT ANESTHESIA 3. Chronic midline low back pain with bilateral sciatica - ICD9: 724.2, 724.3, 338.29, ICD10: M54.41, M54.42, G89.29 Chronic low back pain - Warm moist heat for 20 min three times a day - NSAIDS- see orders - CONSULT TO PAIN MGT ANESTHESIA 4. Uncontrolled diabetes mellitus type 2 without complications, unspecified senior care insulin use status (HCC) - ICD9: 250.02, ICD10: E11.65 uncontrolled - Blood glucose monitoring on a twice a day schedule - LIRAGLUTIDE 0.6 MG/0.1 ML (18 MG/3 ML) SUBCUTANEOUS PEN INJECTOR 5. Essential hypertension with goal blood pressure less than 140/90 - ICD9: 401.9, ICD10: I10 - suboptimal control - Increase lisinopril (Zestril/Prinivil) - Encouraged dietary sodium restriction/DASH diet - Recommended regular aerobic exercise. - Recommend home blood pressure monitoring, to bring results in on next visit - Goal of BP <130/80 - LISINOPRIL 40 MG TABLET 6. Tobacco use - ICD9: 305.1, ICD10: Z72.0 - Cessation encouraged. - Physiologic and physical aspects of tobacco addiction as well as strategies for quitting were discussed. - Counseling was given focusing on the harmful effects of this addiction especially given the patient's medical condition(s) which will be worsened because of the chemicals in tobacco. - Prescription for Nicoderm patch, continue Wellbutrin at higher dose as well which was given - NICOTINE 21 MG/24 HR DAILY TRANSDERMAL PATCH 7. COPD with chronic bronchitis (HCC) - ICD9: 491.20, ICD10: J44.9 - see above, needs to quit smoking 8. Morbid obesity due to excess calories (HCC) - ICD9: 278.01, ICD10: E66.01 - Lengthy discussion in office today regarding diet and exercise. Discussed use of small plate to eat meals from, drink 1 glass of water 10-15 minutes prior to eating meal, drink 8 glasses of water daily, eat fresh fruit and vegetable during meal first then lean protein such as grilled/baked chicken breast or fish, limit carbohydrate intake (less pasta, breads, rice and snack foods) as well as limiting sugars (desserts etc). Important to count / track your calories and exercise as well. Sukhjinder Love DO To ER if develops chest pain, shortness of breath, or severe worsening of symptoms. Discussed risks, benefits, alternatives, and potential side effects of medications. Patient expressed understanding and agreed with the plan. Sukhjinder Love DO [address] [place] [address] CNOV Observed: 01/07/2018 Status: COMPLETED Source: BELPRE 6:40 PM [facility] REPOSITORY Office Visit (FAMPWS) MANOJ DUNLAP ([id number]) 1965 M Date Time Provider Department 01/07/18 6:40 PM SUKHJINDER LOVE During your visit today, we recorded the following information about you: Temperature Pulse Respiration Blood pressure 98 degrees 68/minute 24/minute 156/94 Weight 171 kg Sukhjinder Love DO 01/07/2018 7:16 PM Signed Address: [address] [place] [address] [address], [place] [address] Dr. Jann Love DO 01/09/2018 7:34 AM Signed Patient presents with: Follow Up: diabetes HPI: Manoj Dunlap is a 52 year old male who presents to the office today for review of health conditions. Concerns today: Admits to trying to lose weight with making diet changes. He is limited since he is back on parole for fighting with a neighbor, still wanting to move back to [place]. Needing new mask/supplies for his nebulizer machine. Tobacco use disorder, SE with Chantix, is taking Wellbutrin 100 mg bid now but still struggling to quit, lives with mother who also ANDquot;chain smokes.ANDquot; Has had increased low back pain radiating into b/l buttocks, comes and goes, hx of DDD/DJD lumbar spine, interested in seeing Dr. Forte again for care Mr. Dunlap has past history of diabetes. Since our last visit he denies excessive thirst or increased frequency of urination, new or unusual visual symptoms and low sugar/hypoglycemic reactions. Follows a diabetic diet generally not very much. He is compliant with medication(s) and is tolerating med(s) without any side effects. He reports checking his glucose on a infrequent schedule. Patient's last HgA1C was POC a1c 12.2 recently Hemoglobin A1C (%) Date Value 01/16/2017 10.4 03/21/2016 7.0 Hemoglobin A1C (POCT) (%) Date Value 12/24/2017 12.5 ) Last Ophthalmology exam was within the past 12 months Mr. Dunlap reports history of hyperlipidemia. Current therapy includes no current treatment.His most recent lipid panels are reviewed. Cholesterol, Total (mg/dL) Date Value 01/16/2017 198 HDL Cholesterol (mg/dL) Date Value 01/16/2017 46 LDL Cholesterol (mg/dL) Date Value 01/16/2017 133 Triglyceride (mg/dL) Date Value 01/16/2017 97 Mr. Dunlap indicates a history of hypertension and states that he is feeling well and denies any symptoms referable to elevated blood pressure. Specifically denies headache, chest pain, palpitations, dyspnea and peripheral edema. Patient denies any side effects of his medication(s) and is compliant with their regimen. Last 3 Encounter BP Readings: Date: BP: 01/07/2018 156/94 12/24/2017 130/80 11/13/2017 124/90 He watches his diet for sodium, low fat and low cholesterol some of the time. He does not check BP's generally. Manoj gets minimal exercise. PAST MEDICAL HISTORY Diagnosis Date - Abscess around left side Carotid - Chronic low back pain 2011 Workman's comp claim - COPD, severe (HCC) - Diabetes (HCC) 03/2015 - Obesity - ILYA (obstructive sleep apnea) PAST SURGICAL HISTORY Procedure Laterality Date - PAST SURGICAL HISTORY OF 1988 Right foot - PAST SURGICAL HISTORY OF throat surgery at [facility] Social History Marital status: Single Spouse name: Years of education: Number of children: 1 Social History Main Topics Smoking status: Current Every Day Smoker Packs/day: 1.00 Years: 35.00 Types: Cigarettes Smokeless status: Never Used Alcohol use: No Drug use: No Comment: WEED/ not for 4 years Sexual activity: No FAMILY HISTORY Problem Relation Age of Onset - carpal tunnel [OTHER] Mother - eye problem [OTHER] Mother - Heart Father - Diabetes Maternal Grandmother - Heart Maternal Grandmother - Heart Maternal Grandfather - Hypertension Maternal Grandfather Allergies: ALLERGIES Allergen Reactions - Gabapentin Other: See Comments Not effective for neuropathy symptoms - Ibuprofen Swelling - Metformin GI Upset GI upset from Metformin ER Current Meds: CHANTIX CONTINUING MONTH BOX 1 mg tablet Take 1 tablet by mouth twice daily. FREESTYLE LITE STRIPS test strip Test once a day as directed cholecalciferol, Vitamin D3, (VITAMIN D3) 50,000 unit cap capsule take 1 capsule every week VENTOLIN HFA 90 mcg/actuation inhaler Inhale 2 Puffs as instructed every 4 hours as needed for Wheezing/Shortness of Breath. omeprazole (PRILOSEC) 20 mg capsule Take 1 capsule by mouth daily before breakfast. 1/2 hr before meal. For stomach UNIFINE PENTIPS 31 gauge x 1/4ANDquot; ndle One needle per dose; one per day BREO ELLIPTA 200-25 mcg/dose inhaler inhale 1 puff as directed daily.Do not click open until ready to dose albuterol (PROVENTIL) 2.5 mg /3 mL (0.083 %) nebulizer solution use 1 ampule via nebulizer every 4 hours as needed for wheezing and shortness of breath over 5 to 15 minutes liraglutide (VICTOZA 2-AMAYA) 0.6 mg/0.1 mL (18 mg/3 mL) pnij Inject 1.8 mg subcutaneously once daily. lisinopril (ZESTRIL) 40 mg tablet Take 1 tablet by mouth once daily. nicotine (NICODERM) 21 mg/24 hr Apply 1 Patch as directed every 24 hours. Remove at bedtime buPROPion SR (WELLBUTRIN SR) 150 mg 12 hr tablet Take 1 tablet by mouth twice daily. cephALEXin (KEFLEX) 500 mg capsule Take 1 capsule by mouth twice daily. acyclovir (ZOVIRAX) 800 mg tablet Take 1 tablet by mouth five times daily. Take at first signs of outbreak. glimepiride (AMARYL) 2 mg tablet TAKE 2 TABLETS EVERY DAY WITH BREAKFAST aclidinium bromide (TUDORZA PRESSAIR) 400 mcg/actuation aepb Inhale 1 Inhalation as instructed twice daily. Indications: CHRONIC OBSTRUCTIVE PULMONARY DISEASE WITH BRONCHOSPASMS oxyCODONE-acetaminophen (PERCOCET) 5-325 mg tablet Take 1 tablet by mouth every 8 hours as needed for Pain. lancets (FREESTYLE LANCETS) 28 gauge misc Test blood sugar(s) 2x times daily. Dx: 250.02. Insulin: No COMPOUNDED PRESCRIPTION Vehicle Nebulizer with supplies. Home nebulizer tubing and supplies. Diagnosis: COPD, and Asthma. Review of Systems: The remainder of the review of systems is negative. PE: 01/07/18 1830 BP: 156/94 Pulse: 68 Resp: 24 Temp: 36.7 ?C (98 ?F) TempSrc: Left Tympanic Weight: (!) 171 kg (377 lb) Gen: AANDamp;O, NAD, non-toxic appearing, obese, disheveled appearing, cooperative HEENT: NT/AC, PERRLA, EOMs intact b/l, nares clear and patent b/l, pharynx without erythema, exudate or lesions. MMM, Uvula midline. EACs without erythema or debris. TMs pearly hopkins with intact landmarks b/l. Neck: supple, No cervical LAD, no thyromegaly, no carotid bruits CV: RRR, normal S1S2, no murmurs, no gallops, no rubs, Pulses 2+ and symmetric in UE and LE b/l Lungs: normal effort, scattered wheeze, prolonged expiratory phase, Abd: soft, morbidly obese, NT, ND, +BS, no hepatosplenomegaly MS: FROM all 4 extremities, widened gait base due to obese Neuro: CN II-XII intact b/l grossly Skin: warm, dry, intact, multiple tattoos ASSESSMENT/PLAN: 1. Uncontrolled type 2 diabetes mellitus without complication, without long-term current use of insulin (HCC) - ICD9: 250.02, ICD10: E11.65 (primary diagnosis) uncontrolled Poor adherence to plan of care. - Continue current medications - Blood glucose monitoring on a twice a day schedule - Encouraged regular aerobic exercise and weight loss - Follow up in 3 month, sooner should any other issues arise. - Discussed diabetic education issues of senior care diabetic complications, diet, medications- side effects and need for compliance and importance of exercise with patient. - BP goal of ANDlt;130/80 - LDL goal of ANDlt;100 2. DDD (degenerative disc disease), lumbar - ICD9: 722.52, ICD10: M51.36 Chronic low back pain - Warm moist heat for 20 min three times a day - NSAIDS- see orders - CONSULT TO PAIN MGT ANESTHESIA 3. Chronic midline low back pain with bilateral sciatica - ICD9: 724.2, 724.3, 338.29, ICD10: M54.41, M54.42, G89.29 Chronic low back pain - Warm moist heat for 20 min three times a day - NSAIDS- see orders - CONSULT TO PAIN MGT ANESTHESIA 4. Uncontrolled diabetes mellitus type 2 without complications, unspecified roasterman insulin use status (HCC) - ICD9: 250.02, ICD10: E11.65 uncontrolled - Blood glucose monitoring on a twice a day schedule - LIRAGLUTIDE 0.6 MG/0.1 ML (18 MG/3 ML) SUBCUTANEOUS PEN INJECTOR 5. Essential hypertension with goal blood pressure less than 140/90 - ICD9: 401.9, ICD10: I10 - suboptimal control - Increase lisinopril (Zestril/Prinivil) - Encouraged dietary sodium restriction/DASH diet - Recommended regular aerobic exercise. - Recommend home blood pressure monitoring, to bring results in on next visit - Goal of BP ANDlt;130/80 - LISINOPRIL 40 MG TABLET 6. Tobacco use - ICD9: 305.1, ICD10: Z72.0 - Cessation encouraged. - Physiologic and physical aspects of tobacco addiction as well as strategies for quitting were discussed. - Counseling was given focusing on the harmful effects of this addiction especially given the patient's medical condition(s) which will be worsened because of the chemicals in tobacco. - Prescription for Nicoderm patch, continue Wellbutrin at higher dose as well which was given - NICOTINE 21 MG/24 HR DAILY TRANSDERMAL PATCH 7. COPD with chronic bronchitis (HCC) - ICD9: 491.20, ICD10: J44.9 - see above, needs to quit smoking 8. Morbid obesity due to excess calories (HCC) - ICD9: 278.01, ICD10: E66.01 - Lengthy discussion in office today regarding diet and exercise. Discussed use of small plate to eat meals from, drink 1 glass of water 10- 15 minutes prior to eating meal, drink 8 glasses of water daily, eat fresh fruit and vegetable during meal first then lean protein such as grilled/baked chicken breast or fish, limit carbohydrate intake (less pasta, breads, rice and snack foods) as well as limiting sugars (desserts etc). Important to count / track your calories and exercise as well. Sukhjinder Love DO To ER if develops chest pain, shortness of breath, or severe worsening of symptoms. Discussed risks, benefits, alternatives, and potential side effects of medications. Patient expressed understanding and agreed with the plan. Sukhjinder Love DO [address] [place] [address] Referring Provider: DAXA SILVESTRE ([facility]) [[id number]] Allergies As of Date: 01/07/2018 Noted Allergy Reaction GABAPENTIN 09/22/2015 14 - Other: See Comments Comments: Not effective for neuropathy symptoms IBUPROFEN 04/27/2015 7 - Swelling METFORMIN 09/04/2015 8 - GI Upset Comments: GI upset from Metformin ER Date Reviewed: 12/24/2017 Reviewed by: Kathy Chapman LPN - Fully Assessed Reason for Visit: Follow Up [171] Cmt: diabetes Primary Visit Diagnosis:Uncontrolled type 2 diabetes mellitus without complication, without long-term current use of insulin (HCC) [E11.65] Other Visit Diagnoses:DDD (degenerative disc disease), lumbar [M51.36] Chronic midline low back pain with bilateral sciatica [M54.41, M54.42, G89.29] Uncontrolled diabetes mellitus type 2 without complications, unspecified roasterman insulin use status ([facility]) [E11.65] Essential hypertension with goal blood pressure less than 140/90 [I10] Tobacco use [Z72.0] COPD with chronic bronchitis ([facility]) [J44.9] Morbid obesity due to excess calories ([facility]) [E66.01] Order(s):CONSULT TO PAIN MGT ANESTHESIA [20000215] Order #: [id number]: 1 liraglutide (VICTOZA 2-AMAYA) 0.6 mg/0.1 mL (18 mg/3 mL) pnijInject 1.8 mg subcutaneously once daily.Disp: 3 PenRfl: 11 lisinopril (ZESTRIL) 40 mg tabletTake 1 tablet by mouth once daily.Disp: 90 tabletRfl: 1 nicotine (NICODERM) 21 mg/24 hrApply 1 Patch as directed every 24 hours. Remove at bedtimeDisp: 30 PatchRfl: 3 buPROPion SR (WELLBUTRIN SR) 150 mg 12 hr tabletTake 1 tablet by mouth twice daily.Disp: 60 tabletRfl: 5 Prescriptions as of 01/07/2018 Sig: CHANTIX CONTINUING MONTH BOX * Take 1 tablet by mouth twice * X ALBUTEROL SULFATE 2.5 MG/3 ML* use 1 ampule via nebulizer ev* FREESTYLE LITE STRIPS Test once a day as directed CHOLECALCIFEROL (VITAMIN D3) * take 1 capsule every week VENTOLIN HFA 90 MCG/ACTUATION* Inhale 2 Puffs as instructed * OMEPRAZOLE 20 MG CAPSULE,ANTONIO* Take 1 capsule by mouth daily* UNIFINE PENTIPS 31 GAUGE X 1/* One needle per dose; one per * BREO ELLIPTA 200 MCG-25 MCG/D* inhale 1 puff as directed alis* LIRAGLUTIDE 0.6 MG/0.1 ML (18* Inject 1.8 mg subcutaneously * LISINOPRIL 40 MG TABLET Take 1 tablet by mouth once d* NICOTINE 21 MG/24 HR DAILY TR* Apply 1 Patch as directed taryn* BUPROPION HCL SR 150 MG TABLE* Take 1 tablet by mouth twice * CEPHALEXIN 500 MG CAPSULE Take 1 capsule by mouth twice* ACYCLOVIR 800 MG TABLET Take 1 tablet by mouth five t* GLIMEPIRIDE 2 MG TABLET TAKE 2 TABLETS EVERY DAY WITH* ACLIDINIUM BROMIDE 400 MCG/AC* Inhale 1 Inhalation as instru* OXYCODONE-ACETAMINOPHEN 5 MG-* Take 1 tablet by mouth every * LANCETS 28 GAUGE Test blood sugar(s) 2x times * COMPOUNDED PRESCRIPTION Vehicle Nebulizer with suppli* Problem List As Of Date 01/07/2018 Noted Resolved Bilateral leg edema [R60.0] INVALID FOR* Diabetes mellitus type 2, uncontrolled, without*INVALID FOR* Fatigue [R53.83] INVALID FOR* Dyspnea [R06.00] INVALID FOR* Chronic low back pain [M54.5, G89.29] INVALID FOR* DDD (degenerative disc disease), lumbar [M51.36]INVALID FOR* Morbid obesity (HCC) [E66.01] INVALID FOR* BMI 60.0-69.9, adult (HCC) [Z68.44] INVALID FOR* COPD with chronic bronchitis (HCC) [J44.9] INVALID FOR* Essential hypertension with goal blood pressure*INVALID FOR* ILYA on CPAP [G47.33, Z99.89] INVALID FOR* Malaise and fatigue [R53.81, R53.83] INVALID FOR* Vitamin D deficiency [E55.9] INVALID FOR* Dyslipidemia [E78.5] INVALID FOR* Abdominal pain [R10.9] INVALID FOR* More... Blood in stool [K92.1] INVALID FOR* More... GERD (gastroesophageal reflux disease) [K21.9] INVALID FOR* More... Smoker [F17.200] INVALID FOR* More... Other instructions from your clinician: Address: [address] [place] [address] [address] [place] [id number] Forte Prescriptions ordered this encounter Disp Refills Start End LIRAGLUTIDE 0.6 MG/0.1 ML (18 MG/3 M* 3 Pen 11 01/07/2018 Route: SUBCUTANEOUS Sig: Inject 1.8 mg subcutaneously once daily. LISINOPRIL 40 MG TABLET 90 t* 1 01/07/2018 Route: ORAL Sig: Take 1 tablet by mouth once daily. NICOTINE 21 MG/24 HR DAILY TRANSDERM* 30 P* 3 01/07/2018 Route: TRANSDERM. Sig: Apply 1 Patch as directed every 24 hours. Remove at bedtime BUPROPION HCL SR 150 MG TABLET,12 HR* 60 t* 5 01/07/2018 Route: ORAL Sig: Take 1 tablet by mouth twice daily. Medications Discontinued During This Encounter liraglutide (VICTOZA 2-AMAYA) 0.6 mg/0* 3 Pen 3 07/24/2017 01/07/2018 Cmt: Dose to be titrated by provider to 1.2 mg Route: SUBCUTANEOUS Sig: Inject 1.2 mg subcutaneously once daily. Inject 1.2mg daily via pen Indications: type 2 diabetes mellitus Disc: Reason for discontinue is not on file. VICTOZA 2-AMAYA 0.6 mg/0.1 mL (18 mg/3* 6 mL 0 12/23/2017 01/07/2018 Sig: Inject 1.2 mg subcutaneously once daily. Inject 0.6 mg daily via pen Disc: Reason for discontinue is not on file. furosemide (LASIX) 40 mg tablet 30 t* 0 10/21/2017 01/07/2018 Cmt: Med-sync patient. If too soon, we will put new RX on hold for next cycle. Sig: Take every other day as needed for leg swelling. Disc: Reason for discontinue is not on file. lisinopril (ZESTRIL, PRINIVIL) 20 mg* 30 t* 11 08/19/2017 01/07/2018 Cmt: Med-sync patient. If too soon, we will put new RX on hold for next cycle. Sig: Take 1 tablet by mouth once daily. Disc: Reason for discontinue is not on file. buPROPion SR (WELLBUTRIN SR) 100 mg * 60 t* 0 12/22/2017 01/07/2018 Cmt: Med-sync patient. If too soon, we will put new RX on hold for next cycle. Sig: TAKE 1 TABLET TWICE DAILY Disc: Reason for discontinue is not on file. Encounter Status:Closed by SUKHJINDER LOVE DO on 01/09/18 DISCHARGE INSTRUCTION Observed: 01/01/2018 Status: F Source: [place] 7:36 PM [facility] REPOSITORY [facility] Medical Records Department [address] [address] [address] Discharge Instruction 01/01/18 1935 MR#: [id number] Acct: [id number] Name: DWIGHT DUNLAP Rep #: [id number] : 1965 52 From: Tomas Fernández MD PCP: Sukhjinder Love DO Status: PRE ER ED Disposition - Plan for ED Patient: Chief Complaint: Back Instructions: ED Sciatica Referrals: Sukhjinder Love DO [Primary Care Provider] - What to do if you have Problems For any increased pain, shortness of breath, bleeding, nausea or vomiting, chest pain, or any unexpected problems, contact your Primary Care Provider. Call [facility] ([phone]) or report to the closest Emergency Room. Call 911 if necessary. 01/01/181935 <Electronically signed by Tomas Fernández MD> Date Tomas Fernández MD Cosigner Signature (If Indicated): Date CC: Sukhjinder Love DO EMERGENCY DEPARTMENT Observed: 01/01/2018 Status: F Source: [place] SUMMARY 7:35 PM [facility] REPOSITORY [facility] Medical Records Department [address] [place] [address] Emergency Department Summary 01/01/18 1929 MR#: [id number] Acct: [id number] Name: DWIGHT DUNLAP Rep #: [id number] : 1965 52 From: Tomas Fernández MD PCP: Sukhjinder Love DO Status: PRE ER - ER Visit Summary Date of Service: 01/01/18 Chief Complaint: Back pain History of Present Illness: The patient is a 52 M who presents with back pain. He has a history of chronic back pain. He states that he does not want to beat around the leggett and he does not want to bullshit us. He states that the only thing that works when his pain is the severe is a shot and he just wants to get a shot go home. It is that his pain is exactly the same in character and location to his prior pain but has been more severe over the past 3 days and particularly today. He states he does not know if his legs are weak or if it is just because of pain. He does complain of pain radiating into the legs and into the testicles which he states he has always had before as well. He complains of lower abdominal pain but states that this was because of the trauma and is also chronic and unchanged. He denies any fevers nausea or vomiting. Denies any chest pain or shortness of breath. Physical Examination: Heart rate 102 pressure 167/76 respiratory rate 20 pulse ox 94% on room air Moist mucous membranes Neck supple Heart regular rhythm tachycardia Lungs are clear Abdomen soft nontender Brisk capillary refill Sensation intact light touch Normal strength of the lower extremities with 5 out of 5 dorsiflexion, plantarflexion, extensor hallucis longus, knee flexion, knee extension Bilateral lumbar paraspinal tenderness Morbidly obese Test Results: Not indicated Emergency Department Course and Treatment: Presents with acute on chronic back pain. He is adamant that this is exactly the same in terms of type of pain and location as well as characteristics. He states that he just wants a shot. Patient given intramuscular morphine. Advised to follow-up with his primary care physician. He was instructed on specific signs and symptoms to monitor for and conditions under which to return to the emergency department. Treatment Plan: [] Disposition: Discharge Impression: Acute on chronic lower back pain This note was generated with SelStor dictation software. It may contain incorrect words, spelling, and punctuation that were not noted in review of the chart prior to signing ED Disposition - Plan for ED Patient: Chief Complaint: Back Referrals: Sukhjinder Love, DO [Primary Care Provider] - What to do if you have Problems For any increased pain, shortness of breath, bleeding, nausea or vomiting, chest pain, or any unexpected problems, contact your Primary Care Provider. Call [facility] ([phone]) or report to the closest Emergency Room. Call 911 if necessary. 01/01/181934 <Electronically signed by Tomas Fernández MD> Date Tomas Fernández MD Cosigner Signature (If Indicated): Date CC: Sukhjinder Love DO PROGRESS Observed: 12/24/2017 Status: COMPLETED Source: [place] 1:17 PM [facility] REPOSITORY HNO ID: [id number] Author: Daxa (Bhanu) Podlogar Service: (none) Author Type: Nurse Practitioner Type: Progress Notes Filed: 12/24/2017 5:11 PM Note Text: 12/24/2017 Patient presents with: ER F/U: was seen at [facility] SUBJECTIVE: This is a 52 year old that is here today for ER follow-up. Seen at [facility] on 12/20/2017 for complaints of burring with urination and inability to retract foreskin. Testing included: CBC: WNL BMP: Glucose 443 BUN/CRatitnie Ratio 14.7 Normal CO@2 and anion gap UA: Ketones negative + Occult blood negative Nitrate + leukocytes Culture for herpes simplex: no results as of this time. His physical exam at [facility] revealed: revealed phimosis with ulcerative lesions noted and erythema irritation and skin breakdown. Testes are descended bilaterally and non testicular pain. No inguinal masses. Unable to retract the foreskin and unable to see urethra or any part of the glans penis. His treatment included: Bacitracin ointment to foreskin three times daily Acyclovir 800 mg five times a day for for 7 days Cephalexin 500 mg twice daily for 7 days He was instructed to call Dr. Nolan's office (urolgy) on Friday to schedule appointment for surgery to do a dilation or slit so that he is able to retract foreskin. Dr. Nolan was notified of patient Today he presents because he was unable to get appointment with Dr. Nolan because insurance would not cover it. Per patient his insurance told him he would need to see his PCP for referral. He says his burning and redness has resolved. Denies fever, chills, body aches, hematuria, difficulty urinating, or dysuria. He expresses embarrassment about having to talk about this problem. He also felt his sugar was low upon arrival to office. POCT shows it is greater than 334. I attempted to discuss his diabetes and he says he wants his down there issue taken care of first. He denies polyuria or polydipsia. He says he is taking his victoza and Amaryl as prescribed. . Component Latest Ref Rng AND Units 09/29/2015 03/21/2016 01/16/2017 07/20/2017 Hemoglobin A1C 4.3 - 5.6 % 8.3 (H) 7.0 (H) 10.4 (H) Estimated Average Glucose mg/dL 192 154 >240 HGBA1C 4.2 - 6.4 % 10.8 (A) PAST MEDICAL HISTORY Diagnosis Date - Abscess around left side Carotid - Chronic low back pain 2011 Workman's comp claim - COPD, severe (HCC) - Diabetes (HCC) 03/2015 - Obesity - ILYA (obstructive sleep apnea) ALLERGIES Gabapentin; Ibuprofen; Metformin MEDICATIONS Current Outpatient Prescriptions: VICTOZA 2-AMAYA 0.6 mg/0.1 mL (18 mg/3 mL) pnij Inject 1.2 mg subcutaneously once daily. Inject 0.6 mg daily via pen CHANTIX CONTINUING MONTH BOX 1 mg tablet Take 1 tablet by mouth twice daily. albuterol (PROVENTIL) 2.5 mg /3 mL (0.083 %) nebulizer solution use 1 ampule via nebulizer every 4 hours as needed for wheezing and shortness of breath over 5 to 15 minutes buPROPion SR (WELLBUTRIN SR) 100 mg 12 hr tablet TAKE 1 TABLET TWICE DAILY glimepiride (AMARYL) 2 mg tablet TAKE 2 TABLETS EVERY DAY WITH BREAKFAST furosemide (LASIX) 40 mg tablet Take every other day as needed for leg swelling. FREESTYLE LITE STRIPS test strip Test once a day as directed cholecalciferol, Vitamin D3, (VITAMIN D3) 50,000 unit cap capsule take 1 capsule every week VENTOLIN HFA 90 mcg/actuation inhaler Inhale 2 Puffs as instructed every 4 hours as needed for Wheezing/Shortness of Breath. omeprazole (PRILOSEC) 20 mg capsule Take 1 capsule by mouth daily before breakfast. 1/2 hr before meal. For stomach lisinopril (ZESTRIL, PRINIVIL) 20 mg tablet Take 1 tablet by mouth once daily. UNIFINE PENTIPS 31 gauge x 1/4 ndle One needle per dose; one per day liraglutide (VICTOZA 2-AMAYA) 0.6 mg/0.1 mL (18 mg/3 mL) pnij Inject 1.2 mg subcutaneously once daily. Inject 1.2mg daily via pen Indications: type 2 diabetes mellitus BREO ELLIPTA 200-25 mcg/dose inhaler inhale 1 puff as directed daily.Do not click open until ready to dose aclidinium bromide (TUDORZA PRESSAIR) 400 mcg/actuation aepb Inhale 1 Inhalation as instructed twice daily. Indications: CHRONIC OBSTRUCTIVE PULMONARY DISEASE WITH BRONCHOSPASMS oxyCODONE-acetaminophen (PERCOCET) 5-325 mg tablet Take 1 tablet by mouth every 8 hours as needed for Pain. lancets (FREESTYLE LANCETS) 28 gauge misc Test blood sugar(s) 2x times daily. Dx: 250.02. Insulin: No COMPOUNDED PRESCRIPTION Vehicle Nebulizer with supplies. Home nebulizer tubing and supplies. Diagnosis: COPD, and Asthma. No current facility-administered medications for this visit. Medications and allergies reviewed by this provider. SOCIAL HISTORY Social History Marital status: Single Spouse name: Years of education: Number of children: 1 Social History Main Topics Smoking status: Current Every Day Smoker Packs/day: 1.00 Years: 35.00 Types: Cigarettes Alcohol use: No Drug use: No Comment: WEED/ not for 4 years Sexual activity: No REVIEW OF SYSTEMS All other reviewed and negative other than HPI. OBJECTIVE: BP 130/80 (BP Site: Left Arm, BP Position: Sitting, BP Cuff Size: Large Adult) Pulse 68 Resp 18 Wt (!) 177.9 kg (392 lb 1.9 oz) BMI 56.26 kg/m2. Vital signs reviewed by this provider. APPEARANCE Well appearing, alert, in no acute distress, well-hydrated, well nourished., Morbidly obese HEART RRR with normal S1 and S2, no murmurs, no gallops, no JVD appreciated LUNG All meredith diminshed which could be secondary to body habitus MALE Exam deferred ASSESSMENT/PLAN: 1. Phimosis - ICD9: 605, ICD10: N47.1 (primary diagnosis) - will consult urology as requested - CONSULT TO UROLOGY 2. Balanitis - ICD9: 607.1, ICD10: N48.1 - continue bacitracin cream and keflex as ordered - discussed that he should finish acyclovir and the rational fortreatment 3. Uncontrolled diabetes mellitus type 2 without complications, unspecified senior care insulin use status (HCC) - ICD9: 250.02, ICD10: E11.65 -worsening control - Continue current medications - Check HgA1C POC test today reveals 12.5 - Blood glucose monitoring on a twice a day schedule - Encouraged regular aerobic exercise and weight loss - Make appointment to see Dr. Love or Denise OLIVERA to discuss diabetes - BP goal of <130/80 - LDL goal of <100 - Patient urged to quit smoking. - HGB A1C - CONSULT TO PHARMACY - I attempted to talk to patient about losing weight and that he really needs to be on insulin at this point d/t his increasing HBA1C- he does not want to discuss this today and wants to make another appointment for this- he is agreeable to seeing the pharmacist. Instructed he needs to monitor blood sugars at home at least twice a day - Discussed red flag symptoms related to increased blood sugars Daxa Silvestre CNP EMERGENCY DEPARTMENT Observed: 12/20/2017 Status: F Source: [place] SUMMARY 9:05 AM [facility] REPOSITORY [facility] Medical Records Department [address] [place] [address] Emergency Department Summary 12/20/17 0900 MR#: [id number] Acct: [id number] Name: DWIGHT DUNLAP Rep #: [id number] : 1965 52 From: Marcos Davis MD PCP: Sukhjinder Love DO Status: REG ER - ER Visit Summary Date of Service: 12/20/17 Chief Complaint: [] History of Present Illness: The patient is a 52 M [] Physical Examination: [] Test Results: [] Emergency Department Course and Treatment: [] Treatment Plan: [] Disposition: [] Impression: [] This note was generated with SelStor dictation software. It may contain incorrect words, spelling, and punctuation that were not noted in review of the chart prior to signing ED Disposition - Plan for ED Patient: Disposition: Home or Assisted Living Chief Complaint: Complaint Instructions: ED Balanitis, ED Hyperglycemia Diabetic, ED Phimosis Prescriptions: TraMADol [Ultram] 50 mg PO Q4H PRN PRN #10 tablet PRN Reason: Pain Acyclovir 800 mg PO 5X/DAY #35 tab Cephalexin [Keflex] 500 mg PO BID #14 cap Referrals: Gerson Heaton MD [STAFF PHYSICIAN] - 1 Week Anthony Marks DO [STAFF PHYSICIAN] - 1-2 Weeks Additional Instructions: Applied bacitracin ointment 3 times a day to your foreskin. Call Dr. Mario Solis's office on Friday to be seen in the week to schedule surgery You were referred to Dr. Anthony Marks to follow-up with for your diabetes and other medical problems Your prescriptions were electronically transmitted to [facility] pharmacy; the pharmacy you designated as your pharmacy of choice What to do if you have Problems For any increased pain, shortness of breath, bleeding, nausea or vomiting, chest pain, or any unexpected problems, contact your Primary Care Provider. Call [facility] ([phone]) or report to the closest Emergency Room. Call 911 if necessary. 12/20/17904 <Electronically signed by Marcos Davis MD> Date Marcos Davis MD Cosigner Signature (If Indicated): Date CC: Sukhjinder Love DO EMERGENCY DEPARTMENT Observed: 12/20/2017 Status: F Source: [place] SUMMARY 8:04 AM [facility] REPOSITORY [facility] Medical Records Department [address] [place] [address] Emergency Department Summary 12/20/17 0718 MR#: [id number] Acct: [id number] Name: DWIGHT DUNLAP Rep #: [id number] : 1965 52 From: Marcos Davis MD PCP: Sukhjinder Love DO Status: REG ER - ER Visit Summary Date of Service: 12/20/17 Chief Complaint: Burning with urination and inability to retract foreskin History of Present Illness: The patient is a 52 M for medical problems who presents with urologic symptoms of burning and redness of the foreskin. He states he is unable to retract his foreskin. He states he has had problems for 2 months. He informed his PCP and he claims that she thought this was funny. He denies any fever, chills night sweats. He does not check his blood sugars. He denies history of sexually transmitted disease. He states he has not been sexually active for some time. He denies any GI symptoms. After initial H AND P he states he is having trouble breathing and would like an aerosol treatment. Please read written note for complete detail Physical Examination: It is morbidly obese with a BMI of 57. Vital signs are remarkable for a heart rate of 118 the rest rate of 23. Head is atraumatic normocephalic. Pupils are equal round reactive. Extraocular muscles are intact. TMs are pearly white with landmarks noted. Nares patent with no drainage. Posterior pharynx without erythema or exudate. Uvula is midline. There is no dysphonia or dysphasia. Trachea is midline. There is no stridor with auscultation of the neck. Heart is regular without murmur, gallop or rub. Lungs revealed diminished breath sounds which may be secondary to body habitus. There was no wheezing with expiration. Abdomen is soft prominent. exam reveals a phimosis with ulcerative lesions noted and erythema irritation and skin breakdown. Testes are descended bilaterally. There is no testicular out of the penis tenderness. There is no inguinal mass. Unable to retract the foreskin and unable to see the urethra or any part of the glans penis. Lower extremity exam is remarkable for venous stasis dermatitis. Patient is depressed and embarrassed regarding his presentation. Test Results: CBC is normal. BMP is remarkable for glucose of 443 with a normal CO2 and anion gap. UA reveals pyuria without bacteria. There is also evidence of proteinuria and hematuria most likely secondary to his diabetes/renal disease. Emergency Department Course and Treatment: UA was ordered per protocol by nursing staff. Because he does not check his blood sugars a BMP was obtained as well as a CBC. Culture for herpes simplex was obtained and he was treated with acyclovir. Dr. Mario Nolan was notified of patient. He states he would see patient and either do a dilation or slit so that he is able to retract his foreskin. Treatment Plan: Bacitracin ointment to foreskin, acyclovir and cephalexin. Disposition: To be discharged home after blood sugars reassessed. Impression: 1. Hyperglycemia in type II diabetic 2. Phimosis 3. Balanitis 4. Morbid obesity 5. Painful ulcerative lesions for skin question etiology This note was generated with SelStor dictation software. It may contain incorrect words, spelling, and punctuation that were not noted in review of the chart prior to signing ED Disposition - Plan for ED Patient: Disposition: Home or Assisted Living Chief Complaint: Complaint Instructions: ED Phimosis, ED Balanitis, ED Hyperglycemia Diabetic Prescriptions: Acyclovir 800 mg PO 5X/DAY #35 tab Cephalexin [Keflex] 500 mg PO BID #14 cap Referrals: Anthony Marks DO [STAFF PHYSICIAN] - 1-2 Weeks Gerson Heaton MD [STAFF PHYSICIAN] - 1 Week Additional Instructions: Applied bacitracin ointment 3 times a day to your foreskin. Call Dr. Mario Solis's office on Friday to be seen in the week to schedule surgery You were referred to Dr. Anthony Marks to follow-up with for your diabetes and other medical problems Your prescriptions were electronically transmitted to [facility] pharmacy; the pharmacy you designated as your pharmacy of choice What to do if you have Problems For any increased pain, shortness of breath, bleeding, nausea or vomiting, chest pain, or any unexpected problems, contact your Primary Care Provider. Call [facility] ([phone]) or report to the closest Emergency Room. Call 911 if necessary. 12/20/17 0804 <Electronically signed by Marcos Davis MD> Date Marcos Davis MD Cosigner Signature (If Indicated): Date CC: Sukhjinder Love DO; Gerson Heaton MD; Anthony Marks DO CONSULTATION Observed: 12/20/2017 Status: F Source: [place] 7:50 AM [facility] REPOSITORY [facility] Medical Records Department [address] [place] [address] Consultation 12/20/17 0742 MR#: [id number] Acct: [id number] Name: DWIGHT DUNLAP Rep #: [id number] : 1965 52 From: Gerson Heaton MD PCP: Sukhjinder Love DO Status: REG ER Y Location: ED Problem List (1) Phimosis Status: Acute Reason for Consult Date of Consultation: 12/20/17 Reason for Consultation: phimosis History of Present Illness: The patient is a 52 year old male with phimosis, has sever burning with urination but is able to void. cant retract foreskin for the last 6 months. no fever or chills, he is a diabetic, obese male. Past Medical History Past Medical History (Chronic Problems): Chronic Problems Morbid obesity with BMI of 60.0-69.9, adult (Chronic) Morbid obesity due to excess calories (Chronic) Tobacco use (Chronic) Depression (Chronic) GERD (gastroesophageal reflux disease) (Chronic) HTN (hypertension) (Chronic) Diabetes mellitus, type II (Chronic) Allergies hydrocodone bitartrate [From [facility]] Allergy (Mild, Verified 12/20/17 06:55) Hives acetaminophen [From [facility]fer] Allergy (Verified 12/20/17 06:55) Hives ibuprofen Allergy (Verified 12/20/17 06:55) Swelling vancomycin Allergy (Verified 12/20/17 06:55) Itching metformin Adverse Reaction (Verified 12/20/17 06:55) Upset Stomach Home Medications: Ambulatory Orders Medication Instructions Recorded Bupropion HCl [Bupropion HCl Sr] 100 mg PO BID 04/14/17 Cholecalciferol (Vitamin D3) 50,000 unit PO FR 04/14/17 Surgical History: noncontributory, - - Foot surgery. Psychiatric History: Depression Smoking Status: Current every day smoker - *Family History Maternal History Items: No pertinent history Paternal History Items: No pertinent history Review of Systems Constitutional: Denies: Chills, Fever HEENT: Denies: Head Aches, Sinus Congestion, Sinus Drainage Cardiovascular: Denies: Chest Pain, Palpitations Respiratory: Denies: Cough, Shortness of breath at rest, Sputum production Gastrointestinal: Denies: Abdominal Pain, Nausea, Vomiting Genitourinary: Reports: Dysuria, Frequency Musculoskeletal: Denies: Joint Pain, Joint Tenderness Skin: Denies: Rash, Wounds Neurological: Denies: Numbness, Tingling, Focal weakness Psychiatric: Denies: Anxiety, Depression, Homicidal Ideations, Suicidal Ideations Hematologic/ Lymphatic: Denies: Easy Bruising, Easy Bleeding Physical Exam - Physical Exam Vital Signs Temp 98.1 F 12/20/17 06:51 Pulse 111 H 12/20/17 07:27 Resp 18 12/20/17 07:27 BP 126/86 H 12/20/17 06:51 Pulse Ox 97 12/20/17 06:51 Intake AND Output Weight: 180.6 kg General: Alert, Oriented x3 Neck: Supple Lungs: Normal air movement Abdomen: Obese Rectal: Exam deferred Testicle: Right Normal, Left Normal Scrotum: No lesions, No warts Penis: Phimosis, Discharge, - - has balanitis inflammation and phimosis of foreskin Neurological: Cranial nerves II-XII grossly intact Psych/Mental Status: Normal Affect Laboratory Tests Past 24 Hrs Assessment/Plan Active and Suspected Problems Phimosis (Acute) 52 yo male with phimosis, obesitiy, diabetic with balanitis possible HSV of foreskin, home with acyclovir, topical bacitracin, OTZ Azo may help. Keflex. Can follow up for a circumcision at a later date. 12/20/17 0750 <Electronically signed by Gerson Heaton MD> Date Gerson Heaton MD Cosigner Signature (if applicable): Date CC: Sukhjinder Love DO; Gerson Heaton MD Signed CBC W/DIFF, AUTOMATED Collected: 12/20/2017 Status: F Source: GUS 7:17 AM [facility] REPOSITORY TYPE CODE TESTS RESULT OUT OF RANGE REFERENCE UNITS LAB L100.1000 4.4-11.0 K/mm3 Normal WBC 5.5 LAB L100.1200 4.6-6.2 M/mm3 Normal RBC 5.21 LAB L100.1300 13.0-16.5 g/dl Normal HGB 15.6 LAB L100.1400 40-54 % Normal HCT 46.7 LAB L100.1500 80-94 fL Normal MCV 89.6 LAB L100.1600 27.0-32.0 pg Normal MCH 29.9 LAB L100.1700 32-36 g/gl Normal MCHC 33.4 LAB L100.1810 11.6-14.6 % Normal RDW CV 13.7 LAB L100.1820 35.1-43.9 fl High RDW SD 45.3 LAB L100.1900 150-450 K/mm3 Normal PLT 174 LAB L100.2000 6.2-12.0 fl Normal MPV 11.2 LAB L100.2100 47-70 % Normal NEUT% 55.4 LAB L100.2200 19-41 % Normal LY% 24.8 LAB L100.2300 0-10 % High MONO% 17.8 LAB L100.2400 0-5 % Normal EO% 1.4 LAB L100.2500 0-1 % Normal BASO% 0.2 LAB L100.2550 0.0-0.9 % Normal IM GRAN % 0.400 Result Comment: IG% - Immature Granulocytes (promyelocytes, myelocytes and metamyelocytes) > 1% indicates that a LEFT SHIFT is Present. LAB L100.2620 2.0-7.7 X10 3/uL Normal Absolute Neut 3.1 LAB L100.2720 0.83-4.51 X10 3/ul Normal Absolute Lymph 1.37 Performed By: #### L100.0100 #### [facility] [address] [place], [place], [address] BASIC METABOLIC Collected: 12/20/2017 Status: F Source: GUS PROFILE ([facility]) 7:17 AM [facility] REPOSITORY TYPE CODE TESTS RESULT OUT OF RANGE REFERENCE UNITS LAB L501.0100 74-106 mg/dL High GLU 443 Result Comment: Glucose result greater than or equal to 200 mg/dL suggests DIABETES MELLITUS per A.D.A. criteria. Please note revised GLUCOSE reference range effective 2017. LAB L501.1000 7-18 mg/dL Normal BUN 12 LAB L501.1100 0.70-1.30 mg/dL Normal CREAT,SERUM 0.82 Result Comment: The validity of the calculated GFR AND GFRAA in patients over 70 years has not been determined. Clinical correlation is essential. LAB L501.1110 >60 mL/min Normal EST GFR 106 Result Comment: Non- GFR Calc LAB L501.1115 >60 mL/min Normal EST GFR - AA 128 Result Comment: GFR Calc LAB L501.1255 ml/min Normal Estimated CRCL 111.28 LAB L501.1300 10-20 RATIO BUN/CRE Normal 14.7 LAB L501.2200 8.5-10 mg/dL .1 CA Normal 8.6 LAB L501.5300 136-14 mmol/L 5 NA Normal 136 LAB L501.5600 3.5-5. mmol/L 1 K Normal 4.4 LAB L501.5900 98-107 mmol/L CL Normal 99 LAB L501.6100 21.0-3 mmol/L 2.0 CO2 Normal 30.0 LAB L501.6200 5-15 GAP Normal 7 Performed By: #### L500.2500 #### [facility] [address] [place] [address] [address] [place], [place], [id number] Observed: 12/20/2017 Status: F Source: GUS RAMSEY, HERPES 7:10 AM [facility] SIMPLEX VIRUS REPOSITORY HSV Cult 8250 [facility] AT [facility]. ORIGINAL REPORT ON FILE IN LAB CONTAINS ADDITIONAL TEST SITE INFORMATION. HSV Culture/Typing POSITIVE HERPES SIMPLEX VIRUS ISOLATED Performed By: #### M600.3000 #### [facility] [address] [place], [place], [address] URINALYSIS, COMPLETE Collected: 12/20/2017 Status: F Source: [place] 7:00 AM [facility] REPOSITORY Order Comment: Order Date: 12/20/17 How was Urine Obtained? CLEAN CATCH TYPE CODE TESTS RESULT OUT OF RANGE REFERENCE UNITS LAB L400.3000 Yellow COLOR Normal Yellow LAB L400.3050 Clear Normal CLARITY Clear LAB L400.3200 Normal mg/dl High GLUCOSE, UR 1000 LAB L400.3300 Negative mg/dL Normal BILIRUBIN URINE Negative LAB L400.3400 Negative mg/dl Normal KETONE UR Negative LAB L400.3465 1.002-1.030 Normal SP.GR. DIPSTX 1.015 LAB L400.3550 5.0 - 8.0 pH UR Normal 6.0 LAB L400.3600 Negative mg/dl High PROT 15 DIPSTX LAB L400.3700 Normal mg/dl Normal UROBILI Normal LAB L400.3750 Negative Normal NITRITE UR Negative LAB L400.3780 Negative /ul High 50 OCCULT BLOOD-UR LAB L400.3800 Negative /ul High LEUK ESTERASE 500 LAB L400.4050 0-5 /hpf WBC Normal 50-100 SEEN LAB L400.4100 0-5 /hpf 0 Normal RBC-UA SEEN LAB L400.4150 0-5 /hpf SQUAM Normal EPI 0-5 SEEN LAB L400.4300 None Seen /hpf 0 Normal BACTERIA SEEN LAB L400.4350 <or=2+ /hpf 0 Normal MUCUS, URINE SEEN Performed By: #### L400.0001 #### [facility] [address] [place], [address] OBSOLETE Observed: 2017 Status: COMPLETED Source: [place] 12:00 AM [facility] REPOSITORY Refill (FAMPWS) MANOJ DUNLAP ([id number]) 1965 M Date Time Provider Department 11/19/17 DENISE VOGT ([facility]) BOBPWS During your visit today, we recorded the following information about you: Allergies As of Date: 2017 Noted Allergy Reaction GABAPENTIN 09/22/2015 14 - Other: See Comments Comments: Not effective for neuropathy symptoms IBUPROFEN 04/27/2015 7 - Swelling METFORMIN 09/04/2015 8 - GI Upset Comments: GI upset from Metformin ER Date Reviewed: 11/13/2017 Reviewed by: Jimmie Woods LPN - Fully Assessed Reason for Visit: Refill Request [94] Prescriptions as of 2017 Sig: FUROSEMIDE 40 MG TABLET Take every other day as neede* CHANTIX CONTINUING MONTH BOX * Take 1 tablet by mouth twice * FREESTYLE LITE STRIPS Test once a day as directed CHOLECALCIFEROL (VITAMIN D3) * take 1 capsule every week VENTOLIN HFA 90 MCG/ACTUATION* Inhale 2 Puffs as instructed * OMEPRAZOLE 20 MG CAPSULE,ANTONIO* Take 1 capsule by mouth daily* LISINOPRIL 20 MG TABLET Take 1 tablet by mouth once d* UNIFINE PENTIPS 31 GAUGE X 1/* One needle per dose; one per * LIRAGLUTIDE 0.6 MG/0.1 ML (18* Inject 1.2 mg subcutaneously * BREO ELLIPTA 200 MCG-25 MCG/D* inhale 1 puff as directed alis* ALBUTEROL SULFATE 2.5 MG/3 ML* Use 3 mL via nebulizer every * ACLIDINIUM BROMIDE 400 MCG/AC* Inhale 1 Inhalation as instru* BUPROPION HCL SR 100 MG TABLE* Take 1 tablet by mouth as dir* OXYCODONE-ACETAMINOPHEN 5 MG-* Take 1 tablet by mouth every * LANCETS 28 GAUGE Test blood sugar(s) 2x times * COMPOUNDED PRESCRIPTION Vehicle Nebulizer with suppli* Problem List As Of Date 2017 Noted Resolved Bilateral leg edema [R60.0] INVALID FOR* Diabetes mellitus type 2, uncontrolled, without*INVALID FOR* Fatigue [R53.83] INVALID FOR* Dyspnea [R06.00] INVALID FOR* Chronic low back pain [M54.5, G89.29] INVALID FOR* DDD (degenerative disc disease), lumbar [M51.36]INVALID FOR* Morbid obesity (HCC) [E66.01] INVALID FOR* BMI 60.0-69.9, adult (HCC) [Z68.44] INVALID FOR* COPD with chronic bronchitis (HCC) [J44.9] INVALID FOR* Essential hypertension with goal blood pressure*INVALID FOR* ILYA on CPAP [G47.33, Z99.89] INVALID FOR* Malaise and fatigue [R53.81, R53.83] INVALID FOR* Vitamin D deficiency [E55.9] INVALID FOR* Dyslipidemia [E78.5] INVALID FOR* Abdominal pain [R10.9] INVALID FOR* More... Blood in stool [K92.1] INVALID FOR* More... GERD (gastroesophageal reflux disease) [K21.9] INVALID FOR* More... Smoker [F17.200] INVALID FOR* More... Encounter Status:Closed by GIA PARIS LPN on 11/19/17 PROGRESS Observed: 11/13/2017 Status: COMPLETED Source: [place] 11:30 AM [facility] REPOSITORY HNO ID: [id number] Author: Denise Britton (A Auxiliary) BHANU Vogt Service: (none) Author Type: Nurse Practitioner Type: Progress Notes Filed: 11/13/2017 11:37 AM Note Text: HPI/CC: Manoj Dunlap is a 51 year old male who presents for (3 month follow up. Overall no improvement in health. Reports no improvement with breathing when using inhalers, uses more often then prescribed. Continues to smoke even while on Chantix. States that it doesn't work, nothing works for him. Reports using home O2 for the last few days without relief of symptoms. Does not check his blood glucose levels or his BP. Has lost a significant amount of weight through cutting out foods. Continues to c/o abdominal discomfort, denies further blood in stool since changing diet. Has not rescheduled colonoscopy or seen GI as recommended. Patient states that he will be off parole in Dec and [place]. Discussed transition of care. ROS as above, otherwise non-contributory. Reviewed PMHx, PSHx, social Hx, medications and allergies. PHYSICAL EXAMINATION: BP 124/90 Pulse 100 Resp 22 Wt (!) 182.8 kg (403 lb) BMI 57.82 kg/m2 General appearance: Well appearing, alert, in no acute distress, well-hydrated, well nourished., Morbidly obese Skin: Skin color, texture, turgor normal, no suspicious rashes or lesions Lungs: + wheezing and rales, + moist non-productive cough Heart: RRR without murmur, gallop, or rubs. No ectopy ASSESSMENT/PLAN: 1. COPD with chronic bronchitis ([facility]) - ICD9: 491.20, ICD10: J44.9 (primary diagnosis) - continue current therapy 2. Uncontrolled diabetes mellitus type 2 without complications, unspecified senior care insulin use status ([facility]) - ICD9: 250.02, ICD10: E11.65 - continue current care 3. BMI 60.0-69.9, adult ([facility]) - ICD9: V85.44, ICD10: Z68.44 - continue current dietary changes 4. Essential hypertension with goal blood pressure less than 140/90 - ICD9: 401.9, ICD10: I10 - fair control - Continue current medication(s) - Recommend home blood pressure monitoring, to bring results in on next visit - Goal of BP <140/90 5. Generalized abdominal pain - ICD9: 789.07, ICD10: R10.84 - Referral to Gastroenterology- as previously recommended. Patient encouraged to let office know when he will no longer be following with our office d/t relocation. Denise Vogt CNP CNOV Observed: 11/13/2017 Status: COMPLETED Source: [place] 10:40 AM [facility] REPOSITORY Office Visit (FAMPWS) MANOJ DUNLAP ([id number]) 1965 M Date Time Provider Department 11/13/17 10:40 AM DENISE VOGT) FAMPWS During your visit today, we recorded the following information about you: Pulse Respiration Blood pressure Weight 100/minute 22/minute 124/90 182.8 kg Denise Vogt CNP, CNP 11/13/2017 11:37 AM Signed HPI/CC: Manoj Lilly Germán is a 51 year old male who presents for (3 month follow up. Overall no improvement in health. Reports no improvement with breathing when using inhalers, uses more often then prescribed. Continues to smoke even while on Chantix. States that it doesn't work, nothing works for him. Reports using home O2 for the last few days without relief of symptoms. Does not check his blood glucose levels or his BP. Has lost a significant amount of weight through cutting out foods. Continues to c/o abdominal discomfort, denies further blood in stool since changing diet. Has not rescheduled colonoscopy or seen GI as recommended. Patient states that he will be off parole in Dec and [place]. Discussed transition of care. ROS as above, otherwise non-contributory. Reviewed PMHx, PSHx, social Hx, medications and allergies. PHYSICAL EXAMINATION: BP 124/90 Pulse 100 Resp 22 Wt (!) 182.8 kg (403 lb) BMI 57.82 kg/m2 General appearance: Well appearing, alert, in no acute distress, well-hydrated, well nourished., Morbidly obese Skin: Skin color, texture, turgor normal, no suspicious rashes or lesions Lungs: + wheezing and rales, + moist non-productive cough Heart: RRR without murmur, gallop, or rubs. No ectopy ASSESSMENT/PLAN: 1. COPD with chronic bronchitis (HCC) - ICD9: 491.20, ICD10: J44.9 (primary diagnosis) - continue current therapy 2. Uncontrolled diabetes mellitus type 2 without complications, unspecified senior care insulin use status (HCC) - ICD9: 250.02, ICD10: E11.65 - continue current care 3. BMI 60.0-69.9, adult (HCC) - ICD9: V85.44, ICD10: Z68.44 - continue current dietary changes 4. Essential hypertension with goal blood pressure less than 140/90 - ICD9: 401.9, ICD10: I10 - fair control - Continue current medication(s) - Recommend home blood pressure monitoring, to bring results in on next visit - Goal of BP ANDlt;140/90 5. Generalized abdominal pain - ICD9: 789.07, ICD10: R10.84 - Referral to Gastroenterology- as previously recommended. Patient encouraged to let office know when he will no longer be following with our office d/t relocation. Denise Vogt, BHANU Referring Provider: SUKHJINDER LOVE [[id number]] Allergies As of Date: 11/13/2017 Noted Allergy Reaction GABAPENTIN 09/22/2015 14 - Other: See Comments Comments: Not effective for neuropathy symptoms IBUPROFEN 04/27/2015 7 - Swelling METFORMIN 09/04/2015 8 - GI Upset Comments: GI upset from Metformin ER Date Reviewed: 11/13/2017 Reviewed by: Jimmie Woods LPN - Fully Assessed Reason for Visit: Recheck [92] Cmt: 3 month follow up Primary Visit Diagnosis:COPD with chronic bronchitis ([facility]) [J44.9] Other Visit Diagnoses:Uncontrolled diabetes mellitus type 2 without complications, unspecified roasterman insulin use status ([facility]) [E11.65] BMI 60.0-69.9, adult ([facility]) [Z68.44] Essential hypertension with goal blood pressure less than 140/90 [I10] Generalized abdominal pain [R10.84] Prescriptions as of 11/13/2017 Sig: FUROSEMIDE 40 MG TABLET Take every other day as neede* CHANTIX CONTINUING MONTH BOX * Take 1 tablet by mouth twice * FREESTYLE LITE STRIPS Test once a day as directed CHOLECALCIFEROL (VITAMIN D3) * take 1 capsule every week VENTOLIN HFA 90 MCG/ACTUATION* Inhale 2 Puffs as instructed * OMEPRAZOLE 20 MG CAPSULE,ANTONIO* Take 1 capsule by mouth daily* LISINOPRIL 20 MG TABLET Take 1 tablet by mouth once d* UNIFINE PENTIPS 31 GAUGE X 1/* One needle per dose; one per * LIRAGLUTIDE 0.6 MG/0.1 ML (18* Inject 1.2 mg subcutaneously * BREO ELLIPTA 200 MCG-25 MCG/D* inhale 1 puff as directed alis* ALBUTEROL SULFATE 2.5 MG/3 ML* Use 3 mL via nebulizer every * BUPROPION HCL SR 100 MG TABLE* Take 1 tablet by mouth as dir* ACLIDINIUM BROMIDE 400 MCG/AC* Inhale 1 Inhalation as instru* OXYCODONE-ACETAMINOPHEN 5 MG-* Take 1 tablet by mouth every * LANCETS 28 GAUGE Test blood sugar(s) 2x times * COMPOUNDED PRESCRIPTION Vehicle Nebulizer with suppli* Problem List As Of Date 11/13/2017 Noted Resolved Bilateral leg edema [R60.0] INVALID FOR* Diabetes mellitus type 2, uncontrolled, without*INVALID FOR* Fatigue [R53.83] INVALID FOR* Dyspnea [R06.00] INVALID FOR* Chronic low back pain [M54.5, G89.29] INVALID FOR* DDD (degenerative disc disease), lumbar [M51.36]INVALID FOR* Morbid obesity (HCC) [E66.01] INVALID FOR* BMI 60.0-69.9, adult (HCC) [Z68.44] INVALID FOR* COPD with chronic bronchitis (HCC) [J44.9] INVALID FOR* Essential hypertension with goal blood pressure*INVALID FOR* ILYA on CPAP [G47.33, Z99.89] INVALID FOR* Malaise and fatigue [R53.81, R53.83] INVALID FOR* Vitamin D deficiency [E55.9] INVALID FOR* Dyslipidemia [E78.5] INVALID FOR* Abdominal pain [R10.9] INVALID FOR* More... Blood in stool [K92.1] INVALID FOR* More... GERD (gastroesophageal reflux disease) [K21.9] INVALID FOR* More... Smoker [F17.200] INVALID FOR* More... Medications Discontinued During This Encounter varenicline (CHANTIX) 0.5 mg (11)- 1* 1 Pa* 0 08/29/2017 11/13/2017 Sig: Take 0.5 mg daily x3days, then twice daily for 4 days, then 1mg twice daily for duration. Disc: Reason for discontinue is not on file. cephALEXin (KEFLEX) 500 mg capsule 0 07/22/2017 11/13/2017 Class: Historical Med Route: ORAL Sig: Take 500 mg by mouth three times daily. Disc: Reason for discontinue is not on file. glimepiride (AMARYL) 4 mg tablet 0 07/22/2017 11/13/2017 Class: Historical Med Route: ORAL Sig: Take 4 mg by mouth once daily. Disc: Reason for discontinue is not on file. Encounter Status:Closed by DENISE VOGT CNP on 11/13/17 ALLERGIES ALLERGIES DATE TYPE / CODE NAME / CODE REACTION SEVERITY SOURCE 09/25/2018 Drug hydrocodone Hives [place] Allergy/416 bitartrate/[id number] Formerly [facility] 524209(SNOM 555(RXNORM) [facility] ED CT) Repository 09/25/2018 Drug ibuprofen/[id number] Swelling Unknown [place] Allergy/416 77(RXNORM) Community 891525([facility] ED CT) Repository 09/25/2018 Drug metformin/[id number] Upset Stomach Unknown [place] Allergy/416 34(RXNORM) Community 428894([facility] ED CT) Repository 09/25/2018 Drug vancomycin/Z489405 Itching Unknown [place] Allergy/416 866(RXNORM) Community 335460([facility] ED CT) Repository 07/21/2018 Drug acetaminophen/F006 Hives Unknown [place] Allergy/416 594754(RXNORM) Community 367619([facility] ED CT) Repository 09/22/2015 DRUG GABAPENTIN OTHER: SEE C [address] 312144(SNOM Repository ED CT) 09/04/2015 DRUG METFORMIN GI UPSET [address] 242279(SNOM Repository ED CT) 04/27/2015 DRUG IBUPROFEN SWELLING [address] 864335(SNOM Repository ED CT) ENCOUNTERS ENCOUNTERS ADMIT/DISCHARGE ACCOUNT ADMITTING ENCOUNTER LOCATION SOURCE NUMBER CLASS 10/14/2018 [id number] Ambulatory BMSBuilding:B [place] [facility] Repository 10/09/2018/10/09/20 [id number] Emergency [address] ing:ED Repository 09/25/2018/09/25/20 [id number] Emergency [address] ing:ED Repository 09/18/2018/09/18/20 [id number] Ambulatory BMSBuilding:B [place] [facility] Repository 09/15/2018 [id number] Ambulatory BMSBuilding:B [place] [facility] Repository 09/10/2018 [id number] Ambulatory BMSBuilding:B [place] [facility] Repository 08/17/2018/08/17/20 [id number] Ambulatory BMSBuilding:[place] [facility] Repository 08/17/2018 [id number] Ambulatory [facility] ing:PSN Repository 08/17/2018 [id number] Ambulatory BMSBuilding:[facility] Repository 08/04/2018/08/04/20 [id number] Ambulatory BMSBuilding:B [place] 18 MS.[facility]IM [facility] Hospital Repository 08/04/2018 [id number] Ambulatory [facility] Hospital[facility] Hospital ing:LAB Repository 07/23/2018/07/23/20 [id number] Ambulatory [address] HospitalBuild Hospital ing:SDCRoom: Repository AC14 07/22/2018 [id number] Ambulatory [facility] Hospital ing:PSN Repository 07/22/2018 [id number] Ambulatory BMSBuilding:W [facility] Repository 07/22/2018 [id number] Ambulatory BMSBuilding:W [facility] Repository 07/03/2018/07/03/20 [id number] Ambulatory BMSBuilding:B [place] [facility] MS.[facility] Repository 06/25/2018/06/25/20 [id number] Ambulatory BMSBuilding:B [place] 18 MS.[facility] Hospital Repository 06/11/2018 [id number] Ambulatory BMSBuilding:B [place] [facility] Repository 06/05/2018/06/05/20 [id number] Ambulatory [address] HospitalBuild Hospital ing:PT Repository 06/01/2018 [id number] Ambulatory BMSBuilding:B [place] [facility] Repository 05/28/2018/05/28/20 [id number] Ambulatory BMSBuilding:B [place] 18 MS.[facility] Repository 05/26/2018 [id number] Ambulatory [facility] Hospital[facility] Hospital ing:LAB Repository 05/08/2018 [id number] Ambulatory [facility] HospitalBuild Hospital ing:NM Repository 04/28/2018/04/28/20 [id number] Ambulatory BMSBuilding:B [place] 18 MS.BIM [facility] Hospital Repository 04/15/2018/04/17/20 [id number] Ambulatory [address] Repository 03/17/2018/03/17/20 [id number] Ambulatory BMSBuilding:B [place] 18 MS.[facility] Repository 03/16/2018 [id number] Ambulatory [facility] ing:MRI Repository 01/21/2018 [id number] Ambulatory [facility] ing:RAD Repository 01/07/2018/01/10/20 [id number] Ambulatory [address] Repository 01/01/2018/01/01/20 [id number] Emergency [address] ing:ED Repository 12/24/2017/12/25/19 [id number] Ambulatory [address] Repository 12/20/2017/12/20/19 [id number] Emergency [address] ing:ED Repository 11/13/2017/11/14/19 [id number] Ambulatory [address] Repository PAYERS PAYERS ENCOUNTER GUARANTOR PAYER SUBSCRIBER SOURCE 10/14/2018 DWIGHT Lilly Primary DWIGHT [place] [id number] Insurance:CARESOURCEP HARDINGDOB: [facility] Number: [id number] [id number] Repository [address]Agw: (321) Date:2018-10-14P O [phone] () [address]ATTN: [place] [address]BT: 10/14/2018 Secondary NOT GIVENUNK [place] Insurance:SELF PAY [facility] Number: Effective Repository Date:2018-10-14 10/09/2018 DWIGHT Lilly Primary DWIGHT [place] [id number] Insurance:CARESOURCEP HARDINGDOB: [facility] Number: [id number] [id number] Repository [address]Gse: (321) Date:2018-10-09P O [phone] () [address]ATTN: [place] [address]UJ: 10/09/2018 Secondary NOT GIVENUNK [place] Insurance:SELF PAY [facility] Number: Effective Repository Date:2018-10-09 09/25/2018 DWIGHT Lilly Primary DWIGHT E [place] [id number] Insurance:CARESOURCEP HARDINGDOB: [facility] YULIYA travis Number: [id number] [id number] Repository [address]Xsr: ([phone]) Date:2018-09-25P O () [address]ATTN: [place] [address]XH: 09/25/2018 Secondary NOT GIVENUNK [place] Insurance:SELF PAY [facility] Number: Effective Repository Date:2018-09-25 09/18/2018 DWIGHT E Primary DWIGHT Lilly [place] [id number] Insurance:CARESOURCEP HARDINGDOB: [facility] [facility] Number: [id number] [id number] Repository [address]Rvr: (321) Date:2018-08-17P O () [address]ATTN: [place] [address]TE: 09/18/2018 Secondary NOT GIVENUNK [place] Insurance:SELF PAY [facility] Number: Effective Repository Date:2018-09-03 09/15/2018 DWIGHT E Primary DWIGHT Lilly Gus [id number] TR Insurance:CARESOURCEP HARDINGDOB: [facility]ly [facility]deus [place] Number: [id number] County Hospital [address]1977Ggs: [id number] Repository Date:2018-09-15P O () [address]ATTN: [place] [address]NE: 09/15/2018 Secondary NOT GIVENUNK [place] Insurance:SELF PAY [facility] Number: Effective Repository Date:2018-09-15 09/10/2018 DWIGHT E Primary DWIGHT Jeanoster [id number] TR Insurance:CARESOURCEP HARDINGDOB: Formerly [facility] [place]us [place] Number: [id number] County Hospital [address]Udl: [id number] Repository Date:2018-09-10P O () [address]ATTN: [place] [address]BE: 09/10/2018 Secondary NOT GIVENUNK [place] Insurance:SELF PAY [facility] Number: Effective Repository Date:2018-09-10 08/17/2018 DWIGHT E Primary DWIGHT Lilly [place] [id number] TR Insurance:CARESOURCEP HARDINGDOB: Formerly [facility] thaddeus [place] Number: [id number] County Hospital [address]Frd: [id number] Repository Date:2018-08-11P O () [address]ATTN: [place] [address]TV: 08/17/2018 Secondary NOT GIVENUNK [place] Insurance:SELF PAY [facility] Number: Effective Repository Date:2018-08-17 08/17/2018 DWIGHT E Primary DWIGHT Lilly Gus [id number] TR Insurance:CARESOURCEP HARDINGDOB: Community thaddeus [place] Number: [id number] County Hospital [address]Nfu: [id number] Repository Date:2018-06-29P O () [address]ATTN: [place] [address]LM: 08/17/2018 Secondary NOT GIVENUNK [place] Insurance:SELF PAY [facility] Number: Effective Repository Date:2018-07-28 08/17/2018 DWIGHT E Primary DWIGHT E Gus [id number] TR Insurance:CARESOURCEP HARDINGDOB: Formerly [facility] thaddeus [place] Number: [id number] County Hospital [address]Usx: [id number] Repository Date:2018-06-29P O () [address]ATTN: [place] [address]TL: 08/17/2018 Secondary NOT GIVENUNK [place] Insurance:SELF PAY [facility] Number: Effective Repository Date:2018-08-17 08/04/2018 DWIGHT E Primary DWIGHT Lilly Gus [id number] TR Insurance:CARESOURCEP HARDINGDOB: Community thaddeus [place] Number: [id number] County Hospital [address]Kmm: [id number] Repository Date:2018-07-03P O () [address]ATTN: [place] [address]OK: 08/04/2018 Secondary NOT GIVENUNK [place] Insurance:SELF PAY [facility] Number: Effective Repository Date:2018-08-04 08/04/2018 DWIGHT E Primary DWIGHT Lilly [place] [id number] TR Insurance:CARESOURCEP HARDINGDOB: Formerly [facility] thaddeus [place] Number: [id number] County Hospital [address]Kjk: [id number] Repository Date:2018-08-04P O () [address]ATTN: [place] [address]CF: 08/04/2018 Secondary NOT GIVENUNK [place] Insurance:SELF PAY [facility] Number: Effective Repository Date:2018-08-04 07/23/2018 DWIGHT E Primary DWIGHT Lilly Gus [id number] TR Insurance:CARESOURCEP HARDINGDOB: Formerly [facility] thaddeus [place] Number: [id number] County Hospital [address]292Dxw: [id number] Repository Date:2018-07-17P O () [address]ATTN: [place] [address]ZE: 07/23/2018 Secondary NOT GIVENUNK [place] Insurance:SELF PAY [facility] Number: Effective Repository Date:2018-07-17 07/22/2018 DWIGHT E Primary DWIGHT Lilly [place] [id number] TR Insurance:CARESOURCEP HARDINGDOB: Formerly [facility] thaddeus [place] Number: [id number] County Hospital [address]76Qvo: [id number] Repository Date:2018-06-29P O (HP) [address]ATTN: [place] [address]KJ: 07/22/2018 Secondary NOT GIVENUNK [place] Insurance:SELF PAY [facility] Number: Effective Repository Date:2018-06-29 07/22/2018 DWIGHT Lilly Primary DWIGHT Weber [id number] TR Insurance:CARESOURCEP HARDINGDOB: Formerly [facility] thaddeus [place] Number: [id number] County Hospital [address]3Ltf: [id number] Repository Date:2018-06-29P O (HP) [address]ATTN: [place] [address]WG: 07/22/2018 Secondary NOT GIVENUNK [place] Insurance:SELF PAY [facility] Number: Effective Repository Date:2018-07-22 07/22/2018 DWIGHT E Primary DWIGHT Jeanoster [id number] TR Insurance:CARESOURCEP HARDINGDOB: Formerly [facility] thaddeus [place] Number: [id number] County Hospital [address]93Waz: [id number] Repository Date:2018-06-29P O (HP) [address]ATTN: [place] [address]RY: 07/22/2018 Secondary NOT GIVENUNK [place] Insurance:SELF PAY [facility] Number: Effective Repository Date:2018-07-22 07/03/2018 DWIGHT E Primary DWIGHT Jeanoster [id number] TR Insurance:CARESOURCEP HARDINGDOB: Formerly [facility] thaddeus [place] Number: [id number] County Hospital 65168Wsk: [id number] Repository Date:2018-05-28P O (HP) [address]ATTN: [place] [address]UO: 07/03/2018 Secondary NOT GIVENUNK [place] Insurance:SELF PAY [facility] Number: Effective Repository Date:2018-07-03 06/25/2018 DWIGHT E Primary DWIGHT Lilly [place] [id number] TR Insurance:CARESOURCEP HARDINGDOB: Community th[place]deus [place] Number: [id number] County Hospital [address]Qwu: [id number] Repository Date:2018-05-28P O () [address]ATTN: [place] [address]UQ: 06/25/2018 Secondary NOT GIVENUNK [place] Insurance:SELF PAY [facility] Number: Effective Repository Date:2018-06-17 06/11/2018 DWIGHT E Primary DWIGHT Lilly [place] [id number] TR Insurance:CARESOURCEP HARDINGDOB: Formerly [facility] thaddeus [place] Number: [id number] County Hospital 26782Zxh: [id number] Repository Date:2018-06-11P O () [address]ATTN: [place] [address]BK: 06/11/2018 Secondary NOT GIVENUNK [place] Insurance:SELF PAY [facility] Number: Effective Repository Date:2018-06-11 06/05/2018 DWIGHT E Primary DWIGHT Lilly Gus [id number] TR Insurance:CARESOURCEP HARDINGDOB: Formerly [facility] thaddeus [place] Number: [id number] County Hospital [address]173Bpt: [id number] Repository Date:2017-02-08P O () [address]ATTN: [place] [address]AE: 06/05/2018 Secondary NOT GIVENUNK [place] Insurance:SELF PAY [facility] Number: Effective Repository Date:2018-01-22 06/01/2018 DWIGHT E Primary DWIGHT Lilly Gus [id number] TR Insurance:CARESOURCEP HARDINGDOB: Formerly [facility] thaddeus [place] Number: [id number] County Hospital [address]20Zwd: [id number] Repository Date:2018-05-29P O (HP) [address]ATTN: [place] [address]JB: 06/01/2018 Secondary NOT GIVENUNK [place] Insurance:SELF PAY [facility] Number: Effective Repository Date:2018-05-29 05/28/2018 DWIGHT E Primary DWIGHT Lilly [place] [id number] TR Insurance:CARESOURCEP HARDINGDOB: Community thaddeus [place] Number: [id number] County Hospital [address]Wuh: [id number] Repository Date:2018-04-28P O () [address]ATTN: [place] [address]PY: 05/28/2018 Secondary NOT GIVENUNK [place] Insurance:SELF PAY [facility] Number: Effective Repository Date:2018-05-28 05/26/2018 DWIGHT E Primary DWIGHT E Gus [id number] TR Insurance:CARESOURCEP HARDINGDOB: Community th[place]deus [place] Number: [id number] County Hospital [address]Bjc: [id number] Repository Date:2018-05-26P O () [address]ATTN: [place] [address]BW: 05/26/2018 Secondary NOT GIVENUNK [place] Insurance:SELF PAY [facility] Number: Effective Repository Date:2018-05-26 05/08/2018 DWIGHT E Primary DWIGHT Lilly [place] [id number] TR Insurance:CARESOURCEP HARDINGDOB: Formerly [facility] thaddeus [place] Number: [id number] County Hospital [address]Jam: [id number] Repository Date:2018-04-30P O () [address]ATTN: [place] [address]OF: 05/08/2018 Secondary NOT GIVENUNK [place] Insurance:SELF PAY [facility] Number: Effective Repository Date:2018-04-30 04/28/2018 DWIGHT E Primary DWIGHT Lilly Gus [id number] TR Insurance:CARESOURCEP HARDINGDOB: Formerly [facility] thaddeus [place] Number: [id number] County Hospital [address]661Idn: [id number] Repository Date:2018-03-17P O () [address]ATTN: [place] [address]WC: 04/28/2018 Secondary NOT GIVENUNK [place] Insurance:SELF PAY [facility] Number: Effective Repository Date:2018-04-28 03/17/2018 DWIGHT E Primary DWIGHT Lilly Gus [id number] TR Insurance:CARESOURCEP HARDINGDOB: Formerly [facility] thaddeus [place] Number: [id number] County Hospital [address]243Pui: [id number] Repository Date:2018-03-13P O () [address]ATTN: [place] [address]XD: 03/17/2018 Secondary NOT GIVENUNK [place] Insurance:SELF PAY [facility] Number: Effective Repository Date:2018-03-16 03/16/2018 DWIGHT E Primary DWIGHT Lilly Gus [id number] TR Insurance:CARESOURCEP HARDINGDOB: Formerly [facility] thaddeus [place] Number: [id number] County Hospital [address]39Hfh: [id number] Repository Date:2018-03-03P O () [address]ATTN: [place] [address]DI: 03/16/2018 Secondary NOT GIVENUNK [place] Insurance:SELF PAY [facility] Number: Effective Repository Date:2018-03-03 01/21/2018 DWIGHT E Primary DWIGHT Lilly Gus [id number] Tr Insurance:CARESOURCEP HARDINGDOB: [facility] [place] Number: [id number] County Hospital [address]Aqs: [id number] Repository Date:2018-01-21P O (HP) [address]ATTN: [place] [address]YL: 01/21/2018 Secondary NOT GIVENUNK [place] Insurance:SELF PAY [facility] Number: Effective Repository Date:2018-01-21 01/01/2018 Dwight Primary Dwight Weber [id number] Tr Insurance:CARESOURCEP HardingDOB: Community [facility] thaddeus [place] Number: [id number] County Hospital [address]Nix: [id number] Repository Date:2018-01-01P O () [address]ATTN: [place] [address]LV: 01/01/2018 Secondary NOT GIVENUNK [place] Insurance:SELF PAY [facility] Number: Effective Repository Date:2018-01-01 12/20/2017 Dwight Primary Dwight [id number] Tr Insurance:CARESOURCEP HardingDOB: Community [address] th[address]de[address] [place] Number: [id number] County Hospital [address]Oqg: [id number] Repository Date:2017-12-20P O () [address]ATTN: [place] [address]AK: 12/20/2017 Secondary NOT GIVENUNK [place] Insurance:SELF PAY [facility] Number: Effective Repository Date:2017-12-20
== END 2018-10-09 01:50 | disposition home or self-care (01) ==
PROVIDERS: Emergency Provider Emergency Medicine; Family Provider Internal Medicine; PCP Internal Medicine
DX: S43.401A Unspecified sprain of right shoulder joint, initial encounter (principal); Z72.0 Tobacco use; X50.0XXA Overexertion from strenuous movement or load, initial encounter; Y93.89 Activity, other specified; Y92.009 Unspecified place in unspecified non-institutional (private) residence as the place of occurrence of the external cause; Y99.8 Other external cause status
CPT/HCPCS: 73030; 99283

== ENCOUNTER → 2019-02-12 00:52 | Outpatient (CLI) | payer MEDICAID, SELFPAY ==
[2019-01-20 14:01] VITALS: BMI 52.0
--- NOTE | 2019-02-12 01:07 | RAD_ITS ---
STUDY: X-RAY - CERVICAL SPINE REASON FOR EXAM: Male, 53 years old. Hand and arm numbness, trauma in 2010 with persistent pain since then TECHNIQUE: 3 view(s) of the cervical spine were obtained. COMPARISON: None FINDINGS: Normal anterior atlantoaxial articulation. Normal odontoid process. There is straightening of the normal cervical lordosis. Mild anterior spondylosis with disc space narrowing localized to C3-C4. Normal remaining disc space heights. No subluxation. The soft tissue structures are unremarkable. RAD/Cerv Spine 2 or 3 Views IMPRESSION: Degenerative disc disease at C3-C4. Electronically Signed: Anthony Benson MD at 15:17 EDT , Service support ,
== END ==
PROVIDERS: Family Provider Internal Medicine; PCP Internal Medicine; Visit Provider Internal Medicine
DX: M54.12 Radiculopathy, cervical region (principal)
CPT/HCPCS: 72040

== ENCOUNTER 2019-05-15 01:02 | Emergency (ER) | payer MEDICAID, SELFPAY ==
[2019-02-16 13:16] VITALS: BMI 52.0
[2019-05-15 01:02] VITALS: BP 140/90; PULSE 115; RESP 20; TEMP 36.8; O2SAT 97; BMI 51.7
--- NOTE | 2019-05-15 01:34 | ED.VIS.GEN ---
History of Present Illness Chief Complaint: Abscess Informant: Patient Onset: Days - 2 Context: Gradual Onset Timing: Continuous Quality: sore Location: right groin Current Severity: Severe Maximum Severity: Severe Worsened by: palpation Relieved by: leaving alone Associated Symptoms: purulent, foul-smelling d/c Narrative: Patient has a tender swollen area that started yesterday almost 2 days ago in his right groin. He states he has had recurrent abscesses in this area over the past 1.5 years. He states they have always had spontaneous drainage and eventually gotten better. Usually this is the case when he has come to the ER in the past and has never had incision and drainage. Again, he presents today after just prior to arrival which started draining on its own. He states it is foul-smelling purulent discharge. He denies any fevers or systemic symptoms. He is a treated diabetic. - Past Medical History (1) Arthritis Status: Chronic (2) Asthma Status: Chronic (3) Chronic back pain Status: Chronic (4) Depression Status: Chronic (5) Diabetes mellitus, type II Status: Chronic (6) GERD (gastroesophageal reflux disease) Status: Chronic (7) HTN (hypertension) Status: Chronic Past Medical History - Allergies and Home Meds Allergies/Adverse Reactions: Allergies hydrocodone bitartrate [From [place]] Allergy (Mild, Verified 05/15/19 01:10) Hives ibuprofen Allergy (Verified 05/15/19 01:10) Swelling vancomycin Allergy (Verified 05/15/19 01:10) Itching metformin Adverse Reaction (Verified 05/15/19 01:10) Upset Stomach Primary Care Physician: Arlene Salas MD [Primary Care Provider] - Enrique Frances MD [STAFF PHYSICIAN] - (call for appt) Surgical History: noncontributory, - - foot Lives: With Family Smoking Status: Current every day smoker Drugs: None - Family History Maternal Family History: Family History (Last Reviewed 02/16/19 @ 13:15 by Pat Bain) Grandmother Diabetes Hypertension Aunt Diabetes Uncle Diabetes Cancer Grandfather Myocardial infarction Hypertension Family History: Reports: No pertinent history Paternal Family History: Family History (Last Reviewed 02/16/19 @ 13:15 by Pat Bain) Grandmother Diabetes Hypertension Aunt Diabetes Uncle Diabetes Cancer Grandfather Myocardial infarction Hypertension Family History: Reports: No pertinent history Review of Systems General: Denies: Chills, Fever Eyes: Denies: Visual changes - bilaterally, Diplopia Genitourinary: Reports: - - No scrotal pain or swelling. No perineal pain. Musculoskeletal: Reports: Back pain - Chronic, unchanged. Denies: Swelling, Extremity Pain Skin: Reports: Abscess - Right groin with purulent discharge Neurological: Denies: Headache, Weakness, Numbness Physical Exam Vital Signs/Narrative: Vital Signs Temp Pulse Resp BP Pulse Ox 05/15/19 01:02 98.2 F 115 H 20 H 140/90 H 97 Inital Vital Signs reviewed: Yes General: Well nourished, Well developed, Obese, No Acute Distress Head: Normocephalic, Atraumatic Skin: - - 4-5 cm indurated cutaneous abscess with erythema and active purulent discharge expressible in right groin. Does not affect penis or scrotum. No lymphangitis or palpable lymphadenopathy. Neurological: Alert, Oriented x3, Cranial nerves II-XII grossly intact, Normal Strength, Normal Sensation, Normal Gait Psychological: Normal affect, Normal Mood Diagnostic/Tx/Re-eval - Medical Decision Making Discussed with patient's risks and benefits of incision and drainage versus antibiotics alone. He understands and wants it better, but also wanted to not recur. He declined incision and drainage at this time due to the pain, which certainly I understand. He understands the risk of recurrence even with antibiotic treatment which we are dealing with Bactrim. He has a ride so I gave him a dose of oxycodone tonight. I referred him to the surgeon on-call for evaluation of this area and possible further surgical management. With regards to the current infection, if it does not get better on antibiotics or worsens, instead of following up with surgery for it I recommend returning to the ER. He is comfortable with this plan. Of note, there is nothing here clinically that suggests this is Samantha's. ED Disposition - Plan for ED Patient: Disposition: Home or Assisted Living Diagnosis: Cutaneous abscess of groin Instructions: ABSCESS, Antiobiotic Treatment Only Prescriptions: Smz/Tmp Ds [Bactrim Ds] 1 tab PO BID #20 tab Transmission Status: Received by [employer] [facility][id number] Referrals: Arlene Salas MD [Primary Care Provider] - Enrique Frances MD [STAFF PHYSICIAN] - (call for appt) Additional Instructions: Change dressing frequently to help draw out discharge. You may squeeze the area to help express discharge as able. If the area is worsening despite the antibiotic, or you change your mind about drainage, return to the ER.
[2019-05-15] MEDS: Smz/Tmp Ds Tablet 1 TABLET PO (01:41)
[2019-05-15] MEDS: oxyCODONE 5 MG Tablet PO (01:41)
[2019-05-15 01:57] VITALS: BP 154/79; PULSE 98; RESP 18; O2SAT 98
== END 2019-05-15 01:57 | disposition home or self-care (01) ==
LOC: ED 01:45
PROVIDERS: Emergency Provider Emergency Medicine; Family Provider Internal Medicine; PCP Internal Medicine
DX: L02.214 Cutaneous abscess of groin (principal); M19.90 Unspecified osteoarthritis, unspecified site; J45.909 Unspecified asthma, uncomplicated; E11.9 Type 2 diabetes mellitus without complications; K21.9 Gastro-esophageal reflux disease without esophagitis; I10 Essential (primary) hypertension; F17.200 Nicotine dependence, unspecified, uncomplicated; E66.9 Obesity, unspecified
CPT/HCPCS: 99282

== ENCOUNTER 2019-05-23 07:29 | Emergency (ER) | payer MEDICAID, SELFPAY ==
[2019-05-23 07:30] VITALS: BP 138/81; PULSE 105; RESP 26; TEMP 36.6; O2SAT 94; BMI 50.1
--- NOTE | 2019-05-23 07:36 | ED.RN ---
pt angry and irritated that nurse asking basic information regarding name,ss and symptoms. explained that info needed to get pt into the system and see a physician. pt just throws arms in the air. visitor states breathing is normal for pt
--- NOTE | 2019-05-23 07:48 | ED.DCSUM_ITS ---
History of Present Illness Chief Complaint: Sore Throat Informant: Patient Onset: Yesterday Current Severity: Mild Narrative: Patient complains of left ear pain that began after he put a Boo pin in his left ear canal to remove wax he had expect immediate pain after that activity, he also complains of sore throat that he gets when he has ear problems he indicates he has a prior history of having some type of noncancerous lesion removed from his left throat area. He follows up with ENT, he is diabetic he has hypertension he indicates he is generally noncompliant with his diet he is taking all of his medications as prescribed he has had no fever cough no vomiting Past Medical History - Allergies and Home Meds Allergies/Adverse Reactions: Allergies hydrocodone bitartrate [From [place]] Allergy (Mild, Verified 05/23/19 07:34) Hives ibuprofen Allergy (Verified 05/23/19 07:34) Swelling vancomycin Allergy (Verified 05/23/19 07:34) Itching metformin Adverse Reaction (Verified 05/23/19 07:34) Upset Stomach Primary Care Physician: Arlene Salas MD [Primary Care Provider] - Past Medical History: - - As above Surgical History: noncontributory, - - foot Smoking Status: Current every day smoker - Family History Maternal Family History: Family History (Last Reviewed 02/16/19 @ 13:15 by Pat Bain) Grandmother Diabetes Hypertension Aunt Diabetes Uncle Diabetes Cancer Grandfather Myocardial infarction Hypertension Family History: Reports: No pertinent history Paternal Family History: Family History (Last Reviewed 02/16/19 @ 13:15 by Pat Bain) Grandmother Diabetes Hypertension Aunt Diabetes Uncle Diabetes Cancer Grandfather Myocardial infarction Hypertension Family History: Reports: No pertinent history Review of Systems General: Reports: - - As above. Denies: Chills, Fever, Sweats Eyes: Denies: Visual changes - bilaterally, Diplopia ENT: Denies: Rhinorrhea, Sore throat Cardiovascular: Denies: Chest pain, Palpitations Respiratory: Denies: Dyspnea, Cough, Dyspnea on exertion Gastrointestinal: Denies: Abdominal pain, Nausea, Vomiting, Diarrhea, Melena, Hematochezia Genitourinary: Denies: Dysuria, Hematuria, Frequency Musculoskeletal: Denies: Back pain, Extremity Pain Skin: Denies: Rash, Wounds Neurological: Denies: Headache, Weakness, Numbness Physical Exam Vital Signs/Narrative: Vital Signs Temp Pulse Resp BP Pulse Ox 05/23/19 07:30 98 F 105 H 26 H 138/81 H 94 General: Well nourished, Well developed, No Acute Distress Head: Normocephalic, Atraumatic Eyes: Perrl, EOMI ENT: Moist mucous membranes, No rhinorrhea, - - The left ear canal is quite excoriated and abraded the TM is not ruptured, his airway is intact his throat appears red no uvular edema tonsillar pillars are normal he was midline he speaking full sentences laying at 30 degrees with no distress Neck: Supple, Nontender Cardiovascular: Regular rate, Regular rhythm, No murmurs Respiratory: No distress, CTA bilaterally, Chest nontender Abdomen: Soft, Nontender, Nondistended, Normal bowel sounds Back: Nontender, Normal Inspection Extremities: Nontender, No edema Skin: Normal color, No rash Neurological: Alert, Oriented x3, Cranial nerves II-XII grossly intact, Normal Strength, Normal Sensation Psychological: Normal affect, Normal Mood Diagnostic/Tx/Re-eval - Medical Decision Making I explained to the patient that he should not put these type of sharp devices in his ear he can cause significant trauma he was not receptive to that advice, he was at times using vulgar language to explain his lifestyle choices, in addition he basically indicated he is noncompliant with his diabetes and that that is his choice, at this time will obtain a strep throat rapid swab for signs of positivity he will be treated with antibiotics if not he will be started on Cortisporin Otic suspension Tylenol for pain he will follow-up with his ENT doctor in the next few days, indicates he does not wish to wait for the rapid strep throat swab screening he will follow-up with his outpatient providers ENT provider to that result tomorrow Home stable Impression final Left ear canal trauma related to wax removal with Boo pin, pharyngitis ED Disposition - Plan for ED Patient: Diagnosis: Ear abrasion Referrals: Arlene Salas MD [Primary Care Provider] - Additional Instructions: Follow-up with your outpatient providers and E NT physician for results of the rapid strep throat of the therapy for your conditions return for change in symptoms
[2019-05-23] MEDS: Acetaminophen 500 MG Tablet 1000 MG PO (07:54)
[2019-05-23] MEDS: Neomycin Sulfate/Polymyxin/Hc Susp 10 ML Bottle 4 DRP OTIC (07:55)
--- NOTE | 2019-05-23 08:22 | ED.RN ---
Left without d/c papers
== END 2019-05-23 08:22 | disposition home or self-care (01) ==
LOC: ED 07:48
PROVIDERS: Emergency Provider Emergency Medicine; Family Provider Internal Medicine; PCP Internal Medicine
DX: S00.412A Abrasion of left ear, initial encounter (principal); E11.9 Type 2 diabetes mellitus without complications; I10 Essential (primary) hypertension; Z91.11 Patient's noncompliance with dietary regimen; F17.200 Nicotine dependence, unspecified, uncomplicated; J02.9 Acute pharyngitis, unspecified; X58.XXXA Exposure to other specified factors, initial encounter; Y93.89 Activity, other specified; Y92.009 Unspecified place in unspecified non-institutional (private) residence as the place of occurrence of the external cause; Y99.8 Other external cause status
CPT/HCPCS: 87880; 99281; 99283

== ENCOUNTER 2019-10-17 00:29 | Emergency (ER) | payer MEDICAID, SELFPAY ==
[2019-10-17] VITALS (7 sets, daily range): BP systolic 123–155; BP diastolic 74–118; PULSE 78–120; RESP 17–27; TEMP 36.1; O2SAT 94–96; BMI 49.4
[2019-10-17] MEDS: Albuterol 2.5 MG/3 ML VIAL.NEB. INHALATION (00:44)
[2019-10-17] MEDS: Ipratropium/Albuterol Sulfate 3 ML AMPUL.NEB INHALATION (00:44)
--- NOTE | 2019-10-17 00:47 | EKG12_ITS ---
Test Reason : SOB Blood Pressure : / mmHG Vent. Rate : 107 BPM Atrial Rate : 107 BPM P-R Int : 160 ms QRS Dur : 086 ms QT Int : 320 ms P-R-T Axes : 071 075 090 degrees QTc Int : 427 ms Sinus tachycardia Otherwise normal ECG Confirmed by LOUIS GOMEZ, SEBASTIEN ([id number]), editorial cartoonist REGLA FOFANA ([id number]) on 10/17/2019 12:08:01 PM Referred By: Confirmed By:RICHARD MYERS MD
--- NOTE | 2019-10-17 00:47 | RAD_ITS ---
STUDY: X-RAY CHEST REASON FOR EXAM: Male, 53 years old. Shortness of breath. TECHNIQUE: Single AP portable view of the chest. The images are under penetrated. COMPARISON: 07/20/2017. FINDINGS: The lungs are slightly underexpanded with poor visualization of the lung apices due to body habitus. Cannot exclude right lower lobe infiltrate versus atelectasis. Otherwise lung meredith are clear. There is no demonstrated pleural abnormality. Normal size heart. Normal mediastinum and gurjit. Normal visualized pulmonary arteries. Normal visualized aortic arch and descending thoracic aorta. Normal visualized thoracic spine. Normal visualized ribs, clavicles, and shoulders. There is no demonstrated abnormality of the visualized soft tissue structures of the upper abdomen. RAD/Chest 1 View (Portable) IMPRESSION: Right lower lobe infiltrate versus atelectasis, otherwise no acute process identified. Electronically Signed: Chelsea Mcgee MD at 1:34 EST , Service support ,
[2019-10-17 00:56] LABS: Blood Gas Specimen Type VEN; O2 Delivery Device Room Air; SITE OTHER; Time Given 1247; VBG BASE EXCESS 2 mmol/L (-1.0-3.5); VBG Bicarbonate 28 mmol/L (22-26); VBG Oxygen Content 29 mmol/L (23-33); VBG PO2 43 mmHg (25-40); VBG SO2 77 % (50-70); VBG pCO2 48.5 mmHg (41-51); VBG pH 7.36 (7.32-7.42)
[2019-10-17 01:10] LABS: Absolute Lymphocyte Count 2.83 X10^3/uL (0.83-4.51); Absolute Neutrophil Count 7.2 X10^3/uL (2.0-7.7); Basophil# 0.03 X10^3/uL; Basophil% 0.3 % (0-1); Eosinophil# 0.08 X10^3/uL; Eosinophils% 0.7 % (0-5); Hematocrit 49.8 % (40-54); Hemoglobin 16.9 g/dL (13.0-16.5); Lymphocyte # 2.83 X10^3/ul (4.0); Lymphocyte % 24.3 % (19-41); Mean Corp Hgb Conc 33.9 g/dL (32-36); Mean Corpuscular Hgb 29.6 pg (27.0-32.0); Mean Corpuscular Volume 87.4 fL (80-94); Mean Platelet Vol. 11.6 fl (6.2-12.0); Monocyte# 1.46 X10^3/uL; Monocyte% 12.5 % (0-10); NRBC Flagged by Analyzer 0 % (0-5); Neutrophil # 7.19 X10^3/uL (2.7-7.7); Neutrophil % 61.8 % (47-70); Platelet Count 203 K/mm3 (150-450); RBC Distribution Width CV 13.2 % (11.6-14.6); White Blood Count 11.6 K/mm3 (4.4-11.0)
[2019-10-17 01:29] LABS: BUN 11 mg/dL (7-18); Creatinine, Serum 0.73 mg/dL (0.70-1.30); Glucose 325 mg/dL (74-106)
[2019-10-17 01:30] LABS: Anion Gap 7 (5-15); Calcium,Total 8.8 mg/dL (8.5-10.1); Chloride 101 mmol/L (98-107); EST Glomerular Filtration Rate 119 mL/min (>60); Est Glom Filt Rate - Afr Amer 145 mL/min (>60); Estimated Creatinine Clearance 123.61 ml/min; Potassium 4.9 mmol/L (3.5-5.1); Sodium Level 134 mmol/L (136-145)
[2019-10-17 01:39] LABS: Lactic Acid 1.4 mmol/L (0.4-1.9)
--- NOTE | 2019-10-17 02:55 | ED.DEP ---
ED Disposition - Plan for ED Patient: Instructions: PNEUMONIA (Adult) Prescriptions: Prednisone [Deltasone] 40 mg PO DAILY #10 tablet Azithromycin [Zithromax Z-Dariel] 250 mg PO UD #1 box Referrals: Arlene Salas MD [Primary Care Provider] -
--- NOTE | 2019-10-17 02:58 | ED.DCSUM_ITS ---
- ER Visit Summary Date of Service: 10/17/19 Chief Complaint: Shortness of breath History of Present Illness: The patient is a 53 M presenting with shortness of breath that started yesterday. Patient has had subjective fever and chills. He has had rhinorrhea and cough. He states he has had clear sputum production. He states he has abdominal pain that is chronic and is no worse than usual. He has chest pain which is also chronic and no worse than usual. Complains of myalgias. He did not receive a flu shot this year. He has a history of COPD, hypertension, sleep apnea. He wears home O2 as needed. He is a smoker. Physical Examination: Vitals are stable. Patient is afebrile. Alert no acute distress. Pulse ox 96% on room air. HEENT exam is unremarkable. Neck is supple. Lungs are wheezing and diminished bilaterally. Heart is regular rate and rhythm. Abdomen is soft, obese nontender nondistended. Extremities are unremarkable. Skin is warm and dry. No focal neurologic deficit. Remainder of exam is unremarkable. Emergency Department Course and Treatment: Patient was given albuterol, Atrovent aerosols. CBC shows white count 11.6. Chemistries show sodium 134, glucose 325. Troponin is negative. Lactic acid is normal. EKG is sinus rate of 107. Chest x-ray shows right lower lobe infiltrate versus atelectasis, otherwise no acute process identified. Patient's lung sounds have improved but he continues to have wheezing. He declines admission. He understands the risks of leaving AGAINST MEDICAL ADVICE including respiratory failure, IN, and . He states under no circumstances will he be admitted to the hospital. He signed out AGAINST MEDICAL ADVICE. He was given prescription for prednisone and Zithromax. Advised to follow-up with his primary care physician. Advised return to ED if worsening complaints. Disposition: AGAINST MEDICAL ADVICE Impression: Pneumonia, COPD exacerbation This note was generated with [employer] dictation software. It may contain incorrect words, spelling, and punctuation that were not noted in review of the chart prior to signing ED Disposition - Plan for ED Patient: Instructions: PNEUMONIA (Adult) Prescriptions: Prednisone [Deltasone] 40 mg PO DAILY #10 tab Prescription Printed Azithromycin [Zithromax Z-Dariel] 250 mg PO UD #1 box Prescription Printed Referrals: Arlene Salas MD [Primary Care Provider] -
[2019-10-17] MEDS: Azithromycin 250 MG Tablet 500 MG PO (03:28)
[2019-10-17] MEDS: predniSONE 20 MG Tablet 60 MG PO (03:28)
== END 2019-10-17 03:29 | disposition home or self-care (01) ==
PROVIDERS: Emergency Provider Emergency Medicine; Family Provider Internal Medicine; PCP Internal Medicine
DX: J44.0 Chronic obstructive pulmonary disease with (acute) lower respiratory infection (principal); J18.9 Pneumonia, unspecified organism; J44.1 Chronic obstructive pulmonary disease with (acute) exacerbation; Z53.29 Procedure and treatment not carried out because of patient's decision for other reasons; I10 Essential (primary) hypertension; F12.90 Cannabis use, unspecified, uncomplicated; F17.200 Nicotine dependence, unspecified, uncomplicated; Z99.81 Dependence on supplemental oxygen; Z79.899 Other long term (current) drug therapy
CPT/HCPCS: 36415; 71045; 80048; 82803; 83605; 84484; 85025; 87040; 87804; 93005; 94640; 99285; A4216

== ENCOUNTER 2020-05-20 02:33 | Emergency (ER) | payer MEDICAID, SELFPAY ==
[2020-02-29 17:08] VITALS: BMI 49.4
[2020-05-20 02:35] VITALS: BP 179/112; PULSE 108; RESP 24; TEMP 36.9; O2SAT 95; BMI 49.1
--- NOTE | 2020-05-20 02:38 | ED.DCSUM_ITS ---
History of Present Illness Chief Complaint: Upper Extremity Injury Informant: Patient Narrative: 54-year-old male with past medical history of COPD presents with right shoulder pain. States that he had to break into his home approximately 3/2 weeks ago by using his shoulder. States that he has had increasing pain since that time. Describes it as sharp and worse with movement. Denies any relieving factors. Patient is taken no medication at home. Denies any numbness or tingling. Past Medical History - Allergies and Home Meds Allergies/Adverse Reactions: Allergies hydrocodone bitartrate [From [place]] Allergy (Mild, Verified 05/20/20 02:34) Hives ibuprofen Allergy (Verified 05/20/20 02:34) Swelling vancomycin Allergy (Verified 05/20/20 02:34) Itching metformin Adverse Reaction (Verified 05/20/20 02:34) Upset Stomach Primary Care Physician: Arlene Salas MD [Primary Care Provider] - Past Medical History: - - COPD, hypertension, diabetes Surgical History: noncontributory, - - foot Smoking Status: Current every day smoker Alcohol: None Drugs: None - Family History Maternal Family History: Family History (Last Reviewed 02/16/19 @ 13:15 by Pat Bain) Grandmother Diabetes Hypertension Aunt Diabetes Uncle Diabetes Cancer Grandfather Myocardial infarction Hypertension Family History: Reports: No pertinent history Paternal Family History: Family History (Last Reviewed 02/16/19 @ 13:15 by Pat Bain) Grandmother Diabetes Hypertension Aunt Diabetes Uncle Diabetes Cancer Grandfather Myocardial infarction Hypertension Family History: Reports: No pertinent history Review of Systems General: Denies: Chills, Fever, Sweats Eyes: Denies: Visual changes - bilaterally, Diplopia ENT: Denies: Rhinorrhea, Sore throat Cardiovascular: Denies: Chest pain, Palpitations Respiratory: Denies: Dyspnea, Cough, Dyspnea on exertion Gastrointestinal: Denies: Abdominal pain, Nausea, Vomiting, Diarrhea, Melena, Hematochezia Genitourinary: Denies: Dysuria, Hematuria, Frequency Musculoskeletal: Reports: Arthralgias. Denies: Back pain, Extremity Pain Skin: Denies: Rash, Wounds Neurological: Denies: Headache, Weakness, Numbness Physical Exam Inital Vital Signs reviewed: Yes General: Well nourished, Well developed, No Acute Distress Head: Normocephalic, Atraumatic Eyes: Perrl, EOMI ENT: Moist mucous membranes, No rhinorrhea Neck: Supple, Nontender Cardiovascular: Regular rate, Regular rhythm, No murmurs Respiratory: No distress, CTA bilaterally, Chest nontender Abdomen: Soft, Nontender, Nondistended, Normal bowel sounds Back: Nontender, Normal Inspection Extremities: No edema, - - Entered is to palpation over the anterior shoulder. Full range of motion through passive and active modalities. No overlying skin changes. Skin: Normal color, No rash Neurological: Alert, Oriented x3, Cranial nerves II-XII grossly intact, Normal Strength, Normal Sensation Psychological: Normal affect, Normal Mood Diagnostic/Tx/Re-eval Clinical Impression(s) from Imaging Studies Shoulder X-Ray 05/20/20 02:42 IMPRESSION: Normal exam, right shoulder. at 0403 Reported and signed by: Bernardo Neves MD Electronically Signed: Bernardo Neves, at 4:02 EDT Tel , Service support , - Medical Decision Making Appears well and nontoxic. Vital signs within normal limits. X-ray negative. Patient was given Lidoderm patch which did give him good pain relief. Patient will be given orthopedic follow-up and Lidoderm patches for home. Asked to return for new or worsening symptoms. Discharged home in stable condition. ED Disposition - Plan for ED Patient: Disposition: Home or Assisted Living Diagnosis: Shoulder contusion Instructions: ED Shoulder Pain Uncertain Cause Prescriptions: Lidocaine [Lidoderm Patch] 1 patch TOPICAL DAILY #7 patch Transmission Status: Pending to [facility] Referrals: Arlene Salas MD [Primary Care Provider] - Sonny Valencia DO [STAFF PHYSICIAN] -
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
[2020-05-20] MEDS: Lidocaine 5% Patch 1 PATCH TOPICAL (03:01)
[2020-05-20 04:14] VITALS: RESP 18
== END 2020-05-20 04:14 | disposition home or self-care (01) ==
PROVIDERS: Emergency Provider Emergency Medicine; PCP Internal Medicine
DX: S40.011A Contusion of right shoulder, initial encounter (principal); F17.200 Nicotine dependence, unspecified, uncomplicated; X58.XXXA Exposure to other specified factors, initial encounter
CPT/HCPCS: 73030; 99282

== ENCOUNTER 2020-05-30 20:36 | Emergency (ER) | payer MEDICAID, SELFPAY ==
[2020-05-30 20:37] VITALS: BP 151/91; PULSE 104; RESP 18; TEMP 36.6; O2SAT 97; BMI 47.9
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
[2020-05-30] MEDS: traMADol 50 MG Tablet PO (23:55)
== END 2020-05-30 23:55 | disposition home or self-care (01) ==
PROVIDERS: Emergency Provider Emergency Medicine; PCP Internal Medicine
DX: S16.1XXA Strain of muscle, fascia and tendon at neck level, initial encounter (principal); V43.52XA Car driver injured in collision with other type car in traffic accident, initial encounter; Y93.89 Activity, other specified; Y92.9 Unspecified place or not applicable; M54.10 Radiculopathy, site unspecified; M19.90 Unspecified osteoarthritis, unspecified site; J44.9 Chronic obstructive pulmonary disease, unspecified; K21.9 Gastro-esophageal reflux disease without esophagitis; I10 Essential (primary) hypertension; E11.9 Type 2 diabetes mellitus without complications; F32.9 Major depressive disorder, single episode, unspecified; Z79.899 Other long term (current) drug therapy; Z79.52 Long term (current) use of systemic steroids; Z79.84 Long term (current) use of oral hypoglycemic drugs; G89.29 Other chronic pain; E66.2 Morbid (severe) obesity with alveolar hypoventilation; Z68.42 Body mass index [BMI] 45.0-49.9, adult; F17.200 Nicotine dependence, unspecified, uncomplicated
CPT/HCPCS: 72125; 99283

== ENCOUNTER 2021-03-28 15:00 | Outpatient (RCR) | payer MEDICAID, SELFPAY ==
[2021-03-08 17:52] VITALS: BMI 44.3
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
--- NOTE | 2021-06-05 11:11 | HP.PT.NRP ---
PAIGE DHALIWAL was seen in my office for initial evaluation on 03/23/21. The following Plan of Care was established for this patient: Initial Frequency: 2x /Week Initial Duration: 4-6 Weeks Patient/Client Instruction: Educate patient on: Condition, Plan of Care For the Purpose of:: To decrease pain, To increase ROM, To improve muscle performance and motor function, To increase tolerance to activity/condition/position Therapeutic Exercise to Include: Strength training, Postural training, Flexibilty training, In an aquatic setting, Passive ROM, Active ROM, Scapular Strength/Stabilization For the Purpose of:: To decrease pain, To increase ROM, To improve muscle performance and motor function, To increase tolerance to activity/condition/position, To improve health of tissue This patient was last seen in our office 03/28/21. Pertinent comments regarding their Physical therapy will appear below: Pt seen for two visits of POC and then cancelled a visit and no showed for 3 more. at this point, it has been nearly two months and I will discontinue him due to nonattendance. At this point I will be discontinuing this patient from physical therapy. I would be happy to see this patient again in the future if found appropriate by the physician. Thank you! Gab Argueta, DPT, OCS, CSCS Balance/Gait/Functional tests - Balance/Special Test Scores Oswestry Neck Score: 34
== END 2021-03-28 19:00 | disposition home or self-care (01) ==
LOC: PT 15:00
PROVIDERS: PCP Internal Medicine; Referring Provider Internal Medicine; Visit Provider Internal Medicine
DX: M54.12 Radiculopathy, cervical region (principal)
CPT/HCPCS: 97113; 97162

== ENCOUNTER → 2021-06-19 09:51 | Outpatient (CLI) | payer MEDICAID, SELFPAY ==
[2021-06-19 09:29] VITALS: BMI 44.3
[2021-06-19 12:17] LABS: Absolute Lymphocyte Count 2.55 X10^3/uL (0.83-4.51); Absolute Neutrophil Count 3.9 X10^3/uL (2.0-7.7); Basophil# 0.03 X10^3/uL; Basophil% 0.4 % (0-1); Eosinophil# 0.08 X10^3/uL; Eosinophils% 1.1 % (0-5); Hematocrit 48.3 % (40-54); Hemoglobin 16.3 g/dL (13.0-16.5); Lymphocyte # 2.55 X10^3/ul (0.83-4.51); Lymphocyte % 33.7 % (19-41); Mean Corp Hgb Conc 33.7 g/dL (32-36); Mean Corpuscular Volume 85.9 fL (80-94); Mean Platelet Vol. 11.2 fl (6.2-12.0); Monocyte# 0.95 X10^3/uL; Monocyte% 12.5 % (0-10); NRBC Flagged by Analyzer 0 % (0-5); Neutrophil # 3.93 X10^3/uL (2.7-7.7); Neutrophil % 51.9 % (47-70); Platelet Count 258 K/mm3 (150-450); RBC Distribution Width SD 40.6 fl (35.1-43.9); Red Blood Count 5.62 M/mm3 (4.6-6.2); White Blood Count 7.6 K/mm3 (4.4-11.0)
[2021-06-19 12:29] LABS: BUN 16 mg/dL (7-18); Glucose 301 mg/dL (74-106)
[2021-06-19 12:30] LABS: ALB/GLOB Ratio 0.9 RATIO (0.9-2.4); AST(SGOT) 18 U/L (15-37); Alanine Aminotransfer ALT/SGPT 41 U/L (16-61); Albumin, Serum 3.5 g/dL (3.2-5.0); Alkaline Phosphatase 206 U/L (45-117); Anion Gap 6 (5-15); Calcium,Total 8.8 mg/dL (8.5-10.1); Chloride 101 mmol/L (98-107); Cholesterol 170 mg/dL (200); EST Glomerular Filtration Rate 126 mL/min (>60); Est Glom Filt Rate - Afr Amer 153 mL/min (>60); Globulin 4.1 g/dL (2.2-4.2); High Density Lipoprotein 39 mg/dL; Potassium 3.9 mmol/L (3.5-5.1); Protein, Total 7.6 g/dL (6.4-8.2); Sodium Level 135 mmol/L (136-145); Triglycerides 101 mg/dL; Very Low Density Lipoprotein 20 mg/dL (5-40)
[2021-06-19 12:45] LABS: Microalbumin,Random Urine 11.7 mg/L (NO RANGE EST.); Microalbumin:Creatinine Ratio 13.5 mg/g CRE (<30 mg/g CRE)
== END ==
PROVIDERS: PCP Internal Medicine; Referring Provider Internal Medicine; Visit Provider Internal Medicine
DX: E11.9 Type 2 diabetes mellitus without complications (principal)
CPT/HCPCS: 36415; 80053; 80061; 82043; 82570; 85025

== ENCOUNTER 2021-08-21 08:34 | Emergency (ER) | payer MEDICAID, SELFPAY ==
[2021-08-21 08:36] VITALS: BP 138/92; PULSE 102; RESP 22; TEMP 36.6; O2SAT 95; BMI 43.7
--- NOTE | 2021-08-21 09:05 | EKG12_ITS ---
Test Reason : CP Blood Pressure : / mmHG Vent. Rate : 099 BPM Atrial Rate : 099 BPM P-R Int : 154 ms QRS Dur : 090 ms QT Int : 352 ms P-R-T Axes : 056 056 060 degrees QTc Int : 451 ms Normal sinus rhythm Normal ECG Confirmed by MONIE GOMEZ, YENIFER ([id number]), news videotape editor NIC IGNACIO ([id number]) on 08/22/2021 9:07:20 AM Referred By: GREGORY Confirmed By:YENIFER LOMAX MD
--- NOTE | 2021-08-21 09:05 | RAD_ITS ---
STUDY: X-RAY CHEST REASON FOR EXAM: Male, 55 years old. Chest pain TECHNIQUE: Single AP portable view of the chest. COMPARISON: Comparison is made with prior study dated 10/17/2019. FINDINGS: EKG electrodes are seen. The lungs are clear and expanded. There is no demonstrated pleural abnormality. Normal size heart. Normal mediastinum and gurjit. Normal visualized pulmonary arteries. Normal visualized aortic arch and descending thoracic aorta. Normal visualized thoracic spine. Normal visualized ribs, clavicles, and shoulders. There is no demonstrated abnormality of the visualized soft tissue structures of the upper abdomen. RAD/Chest 1 View (Portable) IMPRESSION: Normal x-ray examination of the chest. Electronically Signed: Cornell Baker MD at 9:34 EDT , Service support ,
--- NOTE | 2021-08-21 09:07 | EDS_ITS ---
HPI History of Present Illness Chief Complaint: Chest Pain Narrative Narrative: 55-year-old male presenting with chest pain. Patient states he began having chest pain this morning, just before having outpatient eye surgery. EMS was called. He complained of 8 out of 10 midsternal chest pain associated with shortness of breath. Chest pain was relieved by aspirin and nitro. He has a history of hypertension, diabetes, hypercholesterolemia, smoking. Prior Similar Symptoms: No Recent Illness/Hospitalization: No CVD Risk Factors: Positive for Hypertension, Diabetes, Hypercholesterolemia and Smoking [facility] Medical History (Updated 08/21/21 @ 10:[address] Mary Jane Cabrera MD) Abdominal pain Ambulates with cane Anxiety Anxiety and depression Arthritis Asthma Back pain BiPAP (biphasic positive airway pressure) dependence Cellulitis Chronic back pain COPD (chronic obstructive pulmonary disease) Depression Diabetes Diabetes mellitus, type II Gastric reflux GERD (gastroesophageal reflux disease) History of edema History of rheumatic fever History of steroid therapy (~07/23/18) HTN (hypertension) Hypertension Injury of back Injury of head and neck Marijuana use Migraine headache Morbid obesity due to excess calories Morbid obesity with BMI of 60.0-69.9, adult Obesity hypoventilation syndrome On home oxygen therapy Peritonsillar abscess Phimosis Sleep apnea Smoker Tobacco use Wears glasses Home Medications nebulizer accessories #1 ea 07/22/18 [Rx Last Taken Unknown] disability placard #1 ea 08/14/18 [Rx Last Taken Unknown] lancets 30 gauge #200 ea 04/14/19 [Rx Last Taken Unknown] blood sugar diagnostic #100 strip 06/23/19 [Rx Last Taken Unknown] bupropion HCl 150 mg 24 hr tablet, extended release 150 mg PO BID #180 tab 01/19/21 [Rx Last Taken Unknown] omeprazole 40 mg capsule,delayed release 40 mg PO DAILY #60 cap 03/27/21 [Rx Last Taken Unknown] atorvastatin 20 mg tablet See Rx Instructions .ROUTE .COMPLEX #90 tab 06/15/21 [Rx Last Taken Unknown] mometasone-formoterol HFA 100 mcg-5 mcg/actuation aerosol inhaler See Rx Instructions .ROUTE .COMPLEX #13 g 06/15/21 [Rx Last Taken Unknown] albuterol sulfate 2.5 mg INHALATION 4X/DAY PRN #90 ml 06/19/21 [Rx Last Taken Unknown] albuterol sulfate 90 mcg/actuation aerosol inhaler See Rx Instructions .ROUTE .COMPLEX #18 g 06/19/21 [Rx Last Taken Unknown] amlodipine 5 mg tablet 5 mg PO DAILY #90 tab 06/19/21 [Rx Last Taken Unknown] blood sugar diagnostic #100 ea 06/19/21 [Rx Last Taken Unknown] blood-glucose meter #1 ea 06/19/21 [Rx Last Taken Unknown] dapagliflozin 10 mg tablet 10 mg PO QAM #90 tab 06/19/21 [Rx Last Taken Unknown] duloxetine 30 mg capsule,delayed release 30 mg PO BID #180 cap 06/19/21 [Rx Last Taken Unknown] lancets 28 gauge #200 ea 06/19/21 [Rx Last Taken Unknown] nebulizers #1 ea 06/19/21 [Rx Last Taken Unknown] insulin detemir U-100 100 unit/mL (3 mL) subcutaneous pen 25 unit SUBCUT QHS #15 ml 06/26/21 [Rx Last Taken Unknown] pen needle, diabetic 31 gauge x 1/4 #100 ea 07/18/21 [Rx Last Taken Unknown] liraglutide [Victoza 3-Dariel] 1 mg SUBCUT 08/21/21 [History Last Taken Unknown] Allergy/AdvReac Type Severity Reaction Status Date / Time hydrocodone bitartrate Allergy Mild Hives Verified 08/21/21 08:35 [From [place]] ibuprofen Allergy Swelling Verified 08/21/21 08:35 vancomycin Allergy Itching Verified 08/21/21 08:35 metformin AdvReac Upset Verified 08/21/21 08:35 Stomach Family History Grandmother Diabetes Hypertension Aunt Diabetes Uncle Diabetes Cancer lung Grandfather Myocardial infarction Hypertension Surgical History Status post right foot surgery Social History Smoking Status: Current every day smoker tobacco type: cigarettes Tobacco: How many years used: 35 second hand exposure: Yes alcohol intake: never substance use type: marijuana caffeine: No what type of physical activity do you participate in: other details: PT frequency: 1-2 times per week ROS ROS ED Constitutional Constitutional ED: Denies fever(s) Eyes Eyes: Denies change in vision ENT ENT ED: Denies rhinorrhea or sore throat Cardiovascular Cardiovascular: Reports chest pain; Denies palpitations Respiratory/Chest Respiratory/Chest: Reports dyspnea; Denies cough Gastrointestinal Gastrointestinal: Denies abdominal pain, diarrhea, nausea or vomiting Genitourinary Genitourinary ED: Denies dysuria Musculoskeletal Musculoskeletal: Denies myalgias Integumentary Denies rash Neurologic Neurologic: Denies headache(s) Psychiatric Psychiatric: Denies suicidal thoughts EXAM Physical Exam Const Vital Signs: 08/21/21 08:36 08/21/21 08:41 08/21/21 09:12 Temperature 97.8 F Temperature Source Temporal Pulse Rate 102 H Respiratory Rate 22 H Respiratory Effort Short of Breath Blood Pressure 138/92 H Blood Pressure Mean 107 Pulse Ox 95 96 Oxygen Delivery Method Room Air Room Air 08/21/21 09:42 Temperature Temperature Source Pulse Rate 98 Respiratory Rate 18 Respiratory Effort Blood Pressure 156/92 H Blood Pressure Mean 113 Pulse Ox 97 Oxygen Delivery Method Room Air Positive well nourished and well developed General Appearance ED: well developed HEENT Reports normocephalic and head/scalp atraumatic Eyes PERRL and EOMs intact bilaterally Neck supple General: Negative for tenderness Chest Wall inspection of chest normal Resp normal respiratory effort and clear to auscultation bilaterally Cardio regular rate and regular rhythm GI non-tender and non-distended Palpation: soft; Negative for guarding or rebound tenderness present no CVA tenderness Extremity normal to inspection Neuro oriented x3 Sensorium / Orientation: alert Psych mental status grossly normal Heart Score History: Moderately Suspicious ECG: Normal Age: >45 - <65 years Risk Factors: >/= 3 Risk Factors or History of CAD Score: 4 MDM MDM MDM Narrative Medical decision making narrative: Patient was given aspirin and nitro prior to arrival. EKG is sinus rhythm rate of 99 with no acute ischemic changes. CBC, chemistries are unremarkable. Troponin is negative. Due to patient's multiple risk factors I recommend that he is observed for further testing. Patient states he has a dog at home and is unable to stay in the hospital any longer. He understands the risks of MD, cardiac arrest and . He signed out AGAINST MEDICAL ADVICE. He is advised to follow-up with his primary care physician. Advised to return to the ED if he has any worsening complaints. Lab Data Attestation: I reviewed the patient's lab results. Labs: Laboratory Results - last 24 hr 08/21/21 08/21/21 08:42 08:42 WBC 8.3 RBC 5.43 Hgb 15.8 Hct 46.3 MCV 85.3 MCH 29.1 MCHC 34.1 RDW Std Deviation 40.1 RDW Coeff of Lora 13.0 Plt Count 250 MPV 10.5 Immature Gran % (Auto) 0.200 Neut % (Auto) 48.4 Lymph % (Auto) 38.5 [place] % (Auto) 11.7 H Eos % (Auto) 0.8 Baso % (Auto) 0.4 Absolute Neuts (auto) 4.0 Absolute Lymphs (auto) 3.20 Nucleated RBC % 0 Sodium 137 Potassium 4.0 Chloride 99 Carbon Dioxide 31.0 Anion Gap 7 BUN 21 H Creatinine 0.77 Estim Creat Clear Calc 114.56 Est GFR (MDRD) Af Amer 136 Est GFR (MDRD) Non-Af 113 BUN/Creatinine Ratio 27.4 H Glucose 295 H Calcium 9.0 Troponin I High Sens 8 Radiography Chest X-Ray - ED: 1 View, Read by ED Physician and Read by Radiologist Diagnostic Testing: Clinical Impression(s) from Imaging Studies Chest X-Ray 08/21/21 09:05 IMPRESSION: Normal x-ray examination of the chest. Electronically Signed: Cornell Baker MD at 9:34 EDT , Service support , EKG Initial EKG: Attestation: I personally reviewed and interpreted this EKG as follows: Interpretation: Sinus Rhythm and No Acute Injury Pattern Discharge Plan Triage Chief Complaint: Chest Pain ED Provider: Mary Jane Cabrera Dx/Rx/DC Orders Clinical Impression: Chest pain Instructions: ED Chest Pain, Uncertain Cause Prescriptions: No Action omeprazole 40 mg capsule,delayed release(DR/EC) 40 mg PO DAILY Qty: 60 RF: 0 duloxetine 30 mg capsule,delayed release(DR/EC) 30 mg PO BID Qty: 180 RF: 1 Farxiga 10 mg tablet 10 mg PO QAM Qty: 90 RF: 3 amlodipine 5 mg tablet 5 mg PO DAILY Qty: 90 RF: 3 albuterol sulfate 90 mcg/actuation HFA aerosol inhaler See Rx Instructions .ROUTE .COMPLEX Qty: 18 RF: 1 albuterol sulfate 2.5 mg /3 mL (0.083 %) solution for nebulization 2.5 mg INHALATION 4X/DAY PRN (Reason: shortness of breath or wheezing) Qty: 90 RF: 0 Victoza 3-Dariel 0.6 mg/0.1 mL (18 mg/3 mL) pen injector 1 mg SUBCUT RF: 0 (DME) nebulizer accessories kit kit See Dose Instructions .ROUTE .MEDSUPPLY Qty: 1 RF: 0 (DME) disability placard Qty: 1 RF: 0 (DME) lancets [Unilet Super Thin Lancets] 30 gauge misc See Dose Instructions .ROUTE .MEDSUPPLY Qty: 200 RF: 3 (DME) blood sugar diagnostic [FreeStyle Lite Strips] Strip See Rx Instructions .ROUTE .COMPLEX Qty: 100 RF: 11 bupropion HCl 150 mg tablet extended release 24 hr 150 mg PO BID Qty: 180 RF: 3 atorvastatin 20 mg tablet See Rx Instructions .ROUTE .COMPLEX Qty: 90 RF: 3 Dulera 100-5 mcg/actuation HFA aerosol inhaler See Rx Instructions .ROUTE .COMPLEX Qty: 13 RF: 4 (DME) FreeStyle Lite Strips Strip See Rx Instructions .MEDSUPPLY Qty: 100 RF: 3 (DME) blood-glucose meter [FreeStyle Lite Meter] Kit See Rx Instructions .MEDSUPPLY Qty: 1 RF: 0 (DME) lancets [FreeStyle Lancets] 28 gauge misc See Rx Instructions .MEDSUPPLY Qty: 200 RF: 3 (DME) nebulizers Misc See Rx Instructions .ROUTE .MEDSUPPLY Qty: 1 RF: 0 Levemir FlexTouch U-100 Insuln 100 unit/mL (3 mL) insulin pen 25 unit subcut QHS Qty: 15 RF: 3 (DME) pen needle, diabetic [1st Tier Unifine Pentips Plus] 31 gauge x 1/4 needle See Dose Instructions .ROUTE .MEDSUPPLY Qty: 100 RF: 3 Primary Care Provider: Arlene Salas Referrals: Arlene Salas MD [Primary Care Provider] - Disposition Disposition: Against Medical Advice
[2021-08-21 09:12] VITALS: O2SAT 96
[2021-08-21 09:16] LABS: Basophil# 0.03 X10^3/uL; Basophil% 0.4 % (0-1); Eosinophil# 0.07 X10^3/uL; Eosinophils% 0.8 % (0-5); Hematocrit 46.3 % (40-54); Hemoglobin 15.8 g/dL (13.0-16.5); Lymphocyte % 38.5 % (19-41); Mean Corp Hgb Conc 34.1 g/dL (32-36); Mean Corpuscular Hgb 29.1 pg (27.0-32.0); Mean Corpuscular Volume 85.3 fL (80-94); Mean Platelet Vol. 10.5 fl (6.2-12.0); Monocyte# 0.97 X10^3/uL; Monocyte% 11.7 % (0-10); NRBC Flagged by Analyzer 0 % (0-5); Neutrophil # 4.02 X10^3/uL (2.7-7.7); Neutrophil % 48.4 % (47-70); Platelet Count 250 K/mm3 (150-450); RBC Distribution Width SD 40.1 fl (35.1-43.9); Red Blood Count 5.43 M/mm3 (4.6-6.2); White Blood Count 8.3 K/mm3 (4.4-11.0)
[2021-08-21 09:33] LABS: Anion Gap 7 (5-15); BUN 21 mg/dL (7-18); BUN/Creat Ratio 27.4 RATIO (10-20); Chloride 99 mmol/L (98-107); Creatinine, Serum 0.77 mg/dL (0.70-1.30); EST Glomerular Filtration Rate 113 mL/min (>60); Est Glom Filt Rate - Afr Amer 136 mL/min (>60); Estimated Creatinine Clearance 114.56 ml/min; Glucose 295 mg/dL (74-106); Sodium Level 137 mmol/L (136-145); Troponin-I HS 8 pg/mL (3.0-78.0)
[2021-08-21 09:42] VITALS: BP 156/92; PULSE 98; RESP 18; O2SAT 97
--- NOTE | 2021-08-21 10:14 | ED.RN ---
ama paperwork reviewed with pt. instructions reviewed. voices understanding of both
== END 2021-08-21 10:17 | disposition left against medical advice (07) ==
PROVIDERS: Emergency Provider Emergency Medicine; PCP Internal Medicine
DX: R07.9 Chest pain, unspecified (principal); F12.90 Cannabis use, unspecified, uncomplicated; F17.210 Nicotine dependence, cigarettes, uncomplicated; E78.00 Pure hypercholesterolemia, unspecified; I10 Essential (primary) hypertension; E11.9 Type 2 diabetes mellitus without complications; G47.30 Sleep apnea, unspecified; K21.9 Gastro-esophageal reflux disease without esophagitis; J44.9 Chronic obstructive pulmonary disease, unspecified; Z79.4 Long term (current) use of insulin; Z79.51 Long term (current) use of inhaled steroids; Z79.899 Other long term (current) drug therapy
CPT/HCPCS: 71045; 80048; 84484; 85025; 93005; 99285; A4216

== ENCOUNTER 2022-01-19 00:50 | Emergency (ER) | payer MEDICAID, SELFPAY ==
[2022-01-19 00:52] VITALS: BP 143/104; PULSE 104; RESP 21; TEMP 36.6; O2SAT 96; BMI 41.5
[2022-01-19 01:03] VITALS: BP 139/100; PULSE 102; RESP 16; O2SAT 98
--- NOTE | 2022-01-19 01:03 | EKG12_ITS ---
Test Reason : SYNCOPE Blood Pressure : / mmHG Vent. Rate : 103 BPM Atrial Rate : 103 BPM P-R Int : 148 ms QRS Dur : 088 ms QT Int : 352 ms P-R-T Axes : 062 055 078 degrees QTc Int : 461 ms Sinus tachycardia Otherwise normal ECG Confirmed by MONIE GOMEZ, YENIFER ([id number]), assignment editor NIC IGNACIO ([id number]) on 01/21/2022 11:00:24 AM Referred By: TL Confirmed By:YENIFER LOMAX MD
--- NOTE | 2022-01-19 01:03 | CT_ITS ---
STUDY: CT BRAIN WITHOUT CONTRAST REASON FOR EXAM: Male, 56 years old. dizziness RADIATION DOSAGE (If Supplied By Facility): CTDIvol = ( 44.99 ) mGy, DLP = ( 849.54 ) mGycm TECHNIQUE: Transaxial CT imaging of the brain was performed without administration of intravenous contrast material. Individualized dose optimization techniques were used for this CT. COMPARISON: No relevant priors. FINDINGS: Normal soft tissue structures. Normal calvarium. Normal size ventricles and extra-axial spaces for the patient''s age. Normal white matter tracts of the cerebral hemispheres. Normal basal ganglia and thalami. Normal brainstem. Normal cerebellum. There is no intracranial hemorrhage. There are no findings of an acute ischemic infarction. Normal visualized paranasal sinuses. CT/Brain/Head without Contrast IMPRESSION: Normal unenhanced CT scan of the brain. Electronically Signed: Jefe Duke DO at 2:16 EST ,
--- NOTE | 2022-01-19 01:04 | EX.ED.DYSGE1 ---
HPI History of Present Illness Chief Complaint: Syncope Informant: patient Narrative Narrative: Brought in by private vehicle with his friend reported initial onset of ear ringing vertigo symptoms while waiting in line in the car at [employer]. He is able to get his food. He drove to parking lot next door dates he was dry heaving and he woke up with the door open. No chest pains no shortness of breath. Similar episode of vertigo 2 months ago. States currently headache. No ringing. No current spinning. No current nausea. Chronic cough. No diarrhea. History of COPD. No home oxygen. Currently reports weakness and headache. Prior similar symptoms: Yes [facility] Medical History Ambulates with cane Anxiety Anxiety and depression Arthritis Asthma Back pain BiPAP (biphasic positive airway pressure) dependence Carpal tunnel syndrome on both sides Cellulitis Chronic back pain COPD (chronic obstructive pulmonary disease) Depression Essential hypertension Gastric reflux GERD (gastroesophageal reflux disease) History of edema History of rheumatic fever History of steroid therapy (~07/23/18) Hypertension Injury of back Injury of head and neck Lower GI bleed Marijuana use Migraine headache Morbid obesity due to excess calories Obesity hypoventilation syndrome On home oxygen therapy Peritonsillar abscess Phimosis Preoperative evaluation to rule out surgical contraindication Sleep apnea Smoker Tobacco abuse Type 2 diabetes mellitus Umbilical hernia Wears glasses Home Medications nebulizer accessories #1 ea 07/22/18 [Rx Last Taken Unknown] disability placard #1 ea 08/14/18 [Rx Last Taken Unknown] lancets 30 gauge #200 ea 04/14/19 [Rx Last Taken Unknown] bupropion HCl 150 mg 24 hr tablet, extended release 150 mg PO BID #180 tab 01/19/21 [Rx Last Taken Unknown] atorvastatin 20 mg tablet See Rx Instructions .ROUTE .COMPLEX #90 tab 06/15/21 [Rx Last Taken Unknown] amlodipine 5 mg tablet 5 mg PO DAILY #90 tab 06/19/21 [Rx Last Taken Unknown] duloxetine 30 mg capsule,delayed release 30 mg PO BID #180 cap 06/19/21 [Rx Last Taken Unknown] lancets 28 gauge #200 ea 06/19/21 [Rx Last Taken Unknown] nebulizers #1 ea 06/19/21 [Rx Last Taken Unknown] pen needle, diabetic 31 gauge x 1/4 #100 ea 07/18/21 [Rx Last Taken Unknown] blood sugar diagnostic #100 ea 10/30/21 [Rx Last Taken Unknown] blood sugar diagnostic #100 strip 10/30/21 [Rx Last Taken Unknown] blood-glucose meter #1 ea 10/30/21 [Rx Last Taken Unknown] dapagliflozin 10 mg tablet 10 mg PO QAM #90 tab 10/30/21 [Rx Last Taken Unknown] liraglutide 0.6 mg/0.1 mL (18 mg/3 mL) subcutaneous pen injector 1.8 mg SUBCUT DAILY 90 Days #27 ml 11/16/21 [Rx Last Taken Unknown] albuterol sulfate 90 mcg/actuation aerosol inhaler See Rx Instructions .ROUTE .COMPLEX #18 g 01/01/22 [Rx Last Taken Unknown] insulin detemir U-100 100 unit/mL (3 mL) subcutaneous pen 25 unit SUBCUT QHS #15 ml 01/01/22 [Rx Last Taken Unknown] mometasone-formoterol HFA 100 mcg-5 mcg/actuation aerosol inhaler See Rx Instructions .ROUTE .COMPLEX #13 g 01/01/22 [Rx Last Taken Unknown] albuterol sulfate 2.5 mg INHALATION 4X/DAY PRN #90 ml 01/02/22 [Rx Last Taken Unknown] Allergy/AdvReac Type Severity Reaction Status Date / Time hydrocodone bitartrate Allergy Mild Hives Verified 01/19/22 00:51 [From [place]] ibuprofen Allergy Swelling Verified 01/19/22 00:51 vancomycin Allergy Itching Verified 01/19/22 00:51 metformin AdvReac Upset Verified 01/19/22 00:51 Stomach Family History Grandmother Diabetes Hypertension Aunt Diabetes Uncle Diabetes Cancer lung Grandfather Myocardial infarction Hypertension Surgical History History of foot surgery Social History Smoking Status: Current every day smoker tobacco type: cigarettes Tobacco: How many years used: 35 second hand exposure: Yes alcohol intake: never substance use type: marijuana caffeine: No what type of physical activity do you participate in: other details: PT frequency: 1-2 times per week ROS ROS ED Constitutional Constitutional ED: Denies chills, fever(s) or sweats Eyes Eyes: Denies change in vision ENT ENT ED: Denies dysphagia or sore throat Cardiovascular Cardiovascular: Denies chest pain, leg edema, palpitations or racing heartbeat Respiratory/Chest Respiratory/Chest: Denies cough, dyspnea or dyspnea on exertion Gastrointestinal Gastrointestinal: Reports other Details: Transient nausea and dry heaving. ; Denies abdominal pain, diarrhea, nausea or vomiting Genitourinary Genitourinary ED: Denies dysuria, hematuria or urinary frequency Musculoskeletal Musculoskeletal: Denies back pain, extremity pain or neck pain Integumentary Denies rash or wounds Neurologic Neurologic: Reports headache(s), weakness and other Details: Transient vertigo symptoms. ; Denies paresthesias EXAM Physical Exam Const Vital Signs: 01/19/22 00:52 01/19/22 00:56 01/19/22 01:03 Temperature 97.8 F Temperature Source Oral Pulse Rate 104 H 102 H Respiratory Rate 21 H 16 Respiratory Effort Non-Labored Short of Breath Respiratory Pattern Normal Blood Pressure 143/104 H 139/100 H Blood Pressure Mean 117 113 Pulse Ox 96 98 Oxygen Delivery Method Room Air Room Air 01/19/22 03:15 01/19/22 04:46 Temperature Temperature Source Pulse Rate 98 106 H Respiratory Rate 16 18 Respiratory Effort Respiratory Pattern Blood Pressure 153/102 H Blood Pressure Mean 119 Pulse Ox 98 96 Oxygen Delivery Method Room Air Positive well nourished, well developed and obese General Appearance ED: well developed and NAD Nutritional Appearance: obese HEENT Reports TM's clear and moist mucous membranes normocephalic and atraumatic Tympanic Membrane ED: Yes TM's clear Eyes PERRL, EOMs intact bilaterally and conjunctivae normal Eyes Narrative: No nystagmus. General Eye ED: Yes normal appearance of both eyes Neck no lymphadenopathy and supple Neck Narrative: No meningismus. General: Negative for tenderness Chest Wall Chest: Negative for tenderness Resp normal respiratory effort and normal air movement Effort and Inspection: symmetric chest movement; Negative for respiratory distress Cardio regular rate, regular rhythm and no murmurs Peripheral Pulses: pulses 2+ throughout GI normal to inspection, nondistended, normoactive bowel sounds and non-tender Palpation: Negative for guarding or rebound tenderness present Back/Spine no CVA tenderness and no thoracic nor lumbar tenderness Extremity normal to inspection General Extremety ED: Negative for edema or tenderness General Extremity: Negative for edema Neuro oriented x3, CN's II-XII intact bilaterally and no sensory deficits noted Sensorium / Orientation: awake and alert Skin no rashes or lesions noted and no wounds MDM MDM MDM Narrative Medical decision making narrative: Patient vital stable. No focal neurological deficits. No meningismus. Patient's history more concerns for vertigo symptoms stimulating his nausea and vomiting causing a vasovagal syncopal episode. No chest pains. His EKG is normal. I did check labs normal hemoglobin normal white cells. Creatinine 0.68. He had hemolyzed potassium of 5.9. Normal EKG normal creatinine, therefore no reason for potassium to be elevated. Sodium is 131. He was treated for his headache with Reglan and Benadryl. CT head was obtained due to vertigo symptoms returning negative. 0250: Patient sleeping on reevaluation initially reported me his head was improving attempted to ambulate by nursing however he would lift up his head states his head still hurts. Did not want to try to walk. He states feels a lot of pressure in his head. Will order IV Depakote for his head symptoms and reevaluate. 0430: Reevaluation headache improved. Patient able to ambulate with no return of symptoms. Discharged with outpatient follow-up. Lab Data Attestation: I reviewed the patient's lab results. Labs: Laboratory Results - last 24 hr 01/19/22 01/19/22 01/19/22 01:15 01:15 02:07 WBC 7.1 RBC 5.34 Hgb 15.7 Hct 46.1 MCV 86.3 MCH 29.4 MCHC 34.1 RDW Std Deviation 41.6 RDW Coeff of Lora 13.2 Plt Count 267 MPV 10.7 Immature Gran % (Auto) 0.300 Neut % (Auto) 57.1 Lymph % (Auto) 29.2 [place] % (Auto) 11.4 H Eos % (Auto) 1.4 Baso % (Auto) 0.6 Absolute Neuts (auto) 4.1 Absolute Lymphs (auto) 2.08 Nucleated RBC % 0 Sodium Cancelled 131 L Potassium Cancelled 5.9 H Chloride Cancelled 104 Carbon Dioxide Cancelled 23.0 Anion Gap Cancelled 4 L BUN Cancelled 15 Creatinine Cancelled 0.68 L Estim Creat Clear Calc Cancelled 128.23 Est GFR (MDRD) Af Amer Cancelled 157 Est GFR (MDRD) Non-Af Cancelled 130 BUN/Creatinine Ratio Cancelled 22.1 H Glucose Cancelled 236 H Calcium Cancelled 8.5 Radiography Diagnostic Testing: Clinical Impression(s) from Imaging Studies Brain CT 01/19/22 01:03 IMPRESSION: Normal unenhanced CT scan of the brain. Electronically Signed: Jefe Duke DO at 2:16 EST Reading Location ID and State: [facility] / [place] Tel , Service support , EKG Initial EKG: Comments: Sinus rhythm 103, no ST or T wave changes. QTc 461. Discharge Plan Triage Chief Complaint: Syncope ED Provider: Vince Jain Dx/Rx/DC Orders Clinical Impression: Vertigo, Headache, Syncope, vasovagal Instructions: Self-Care for Headaches, ED Fainting, Vagal Reaction, ED Vertigo, Unspecified Prescriptions: No Action duloxetine 30 mg capsule,delayed release(DR/EC) 30 mg PO BID Qty: 180 RF: 1 amlodipine 5 mg tablet 5 mg PO DAILY Qty: 90 RF: 3 (DME) FreeStyle Lite Strips Strip See Rx Instructions .ROUTE .COMPLEX Qty: 100 RF: 11 (DME) blood-glucose meter [FreeStyle Lite Meter] Kit See Rx Instructions .MEDSUPPLY Qty: 1 RF: 0 (DME) FreeStyle Lite Strips Strip See Rx Instructions .MEDSUPPLY Qty: 100 RF: 3 Farxiga 10 mg tablet 10 mg PO QAM Qty: 90 RF: 3 albuterol sulfate 90 mcg/actuation HFA aerosol inhaler See Rx Instructions .ROUTE .COMPLEX Qty: 18 RF: 1 Dulera 100-5 mcg/actuation HFA aerosol inhaler See Rx Instructions .ROUTE .COMPLEX Qty: 13 RF: 4 Levemir FlexTouch U-100 Insuln 100 unit/mL (3 mL) insulin pen 25 unit subcut QHS Qty: 15 RF: 3 albuterol sulfate 2.5 mg /3 mL (0.083 %) solution for nebulization 2.5 mg INHALATION 4X/DAY PRN (Reason: shortness of breath or wheezing) Qty: 90 RF: 0 (DME) nebulizer accessories kit kit See Dose Instructions .ROUTE .MEDSUPPLY Qty: 1 RF: 0 (DME) disability placard Qty: 1 RF: 0 (DME) lancets [Unilet Super Thin Lancets] 30 gauge misc See Dose Instructions .ROUTE .MEDSUPPLY Qty: 200 RF: 3 bupropion HCl 150 mg tablet extended release 24 hr 150 mg PO BID Qty: 180 RF: 3 atorvastatin 20 mg tablet See Rx Instructions .ROUTE .COMPLEX Qty: 90 RF: 3 (DME) lancets [FreeStyle Lancets] 28 gauge misc See Rx Instructions .MEDSUPPLY Qty: 200 RF: 3 (DME) nebulizers Misc See Rx Instructions .ROUTE .MEDSUPPLY Qty: 1 RF: 0 (DME) pen needle, diabetic [1st Tier Unifine Pentips Plus] 31 gauge x 1/4 needle See Dose Instructions .ROUTE .MEDSUPPLY Qty: 100 RF: 3 Victoza 3-Dariel 0.6 mg/0.1 mL (18 mg/3 mL) pen injector 1.8 mg SUBCUT DAILY 90 Days Qty: 27 RF: 1 Primary Care Provider: Arlene Salas Referrals: Arlene Salas MD [Primary Care Provider] - 3-5 Days Disposition Disposition: Home, Self Care Discharge Date/Time: 01/19/22 04:47
[2022-01-19] MEDS: DiphenhydrAMINE 50 MG/ML Syringe 25 MG IV (01:20)
[2022-01-19] MEDS: 0.9% Normal Saline 1,000 ML 1000 ML IV (01:20)
[2022-01-19] MEDS: Metoclopramide 10 MG/2 ML Vial 5 MG IV (01:20)
[2022-01-19 01:25] LABS: Absolute Lymphocyte Count 2.08 X10^3/uL (0.83-4.51); Absolute Neutrophil Count 4.1 X10^3/uL (2.0-7.7); Basophil# 0.04 X10^3/uL; Basophil% 0.6 % (0-1); Eosinophils% 1.4 % (0-5); Hematocrit 46.1 % (40-54); Hemoglobin 15.7 g/dL (13.0-16.5); Lymphocyte # 2.08 X10^3/ul (0.83-4.51); Lymphocyte % 29.2 % (19-41); Mean Corp Hgb Conc 34.1 g/dL (32-36); Mean Corpuscular Hgb 29.4 pg (27.0-32.0); Mean Corpuscular Volume 86.3 fL (80-94); Mean Platelet Vol. 10.7 fl (6.2-12.0); Monocyte# 0.81 X10^3/uL; Monocyte% 11.4 % (0-10); NRBC Flagged by Analyzer 0 % (0-5); Neutrophil # 4.08 X10^3/uL (2.7-7.7); Neutrophil % 57.1 % (47-70); Platelet Count 267 K/mm3 (150-450); RBC Distribution Width CV 13.2 % (11.6-14.6); RBC Distribution Width SD 41.6 fl (35.1-43.9); Red Blood Count 5.34 M/mm3 (4.6-6.2); White Blood Count 7.1 K/mm3 (4.4-11.0)
[2022-01-19 02:31] LABS: Anion Gap 4 (5-15); BUN 15 mg/dL (7-18); BUN/Creat Ratio 22.1 RATIO (10-20); Calcium,Total 8.5 mg/dL (8.5-10.1); Chloride 104 mmol/L (98-107); Creatinine, Serum 0.68 mg/dL (0.70-1.30); EST Glomerular Filtration Rate 130 mL/min (>60); Est Glom Filt Rate - Afr Amer 157 mL/min (>60); Estimated Creatinine Clearance 128.23 ml/min; Glucose 236 mg/dL (74-106); Potassium 5.9 mmol/L (3.5-5.1); Sodium Level 131 mmol/L (136-145)
[2022-01-19 03:15] VITALS: BP 153/102; PULSE 98; RESP 16; O2SAT 98
[2022-01-19 04:46] VITALS: PULSE 106; RESP 18; O2SAT 96
== END 2022-01-19 04:47 | disposition home or self-care (01) ==
PROVIDERS: Emergency Provider Emergency Medicine; PCP Internal Medicine; Visit Provider Emergency Medicine
DX: R42 Dizziness and giddiness (principal); R51.9 Headache, unspecified; R55 Syncope and collapse; F17.210 Nicotine dependence, cigarettes, uncomplicated; F12.90 Cannabis use, unspecified, uncomplicated; G47.30 Sleep apnea, unspecified; E66.9 Obesity, unspecified
CPT/HCPCS: 36415; 70450; 80048; 85025; 93005; 96361; 96365; 96366; 96375; 99285; J7030; A4216

== ENCOUNTER 2022-03-12 05:43 | Emergency (ER) | payer MEDICAID, SELFPAY ==
[2022-03-12 05:43] VITALS: BP 163/105; PULSE 109; RESP 24; TEMP 36.3; O2SAT 98; BMI 40.1
[2022-03-12 05:47] VITALS: O2SAT 98
--- NOTE | 2022-03-12 05:50 | RAD_ITS ---
STUDY: X-RAY CHEST REASON FOR EXAM: Male, 56 years old. sob TECHNIQUE: COMPARISON: August 21, 2021. FINDINGS: The lungs demonstrate mild infiltrate at the right lung base. There is no demonstrated pleural abnormality. Normal size heart. Normal mediastinum and gurjit. Normal visualized pulmonary arteries. Normal visualized aortic arch and descending thoracic aorta. Normal visualized thoracic spine. Normal visualized ribs, clavicles, and shoulders. There is no demonstrated abnormality of the visualized soft tissue structures of the upper abdomen. RAD/Chest 1 View (Portable) IMPRESSION: Normal x-ray examination of the chest. Electronically Signed: Jr Barksdale MD at 6:36 EDT ,
--- NOTE | 2022-03-12 05:50 | EKG12_ITS ---
Test Reason : DYSRHYTHMIA Blood Pressure : / mmHG Vent. Rate : 099 BPM Atrial Rate : 099 BPM P-R Int : 150 ms QRS Dur : 090 ms QT Int : 344 ms P-R-T Axes : 060 049 078 degrees QTc Int : 441 ms Normal sinus rhythm Normal ECG Confirmed by MONIE GOMEZ, YENIFER ([id number]), editor at large NIC IGNACIO ([id number]) on 03/13/2022 9:45:21 AM Referred By: LEANN Confirmed By:YENIFER LMOAX MD
--- NOTE | 2022-03-12 05:52 | ED.VIS.DYS ---
HPI History of Present Illness Chief Complaint: Shortness of Breath Narrative Narrative: Patient presents with shortness of breath for the past few days, about a week ago he lost one of his hoses for his nebulizer and has not had nebulizer since then. No fevers chills, the cough has been productive with green sputum over the past few days. He has no chest pain. No nausea or vomiting he has chronic abdominal pain in the abdominal wall near his hernia but this has not changed. He has no back pain or tearing sensation. No pleuritic component. No lower extremity edema. No travel history. [facility] Medical History Ambulates with cane Anxiety Anxiety and depression Arthritis Asthma Back pain BiPAP (biphasic positive airway pressure) dependence Carpal tunnel syndrome on both sides Cellulitis Chronic back pain COPD (chronic obstructive pulmonary disease) Depression Essential hypertension Gastric reflux GERD (gastroesophageal reflux disease) History of edema History of rheumatic fever History of steroid therapy (~07/23/18) Hypertension Injury of back Injury of head and neck Lower GI bleed Marijuana use Migraine headache Morbid obesity due to excess calories Obesity hypoventilation syndrome On home oxygen therapy Peritonsillar abscess Phimosis Preoperative evaluation to rule out surgical contraindication Sleep apnea Smoker Tobacco abuse Type 2 diabetes mellitus Umbilical hernia Wears glasses Home Medications nebulizer accessories #1 ea 07/22/18 [Rx Last Taken Unknown] disability placard #1 ea 08/14/18 [Rx Last Taken Unknown] lancets 30 gauge #200 ea 04/14/19 [Rx Last Taken Unknown] atorvastatin 20 mg tablet See Rx Instructions .ROUTE .COMPLEX #90 tab 06/15/21 [Rx Last Taken Unknown] duloxetine 30 mg capsule,delayed release 30 mg PO BID #180 cap 06/19/21 [Rx Last Taken Unknown] nebulizers #1 ea 06/19/21 [Rx Last Taken Unknown] pen needle, diabetic 31 gauge x /4 #100 ea 07/18/21 [Rx Last Taken Unknown] blood sugar diagnostic #100 ea 10/30/21 [Rx Last Taken Unknown] blood sugar diagnostic #100 strip 10/30/21 [Rx Last Taken Unknown] blood-glucose meter #1 ea 10/30/21 [Rx Last Taken Unknown] dapagliflozin 10 mg tablet 10 mg PO QAM #90 tab 12/21/21 [Rx Last Taken Unknown] liraglutide 0.6 mg/0.1 mL (18 mg/3 mL) subcutaneous pen injector 1.8 mg SUBCUT DAILY 90 Days #27 ml 11/16/21 [Rx Last Taken Unknown] albuterol sulfate 90 mcg/actuation aerosol inhaler See Rx Instructions .ROUTE .COMPLEX #18 g 01/01/22 [Rx Last Taken Unknown] insulin detemir U-100 100 unit/mL (3 mL) subcutaneous pen 25 unit SUBCUT QHS #15 ml 01/01/22 [Rx Last Taken Unknown] albuterol sulfate 2.5 mg INHALATION 4X/DAY PRN #90 ml 01/02/22 [Rx Last Taken Unknown] amlodipine 5 mg tablet 5 mg PO DAILY #90 tab 02/06/22 [Rx Last Taken Unknown] bupropion HCl 150 mg 24 hr tablet, extended release 150 mg PO BID #180 tab 02/06/22 [Rx Last Taken Unknown] lancets 28 gauge #200 ea 02/06/22 [Rx Last Taken Unknown] doxycycline hyclate 100 mg PO BID #20 tab 03/12/22 [Rx Last Taken Unknown] doxycycline hyclate 100 mg PO BID #20 tab 03/12/22 [Rx Last Taken Unknown] prednisone 40 mg PO DAILY #6 tab 03/12/22 [Rx Last Taken Unknown] Allergy/AdvReac Type Severity Reaction Status Date / Time hydrocodone bitartrate Allergy Mild Hives Verified 03/12/22 05:49 [From [place]] ibuprofen Allergy Swelling Verified 03/12/22 05:49 vancomycin Allergy Itching Verified 03/12/22 05:49 metformin AdvReac Upset Verified 03/12/22 05:49 Stomach Family History Grandmother Diabetes Hypertension Aunt Diabetes Uncle Diabetes Cancer lung Grandfather Myocardial infarction Hypertension Surgical History History of foot surgery Social History Smoking Status: Current every day smoker tobacco type: cigarettes Tobacco: How many years used: 35 second hand exposure: Yes alcohol intake: never substance use type: marijuana caffeine: Yes Type: carbonated beverages and tea what type of physical activity do you participate in: other details: PT frequency: 1-2 times per week ROS ROS ED ROS Narrative Past medical history: Reviewed, significant for hypertension, cardiovascular disease, obesity, diabetes, COPD, GERD, arthritis, depression Medications: Reviewed Social history: Noncontributory Review of systems: All systems negative except as indicated General: No fever Eyes: No visual changes ENT: No upper airway congestion, normal voice Neck: No neck pain Cardiovascular: No chest pain Respiratory: As in HPI Gastrointestinal: No abdominal pain, nausea vomiting or diarrhea Genitourinary: No dysuria Musculoskeletal: Denies myalgias no difficulty with ambulation Skin: No rash Neurological: No memory loss, confusion or any focal weakness Psych: No recent behavioral changes Hematologic: No easy bleeding or easy bruising EXAM Physical Exam Narrative Exam Narrative: Physical exam General: Patient is relatively comfortable. He appears chronically ill but not acutely ill. He appears the stated BMI of 40 Head: Normocephalic, Atraumatic Eyes: Conjunctiva not pale ENT: Moist mucous membranes Neck: Supple, Nontender, No lymphadenopathy Cardiovascular: Regular rate, Regular rhythm Respiratory: Coarse bilateral breath sounds, he has bilateral wheezing, he is speaking in full sentences. He is not tachypneic. Abdomen: Soft, umbilical hernia and abdominal wall hernia, easily reducible. Back: Nontender, Normal Inspection. Negative for: CVA tenderness Extremities: Nontender, No edema Skin: Normal color, No rash Neurological: Alert, Normal Strength, Normal Sensation Psychological: Normal affect Const Vital Signs: 03/12/22 05:43 03/12/22 05:47 Temperature 97.3 F L Temperature Source Temporal Pulse Rate 109 H Respiratory Rate 24 H Respiratory Effort Labored Accessory Muscle Use Respiratory Depth Deep Respiratory Pattern Tachypnea Blood Pressure 163/105 H Blood Pressure Mean 124 Pulse Ox 98 Oxygen Delivery Method Room Air Room Air MDM MDM Radiography Diagnostic Testing: Patient appears relatively well, he will need new tubing for his nebulizer which we will provide here. Patient will receive nebulizers. Because of his productive cough he meets criteria for antibiotics. He will get a low-dose of steroids. Otherwise he can follow-up with his PCP. Discharge Plan Triage Chief Complaint: Shortness of Breath ED Provider: Roc Carlos Dx/Rx/DC Orders Clinical Impression: COPD (chronic obstructive pulmonary disease), Acute dyspnea Instructions: COPD: Chronic Coughing, COPD: Using Inhalers Prescriptions: New doxycycline hyclate 100 mg tablet 100 mg PO BID Qty: 20 RF: 0 doxycycline hyclate 100 mg tablet 100 mg PO BID Qty: 20 RF: 0 prednisone 20 mg tablet 40 mg PO DAILY Qty: 6 RF: 0 No Action duloxetine 30 mg capsule,delayed release(DR/EC) 30 mg PO BID Qty: 180 RF: 1 (DME) FreeStyle Lite Strips Strip See Rx Instructions .ROUTE .COMPLEX Qty: 100 RF: 11 (DME) blood-glucose meter [FreeStyle Lite Meter] Kit See Rx Instructions .MEDSUPPLY Qty: 1 RF: 0 (DME) FreeStyle Lite Strips Strip See Rx Instructions .MEDSUPPLY Qty: 100 RF: 3 Farxiga 10 mg tablet 10 mg PO QAM Qty: 90 RF: 3 albuterol sulfate 90 mcg/actuation HFA aerosol inhaler See Rx Instructions .ROUTE .COMPLEX Qty: 18 RF: 1 Levemir FlexTouch U-100 Insuln 100 unit/mL (3 mL) insulin pen 25 unit subcut QHS Qty: 15 RF: 3 albuterol sulfate 2.5 mg /3 mL (0.083 %) solution for nebulization 2.5 mg INHALATION 4X/DAY PRN (Reason: shortness of breath or wheezing) Qty: 90 RF: 0 (DME) nebulizer accessories kit kit See Dose Instructions .ROUTE .MEDSUPPLY Qty: 1 RF: 0 (DME) disability placard Qty: 1 RF: 0 (DME) lancets [Unilet Super Thin Lancets] 30 gauge misc See Dose Instructions .ROUTE .MEDSUPPLY Qty: 200 RF: 3 atorvastatin 20 mg tablet See Rx Instructions .ROUTE .COMPLEX Qty: 90 RF: 3 (DME) nebulizers Misc See Rx Instructions .ROUTE .MEDSUPPLY Qty: 1 RF: 0 (DME) pen needle, diabetic [1st Tier Unifine Pentips Plus] 31 gauge x 1/4 needle See Dose Instructions .ROUTE .MEDSUPPLY Qty: 100 RF: 3 Victoza 3-Dariel 0.6 mg/0.1 mL (18 mg/3 mL) pen injector 1.8 mg SUBCUT DAILY 90 Days Qty: 27 RF: 1 amlodipine 5 mg tablet 5 mg PO DAILY Qty: 90 RF: 3 bupropion HCl 150 mg tablet extended release 24 hr 150 mg PO BID Qty: 180 RF: 3 (DME) lancets [FreeStyle Lancets] 28 gauge misc See Rx Instructions .MEDSUPPLY Qty: 200 RF: 3 Primary Care Provider: Arlene Salas Referrals: Arlene Salas MD [Primary Care Provider] - 3-5 Days Disposition Disposition: Home, Self Care
[2022-03-12] MEDS: predniSONE 20 MG Tablet 40 MG PO (06:00)
[2022-03-12 06:01] VITALS: PULSE 100; RESP 16; RESP 18; O2SAT 96
[2022-03-12] MEDS: Ipratropium/Albuterol Sulfate 3 ML AMPUL.NEB INHALATION (06:01)
[2022-03-12] MEDS: Albuterol 2.5 MG/3 ML VIAL.NEB. INHALATION ×3 (06:01→06:27)
[2022-03-12] MEDS: Ceftriaxone 1 GM/50 ML BAG IV (06:02)
[2022-03-12 06:04] LABS: Absolute Lymphocyte Count 3.21 X10^3/uL (0.83-4.51); Basophil# 0.04 X10^3/uL; Basophil% 0.5 % (0-1); Eosinophil# 0.07 X10^3/uL; Eosinophils% 0.8 % (0-5); Hematocrit 47.8 % (40-54); Hemoglobin 16.3 g/dL (13.0-16.5); Lymphocyte # 3.21 X10^3/ul (0.83-4.51); Lymphocyte % 38.6 % (19-41); Mean Corp Hgb Conc 34.1 g/dL (32-36); Mean Corpuscular Hgb 28.8 pg (27.0-32.0); Mean Corpuscular Volume 84.6 fL (80-94); Mean Platelet Vol. 10.1 fl (6.2-12.0); Monocyte# 0.97 X10^3/uL; Monocyte% 11.7 % (0-10); NRBC Flagged by Analyzer 0 % (0-5); Neutrophil # 4.01 X10^3/uL (2.7-7.7); Neutrophil % 48.2 % (47-70); Platelet Count 277 K/mm3 (150-450); RBC Distribution Width CV 12.9 % (11.6-14.6); RBC Distribution Width SD 39.9 fl (35.1-43.9); Red Blood Count 5.65 M/mm3 (4.6-6.2); White Blood Count 8.3 K/mm3 (4.4-11.0)
--- NOTE | 2022-03-12 06:17 | CPS ---
x2 Albuterol given to pt. in ER as well
[2022-03-12 06:27] VITALS: PULSE 106; RESP 20
[2022-03-12 06:33] VITALS: BP 127/72; PULSE 101; RESP 24; O2SAT 94
[2022-03-12 06:53] LABS: ALB/GLOB Ratio 0.8 RATIO (0.9-2.4); AST(SGOT) 18 U/L (15-37); Alanine Aminotransfer ALT/SGPT 31 U/L (16-61); Albumin, Serum 3.3 g/dL (3.2-5.0); Alkaline Phosphatase 243 U/L (45-117); Anion Gap 5 (5-15); BUN 18 mg/dL (7-18); BUN/Creat Ratio 24.6 RATIO (10-20); Chloride 99 mmol/L (98-107); Creatinine, Serum 0.73 mg/dL (0.70-1.30); EST Glomerular Filtration Rate 119 mL/min (>60); Est Glom Filt Rate - Afr Amer 143 mL/min (>60); Estimated Creatinine Clearance 119.44 ml/min; Glucose 270 mg/dL (74-106); Potassium 3.9 mmol/L (3.5-5.1); Protein, Total 7.3 g/dL (6.4-8.2); Sodium Level 134 mmol/L (136-145)
[2022-03-12 07:09] LABS: BNP,B-Type NATRIURETIC PEPTIDE 10.9 pg/mL (0-100)
--- NOTE | 2022-03-12 07:26 | ED.RN ---
Pt standing up at door waving at staff. Pt states he wants to go home and get [place] because his throat hurts from the breathing treatments. Advised pt that his antibiotic was not done yet and he needs to wait for it to be completed. Pt states I don't care, just take my IV out. IV removed and DC instructions given.
== END 2022-03-12 07:32 | disposition home or self-care (01) ==
LOC: ED 06:26
PROVIDERS: Emergency Provider Emergency Medicine; PCP Internal Medicine; Visit Provider Emergency Medicine
DX: J44.9 Chronic obstructive pulmonary disease, unspecified (principal); E11.9 Type 2 diabetes mellitus without complications; Z79.4 Long term (current) use of insulin; R06.00 Dyspnea, unspecified; F17.210 Nicotine dependence, cigarettes, uncomplicated; F12.90 Cannabis use, unspecified, uncomplicated; I10 Essential (primary) hypertension; G47.30 Sleep apnea, unspecified; Z79.899 Other long term (current) drug therapy; Z99.81 Dependence on supplemental oxygen
CPT/HCPCS: G0463; 71045; 80053; 83880; 85025; 93005; 94640; 96365; 96367; 99251; 99285; J7030; A4216

== ENCOUNTER 2022-08-15 03:57 | Emergency (ER) | payer MEDICAID, SELFPAY ==
[2022-08-15 03:57] VITALS: BP 165/99; PULSE 111; RESP 18; TEMP 36.7; O2SAT 98; BMI 43.4
--- NOTE | 2022-08-15 04:07 | EX.ED.VIS.UR ---
HPI HPI - URI History of Present Illness Chief Complaint: Ear Problem Detail of Chief Complaint: Left earache for 2 days Informant: patient Onset/Context/Timing Onset: Today and Yesterday Context: Gradual Onset Timing: Continuous Current Severity: Mild Maximum Severity: Mild Worsened by: Not Worsened By Swallowing, Eating Solids or Drinking Liquids Relieved by: Not Relieved By Tylenol or NSAIDs Associated Symptoms Associated Symptoms: Negative for Nasal Congestion, Headache, Nausea, Vomiting, Diarrhea, Nonproductive cough, Hemoptysis or Productive Cough Narrative Narrative: 56-year-old male history of diabetes currently on no medications. States has had a left earache for last 2 to 3 days. Denies any trauma. No fever. No cough. No sore throat. Prior similar symptoms: Yes Recent Illness/Hospitalization: No ROS ROS ED ROS Narrative Left earache only. Review of Systems ROS Unobtainable: Denies due to encephalopathy Constitutional Constitutional ED: Denies chills or fever(s) Eyes Eyes: Denies blurry vision ENT ENT ED: Reports ear pain; Denies rhinorrhea or sore throat Cardiovascular Cardiovascular: Denies chest pain, palpitations or racing heartbeat Respiratory/Chest Respiratory/Chest: Denies cough or dyspnea Gastrointestinal Gastrointestinal: Denies abdominal pain Genitourinary Genitourinary ED: Denies dysuria Musculoskeletal Musculoskeletal: Denies arthralgias Integumentary Denies abscess Neurologic Neurologic: Denies headache(s) Psychiatric Psychiatric: Denies anxiety Endocrine Endocrinology: Denies cold intolerance Hematologic/Lymphatic Hematologic/Lymphatic: Denies easy bleeding Allergic/Immunologic Allergic/Immunologic ED: Denies mouth swelling or tongue swelling [facility] Medical History Ambulates with cane Anxiety Anxiety and depression Arthritis Asthma Back pain BiPAP (biphasic positive airway pressure) dependence Carpal tunnel syndrome on both sides Cellulitis Chronic back pain COPD (chronic obstructive pulmonary disease) Depression Essential hypertension Gastric reflux GERD (gastroesophageal reflux disease) History of edema History of rheumatic fever History of steroid therapy (~07/23/18) Hypertension Injury of back Injury of head and neck Lower GI bleed Marijuana use Migraine headache Morbid obesity due to excess calories Obesity hypoventilation syndrome On home oxygen therapy Peritonsillar abscess Phimosis Preoperative evaluation to rule out surgical contraindication Sleep apnea Smoker Tobacco abuse Type 2 diabetes mellitus Umbilical hernia Wears glasses Home Medications amoxicillin 500 mg capsule 500 mg PO TID 7 days #21 caps 08/15/22 [Rx Last Taken Unknown] Allergy/AdvReac Type Severity Reaction Status Date / Time hydrocodone bitartrate Allergy Mild Hives Verified 08/15/22 04:00 [From [place]] ibuprofen Allergy Swelling Verified 08/15/22 04:00 vancomycin Allergy Itching Verified 08/15/22 04:00 metformin AdvReac Upset Verified 08/15/22 04:00 Stomach Family History Grandmother Diabetes Hypertension Aunt Diabetes Uncle Diabetes Cancer lung Grandfather Myocardial infarction Hypertension Surgical History History of foot surgery Social History Smoking Status: Current every day smoker tobacco type: cigarettes Tobacco: How many years used: 35 second hand exposure: Yes alcohol intake: never substance use type: marijuana caffeine: Yes Type: carbonated beverages and tea what type of physical activity do you participate in: other details: PT frequency: 1-2 times per week EXAM Physical Exam Narrative Exam Narrative: 56-year-old male. Vital signs stable afebrile. No distress. H EENT exam [place] unremarkable. Left eardrum is dull, red mildly retracted. No perforation. Canal unremarkable. Posterior pharynx normal. Neck nontender. No lymphadenopathy. Lungs clear to auscultation. Heart regular rhythm rate about 110 no murmur. Abdomen soft and nontender. No peritoneal signs. Moving all 4 extremities. Neurologically is awake and alert. No focal motor deficits. Const Vital Signs: 08/15/22 03:57 Temperature 98.1 F Temperature Source Oral Pulse Rate 111 H Respiratory Rate 18 Blood Pressure 165/99 H Blood Pressure Mean 121 Pulse Ox 98 Oxygen Delivery Method Room Air Positive well nourished, well developed and obese; Negative for cachectic or contractures General Appearance ED: well developed and NAD; Negative for cachectic, contractures, cyanotic, diaphoretic or pallor Nutritional Appearance: obese; Negative for cachectic HEENT Reports moist mucous membranes; Denies dry mucous membranes normocephalic and atraumatic; Negative for scalp tenderness Face and Sinus: Negative for sinus tenderness Mouth ED: No dry mucous membranes Mouth: No dry mucous membranes Teeth and Gingiva: Negative for caries Throat: posterior oropharynx normal Eyes PERRL and EOMs intact bilaterally General Eye ED: Negative for pale conjunctiva or scleral icterus Neck no lymphadenopathy, supple, no meningeal signs and no JVD General: Negative for anterior neck swelling or lymphadenopathy Resp normal respiratory effort and clear to auscultation bilaterally Effort and Inspection: Negative for retractions Auscultation: Negative for rales, rhonchi or wheezes Cardio S1 normal heart sound, S2 normal heart sound and no murmurs Rate: tachycardic Rhythm: regular rhythm GI non-tender, non-distended and no masses Inspection: Negative for abdominal distention Auscultation: normoactive bowel sounds Palpation: soft; Negative for tender Back/Spine no CVA tenderness General Back: Negative for CVA tenderness Cervical Spine: Negative for cervical spine tenderness Thoracic Spine / Upper Back: Negative for thoracic spinal tenderness Lumbar Spine / Lower Back: Negative for lumbar spinal tenderness Sacrum: Negative for tenderness Extremity normal to inspection and full ROM General Extremety ED: Negative for cyanosis, tenderness or other findings General Extremity: Negative for cyanosis or other findings Neuro oriented x3 Sensorium / Orientation: alert, oriented to person, oriented to place and oriented to time; Negative for orientation impaired, lethargic or stuporous Motor Exam: strength 5/5 throughout Psych mental status grossly normal Appearance: Negative for other Attitude: No agitated Mood & Affect: Negative for depressed, anxious or tearful Skin General Skin Exam: Negative for jaundice or pallor Lesions: no lesions Rashes: no rashes Trauma: Negative for abrasion MDM MDM MDM Narrative Medical decision making narrative: 56-year-old male left earache for 2 days. On exam looks like otitis media. No externa. He will be started on amoxicillin 500mg 3 times a day for 1 week. Given first dose here. Tylenol for pain. Follow-up as needed. Discharge Plan Triage Chief Complaint: Ear Problem ED Provider: Manoj Pena Dx/Rx/DC Orders Clinical Impression: Otitis media, Type 2 diabetes mellitus Instructions: ED Otitis Media Antibiotic ... Prescriptions: New amoxicillin 500 mg capsule 500 mg PO TID 7 Days Qty: 21 0RF Primary Care Provider: Arlene Salas Referrals: Arlene Salas MD [Primary Care Provider] - 1 Week if not improving Activity Restrictions/Additional Instructions: Tylenol for pain. Follow-up with your primary care physician if not improving. The antibiotic, amoxicillin, 3 times a day for 1 week. Disposition Disposition: Home, Self Care
[2022-08-15] MEDS: AMOXICILLIN 500 MG CAPSULE PO (04:10)
== END 2022-08-15 04:17 | disposition home or self-care (01) ==
PROVIDERS: Emergency Provider Emergency Medicine; PCP Internal Medicine; Visit Provider Emergency Medicine
DX: H66.91 Otitis media, unspecified, right ear (principal); F12.90 Cannabis use, unspecified, uncomplicated; F17.210 Nicotine dependence, cigarettes, uncomplicated; E66.9 Obesity, unspecified; G47.30 Sleep apnea, unspecified; Z99.81 Dependence on supplemental oxygen
CPT/HCPCS: 99283

== ENCOUNTER 2022-10-17 22:45 | Emergency (ER) | payer MEDICAID, SELFPAY ==
[2022-10-17 22:46] VITALS: BP 160/94; PULSE 112; RESP 18; TEMP 37.5; O2SAT 100; BMI 43.2
--- NOTE | 2022-10-17 22:52 | EKG12_ITS ---
Test Reason : CP Blood Pressure : / mmHG Vent. Rate : 106 BPM Atrial Rate : 106 BPM P-R Int : 146 ms QRS Dur : 088 ms QT Int : 330 ms P-R-T Axes : 066 066 079 degrees QTc Int : 438 ms Sinus tachycardia Otherwise normal ECG Confirmed by LOUIS GOMEZ, SEBASTIEN ([id number]), editorial specialist NIC IGNACIO ([id number]) on 10/22/2022 10:47:27 AM Referred By: PEDRO Confirmed By:RICHARD MYERS MD
--- NOTE | 2022-10-17 23:20 | RAD_ITS ---
INDICATION: cough EXAMINATION/TECHNIQUE: X-RAY - XR Chest 1 View COMPARISON: 03/12/2022 FINDINGS: LINES/DEVICES: None. LUNGS: No consolidation, edema or effusion. No pneumothorax. MEDIASTINUM AND CARDIOVASCULAR STRUCTURES: Cardiac silhouette not enlarged. Central airways and mediastinal contour are unremarkable. BONES AND SOFT TISSUES: Unremarkable. RAD/Chest 1 View (Portable) IMPRESSION: No acute cardiopulmonary disease. Electronically Signed: Samson Arenas MD at 23:44 EST ,
[2022-10-17] MEDS: dexAMETHasone 10 MG/ML Vial IV (23:23)
[2022-10-17] MEDS: Acetaminophen 500 MG Tablet 1000 MG PO (23:23)
[2022-10-17 23:35] LABS: Anion Gap 8 (5-15); BUN 11 mg/dL (7-18); BUN/Creat Ratio 14.5 RATIO (10-20); Calcium,Total 9.2 mg/dL (8.5-10.1); Chloride 93 mmol/L (98-107); Creatinine, Serum 0.76 mg/dL (0.70-1.30); EST Glomerular Filtration Rate 113 mL/min (>60); Est Glom Filt Rate - Afr Amer 137 mL/min (>60); Estimated Creatinine Clearance 114.73 ml/min; Glucose 240 mg/dL (74-106); Potassium 3.6 mmol/L (3.5-5.1); Sodium Level 131 mmol/L (136-145); Troponin-I HS 8 pg/mL (3.0-78.0)
[2022-10-17 23:44] LABS: Absolute Lymphocyte Count 1.39 X10^3/uL (0.83-4.51); Absolute Neutrophil Count 4.7 X10^3/uL (2.0-7.7); Basophil# 0.03 X10^3/uL; Basophil% 0.4 % (0-1); Eosinophil# 0.14 X10^3/uL; Eosinophils% 1.8 % (0-5); Hematocrit 52.7 % (40-54); Hemoglobin 17.7 g/dL (13.0-16.5); Lymphocyte # 1.39 X10^3/ul (0.83-4.51); Mean Corp Hgb Conc 33.6 g/dL (32-36); Mean Corpuscular Hgb 28.5 pg (27.0-32.0); Mean Corpuscular Volume 84.9 fL (80-94); Mean Platelet Vol. 11.1 fl (6.2-12.0); Monocyte# 1.47 X10^3/uL; NRBC Flagged by Analyzer 0 % (0-5); Neutrophil # 4.66 X10^3/uL (2.7-7.7); Neutrophil % 60.4 % (47-70); Platelet Count 227 K/mm3 (150-450); RBC Distribution Width CV 12.8 % (11.6-14.6); RBC Distribution Width SD 39.4 fl (35.1-43.9); Red Blood Count 6.21 M/mm3 (4.6-6.2); White Blood Count 7.7 K/mm3 (4.4-11.0)
--- NOTE | 2022-10-18 00:39 | EX.ED.DYSGE1 ---
HPI History of Present Illness Chief Complaint: Chest Pain Narrative Narrative: Patient is a 56-year-old male with history of diabetes and hypertension. He states that over the past 2 to 3 days he has had generalized headache nasal congestion sore throat cough and chest discomfort. He denies any known sick contacts but states his symptoms seem to be persisting and secondary to this he is concerned that he may have an infection or possible cardiac issue comes in for evaluation [facility] Medical History Ambulates with cane Anxiety Anxiety and depression Arthritis Asthma Back pain BiPAP (biphasic positive airway pressure) dependence Carpal tunnel syndrome on both sides Cellulitis Chronic back pain COPD (chronic obstructive pulmonary disease) Depression Essential hypertension Gastric reflux GERD (gastroesophageal reflux disease) History of edema History of rheumatic fever History of steroid therapy (~07/23/18) Hypertension Injury of back Injury of head and neck Lower GI bleed Marijuana use Migraine headache Morbid obesity due to excess calories Obesity hypoventilation syndrome On home oxygen therapy Peritonsillar abscess Phimosis Preoperative evaluation to rule out surgical contraindication Sleep apnea Smoker Tobacco abuse Type 2 diabetes mellitus Umbilical hernia Wears glasses Home Medications albuterol sulfate 2.5 mg/3 mL (0.083 %) solution for nebulization mg 10/17/22 [History Last Taken Unknown] oseltamivir 75 mg capsule (Tamiflu) 75 mg PO BID 5 days #10 caps 10/18/22 [Rx Last Taken Unknown] prednisone 20 mg tablet 40 mg PO DAILY 5 days #10 tabs 10/18/22 [Rx Last Taken Unknown] promethazine 6.25 mg-codeine 10 mg/5 mL syrup 5 ml PO 4X/DAY PRN PRN cough 7 days #140 mL 10/18/22 [Rx Last Taken Unknown] Allergy/AdvReac Type Severity Reaction Status Date / Time hydrocodone bitartrate Allergy Mild Hives Verified 08/15/22 04:00 [From [place]] ibuprofen Allergy Swelling Verified 08/15/22 04:00 vancomycin Allergy Itching Verified 08/15/22 04:00 metformin AdvReac Upset Verified 08/15/22 04:00 Stomach Family History Grandmother Diabetes Hypertension Aunt Diabetes Uncle Diabetes Cancer lung Grandfather Myocardial infarction Hypertension Surgical History History of foot surgery Social History Smoking Status: Current every day smoker tobacco type: cigarettes Tobacco: How many years used: 35 second hand exposure: Yes alcohol intake: never substance use type: marijuana caffeine: Yes Type: carbonated beverages and tea what type of physical activity do you participate in: other details: PT frequency: 1-2 times per week ROS ROS ED Constitutional Constitutional ED: Reports chills, fever(s) and subjective Eyes Eyes: Denies change in vision ENT ENT ED: Reports rhinorrhea and sore throat Cardiovascular Cardiovascular: Reports chest pain Respiratory/Chest Respiratory/Chest: Reports cough and dyspnea Gastrointestinal Gastrointestinal: Reports nausea; Denies abdominal pain, diarrhea or vomiting Genitourinary Genitourinary ED: Denies dysuria Musculoskeletal Musculoskeletal: Reports myalgias Integumentary Denies rash Neurologic Neurologic: Reports headache(s) Hematologic/Lymphatic Hematologic/Lymphatic: Denies easy bleeding or easy bruising EXAM Physical Exam Const Vital Signs: 10/17/22 22:46 10/17/22 22:52 10/18/22 00:47 Temperature 99.5 F H Temperature Source Temporal Pulse Rate 112 H 90 Respiratory Rate 18 18 Respiratory Effort Short of Breath Blood Pressure 160/94 H 149/67 H Blood Pressure Mean 116 94 Pulse Ox 100 96 Oxygen Delivery Method Room Air Room Air Positive well nourished, well developed and obese General Appearance ED: well developed Nutritional Appearance: obese HEENT HEENT Narrative: Nasal mucosa is hyperemic and boggy Posterior pharynx with cobblestoning consistent with sinus drainage without airway edema or compromise Eyes PERRL and EOMs intact bilaterally Neck supple and no JVD Neck Narrative: Positive anterior cervical lymphadenopathy noted Chest Wall Chest Narrative: Reproducible pain with palpation to the mid/left anterior chest the patient states is similar to the pain he has been experiencing. No bony deformity or crepitance Resp normal respiratory effort Resp Narrative: Breath sounds are diminished throughout with faint rhonchi in bilateral bases but otherwise no nasal flaring retractions tachypnea or accessory muscle use Cardio regular rhythm Rate: tachycardic GI normal to inspection, nondistended, normoactive bowel sounds, non-tender and non-distended GI Narrative: No voluntary guarding or rigidity no pulsatile mass Auscultation: normoactive bowel sounds Palpation: soft Extremity normal to inspection Extremity Narrative: No asymmetric edema no pitting edema negative Homans' sign bilaterally Neuro oriented x3 and CN's II-XII intact bilaterally Sensorium / Orientation: alert Psych mental status grossly normal Skin no rashes or lesions noted MDM MDM MDM Narrative Medical decision making narrative: Patient presented to the ER no acute respiratory distress with low-grade fever and constellation of symptoms most consistent with a viral infection. However because of his past medical history I did elect to perform a basic cardiac work-up. Labs revealed no clinically significant findings with a normal troponin at 8 and EKG was technically sinus tachycardia but revealed no acute current of injury or dysrhythmia changes. Patient's x-ray revealed no acute lung pathology and he tested positive for influenza consistent with the symptoms. At this time as he has no signs of respiratory distress or need for supplemental oxygen he can be discharged home Lab Data Attestation: I reviewed the patient's lab results. Labs: Laboratory Results - last 24 hr 10/17/22 10/17/22 23:00 23:00 WBC 7.7 RBC 6.21 H Hgb 17.7 H Hct 52.7 MCV 84.9 MCH 28.5 MCHC 33.6 RDW Std Deviation 39.4 RDW Coeff of Lora 12.8 Plt Count 227 MPV 11.1 Immature Gran % (Auto) 0.400 Neut % (Auto) 60.4 Lymph % (Auto) 18.0 L Heard % (Auto) 19.0 H Eos % (Auto) 1.8 Baso % (Auto) 0.4 Absolute Neuts (auto) 4.7 Absolute Lymphs (auto) 1.39 Nucleated RBC % 0 Sodium 131 L Potassium 3.6 Chloride 93 L Carbon Dioxide 30.0 Anion Gap 8 BUN 11 Creatinine 0.76 Estim Creat Clear Calc 114.73 Est GFR (MDRD) Af Amer 137 Est GFR (MDRD) Non-Af 113 BUN/Creatinine Ratio 14.5 Glucose 240 H Calcium 9.2 Troponin I High Sens 8 Radiography Diagnostic Testing: Clinical Impression(s) from Imaging Studies Chest X-Ray 10/17/22 23:20 IMPRESSION: No acute cardiopulmonary disease. Electronically Signed: Samson Arenas MD at 23:44 EST , Chest x-ray as interpreted by the emergency medicine physician reveals no acute infiltrate pneumothorax or pleural effusion Discharge Plan Triage Chief Complaint: Chest Pain ED Provider: Remi Philippe Dx/Rx/DC Orders Clinical Impression: Influenza A, Essential hypertension, Type 2 diabetes mellitus Instructions: ED Influenza (Adult) Prescriptions: New oseltamivir [Tamiflu] 75 mg capsule 75 mg PO BID 5 Days Qty: 10 0RF prednisone 20 mg tablet 40 mg PO DAILY 5 Days Qty: 10 0RF promethazine-codeine 6.25-10 mg/5 mL syrup 5 ml PO 4X/DAY PRN PRN (Reason: cough) 7 Days Qty: 140 0RF No Action albuterol sulfate 2.5 mg /3 mL (0.083 %) solution for nebulization Primary Care Provider: Care Physician,No Primary Referrals: Yasmine Mitchell MD [Med Staff - Cleaning And Maintenance Worker] - Care Physician,No Primary [Primary Care Provider] - Activity Restrictions/Additional Instructions: You have influenza which will last anywhere from 5 to 10 days with 7 days being the average. Take medication as directed to help control your symptoms and return to the ER should you have any further concerns Disposition Disposition: Home, Self Care Discharge Date/Time: 10/18/22 00:50
[2022-10-18 00:47] VITALS: BP 149/67; PULSE 90; RESP 18; O2SAT 96
== END 2022-10-18 00:50 | disposition home or self-care (01) ==
PROVIDERS: Emergency Provider Emergency Medicine; Visit Provider Emergency Medicine
DX: J10.1 Influenza due to other identified influenza virus with other respiratory manifestations (principal); J44.9 Chronic obstructive pulmonary disease, unspecified; E11.9 Type 2 diabetes mellitus without complications; I10 Essential (primary) hypertension; M54.9 Dorsalgia, unspecified; F12.90 Cannabis use, unspecified, uncomplicated; F17.210 Nicotine dependence, cigarettes, uncomplicated; G89.29 Other chronic pain
CPT/HCPCS: 71045; 80048; 84484; 85025; 87428; 93005; 96374; 99285; J7040; A4216

== ENCOUNTER 2022-10-20 21:43 | Emergency (ER) | payer MEDICAID, SELFPAY ==
[2022-10-20 21:44] VITALS: BP 182/106; PULSE 100; RESP 16; TEMP 36.6; O2SAT 96; BMI 42.9
--- NOTE | 2022-10-20 22:01 | CT_ITS ---
INDICATION: confusion, abd pain, tend LLQ epigast EXAMINATION: CT ABDOMEN AND PELVIS WITHOUT CONTRAST - CT Abdomen And Pelvis W/O Contrast Injection TECHNIQUE: Helically acquired images were obtained of the abdomen and pelvis without oral or IV contrast. A radiation dose optimization technique was used for this scan. IV Contrast dosage and agent: None. Oral contrast: None. COMPARISON: No prior abdominal imaging. FINDINGS: LOWER CHEST: Lung bases are clear. No cardiomegaly or pericardial effusion. Small sliding hiatal hernia. LIVER: Normal size and density. Normal contour. No focal mass exemplified on this limited unenhanced assessment. GALLBLADDER AND BILIARY TREE: No calcified gallstones. No gallbladder distension or wall edema. No intra- or extrahepatic biliary ductal dilation. PANCREAS: No focal cystic or solid mass. SPLEEN: Normal size without focal cystic or solid mass. ADRENAL GLANDS: No nodules. KIDNEYS, URETERS and BLADDER: Normal renal size and position. No mass. No hydronephrosis. Bladder is unremarkable. Minimal bilateral perinephric stranding density of questionable clinical significance. PERITONEUM: No ascites or free air. No other fluid collection. BOWEL: No evidence of acute appendicitis. No abnormally distended bowel loops or air fluid levels. No wall thickening or mass. No focal inflammatory changes. LYMPH NODES: No enlarged mesenteric or retroperitoneal lymph nodes. VESSELS: Aorta is non-dilated. Minimal intimal calcifications. REPRODUCTIVE ORGANS: Significant prostate enlargement. ABDOMINAL WALL: 5 cm fat filled umbilical hernia. BONES: No lytic or blastic abnormality. Rudimentary ribs at T12. Transitional anatomy at L5 with partial sacralization on the left. Moderate degenerative disc and endplate changes at L4-5. At least mild degenerative changes bilateral hips with a 16 mm subcortical cyst superior acetabulum. CT/Abdomen/Pelvis without Cont IMPRESSION: No acute intra-abdominal pathology. 5 cm fat filled umbilical hernia. Electronically Signed: Sonny Echevarria DO at 23:29 EST ,
--- NOTE | 2022-10-20 22:01 | EKG12_ITS ---
Test Reason : GEN ILL Blood Pressure : / mmHG Vent. Rate : 089 BPM Atrial Rate : 089 BPM P-R Int : 158 ms QRS Dur : 090 ms QT Int : 372 ms P-R-T Axes : 073 073 090 degrees QTc Int : 452 ms Poor data quality, interpretation may be adversely affected Normal sinus rhythm Low voltage QRS (Limb Leads) Confirmed by HILARIO GOMEZ, CORI ([id number]), photograph editor NIC IGNACIO ([id number]) on 10/23/2022 11:03:01 AM Referred By: Confirmed By:CORI RICH MD
--- NOTE | 2022-10-20 22:02 | CT_ITS ---
INDICATION: confusion EXAMINATION: CT BRAIN - CT Head or Brain W/O Contrast Injection TECHNIQUE: Multiple axial images were obtained of the head without intravenous contrast. A radiation dose optimization technique was used for this scan. IV Contrast dosage and agent: None. COMPARISON: CT head 01/19/2022. FINDINGS: BRAIN PARENCHYMA: No intra- or extra-axial hemorrhage. No intracranial mass or mass effect. Adames/white matter differentiation is maintained and there is no blurring of the basal ganglia. There is no hyperdense vessel. Posterior fossa structures are unremarkable. CSF SPACES: Appropriate for age. No hydrocephalus. Basal cisterns are patent. CALVARIUM, SKULL BASE, PARANASAL SINUSES AND MASTOID AIR CELLS: Intact calvarium and skull base. Mild mucosal thickening maxillary sinuses, left greater than right and ethmoid air cells. No air-fluid levels. No discrete lytic or blastic abnormalities. ORBITS: Both globes, extraocular muscles, optic nerves and retrobulbar fat appear unremarkable. ASPECTS Score for Acute Strokes: 10 CT/Brain/Head without Contrast IMPRESSION: No acute intracranial pathology. Minimal paranasal sinus disease. Electronically Signed: Sonny Echevarria DO at 23:04 EST ,
--- NOTE | 2022-10-20 22:03 | EDS_ITS ---
HPI History of Present Illness Chief Complaint: Confusion Informant: patient and family Onset/Context/Timing Onset: - (unclear) Context: - (unk) Timing: Continuous Quality: don't feel good per pt; confusion per family/mother Narrative Narrative: Patient apparently lives by himself locally. His mother lives in a neighboring [place] states he was not making sense on the phone today. He states that he feels poorly but is not cooperative, and uses many expletives during the interview. He is not physically agitated or aggressive. He clearly does not want to be here, limiting the history. When asked if he wants me to help him, he states he does not give a f___. I told the patient that he appeared to look a little dehydrated, I asked him if he was drinking fluids today. He said no. He is a known diabetic according to his mother, asked him if he checked his blood sugar today, he states no and then asked me if I checked mine. [facility] Medical History Ambulates with cane Anxiety Anxiety and depression Arthritis Asthma Back pain BiPAP (biphasic positive airway pressure) dependence Carpal tunnel syndrome on both sides Cellulitis Chronic back pain COPD (chronic obstructive pulmonary disease) Depression Essential hypertension Gastric reflux GERD (gastroesophageal reflux disease) History of edema History of rheumatic fever History of steroid therapy (~07/23/18) Hypertension Injury of back Injury of head and neck Lower GI bleed Marijuana use Migraine headache Morbid obesity due to excess calories Obesity hypoventilation syndrome On home oxygen therapy Peritonsillar abscess Phimosis Preoperative evaluation to rule out surgical contraindication Sleep apnea Smoker Tobacco abuse Type 2 diabetes mellitus Umbilical hernia Wears glasses Home Medications NK 10/20/22 [History Last Taken Unknown] Allergy/AdvReac Type Severity Reaction Status Date / Time hydrocodone bitartrate Allergy Mild Hives Verified 10/20/22 21:48 [From [place]] ibuprofen Allergy Swelling Verified 10/20/22 21:48 vancomycin Allergy Itching Verified 10/20/22 21:48 metformin AdvReac Upset Verified 10/20/22 21:48 Stomach Family History Grandmother Diabetes Hypertension Aunt Diabetes Uncle Diabetes Cancer lung Grandfather Myocardial infarction Hypertension Surgical History History of foot surgery Social History Smoking Status: Current every day smoker tobacco type: cigarettes Tobacco: How many years used: 35 second hand exposure: Yes alcohol intake: never substance use type: marijuana caffeine: Yes Type: carbonated beverages and tea what type of physical activity do you participate in: other details: PT frequency: 1-2 times per week ROS ROS ED Review of Systems ROS Unobtainable: due to mental status and other Details: and uncooperative; unclear how much is due to this vs. confusion Constitutional Constitutional ED: Reports malaise Cardiovascular Cardiovascular: Denies chest pain Respiratory/Chest Respiratory/Chest: Denies dyspnea Gastrointestinal Gastrointestinal: Reports nausea; Denies diarrhea or vomiting Genitourinary Genitourinary ED: Reports urinary frequency; Denies dysuria or hematuria Musculoskeletal Musculoskeletal: Denies back pain or neck pain Neurologic Neurologic: Denies headache(s) or paresthesias Endocrine Endocrinology: Reports polyuria EXAM Physical Exam Const Vital Signs: 10/20/22 21:44 10/20/22 23:19 Temperature 98 F Temperature Source Temporal Pulse Rate 100 Respiratory Rate 16 Respiratory Effort Normal Non-Labored Respiratory Pattern Normal Blood Pressure 182/106 H Blood Pressure Mean 131 Pulse Ox 96 Oxygen Delivery Method Room Air Positive well nourished, well developed and obese General Appearance ED: well developed and NAD Nutritional Appearance: obese HEENT Reports dry mucous membranes normocephalic and atraumatic Mouth ED: Yes dry mucous membranes Mouth: dry mucous membranes Eyes PERRL and EOMs intact bilaterally Eyes Narrative: 2-3 mm bilat Neck full ROM, no lymphadenopathy and supple Resp normal respiratory effort and clear to auscultation bilaterally Cardio regular rate, regular rhythm and no murmurs Rate: other Other Details: borderline tachycardia GI non-distended GI Narrative: Tender epigastrium and throughout left abdomen. No guarding or rebound. No palpable mass nor pulsations palpable. Nontender, nonerythematous umbilical hernia easily reducible, chronic per patient. Auscultation: normoactive bowel sounds Palpation: soft Back/Spine no CVA tenderness General Back: other FROM Extremity normal to inspection General Extremety ED: Yes edema; Negative for pulses abnormal or tenderness General Extremity: edema bilateral lower extremity Details: mild (Pretibial mid tibia, symmetric, no calf tenderness); Negative for pulses abnormal Neuro CN's II-XII intact bilaterally and no sensory deficits noted Neuro Narrative: No dysarthria. No aphasia. States he does not remember the year, but refuses to answer most questions; limited exam. Able to walk/stand without any difficulty. NIHSS not able to be completely performed but abnormal scores add to 2 only due to questions. Sensorium / Orientation: awake, alert and orientation impaired Motor Exam: strength 5/5 throughout Psych Psych Narrative: Angry, mostly uncooperative but not aggressive Skin no rashes or lesions noted and no wounds MDM MDM MDM Narrative Medical decision making narrative: Given the fact that the patient looks clinically dehydrated and is a diabetic, we checked his blood sugar and gave him a liter of IV fluids along with some Zofran, ordered labs, imaging, cardiac work-up. Lots of tests were ordered because the differential is broad given the history, especially given the fact that the history is limited. Ever since the patient has been here, his mother and grandson have been here as well, who state the patient seems more mean now than confused. The patient confirmed the former multiple times, using expletives towards myself and staff. Differential here includes infectious etiologies including but not limited to the possibilities of pneumonia, urine infection, influenza, COVID. All of this was ruled out except for UTI, but after the first liter of IV fluid, the patient still could not urinate. His labs are consistent with dehydration and his blood sugar was under 300, certainly this could have been a lot worse. Therefore he was ordered another liter of IV fluids until he was able to provide urine. Imaging included chest x-ray which my interpretation was unremarkable, radiology in agreement; CT of the head, and CT of the abdomen/pelvis given his nonspecific areas of tenderness with no other explanation. These were all negative for anything acute as well. Patient did indicate he was feeling a little better after the fluids, however his blood pressure was still elevated, it was low 180s in triage and after the fluids around 170. Patient and family both indicate that he does not take his medications, the patient has multiple excuses for this, and cannot tell us what his medications are. Therefore I gave him a dose of clonidine while we were awaiting a urine specimen. Subsequent to this, and prior to getting the second liter of IV fluids, the patient eloped. I did not have a chance to intervene here. Lab Data Attestation: I reviewed the patient's lab results. Labs: Laboratory Results - last 24 hr 10/20/22 10/20/22 22:12 22:12 WBC 4.9 RBC 5.48 Hgb 16.1 Hct 46.1 MCV 84.1 MCH 29.4 MCHC 34.9 RDW Std Deviation 39.5 RDW Coeff of Lora 12.7 Plt Count 239 MPV 10.1 Immature Gran % (Auto) 0.400 Neut % (Auto) 35.4 L Lymph % (Auto) 48.2 H Castro % (Auto) 15.4 H Eos % (Auto) 0.4 Baso % (Auto) 0.2 Absolute Neuts (auto) 1.7 L Absolute Lymphs (auto) 2.35 Nucleated RBC % 0 Differential Comment SCANNED Reactive Lymphocytes 1+ Sodium 135 L Potassium 3.7 Chloride 99 Carbon Dioxide 33.0 H Anion Gap 3 L BUN 13 Creatinine 0.58 L Estim Creat Clear Calc 150.34 Est GFR (MDRD) Af Amer 188 Est GFR (MDRD) Non-Af 155 BUN/Creatinine Ratio 22.5 H Glucose 271 H Calcium 8.4 L Total Bilirubin 0.60 AST 26 ALT 37 Alkaline Phosphatase 123 H Troponin I High Sens 7 Total Protein 6.9 Albumin 3.1 L Globulin 3.8 Albumin/Globulin Ratio 0.8 L Lipase 46 L Radiography Chest X-Ray - ED: 2 View, Read by ED Physician, No Acute Disease and Chronic Changes Diagnostic Testing: Clinical Impression(s) from Imaging Studies Brain CT 10/20/22 22:02 IMPRESSION: No acute intracranial pathology. Minimal paranasal sinus disease. Electronically Signed: Sonny Echevarria DO at 23:04 EST , Chest X-Ray 10/20/22 22:35 IMPRESSION: 1. No radiographic evidence of acute cardiopulmonary disease. Electronically Signed: Sonny Echevarria DO at 23:05 EST , Rhythm Strip Rhythm Strip: Sinus Tach Rate: 100 Ectopy: None EKG Initial EKG: Attestation: I personally reviewed and interpreted this EKG as follows: Interpretation: Sinus Rhythm (89) and No Acute Injury Pattern (and otherwise unremarkable EKG) Prior EKG tracings: available for review Prior: Unchanged Discharge Plan Triage Chief Complaint: Confusion ED Provider: Manjit Amaral Dx/Rx/DC Orders Clinical Impression: Noncompliance with medication regimen, Accelerated hypertension, Left sided abdominal pain, Abdominal pain, epigastric, Hyperglycemia due to type 2 diabetes mellitus, Acute alteration in mental status, Acute dehydration Prescriptions: No Action NK Primary Care Provider: Care Physician,No Primary Referrals: Care Physician,No Primary [Primary Care Provider] - Disposition Disposition: Elopement
[2022-10-20 22:17] LABS: Absolute Lymphocyte Count 2.35 X10^3/uL (0.83-4.51); Absolute Neutrophil Count 1.7 X10^3/uL (2.0-7.7); Basophil# 0.01 X10^3/uL; Basophil% 0.2 % (0-1); Eosinophil# 0.02 X10^3/uL; Eosinophils% 0.4 % (0-5); Hematocrit 46.1 % (40-54); Hemoglobin 16.1 g/dL (13.0-16.5); Lymphocyte # 2.35 X10^3/ul (0.83-4.51); Lymphocyte % 48.2 % (19-41); Mean Corp Hgb Conc 34.9 g/dL (32-36); Mean Corpuscular Hgb 29.4 pg (27.0-32.0); Mean Corpuscular Volume 84.1 fL (80-94); Mean Platelet Vol. 10.1 fl (6.2-12.0); Monocyte# 0.75 X10^3/uL; Monocyte% 15.4 % (0-10); NRBC Flagged by Analyzer 0 % (0-5); Neutrophil # 1.73 X10^3/uL (2.7-7.7); Neutrophil % 35.4 % (47-70); POSITIVE MORPHOLOGY YES; Platelet Count 239 K/mm3 (150-450); RBC Distribution Width CV 12.7 % (11.6-14.6); RBC Distribution Width SD 39.5 fl (35.1-43.9); Red Blood Count 5.48 M/mm3 (4.6-6.2); White Blood Count 4.9 K/mm3 (4.4-11.0)
[2022-10-20] MEDS: Ondansetron 4 MG/2 ML Vial IV (22:21)
[2022-10-20] MEDS: 0.9% Normal Saline 1,000 ML 999 ML IV ×2 (22:21→23:21)
[2022-10-20 22:34] LABS: ALB/GLOB Ratio 0.8 RATIO (0.9-2.4); AST(SGOT) 26 U/L (15-37); Alanine Aminotransfer ALT/SGPT 37 U/L (16-61); Albumin, Serum 3.1 g/dL (3.2-5.0); Alkaline Phosphatase 123 U/L (45-117); Anion Gap 3 (5-15); BUN 13 mg/dL (7-18); BUN/Creat Ratio 22.5 RATIO (10-20); Calcium,Total 8.4 mg/dL (8.5-10.1); Chloride 99 mmol/L (98-107); Creatinine, Serum 0.58 mg/dL (0.70-1.30); Differential Indicated SCAN CRITERIA MET; EST Glomerular Filtration Rate 155 mL/min (>60); Est Glom Filt Rate - Afr Amer 188 mL/min (>60); Estimated Creatinine Clearance 150.34 ml/min; Globulin 3.8 g/dL (2.2-4.2); Glucose 271 mg/dL (74-106); Lipase 46 U/L (73-393); Potassium 3.7 mmol/L (3.5-5.1); Protein, Total 6.9 g/dL (6.4-8.2); Sodium Level 135 mmol/L (136-145); Troponin-I HS 7 pg/mL (3.0-78.0)
--- NOTE | 2022-10-20 22:35 | RAD_ITS ---
INDICATION: weakness EXAMINATION/TECHNIQUE: X-RAY - XR Chest 2 Views COMPARISON: 10/17/2022 chest x-ray FINDINGS: LINES/DEVICES: None. LUNGS: Symmetric normal lung volumes. No airspace opacity or abnormal interstitial pattern. No nodule or mass. No pleural effusion or pneumothorax. MEDIASTINUM AND CARDIOVASCULAR STRUCTURES: Normal size and contour of the cardiomediastinal silhouette. No evidence of pulmonary vascular congestion. BONES AND SOFT TISSUES: No fracture or focal osseous lesion. RAD/Chest PA and Lateral IMPRESSION: 1. No radiographic evidence of acute cardiopulmonary disease. Electronically Signed: Sonny Echevarria DO at 23:05 EST ,
[2022-10-20 22:54] LABS: Differential Comment SCANNED; Reactive Lymphocyte 1+
[2022-10-20] MEDS: cloNIDine HCl 0.2 MG Tablet PO (23:16)
[2022-10-21 15:20] LABS: Bedside Glucose 263 mg/dL (74-106)
== END 2022-10-20 23:45 | disposition left against medical advice (07) ==
PROVIDERS: Emergency Provider Emergency Medicine; Visit Provider Emergency Medicine
DX: I10 Essential (primary) hypertension (principal); J44.9 Chronic obstructive pulmonary disease, unspecified; E11.65 Type 2 diabetes mellitus with hyperglycemia; F12.90 Cannabis use, unspecified, uncomplicated; E86.0 Dehydration; R10.13 Epigastric pain; F17.210 Nicotine dependence, cigarettes, uncomplicated; Z91.14 Patient's other noncompliance with medication regimen; R41.0 Disorientation, unspecified; N39.0 Urinary tract infection, site not specified
CPT/HCPCS: 70450; 71046; 74176; 80053; 82962; 83690; 84484; 85025; 87428; 93005; 96374; 99284; J7030; A4216; J2405

== ENCOUNTER 2023-04-03 00:52 | Emergency (ER) | payer MEDICAID, SELFPAY ==
--- NOTE | 2023-04-03 02:09 | CT_ITS ---
EXAM: CT ABDOMEN AND PELVIS WITHOUT INTRAVENOUS CONTRAST CLINICAL INDICATION: PAIN TECHNIQUE: Helically acquired images were obtained of the abdomen and pelvis without intravenous contrast. CTDIvol = ( 22.37 ) mGy, DLP = ( 1184.99 ) mGycm This CT exam was performed using one or more of the following dose reduction techniques: automated exposure control, adjustment of the mA and/or kV according to patient size, and/or use of iterative reconstruction technique. COMPARISON: October 20, 2022 CT FINDINGS: LOWER THORAX: Unremarkable. Lung bases are clear. No cardiomegaly. No significant pericardial effusion. ABDOMEN: LIVER: Unremarkable. Homogeneous. GALLBLADDER AND BILE DUCTS: Unremarkable. No calcified gallstones. No gallbladder distention or wall edema. No intra- or extrahepatic biliary ductal dilation. PANCREAS: Unremarkable. No focal cystic mass. SPLEEN: Unremarkable. Normal size without focal cystic or solid mass. ADRENALS: Unremarkable. No nodules. KIDNEYS AND URETERS: Kidneys are unremarkable. Normal renal size and position. No hydronephrosis. STOMACH AND BOWEL: Redemonstration of small fat-containing umbilical hernia without inflammation. No inflammatory or obstructive signs of bowel. PELVIS: APPENDIX: Normal appendix. BLADDER: Unremarkable. REPRODUCTIVE: Unremarkable as visualized. No mass. ABDOMEN and PELVIS: INTRAPERITONEAL SPACE: Unremarkable. No free air or free fluid. BONES/JOINTS: Unremarkable. No unusual lytic or sclerotic lesions of bone. SOFT TISSUES: See above. VASCULATURE: Unremarkable. Abdominal aorta is non-dilated. LYMPH NODES: Unremarkable. No enlarged lymph nodes. CT/Abdomen/Pelvis without Cont IMPRESSION: 1. No acute or inflammatory disease or bowel obstruction. 2. Ancillary findings as above. Electronically Signed: Remi Goldstein MD at 2:48 EDT ,
--- NOTE | 2023-04-03 04:30 | EDS_ITS ---
HPI History of Present Illness Informant: patient Narrative Narrative: Late note due to downtime. Presenting worsening left lower back pain for the past week. Has had back issues for last 3 years from work. He is on disability. There is been no surgical interventions. He has been doing some remodeling the home with drywall prior to symptoms occurring. Denies radicular symptoms down his legs. Denies loss of bowel or bladder control. States does feel pain in his left testicle. Denies history of kidney stones. Patient diabetic states he stopped taking medication in the past states they do not help. Denies any known kidney injury or gastric ulcers. No recent blood test. Prior similar symptoms: Yes and With Prior Back Pain PFSH [facility] Medical History Ambulates with cane Anxiety Anxiety and depression Arthritis Asthma Back pain BiPAP (biphasic positive airway pressure) dependence Carpal tunnel syndrome on both sides Cellulitis Chronic back pain COPD (chronic obstructive pulmonary disease) Depression Essential hypertension Gastric reflux GERD (gastroesophageal reflux disease) History of edema History of rheumatic fever History of steroid therapy (~07/23/18) Hypertension Injury of back Injury of head and neck Lower GI bleed Marijuana use Migraine headache Morbid obesity due to excess calories Obesity hypoventilation syndrome On home oxygen therapy Peritonsillar abscess Phimosis Preoperative evaluation to rule out surgical contraindication Sleep apnea Smoker Tobacco abuse Type 2 diabetes mellitus Umbilical hernia Wears glasses Home Medications NK 10/20/22 [History Last Taken Unknown] Allergy/AdvReac Type Severity Reaction Status Date / Time hydrocodone bitartrate Allergy Mild Hives Verified 10/20/22 21:48 [From [place]] ibuprofen Allergy Swelling Verified 10/20/22 21:48 vancomycin Allergy Itching Verified 10/20/22 21:48 metformin AdvReac Upset Verified 10/20/22 21:48 Stomach Family History Grandmother Diabetes Hypertension Aunt Diabetes Uncle Diabetes Cancer lung Grandfather Myocardial infarction Hypertension Surgical History History of foot surgery Social History Smoking Status: Current every day smoker tobacco type: cigarettes Tobacco: How many years used: 35 second hand exposure: Yes alcohol intake: never substance use type: marijuana caffeine: Yes Type: carbonated beverages and tea what type of physical activity do you participate in: other details: PT frequency: 1-2 times per week ROS ROS ED Constitutional Constitutional ED: Denies chills, fever(s) or sweats Eyes Eyes: Denies change in vision ENT ENT ED: Denies dysphagia or sore throat Cardiovascular Cardiovascular: Denies chest pain, leg edema, palpitations or racing heartbeat Respiratory/Chest Respiratory/Chest: Denies cough, dyspnea or dyspnea on exertion Gastrointestinal Gastrointestinal: Denies abdominal pain, diarrhea, nausea or vomiting Genitourinary Genitourinary ED: Denies dysuria, hematuria or urinary frequency Musculoskeletal Musculoskeletal: Reports back pain; Denies extremity pain or neck pain Integumentary Denies rash or wounds Neurologic Neurologic: Denies headache(s), paresthesias or weakness EXAM Physical Exam Const Positive well nourished and well developed General Appearance ED: well developed and NAD HEENT Reports moist mucous membranes normocephalic and atraumatic Eyes PERRL, EOMs intact bilaterally and conjunctivae normal General Eye ED: Yes normal appearance of both eyes Neck no lymphadenopathy and supple General: Negative for tenderness Chest Wall Chest: Negative for tenderness Resp normal respiratory effort and normal air movement Effort and Inspection: symmetric chest movement; Negative for respiratory distress Cardio regular rate, regular rhythm and no murmurs Peripheral Pulses: pulses 2+ throughout GI normal to inspection, nondistended, normoactive bowel sounds and non-tender Palpation: Negative for guarding or rebound tenderness present Narrative: No scrotal swelling or tenderness on exam. Back/Spine Back/Spine Narrative: Reproduced tenderness left lower lumbar. No rales. Straight leg test negative. 2+ patellar reflex. Extremity normal to inspection General Extremety ED: Negative for edema or tenderness General Extremity: Negative for edema Neuro oriented x3 and no sensory deficits noted Sensorium / Orientation: awake and alert Skin no rashes or lesions noted and no wounds MDM MDM MDM Narrative Medical decision making narrative: Interventions / MDM: Differential diagnosis: Musculoskeletal pain, kidney stones Diagnosis considered but do not suspect: N/A My EKG interpretation: N/A Imaging independently reviewed and interpreted by myself: N/A External documents reviewed: N/A Test considered but not ordered:N/A ED course: Patient declined any strong pain medications. Back pain reproduced however reports pain into his left groin. No scrotal swelling on exam. Patient with no recent lab test or for labs were ordered. Creatinine 0.72 glucose 203. Hemoglobin 16 white count 7.4. Urine negative for infection. CT scan abdomen pelvis due to downtime unable to reviewed by myself and read by radiology knowing no acute process. There is fat umbilical hernia normal appendix. He was treated with IV Toradol after normal creatinine. Re-evaluation: stable, prescribed ibuprofen and Valium to use as needed. Prescriptions written out due to downtime. He states he does have a PCP to follow-up with. Disposition discussed with patient/family/significant other: Patient Case discussed with consulting clinician: N/A Discharge Plan Triage ED Provider: Vince Jain Dx/Rx/DC Orders Clinical Impression: Acute exacerbation of chronic low back pain, Lumbar strain, Hyperglycemia due to diabetes mellitus Prescriptions: No Action NK Primary Care Provider: Care Physician,No Primary Referrals: Care Physician,No Primary [Primary Care Provider] - Disposition Disposition: Home, Self Care
[2023-04-03 09:00] LABS: Bacteria 0 SEEN /hpf (None Seen); Mucous, Urine 0 SEEN /hpf (<or=2+); Red Blood Cells-Urine 0 SEEN /hpf (0-5); Squamous Epithelial Cells - UA 0 SEEN /hpf (0-5); White Blood Cells 0 SEEN /hpf (0-5)
[2023-04-03 09:20] LABS: Color, Urine Yellow (Yellow); Glucose, Dipstick 1000 mg/dl (Normal); Ketone-Dipstick Negative (Negative); Leukocyte Esterase-Dipstick Negative /ul (Negative); Nitrite-Dipstick Negative (Negative); Occult Blood-Urine Negative /ul (Negative); Protein-Dipstick 15 mg/dl (Negative); Urine Bilirubin Dipstick Negative (Negative); Urine Clarity Clear (Clear); Urine Urobilinogen 1 mg/dl (Normal); Urine pH 6.5 (5.0 - 8.0)
[2023-04-03 09:26] LABS: Absolute Lymphocyte Count 2.44 X10^3/uL (0.83-4.51); Absolute Neutrophil Count 4.1 X10^3/uL (2.0-7.7); Basophil# 0.03 X10^3/uL; Basophil% 0.4 % (0-1); Eosinophil# 0.04 X10^3/uL; Eosinophils% 0.5 % (0-5); Hematocrit 47.3 % (40-54); Hemoglobin 16.4 g/dL (13.0-16.5); Lymphocyte # 2.44 X10^3/ul (0.83-4.51); Mean Corp Hgb Conc 34.7 g/dL (32-36); Mean Corpuscular Hgb 29.2 pg (27.0-32.0); Mean Corpuscular Volume 84.3 fL (80-94); Mean Platelet Vol. 10.1 fl (6.2-12.0); Monocyte# 0.82 X10^3/uL; Monocyte% 11.1 % (0-10); NRBC Flagged by Analyzer 0 % (0-5); Neutrophil # 4.05 X10^3/uL (2.7-7.7); Neutrophil % 54.7 % (47-70); Platelet Count 246 K/mm3 (150-450); RBC Distribution Width CV 12.8 % (11.6-14.6); RBC Distribution Width SD 39.1 fl (35.1-43.9); Red Blood Count 5.61 M/mm3 (4.6-6.2); White Blood Count 7.4 K/mm3 (4.4-11.0)
[2023-04-03 09:27] LABS: Creatinine, Serum 0.81 mg/dL (0.70-1.30); EST Glomerular Filtration Rate 105 mL/min (>60); Est Glom Filt Rate - Afr Amer 127 mL/min (>60); Potassium 3.9 mmol/L (3.5-5.1)
[2023-04-03 09:33] LABS: Glucose 203 mg/dL (74-106)
[2023-04-03 09:34] LABS: BUN 13 mg/dL (7-18)
[2023-04-03 09:35] LABS: Anion Gap 5 (5-15); Calcium,Total 9.2 mg/dL (8.5-10.1); Chloride 102 mmol/L (98-107); Sodium Level 136 mmol/L (136-145)
== END 2023-04-03 03:08 | disposition home or self-care (01) ==
PROVIDERS: Emergency Provider Emergency Medicine; Visit Provider Emergency Medicine
DX: S39.012A Strain of muscle, fascia and tendon of lower back, initial encounter (principal); E11.65 Type 2 diabetes mellitus with hyperglycemia; G89.29 Other chronic pain; F17.210 Nicotine dependence, cigarettes, uncomplicated; F12.90 Cannabis use, unspecified, uncomplicated; Z99.81 Dependence on supplemental oxygen; X58.XXXA Exposure to other specified factors, initial encounter
CPT/HCPCS: 36415; 74176; 80048; 81001; 85025; 96374; 99285; A4216

== ENCOUNTER 2024-02-09 01:33 | Emergency (ER) | payer MEDICAID, SELFPAY ==
[2024-02-09 01:36] VITALS: BP 151/97; PULSE 104; RESP 18; TEMP 36.4; O2SAT 97; BMI 43.8
--- NOTE | 2024-02-09 01:56 | ED.RN ---
Informed patient of high census in the department and wait time, pt elected to go to [facility].
== END 2024-02-09 01:59 | disposition left against medical advice (07) ==
LOC: ED 01:59
DX: Z53.21 Procedure and treatment not carried out due to patient leaving prior to being seen by health care provider (principal)
CPT/HCPCS: 99281

== ENCOUNTER 2024-12-19 18:25 | Emergency (ER) | payer MEDICAID, SELFPAY ==
[2024-12-19 18:25] VITALS: BP 167/114; PULSE 96; RESP 22; TEMP 35.4; O2SAT 100
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
== END 2024-12-19 20:47 | disposition home or self-care (01) ==
LOC: ED 20:45
PROVIDERS: Emergency Provider Emergency Medicine; Visit Provider Emergency Medicine
DX: M65.342 Trigger finger, left ring finger (principal); J44.9 Chronic obstructive pulmonary disease, unspecified; E11.9 Type 2 diabetes mellitus without complications; M79.641 Pain in right hand; M79.642 Pain in left hand; V89.2XXA Person injured in unspecified motor-vehicle accident, traffic, initial encounter; Z53.29 Procedure and treatment not carried out because of patient's decision for other reasons; E66.9 Obesity, unspecified; F41.9 Anxiety disorder, unspecified; G89.29 Other chronic pain; F17.210 Nicotine dependence, cigarettes, uncomplicated
CPT/HCPCS: 99283